=== PATIENT | female | born 1970 | race Caucasian/White ===

== ENCOUNTER 2018-10-17 21:44 | Inpatient (IN) | payer MEDICAID ==
[~2018-10-17] VITALS: Ht 157.5 cm; Wt 66.8 kg
[~2018-10-17 21:44] MED LIST: DEPA500T OR; DEPA500T2 OR; FERR325T OR; HYDROCORTISONE0.5 % TOP; LISI10TA4 OR; MAXA10TA17 OR; PRIN10TA OR; QUET20XRTB OR; ROSU10TA OR; TRAZ50TA OR
[2018-10-17 22:16] LABS: BASO # 0.1 10^3/uL (0.0-0.2); BASO % 0.3 % (0.0-1.0); HEMATOCRIT 39.4 % (36.0-47.0); HEMOGLOBIN 12.1 g/dl (12.0-15.5); LYMPH # 2.6 10^3/uL (1.5-4.5); LYMPH % 5.8 % (24.0-44.0); MEAN CORPUSCULAR HEMOGLOBIN 25.6 pg (27.0-33.0); MEAN CORPUSCULAR HGB CONC 30.7 g/dl (32.0-36.5); MEAN CORPUSCULAR VOLUME 83.5 fl (80.0-96.0); MONO # 1.2 10^3/uL (0.0-0.8); MONO % 2.7 % (0.0-5.0); NEUTROPHILS % 90.2 % (36.0-66.0); PLATELET COUNT, AUTOMATED 924 10^3/uL (150-450); RED BLOOD COUNT 4.72 10^6/uL (4.00-5.40)
[2018-10-17] MEDS ORDERED: diphenhydrAMINE INJ 50MG/ML VIAL (J1200) IV STA (22:16)
[2018-10-17] MEDS ORDERED: HALOPERIDOL 5 MG/ML VIAL (J1630) IV STA (22:16)
[2018-10-17] MEDS ORDERED: POTA1TAB14 PO (22:22)
[2018-10-17] MEDS ORDERED: OXYC1TAB23 PO (22:22)
[2018-10-17] MEDS ORDERED: COUM10TA PO (22:22)
[2018-10-17] MEDS ORDERED: insulin (22:22)
[2018-10-17] MEDS ORDERED: ASPI1TAB PO (22:22)
[2018-10-17] MEDS ORDERED: LANTINJ4 SC (22:22)
[2018-10-17] MEDS ORDERED: COLA100C5 PO (22:22)
[2018-10-17 22:30] LABS: INR 1.36; PROTHROMBIN TIME 16.9 SECONDS (12.1-14.4)
[2018-10-17] MEDS ORDERED: MORPHINE 4 MG/ML 1ML VIAL/SYRINGE (J2270) IV ONE ×2 (22:30→23:45)
[2018-10-17] MEDS ORDERED: NS 1,000 ML IV ONE ×3 (22:30→23:45)
[2018-10-17 22:31] LABS: PARTIAL THROMBOPLASTIN TIME 29.3 SECONDS (25.4-37.6)
[2018-10-17 22:50] LABS: NEUTROPHILS # 41.3 10^3/uL (1.8-7.7)
[2018-10-17 22:51] LABS: WHITE BLOOD COUNT 45.8 10^3/uL (4.0-10.0)
[2018-10-17] MEDS: GASTROGRAFIN SOLUTION 30ML PO SCH ×2 (22:55→23:25)
[2018-10-17 23:01] LABS: ALBUMIN 2.4 GM/DL (3.2-5.2); ALT/SGPT 27 U/L (12-78); BILIRUBIN,DIRECT 0.1 MG/DL (0.0-0.2); BILIRUBIN,TOTAL 0.2 MG/DL (0.2-1.0); BLOOD UREA NITROGEN 9 MG/DL (7-18); CALCIUM LEVEL 8.4 MG/DL (8.5-10.1); CARBON DIOXIDE LEVEL 18 MEQ/L (21-32); CHLORIDE LEVEL 108 MEQ/L (98-107); CREATININE FOR GFR 0.73 MG/DL (0.55-1.30); GLOMERULAR FILTRATION RATE > 60.0 (>58); GLUCOSE, FASTING 257 MG/DL (70-100); LIPASE 231 U/L (73-393); POTASSIUM SERUM 4.7 MEQ/L (3.5-5.1); SODIUM LEVEL 140 MEQ/L (136-145); TOTAL PROTEIN 6.2 GM/DL (6.4-8.2)
[2018-10-17] MEDS ORDERED: ONDANSETRON 4MG/2ML VIAL (J2405) IV ONE (23:45)
[2018-10-18] VITALS (30 sets, daily range): BP systolic 97–150; BP diastolic 64–100
[2018-10-18] MEDS ORDERED: ISOVUE-370 76% 100ML VIAL (Q9967) As Ordered ONE (00:34)
[2018-10-18] MEDS ORDERED: CIPROFLOXACIN 400 MG in APPROPRIATE DILUENT 1 EA IV ONE (02:00)
[2018-10-18] MEDS ORDERED: metroNIDAZOLE 750 MG in APPROPRIATE DILUENT 1 EA IV ONE (02:00)
[2018-10-18] MEDS ORDERED: MORPHINE 4 MG/ML 1ML VIAL/SYRINGE (J2270) IV ONE (02:30)
[2018-10-18] MEDS ORDERED: [UNRECOGNIZED DRUG - CODE] PO (02:44)
[2018-10-18] MEDS ORDERED: SENN8.6T17 PO (02:44)
[2018-10-18] MEDS ORDERED: GAS-80CH PO (02:44)
[2018-10-18] MEDS ORDERED: PHENYLephrine HCL 500 MCG/5 ML (100MCG/ML) SYRINGE (J2370) As Ordered ONE (04:25)
[2018-10-18] MEDS ORDERED: dexameTHASONE 4 MG/ML 1ML VIAL (J1100) As Ordered ONE (04:25)
[2018-10-18] MEDS ORDERED: PROPOFOL 200 MG/20 ML VIAL As Ordered ONE (04:25)
[2018-10-18] MEDS ORDERED: KETAMINE HCL 200 MG/20 ML VIAL As Ordered ONE (04:25)
[2018-10-18] MEDS ORDERED: ONDANSETRON 4MG/2ML VIAL (J2405) As Ordered ONE ×2 (04:25→06:26)
[2018-10-18] MEDS ORDERED: ROCURONIUM BROMIDE 50 MG/5 ML VIAL As Ordered ONE ×2 (04:25→04:35)
[2018-10-18] MEDS ORDERED: fentaNYL 100 MCG/2 ML INJECTION (J3010) As Ordered ONE ×2 (04:25→05:53)
[2018-10-18] MEDS ORDERED: LIDOCAINE 2% INJ 100 MG/5 ML SDV (FOR ANES.) As Ordered ONE (04:25)
[2018-10-18] MEDS ORDERED: MIDAZOLAM INJ 2 MG/2 ML VIAL (J2250) As Ordered ONE (04:25)
[2018-10-18] MEDS ORDERED: HYDROmorphone HCL 2 MG/ML 1ML VIAL (J1170) As Ordered ONE (04:29)
[2018-10-18] MEDS ORDERED: LABETALOL HCL 100 MG/20 ML VIAL As Ordered ONE (04:42)
[2018-10-18] MEDS ORDERED: SUGAMMADEX SODIUM 500 MG/5 ML VIAL (BRIDION) As Ordered ONE (05:06)
[2018-10-18] MEDS ORDERED: NS 1,000 ML IV SCH ×2 (05:36→17:00)
[2018-10-18] MEDS ORDERED: NALBUPHINE HCL 10 MG/ML AMP (J2300) IV PRN (05:45)
[2018-10-18] MEDS ORDERED: EPIDURAL/PCA KEYS XX PRN (05:45)
[2018-10-18] MEDS ORDERED: IPRATROPIUM 0.5MG/ALBUTEROL 2.5MG INH SOL UD 3ML (DUONEB)(J7620) NEB PRN (05:45)
[2018-10-18] MEDS ORDERED: NALOXONE INJ 0.4 MG/1 ML VIAL (J2310) IV PRN (05:45)
[2018-10-18] MEDS: fentaNYL 100 MCG/2 ML INJECTION (J3010) IV PRN ×4 (05:50→06:05)
[2018-10-18] MEDS ORDERED: MORPHINE 10 MG/ML 1ML VIAL (J2270) As Ordered ONE (05:53)
[2018-10-18] MEDS ORDERED: LR 1,000 ML IV SCH (06:00)
[2018-10-18] MEDS ORDERED: ONDANSETRON 4MG/2ML VIAL (J2405) IV PRN (06:00)
[2018-10-18] MEDS: MORPHINE 10 MG/ML 1ML VIAL (J2270) IV PRN ×5 (06:06→06:36)
[2018-10-18 06:12] LABS: HEMATOCRIT 37.3 % (36.0-47.0); HEMOGLOBIN 11.2 g/dl (12.0-15.5); MEAN CORPUSCULAR HEMOGLOBIN 25.2 pg (27.0-33.0); MEAN CORPUSCULAR VOLUME 83.8 fl (80.0-96.0); PLATELET COUNT, AUTOMATED 845 10^3/uL (150-450); RED BLOOD COUNT 4.45 10^6/uL (4.00-5.40)
[2018-10-18] MEDS ORDERED: METOPROLOL 5 MG/5 ML VIAL As Ordered ONE (06:12)
[2018-10-18] MEDS ORDERED: METOPROLOL 5 MG/5 ML VIAL IV ONE (06:15)
[2018-10-18] MEDS ORDERED: VANCOMYCIN HCL 1,000 MG, VIAL MATE ADAPTER 1 EACH in D5W 250 ML IV ONE (06:15)
[2018-10-18] MEDS ORDERED: MORPHINE 1MG/ML IN 0.9% NACL 100ML IV BAG As Ordered ONE (06:26)
[2018-10-18] MEDS: MORPHINE 1MG/ML IN 0.9% NACL 100ML IV BAG IV PRN (06:30)
[2018-10-18] MEDS ORDERED: METOCLOPRAMIDE INJ 10MG/2ML VIAL (J2765) As Ordered ONE (06:36)
[2018-10-18] MEDS: METOCLOPRAMIDE INJ 10MG/2ML VIAL (J2765) IV PRN (06:38)
[2018-10-18 06:48] LABS: BLOOD UREA NITROGEN 8 MG/DL (7-18); CALCIUM LEVEL 7.3 MG/DL (8.5-10.1); CARBON DIOXIDE LEVEL 13 MEQ/L (21-32); CHLORIDE LEVEL 112 MEQ/L (98-107); CREATININE FOR GFR 0.67 MG/DL (0.55-1.30); GLOMERULAR FILTRATION RATE > 60.0 (>58); GLUCOSE, FASTING 213 MG/DL (70-100); POTASSIUM SERUM 5.7 MEQ/L (3.5-5.1); SODIUM LEVEL 138 MEQ/L (136-145)
[2018-10-18 06:53] LABS: WHITE BLOOD COUNT 44.6 10^3/uL (4.0-10.0)
[2018-10-18] MEDS: PROMETHAZINE INJ 25 MG/ML VIAL (J2550) IV PRN (07:35)
[2018-10-18] MEDS ORDERED: PROMETHAZINE INJ 25 MG/ML VIAL (J2550) As Ordered ONE (07:41)
[2018-10-18] MEDS ORDERED: LR 500 ML IV ONE (07:45)
[2018-10-18] MEDS: IPRATROPIUM 0.5MG/ALBUTEROL 2.5MG INH SOL UD 3ML (DUONEB)(J7620) NEB SCH ×3 (08:00→18:21)
[2018-10-18] MEDS: HumaLOG INSULIN (NovoLOG) PER UNIT SC SCH ×3 (08:30→18:02)
[2018-10-18] MEDS ORDERED: ASPIRIN 81 MG ENTERIC TAB PO SCH (09:00)
[2018-10-18] MEDS: KETOROLAC 30 MG/ML VIAL (J1885) IV SCH ×3 (09:04→20:12)
[2018-10-18] MEDS: NS 1,000 ML IV SCH ×2 (09:04→22:40)
[2018-10-18] MEDS: PANTOPRAZOLE 40MG INJ (PROTONIX) (C9113) IV SCH (09:06)
--- NOTE | 2018-10-18 10:25 | PHACANCOPD ---
PHARMACY VANCOMYCIN DOSING Pt Demographics Demographics Patient Age:47 , Weight:66.800 , Gender: female Adjusted Body Weight Date: 10/18/18, Adjusted Body Weight: Kg Vancomycin Vancomycin indication: INTESTINAL PERFORATION Vancomycin Target Ranges: 10-20 mcg/ml Vancomycin Load Y/N: No Load Dose Date Time Vancomycin Load Dose: Date: Time: Vancomycin Dose Date: 10/18/18. Current Vancomycin Dose: [1G IV Q8H] Intermittent Dosing?: No Labs Labs Item Value Date Time White Blood Count 45.8 10^3/uL *H 10/17/182207 White Blood Count 44.6 10^3/uL *H 10/18/18 0551 Blood Urea Nitrogen 9 MG/DL 10/17/182207 Blood Urea Nitrogen 8 MG/DL 10/18/18 0551 Creatinine 0.73 MG/DL 10/17/182207 Creatinine 0.67 MG/DL 10/18/18 0551 Lactic Acid Level 5.1 MMOL/L *H 10/17/182207 Lactic Acid Level 3.8 MMOL/L *H 10/18/18 0204 Lactic Acid Followup at 4 Hours 5.2 MMOL/L *H 10/18/18 0720 Micro Microbiology 10/17/18 Blood Culture, Received Pending Creatinine Clearance Date:10/18/18. Est Creatinine Clearance: [~80.5ml/min]. Pending Labs Vancomycin trough scheduled 10/19/18 @0800, prior to the 4th dose Assessment and Plan Maintaining Current Dose?: Yes Reason for dose change: No Dose Change Pharmacist Note Pharmacist Note Date: 10/18/18. Pharmacist note: Day #1 empiric vancomycin therapy initiated at 1g IV Q8H @0900 for the treatment of an intestinal perforation - aiming for a goal trough of 10-20mcg/ml. The patient was recently hospitalized at [facility] in [place] for bowel necrosis from 08/30/18 - 09/28/18. WBC, LA, and pulse are currently elevated. The patient is afebrile. No PMH of MRSA or vanco use here at [facility]. Blood cultures are currently pending. A vancomycin trough level has been scheduled to be drawn tomorrow, 10/19/18 at 0800, prior to the 4th dose. We will continue to monitor and make dose adjustments if needed. CHRISTI MARCUS PHARMACY Oct 18, 2018 10:25
--- NOTE | 2018-10-18 10:25 | REP ---
REPEAT DICTATION CT ABDOMEN AND PELVIS WITH IV BUT WITHOUT ORAL CONTRAST: HISTORY: Pain. Preliminary report is provided at time of exam by [facility]. CT CONTRAST DOSE: 100 mL of intravenous Isovue [address] FINDINGS: Preliminary digital high risk case manager radiograph demonstrates dilated loops of large and small bowel in the central abdomen consistent with ileus. The lung bases show patchy bibasilar subsegmental discoid atelectatic changes. No pleural effusion is seen. There is a small amount of free intraperitoneal air in the anterior abdomen. Scattered at mid and upper abdominal levels. There are abnormal dilated small bowel loops in the central abdomen involving the jejunum. The loops are dilated and demonstrate moderate mural thickening and hyper-enhancement. There is a segment of one of these jejunal loops that show a focal absence of mural enhancement and this is adjacent to a collection of uncontained mesenteric gas and induration consistent with a site of perforation. A small bowel perforation is suspected. The large intestine is not dilated. The distal small bowel is decompressed. There is a small quantity of ascitic fluid in the pelvic reflections anteriorly. Fatty infiltration of the liver is seen. No focal liver lesion is seen. There is evidence of focal wedge-shaped defect in the perfusion of the spleen posteriorly and superiorly consistent with infarction. There is focal parenchymal volume loss consistent with this being subacute or chronic. There is some adjacent diaphragmatic thickening and fluid, however. In addition, the kidneys are abnormal with cortical scarring in the lower poles bilaterally and focal cortical scarring in the right mid pole decreased contrast perfusion of the left lower pole. These changes may reflect prior vascular insult versus chronic reflux nephropathy. No visceral arterial occlusion or stenosis is seen. No uterine or adnexal pathology is seen. Urinary bladder is empty but unremarkable. IMPRESSION: Bowel perforation. Findings consistent with small bowel perforation with focally absent bowel wall enhancement in one of the jejunal loops. There is inflammation, mural thickening and dilation in adjacent small bowel jejunal loops. This may reflect inflammatory bowel disease. There is some mild adjacent mesenteric adenopathy. Incidental findings include subacute splenic infarction and bilateral principally lower pole cortical scarring affecting the kidneys. Fatty infiltration of the liver is also seen. Electronically Signed by Narendra Alarcon MD 10/18/2018 05:30 P
[2018-10-18 10:59] LABS: ALBUMIN 1.7 GM/DL (3.2-5.2); ALT/SGPT 19 U/L (12-78); BILIRUBIN,TOTAL 0.4 MG/DL (0.2-1.0); TOTAL PROTEIN 4.6 GM/DL (6.4-8.2)
[2018-10-18] MEDS: metroNIDAZOLE 500 MG in APPROPRIATE DILUENT 1 EA IV SCH ×2 (11:30→18:45)
[2018-10-18] MEDS: CIPROFLOXACIN 400 MG in APPROPRIATE DILUENT 1 EA IV SCH (13:06)
[2018-10-18] MEDS: VANCOMYCIN HCL 1,000 MG, VIAL MATE ADAPTER 1 EACH in D5W 250 ML IV SCH (17:34)
[2018-10-19] VITALS (33 sets, daily range): BP systolic 91–146; BP diastolic 60–84; O2SAT 97
[2018-10-19] MEDS: VANCOMYCIN HCL 1,000 MG, VIAL MATE ADAPTER 1 EACH in D5W 250 ML IV SCH (00:30)
[2018-10-19] MEDS: CIPROFLOXACIN 400 MG in APPROPRIATE DILUENT 1 EA IV SCH ×2 (00:30→12:45)
[2018-10-19] MEDS: HumaLOG INSULIN (NovoLOG) PER UNIT SC SCH ×4 (00:45→18:17)
[2018-10-19] MEDS: diphenhydrAMINE INJ 50MG/ML VIAL (J1200) IV PRN ×4 (00:45→20:01)
[2018-10-19] MEDS: IPRATROPIUM 0.5MG/ALBUTEROL 2.5MG INH SOL UD 3ML (DUONEB)(J7620) NEB SCH ×5 (01:50→19:53)
[2018-10-19] MEDS: KETOROLAC 30 MG/ML VIAL (J1885) IV SCH ×2 (02:00→09:00)
[2018-10-19] MEDS: metroNIDAZOLE 500 MG in APPROPRIATE DILUENT 1 EA IV SCH ×3 (02:00→18:24)
[2018-10-19 05:07] LABS: HEMATOCRIT 30.8 % (36.0-47.0); HEMOGLOBIN 9.4 g/dl (12.0-15.5); MEAN CORPUSCULAR HGB CONC 30.5 g/dl (32.0-36.5); MEAN CORPUSCULAR VOLUME 81.9 fl (80.0-96.0); RED BLOOD COUNT 3.76 10^6/uL (4.00-5.40); WHITE BLOOD COUNT 23.7 10^3/uL (4.0-10.0)
[2018-10-19 05:16] LABS: PLATELET COUNT, AUTOMATED 458 10^3/uL (150-450)
[2018-10-19 05:30] LABS: BLOOD UREA NITROGEN 17 MG/DL (7-18); CALCIUM LEVEL 7.5 MG/DL (8.5-10.1); CARBON DIOXIDE LEVEL 18 MEQ/L (21-32); CHLORIDE LEVEL 112 MEQ/L (98-107); CREATININE FOR GFR 0.97 MG/DL (0.55-1.30); GLOMERULAR FILTRATION RATE > 60.0 (>58); GLUCOSE, FASTING 162 MG/DL (70-100); POTASSIUM SERUM 4.5 MEQ/L (3.5-5.1); SODIUM LEVEL 139 MEQ/L (136-145)
[2018-10-19] MEDS: NS 1,000 ML IV SCH ×4 (05:30→15:05)
[2018-10-19] MEDS: ASPIRIN 81 MG CHEW TABLET NG SCH (09:00)
[2018-10-19] MEDS: PANTOPRAZOLE 40MG INJ (PROTONIX) (C9113) IV SCH (09:00)
[2018-10-19] MEDS: MORPHINE 1MG/ML IN 0.9% NACL 100ML IV BAG IV PRN (10:54)
--- NOTE | 2018-10-19 10:58 | REP ---
Portable chest x-ray: Single view. History: Tachycardia. Comparison study: November 14, 2011. Findings: A nasogastric tube is seen looped within the gastric fundus. There are increased markings in the lung bases bilaterally overlying the diaphragms consistent with atelectasis and/or infiltrate. Heart is not enlarged. Lung [place] are otherwise clear. EKG electrodes are seen. Impression: Nasogastric tube looped within the gastric fundus. Bibasilar atelectasis and/or infiltrate pattern. Electronically Signed by Narendra Alarcon MD 10/19/2018 11:18 A
[2018-10-19 11:07] LABS: CPK CREATINE PHOSPHOKINASE 59 U/L (26-192); MB/CK RELATIVE INDEX 2.03 (< OR =4); TROPONIN I < 0.02 NG/ML (< 0.10)
[2018-10-19 11:23] LABS: ABG BASE EXCESS -7.1 (-2.0-2.0); ABG HCO3 18.3 MEQ/L (22.0-26.0); ABG O2 SATURATION 91.7 % (95.0-99.0); ABG PARTIAL PRESSURE CO2 36.4 mmHg (35.0-45.0); ABG PARTIAL PRESSURE O2 65.6 mmHg (75.0-100.0); ABG STANDARD HCO3 18.5 MEQ/L (22.0-26.0); ABG TOTAL CO2 19.4 MEQ/L (22.0-29.0); ABG pH (ARTERIAL) 7.319 UNITS (7.350-7.450)
[2018-10-19] MEDS ORDERED: HEPARIN DRIP 25,000 UNITS in APPROPRIATE DILUENT 1 EA IV SCH (11:56)
[2018-10-19] MEDS ORDERED: HEPARIN SOD (PORCINE) 5000 UNITS/ML VIAL IV PRN (12:00)
--- NOTE | 2018-10-19 13:42 | CR.PDOC ---
General Date of Consultation: Oct 19, 2018 Primary Care Physician: Maisha Smith Attending Physician: Carlos Lobo Jr Consultation PRIMARY CARE PROVIDER: Maisha Smith. ATTENDING: Dr. Lobo. CHIEF COMPLAINT: Abd pain HISTORY OF PRESENT ILLNESS: This is a 47-year-old female past medical history of diabetes mellitus, hypertension, migraines, bipolar disorder, who was recently hospitalized at [facility] from 08/31 to 09/27/18. Patient at the time had complained of epigastric pain, and was transferred there from [facility]. she was noted to have acute mesenteric ischemia. Upon further workup the patient's was noted to have renal/splenic infarcts, as well as a CTA of the abdomen and pelvis/chest noting large thrombus in the descending thoracic aorta . The patient was started on anticoagulation with heparin drip and transitioned to Coumadin. Given her complicated states, conservative measures were entertained, with no surgical intervention given her high risk of further embolization complications. During that time, the patient's did have trouble advance her diet and had a PICC line for TPN, upon which she was transitioned to by mouth intake. The patient was transitioned from Lovenox to Coumadin bridge, and discharged home with this bridge. Per patient, she was: Wednesday and told that her INR is supratherapeutic for which she was to stop taking Coumadin until . The patient presented to the [facility] complaining of significant abdominal pain was noted to have bowel perforation. The patient was rushed emergency surgery, and had exploratory laparotomy and had major small bowel resection. Postop, the patient has been doing well aside from her tachycardia and decreased urine output. The patient denies any chest pain/palpitations/breath. She notes her abdominal pain has significantly improved postop. She denies any complaints. PAST MEDICAL HISTORY: As per HPI PAST SURGICAL HISTORY: Appendectomy SOCIAL HISTORY: Smokes 4-5 cigarettes per day. History of 1-1/2 packs per week 30 years. No alcohol use. No drug use. FAMILY HISTORY: Mother from CVA 2 as well as [place] age 52. Son with brain cancer. ALLERGIES: Please see below. REVIEW OF SYSTEMS: HEENT: Denies sore throat/headache CARDIOVASCULAR: Denies chest pain/palpitations RESPIRATORY: Denies shortness of breath/cough GASTROINTESTINAL: denies nausea/vomiting GENITOURINARY: Denies dysuria/urinary urgency. MUSCULOSKELETAL: Denies myalgias/arthralgias NEUROLOGICAL: Denies any focal weakness HOME MEDICATIONS: Please see below. PHYSICAL EXAMINATION: Vitals: (see below) General: No acute distress, laying comfortably in bed. HEENT: Moist mucous membranes. Neck: No JVD or lymphadenopathy Cardiac: Tachycardic. Regular rhythm., No murmurs Pulm: Clear to auscultation b/l. No wheezing, rhonchi Abd: Mild tenderness at the incision sites. KJ drain with serous drainage. Mildly distended. Bandage is clean and dry. + BS Ext: No edema or cyanosis LABORATORY DATA: See below. IMAGING: CT abdomen and pelvis on 10/17/18 IMPRESSION: Bowel perforation. Findings consistent with small bowel perforation with focally absent bowel wall enhancement in one of the jejunal loops. There is inflammation, mural thickening and dilation in adjacent small bowel jejunal loops. This may reflect inflammatory bowel disease. There is some mild adjacent mesenteric adenopathy. Incidental findings include subacute splenic infarction and bilateral principally lower pole cortical scarring affecting the kidneys. Fatty infiltration of the liver is also seen. ASSESSMENT/PLAN: 1. Bowel perforation, status post exploratory laparoscopy, with excision of 3/4 of the small bowel. Patient states she feels much better today. Her abdominal pain is better controlled. She was recently admitted to [facility] last month, where she was found to have acute mesenteric ischemia, with extensive large vessel clots, for which the decision was made for conservative measures given her very high risk of further embolization and complications, the patient was anticoagulated with Coumadin. Patient is currently on Cipro/Flagyl, leukocytosis improving. Lactic acidosis is improving. Management per Dr. Craig martinez. 2. 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 The patient was off Coumadin, however on Wednesday she was told that her INR is supratherapeutic and was told to hold it until . The exact cause of the patient's hypercoagulable states unknown. Patient was instructed to follow-up with hematology/oncology for further workup. It was noted that the patient's did not have any abscesses signs of malignancy, however CA-125 was mildly elevated and nonspecific [facility]. Her antiphospholipid/cardiolipin AB testing was negative and her CA 199 is negative. I have discussed with Dr. Lobo with recommendations for starting the patient on heparin drip 500 units for 24 hours, with no bolus given her recent surgery. 3. Sinus tachycardia likely secondary to the above. Cardiac enzymes negative. Will obtain echocardiogram. 4. Lactic acidosis secondary to the above. Improving. 5. History of diabetes mellitus on sliding scale insulin 6. Hypertension controlled 7. History of migraines stable 8. History of bipolar disorder 9. History of fibromyalgia 10. History of PTSD DVT prophylaxis: Heparin drip Overall prognosis guarded Vital Signs/I&O Vital Signs Date Time Temp Pulse Resp B/P (MAP) Pulse Ox O2 Delivery O2 Flow Rate FiO2 10/19/18 13:11 97 Nasal Cannula 2.0 10/19/18 09:00 130 121/75 (90) 10/19/18 08:00 98.2 16 I&O- Last 24 Hours up to 6 AM 10/19/18 06:00 Intake Total 5372.5 ml Output Total 1402 ml Balance 3970.5 ml Laboratory Data Labs 24H Laboratory Tests 2 10/18/18 17:33: Bedside Glucose (Misc Panel) 159H 10/19/18 00:33: Bedside Glucose (Misc Panel) 164H 10/19/18 04:41: Nucleated Red Blood Cells % (auto) 0.0, Anion Gap 9, Glomerular Filtration Rate > 60.0, Blood Urea Nitrogen 17#, Creatinine 0.97, Sodium Level 139, Potassium Level 4.5#, Chloride Level 112H, Carbon Dioxide Level 18L, Calcium Level 7.5L 10/19/18 08:03: Vancomycin Level Trough 28.4*H 10/19/18 10:32: Lactic Acid Level 2.9*H, Total Creatine Kinase 59, Creatine Kinase MB 1.0, Creatine Kinase MB Relative Index 2.03, Troponin I < 0.02 10/19/18 11:07: Blood Gas Bicarbonate Standard 18.5L, Arterial Blood pH 7.319L, Arterial Blood Partial Pressure CO2 36.4, Arterial Blood Partial Pressure O2 65.6L, Arterial Blood Total CO2 19.4L, Arterial Blood HCO3 18.3L, Arterial Blood Base Excess - 7.1L, Arterial Blood Oxygen Saturation 91.7L 10/19/18 12:25: Bedside Glucose (Misc Panel) 132H 10/19/18 12:26: Activated Partial Thromboplast Time 26.5 CBC/BMP Laboratory Tests 10/19/18 04:41 Red Blood Count 3.76 L, Mean Corpuscular Volume 81.9, Mean Corpuscular Hemoglobin 25.0 L, Mean Corpuscular Hemoglobin Concent 30.5 L, Red Cell Distribution Width 16.8 H, Calcium Level 7.5 L Microbiology Microbiology 10/17/18 Blood Culture - Preliminary, Resulted No growth after 24 hours . All specim... Allergies Coded Allergies: Penicillins (Verified Allergy, Unknown, 01/01/13) Penicillins Cross Reactors (Verified Allergy, Unknown, 01/01/13) Home Medications Scheduled Aspirin (Aspirin 81) 81 Mg Tab, 81 MG PO DAILY, (Reported) Insulin Glargine (Lantus Solostar) 100 Unit/Ml Inj, 10 UNIT SC QHS, (Reported) Warfarin Sod (Coumadin) 10 Mg Tab, 4 MG PO QHS, (Reported) [insulin] , AC, (Reported) sliding scale Scheduled PRN (Pain Relief Extra Strengt) 500 Mg Tab, 500 MG PO Q4H PRN for PAIN, (Reported) Docusate Sodium (Colace) 100 Mg Cap, 100 MG PO BID PRN for CONSTIPATION, (Reported) Oxycodone/Acetaminophen (Oxycodone/Acetaminophen 5-325 mg) 1 Tab Tab, 1 TAB PO Q ID PRN for pain, (Reported) Senna (Senna Laxative) 8.6 Mg Tab, 8.6 MG PO DAILY PRN for CONSTIPATION, (Reported) Simethicone (Gas-X) 80 Mg Chw, 80 MG PO QID PRN for INDIGESTION, (Reported) NIC OMER MD Oct 19, 2018 13:42
[2018-10-19 14:10] LABS: HEMATOCRIT 26.3 % (36.0-47.0); HEMOGLOBIN 8.1 g/dl (12.0-15.5); MEAN CORPUSCULAR HEMOGLOBIN 25.3 pg (27.0-33.0); MEAN CORPUSCULAR HGB CONC 30.8 g/dl (32.0-36.5); MEAN CORPUSCULAR VOLUME 82.2 fl (80.0-96.0); PLATELET COUNT, AUTOMATED 389 10^3/uL (150-450)
[2018-10-19 14:40] LABS: ATYPICAL LYMPH 1 % (0-5); LYMPHOCYTES 8 % (16-52); MONOCYTES 1 % (0-8); NEUTROPHILS 74 % (35-75); PLATELET ESTIMATE NORMAL (NORMAL)
[2018-10-19 14:41] LABS: TOXIC VACUOLATION 2+
[2018-10-19 14:42] LABS: HYPOCHROMASIA 1+
[2018-10-19 14:43] LABS: ALBUMIN 1.2 GM/DL (3.2-5.2); ALT/SGPT 12 U/L (12-78); BILIRUBIN,TOTAL 0.3 MG/DL (0.2-1.0); BLOOD UREA NITROGEN 20 MG/DL (7-18); CALCIUM LEVEL 7.6 MG/DL (8.5-10.1); CARBON DIOXIDE LEVEL 17 MEQ/L (21-32); CHLORIDE LEVEL 112 MEQ/L (98-107); CREATININE FOR GFR 0.95 MG/DL (0.55-1.30); GLOMERULAR FILTRATION RATE > 60.0 (>58); GLUCOSE, FASTING 142 MG/DL (70-100); POTASSIUM SERUM 4.7 MEQ/L (3.5-5.1); SODIUM LEVEL 139 MEQ/L (136-145); TOTAL PROTEIN 4.3 GM/DL (6.4-8.2)
[2018-10-19] MEDS: HEPARIN DRIP 25,000 UNITS in APPROPRIATE DILUENT 1 EA IV SCH (15:19)
--- NOTE | 2018-10-19 16:07 | IPNPDOC ---
Date Seen The patient was seen on 10/19/18. Progress Note SUBJECTIVE: Patient was seen and examined today. She is post-op day one for bowel resection secondary to perforation. She currently denies any pain and states she is feeling well. She continues to have low urine output. Records from her hospital stay at [facility] have been obtained. Patient was previously found to have acute mesenteric ischemia. Her CTA at the time revealed a large thrombus beginning in the proximal descending thoracic aorta and extending into the distal descending aorta. Patient has had a hypercoagulable workup completed at [facility] which was unrevealing. She did have an mildly elevated CA-125. Today she continues to remain tachycardiac with stable blood pressure. She remains afebrile. Patient does complain of mild shortness of breath. She denies any chills, nausea, or chest pain. OBJECTIVE PHYSICAL EXAMINATION: VITAL SIGNS: Please see below. GENERAL: Patient is awake, alert, and oriented. She appears in no acute distress. She is laying comfortably in bed. She is conversive. HEENT: Atraumatic, normocephalic. Eyes are non-icteric. Trachea is midline. Nasogastric tube is in place and patent CARDIOVASCULAR: Regular rhythm with tachycardiac rate. No clicks, rubs, or murmurs noted. No JVD or carotid bruits. RESPIRATORY: Slight bibasilar crackles. Good respiratory effort. No wheezes, rhonci, or rales ABDOMINAL: KJ drain in place. Abdomen is soft, nondistended, nontender to palpation. EXTREMITIES: Void of edema. 2+ posterior tibial pulses bilaterally. 2+ radial pulses bilaterally LABORATORY DATA, IMAGING STUDIES, MICROBIOLOGY: Please see below. DVT prophylaxis ordered?: YES ASSESSMENT AND PLAN: 1. Small Bowel Perforation s/p exploratory laparotomy w/ small bowel resection post-op day 1 -Patient post-op day 1. She currently has no complaints and states her pain is well controlled. -Currently receiving cipro/flagyl -Vancomycin discontinued -Lactic acidosis is resolving. Continue to monitor -NG tube in place. Patient to remain NPO w/ exception to ice chips -Incentive Spirometry 2. Oliguria -Patient has continued to have low urine output. Her fluids have been increased to 250ml/hr. -Kidney function remains stable and unchanged. Will continue to monitor Cr -Discontinue nephotoxic agents including Vancomycin and Toradol -Albumin 3. Sinus Tachycardia -Patient has been tachycardiac since her admittance. She denies any chest pain -Patient is receiving IV fluids for possible hypovolemia. -Hospitalist service has been consulted and is following patient -Cardiac marker panel negative, EKG revealed sinus tachycardia 4. Anemia -Hbg today 8. Patient will receive PRBC. -No signs of blood loss. Possibly secondary to dilution 5. Large vessel thrombosis -Patient was recently seen at [facility] and found to have thrombosis of proximal descending thoracic aorta extending into distal descending aorta -Patient will receive heparin VS, I&O, 24H, Fishbone Vital Signs/I&O Vital Signs Date Time Temp Pulse Resp B/P (MAP) Pulse Ox O2 Delivery O2 Flow Rate FiO2 10/19/18 13:11 97 Nasal Cannula 2.0 10/19/18 09:00 130 121/75 (90) 10/19/18 08:00 98.2 16 I&O- Last 24 Hours up to 6 AM 10/19/18 06:00 Intake Total 5372.5 ml Output Total 1402 ml Balance 3970.5 ml Laboratory Data 24H LABS Laboratory Tests 2 10/18/18 17:33: Bedside Glucose (Misc Panel) 159H 10/19/18 00:33: Bedside Glucose (Misc Panel) 164H 10/19/18 04:41: Nucleated Red Blood Cells % (auto) 0.0, Anion Gap 9, Glomerular Filtration Rate > 60.0, Blood Urea Nitrogen 17#, Creatinine 0.97, Sodium Level 139, Potassium Level 4.5#, Chloride Level 112H, Carbon Dioxide Level 18L, Calcium Level 7.5L 10/19/18 08:03: Vancomycin Level Trough 28.4*H 10/19/18 10:32: Lactic Acid Level 2.9*H, Total Creatine Kinase 59, Creatine Kinase MB 1.0, Creatine Kinase MB Relative Index 2.03, Troponin I < 0.02 10/19/18 11:07: Blood Gas Bicarbonate Standard 18.5L, Arterial Blood pH 7.319L, Arterial Blood Partial Pressure CO2 36.4, Arterial Blood Partial Pressure O2 65.6L, Arterial Blood Total CO2 19.4L, Arterial Blood HCO3 18.3L, Arterial Blood Base Excess - 7.1L, Arterial Blood Oxygen Saturation 91.7L 10/19/18 12:25: Bedside Glucose (Misc Panel) 132H 10/19/18 12:26: Activated Partial Thromboplast Time 26.5 10/19/18 13:57: Nucleated Red Blood Cells % (auto) 0.0, Neutrophils 74, Band Neutrophils 16H, Lymphocytes (Manual) 8L, Monocytes (Manual) 1, Atypical Lymphocytes 1, Toxic Vacuolation 2+, Platelet Estimate NORMAL, Hypochromasia 1+, Anion Gap 10, Glomerular Filtration Rate > 60.0, Blood Urea Nitrogen 20H, Creatinine 0.95, Sodium Level 139, Potassium Level 4.7, Chloride Level 112H, Carbon Dioxide Level 17L, Calcium Level 7.6L, Aspartate Amino Transf (AST/SGOT) 19, Alanine Aminotransferase (ALT/SGPT) 12, Alkaline Phosphatase 85, Total Bilirubin 0.3, Total Protein 4.3L, Albumin 1.2#L, Albumin/Globulin Ratio 0.39L 10/19/18 15:07: CBC/BMP Laboratory Tests 10/19/18 04:41 Red Blood Count 3.76 L, Mean Corpuscular Volume 81.9, Mean Corpuscular Hemoglobin 25.0 L, Mean Corpuscular Hemoglobin Concent 30.5 L, Red Cell Distribution Width 16.8 H, Calcium Level 7.5 L 10/19/18 13:57 Red Blood Count 3.20 L, Mean Corpuscular Volume 82.2, Mean Corpuscular H emoglobin 25.3 L, Mean Corpuscular Hemoglobin Concent 30.8 L, Red Cell Distribution Width 17.0 H, Calcium Level 7.6 L, Aspartate Amino Transf (AST/SGOT) 19, Alanine Aminotransferase (ALT/SGPT) 12, Alkaline Phosphatase 85, Total Bilirubin 0.3, Total Protein 4.3 L, Albumin 1.2 #L Microbiology Microbiology 10/17/18 Blood Culture - Preliminary, Resulted No growth after 24 hours . All specim... GME ATTESTATION GME ATTESTATION My faculty preceptor for this patient encounter was physically present during the encounter and was fully available. All aspects of the patient interview, examination, medical decision making process, and medical care plan development were reviewed and approved by the faculty preceptor. The faculty preceptor is aware and concurs with the plan as stated in the body of this note and will attest to such by his/her cosignature. OXANA BARBER DO Oct 19, 2018 15:51
--- NOTE | 2018-10-19 17:25 | ECGEPIP ---
Stationary ECG Study [facility] - ED Test Date: 2018-10-18 Pat Name: AMANDA PADILLA Department: Room: [place] [address] Gender: F Bowl Topper: MARCIAL : 1970 Requested By: MASOOD MILLER Order Number: [id number] Reading MD: Trinity Cardozo Measurements Intervals [place] Rate: 106 P: 10 ME: 112 QRS: -1 QRSD: 73 T: 46 QT: 328 QTc: 436 Interpretive Statements SINUS TACHYCARDIA WITH SHORT ME INTERVAL LOW QRS VOLTAGE IN PRECORDIAL LEADS MODERATE ST DEPRESSION BASELINE ARTIFACT LIMITS INTERPRETATION NO PRIOR FOR COMPARISON Electronically Signed On 10-19-2018 17:25:20 EST by Trinity Cardozo
[2018-10-19] MEDS: MORPHINE 4 MG/ML 1ML VIAL/SYRINGE (J2270) IV PRN (20:01)
[2018-10-19 20:30] LABS: BLOOD UREA NITROGEN 20 MG/DL (7-18); CALCIUM LEVEL 7.6 MG/DL (8.5-10.1); CARBON DIOXIDE LEVEL 18 MEQ/L (21-32); CHLORIDE LEVEL 112 MEQ/L (98-107); CREATININE FOR GFR 0.84 MG/DL (0.55-1.30); GLOMERULAR FILTRATION RATE > 60.0 (>58); GLUCOSE, FASTING 115 MG/DL (70-100); POTASSIUM SERUM 4.4 MEQ/L (3.5-5.1); SODIUM LEVEL 139 MEQ/L (136-145)
[2018-10-19 21:42] LABS: HEMATOCRIT 34.1 % (36.0-47.0); MEAN CORPUSCULAR HEMOGLOBIN 26.3 pg (27.0-33.0); MEAN CORPUSCULAR HGB CONC 31.7 g/dl (32.0-36.5); PLATELET COUNT, AUTOMATED 364 10^3/uL (150-450); RED BLOOD COUNT 4.11 10^6/uL (4.00-5.40); WHITE BLOOD COUNT 16.3 10^3/uL (4.0-10.0)
[2018-10-19 21:47] LABS: HEMOGLOBIN 10.8 g/dl (12.0-15.5)
--- NOTE | 2018-10-19 22:06 | ECHO ---
DATE OF PROCEDURE: 10/19/2018 REFERRING PHYSICIAN: Dr. Lobo PATIENT LOCATION: Room 3204 REASON FOR ECHOCARDIOGRAM: Abnormal EKG. 2D MEASUREMENTS: IVS: 1.1 cm LV: 4.6 cm LVPW: 0.9 cm LA: 3.3 cm Aorta: 2.7 cm IVC: 1.9 cm DOPPLER MEASUREMENTS: Peak velocity across the aortic valve: 1.7 m/s Peak gradient across the aortic valve: 12 mmHg Mean gradient across the aortic valve: 7 mmHg Mitral E: 1.1, Mitral A: 1.4 with a ratio of 0.7 Maximum tricuspid valve velocity: 2.5 m/s 2D COMMENTS: 1. Normal left ventricular size, wall thickness and normal global left ventricular systolic function. The estimated global left ventricular systolic ejection fraction is 65 to 70%. 2. Normal left atrium. Normal right atrium and right ventricle. 3. The atrial septum appeared to be normal without evidence of defect or shunt. 4. Normal aortic root. 5. No pericardial effusion seen. 6. No pericardial effusion seen. 7. Minimally calcified aortic valve with normal leaflet excursion. Mildly calcified mitral annulus with normal anterior mitral valve leaflet motion. Normal tricuspid valve. The pulmonic valve as well as the proximal pulmonary artery branches also appeared to be normal. 8. The inferior vena cava was normal in size, central venous pressure is most likely normal. DOPPLER: It detects trace mitral regurgitation, trace to mild tricuspid regurgitation, trace pulmonic regurgitation. The calculated pulmonary artery systolic pressure varies between 30 to 40 mmHg. Assessment of the left ventricular diastolic function revealed impaired relaxation. IMPRESSION: 1. Normal global left ventricular systolic function. There are features of left ventricular diastolic dysfunction manifested by abnormal relaxation. 2. Aortic valve sclerosis with trivial aortic stenosis, but no aortic regurgitation. 3. Mitral annulus calcification with trace mitral regurgitation. 4. Trace to mild tricuspid regurgitation with probably mild pulmonary hypertension.
[2018-10-19] MEDS: HEPARIN SOD (PORCINE) 5000 UNITS/ML VIAL IV PRN (22:23)
[2018-10-20] VITALS (19 sets, daily range): BP systolic 123–162; BP diastolic 71–87
[2018-10-20] MEDS: MORPHINE 4 MG/ML 1ML VIAL/SYRINGE (J2270) IV PRN ×10 (00:34→23:56)
[2018-10-20] MEDS: HumaLOG INSULIN (NovoLOG) PER UNIT SC SCH ×5 (00:35→23:55)
[2018-10-20] MEDS: NS 1,000 ML IV SCH ×2 (00:35→03:53)
[2018-10-20] MEDS: diphenhydrAMINE INJ 50MG/ML VIAL (J1200) IV PRN (00:50)
[2018-10-20] MEDS: IPRATROPIUM 0.5MG/ALBUTEROL 2.5MG INH SOL UD 3ML (DUONEB)(J7620) NEB SCH ×4 (01:01→19:45)
[2018-10-20] MEDS: CIPROFLOXACIN 400 MG in APPROPRIATE DILUENT 1 EA IV SCH ×3 (01:20→23:57)
[2018-10-20] MEDS: metroNIDAZOLE 500 MG in APPROPRIATE DILUENT 1 EA IV SCH ×3 (02:20→17:47)
[2018-10-20] MEDS: PROMETHAZINE INJ 25 MG/ML VIAL (J2550) IV PRN (04:06)
[2018-10-20 04:42] LABS: HEMATOCRIT 31.6 % (36.0-47.0); HEMOGLOBIN 10.2 g/dl (12.0-15.5); MEAN CORPUSCULAR HEMOGLOBIN 26.2 pg (27.0-33.0); MEAN CORPUSCULAR HGB CONC 32.3 g/dl (32.0-36.5); PLATELET COUNT, AUTOMATED 329 10^3/uL (150-450); WHITE BLOOD COUNT 13.5 10^3/uL (4.0-10.0)
[2018-10-20 04:48] LABS: BLOOD UREA NITROGEN 18 MG/DL (7-18); CARBON DIOXIDE LEVEL 20 MEQ/L (21-32); CHLORIDE LEVEL 110 MEQ/L (98-107); CREATININE FOR GFR 0.78 MG/DL (0.55-1.30); GLOMERULAR FILTRATION RATE > 60.0 (>58); GLUCOSE, FASTING 127 MG/DL (70-100); POTASSIUM SERUM 3.9 MEQ/L (3.5-5.1); SODIUM LEVEL 140 MEQ/L (136-145)
[2018-10-20] MEDS: HEPARIN SOD (PORCINE) 5000 UNITS/ML VIAL IV PRN ×2 (05:05→11:31)
--- NOTE | 2018-10-20 09:06 | REP ---
PORTABLE CHEST X-RAY: Single view. 06:50 a.m. film. HISTORY: Evaluate for fluid overload. COMPARISON STUDY: October 19, 2018 10:26 a.m. FINDINGS: Nasogastric tube is again noted in the upper abdomen. Oxygen delivery tubing is seen. EKG monitoring electrodes are noted. There are coarse bilateral pulmonary parenchymal opacities consistent with atelectasis and infiltrates. These are more prominent than on yesterday's radiograph. There is no evidence of pleural effusion. Cardiomediastinal silhouette is unchanged. Pulmonary vasculature is not increased. IMPRESSION: Increased pulmonary opacities bilaterally consistent with atelectasis and/or infiltrates. No evidence of pleural effusion or pulmonary edema. Electronically Signed by Narendra Alarcon MD 10/20/2018 11:26 A
[2018-10-20] MEDS: PANTOPRAZOLE 40MG INJ (PROTONIX) (C9113) IV SCH (09:07)
[2018-10-20] MEDS: ASPIRIN 81 MG CHEW TABLET NG SCH (09:07)
[2018-10-20] MEDS ORDERED: FUROSEMIDE 20 MG/2 ML VIAL (J1940) IV ONE (09:30)
[2018-10-20] MEDS: CHLORASEPTIC SPRAY MT PRN ×2 (10:34→19:32)
[2018-10-20 11:18] LABS: ALBUMIN 1.3 GM/DL (3.2-5.2); ALT/SGPT 10 U/L (12-78); BILIRUBIN,TOTAL 0.6 MG/DL (0.2-1.0); BLOOD UREA NITROGEN 19 MG/DL (7-18); CALCIUM LEVEL 7.1 MG/DL (8.5-10.1); CARBON DIOXIDE LEVEL 18 MEQ/L (21-32); CHLORIDE LEVEL 113 MEQ/L (98-107); CREATININE FOR GFR 0.76 MG/DL (0.55-1.30); GLOMERULAR FILTRATION RATE > 60.0 (>58); GLUCOSE, FASTING 113 MG/DL (70-100); POTASSIUM SERUM 3.8 MEQ/L (3.5-5.1); SODIUM LEVEL 140 MEQ/L (136-145); TOTAL PROTEIN 4.5 GM/DL (6.4-8.2)
--- NOTE | 2018-10-20 11:58 | IPNPDOC ---
Date Seen The patient was seen on 10/20/18. Progress Note SUBJECTIVE: Patient was seen and examined today. She is post-op day 2 for bowel resection surgery secondary to intestinal perforation. Patient continues to report improvement in pain. She denies any fevers or chills. She denies any nausea or vomiting. She does complain of a slight sore throat/irritation from her nasogastric tube. She denies any significant abdominal pain with exception to increased movement. She does complain of some shortness of breath which started yesterday. OBJECTIVE PHYSICAL EXAMINATION: VITAL SIGNS: Please see below. GENERAL: Patient is awake alert and oriented. She appears in no acute distress. She is lying comfortably in bed. HEENT: Atraumatic, normocephalic. Eyes are non-icteric. Trachea is midline. NG tube is is place. Examination of posterior pharynx reveals slight erythema without exudate or drainage. CARDIOVASCULAR: Tachycardic on auscultation. Regular rhythm. No clicks, rubs, or murmurs noted. No JVD or carotid bruits. RESPIRATORY: Slight bibasilar crackles increased slightly from yesterdays exam. Good respiratory effort. Currently on 2L nasal cannula with O2 saturations of 98% ABDOMINAL: Soft, nondistended. Midline incision present and clear of drainage or erythema. KJ drain currently in place. EXTREMITIES: Slightly more edematous. Non-pitting. 2+ radial and posterior tibial pulses bilaterally PSYCHOLOGICAL: Mood and affect appear appropriate LABORATORY DATA, IMAGING STUDIES, MICROBIOLOGY: Please see below. Echocardiogram: Normal global left ventricular systolic function. Aortic valve sclerosis with trivial aortic stenosis, no aortic regurgitation. Mitral annulus calcification with trace mitral regurgitation. Trace to mild tricuspid regurgitation with probable mild pulmonary hypertension DVT prophylaxis ordered?: yes ASSESSMENT AND PLAN: 1. Small bowel perforation s/p exploratory laparotomy w/ small bowel resection post-op day 2 -Patient is post-op day 2. She continues to note improvement in her pain. -Patients white count is trending down. She remains afebrile although her temperature has come up to 100.0. Continue with cipro/flagyl for time being. Will trend white count. -Lactic acidosis resolving likely secondary to hypoperfusion -NG tube is still in place. Patient will remain NPO w/ exception to ice chips 2. Oliguria -Patient has had decreased urine output. She has received aggressive fluid hydration with some improvement in urine output -Kidney function continues to remain stable. Will continue to monitor Cr -Nephrology has been consulted. Recommendations are appreciated. Current plan to decrease fluid rate and consider additional lasix if patient continues to be oliguric -Patient received albumin yesterday with slight improvement in urine output. Ablumin remains low. Will administer an additional 25 albumin. Repeat at 1800. 3. Sinus Tachycardia -Patient remains tachycardiac. She has been aggressively hydrated without much decrease in her heart rate. She does appear slightly more edematous today with some shortness of breath -Patient received 20 lasix. Fluids will be decreased -Hospitalist have been consulted. Recommendations are appreciated 4. Anemia -Patient had slight decrease in Hgb. She received 1 unit of PRBC. Her Hbg improved and has remain stable. Consider possible anastomotic leak if Hbg continues do drop 5. Large Vessel Thrombosis -Patient is currently on heparin. Will continue. -Hospitalist have been consulted. Recommendations are appreciated VS, I&O, 24H, Fishbone Vital Signs/I&O Vital Signs Date Time Temp Pulse Resp B/P (MAP) Pulse Ox O2 Delivery O2 Flow Rate FiO2 10/20/18 10:00 112 20 130/79 (96) 96 Nasal Cannula 2.0 10/20/18 08:00 97.9 I&O- Last 24 Hours up to 6 AM 10/20/18 06:00 Intake Total 4255 ml Output Total 975 ml Balance 3280 ml Laboratory Data 24H LABS Laboratory Tests 2 10/19/18 12:25: Bedside Glucose (Misc Panel) 132H 10/19/18 12:26: Activated Partial Thromboplast Time 26.5 10/19/18 13:57: Nucleated Red Blood Cells % (auto) 0.0, Neutrophils 74, Band Neutrophils 16H, Lymphocytes (Manual) 8L, Monocytes (Manual) 1, Atypical Lymphocytes 1, Toxic Vacuolation 2+, Platelet Estimate NORMAL, Hypochromasia 1+, Anion Gap 10, Glomerular Filtration Rate > 60.0, Blood Urea Nitrogen 20H, Creatinine 0.95, Sodium Level 139, Potassium Level 4.7, Chloride Level 112H, Carbon Dioxide Level 17L, Calcium Level 7.6L, Aspartate Amino Transf (AST/SGOT) 19, Alanine Aminotransferase (ALT/SGPT) 12, Alkaline Phosphatase 85, Total Bilirubin 0.3, Total Protein 4.3L, Albumin 1.2#L, Albumin/Globulin Ratio 0.39L 10/19/18 15:07: Lactic Acid Followup at 4 Hours 2.5*H 10/19/18 17:40: Bedside Glucose (Misc Panel) 126H 10/19/18 19:54: Anion Gap 9, Glomerular Filtration Rate > 60.0, Blood Urea Nitrogen 20H, Creatinine 0.84, Sodium Level 139, Potassium Level 4.4, Chloride Level 112H, Carbon Dioxide Level 18L, Calcium Level 7.6L 10/19/18 21:30: Nucleated Red Blood Cells % (auto) 0.0, Activated Partial Thromboplast Time 34.2 10/20/18 00:29: Bedside Glucose (Misc Panel) 124H 10/20/18 04:04: Nucleated Red Blood Cells % (auto) 0.0, Activated Partial Thromboplast Time 39.2H, Anion Gap 10, Glomerular Filtration Rate > 60.0, Blood Urea Nitrogen 18, Creatinine 0.78, Sodium Level 140, Potassium Level 3.9, Chloride Level 110H, Carbon Dioxide Level 20L, Calcium Level 7.0L 10/20/18 06:03: Bedside Glucose (Misc Panel) 113H 10/20/18 10:43: Activated Partial Thromboplast Time 38.5H, Anion Gap 9, Glomerular Filtration Rate > 60.0, Blood Urea Nitrogen 19H, Creatinine 0.76, Sodium Level 140, Potassium Level 3.8, Chloride Level 113H, Carbon Dioxide Level 18L, Calcium Level 7.1L, Aspartate Amino Transf (AST/SGOT) 10, Alanine Aminotransferase (ALT/SGPT) 10L, Alkaline Phosphatase 82, Total Bilirubin 0.6#, Total Protein 4.5L, Albumin 1.3L, Albumin/Globulin Ratio 0.41L CBC/BMP Laboratory Tests 10/19/18 13:57 Red Blood Count 3.20 L, Mean Corpuscular Volume 82.2, Mean Corpuscular Hemoglobin 25.3 L, Mean Corpuscular Hemoglobin Concent 30.8 L, Red Cell Distribution Width 17.0 H, Calcium Level 7.6 L, Aspartate Amino Transf (AST/SGOT) 19, Alanine Aminotransferase (ALT/SGPT) 12, Alkaline Phosphatase 85, Total Bilirubin 0.3, Total Protein 4.3 L, Albumin 1.2 #L 10/19/18 19:54 Calcium Level 7.6 L 10/19/18 21:30 Red Blood Count 4.11, Mean Corpuscular Volume 83.0, Mean Corpuscular Hemoglobin 26.3 L, Mean Corpuscular Hemoglobin Concent 31.7 L, Red Cell Distribution Width 16.0 H 10/20/18 04:04 Red Blood Count 3.90 L, Mean Corpuscular Volume 81.0, Mean Corpuscular Hemoglobin 26.2 L, Mean Corpuscular Hemoglobin Concent 32.3, Red Cell Distribution Width 16.3 H, Calcium Level 7.0 L 10/20/18 10:43 Calcium Level 7.1 L, Aspartate Amino Transf (AST/SGOT) 10, Alanine Aminotransferase (ALT/SGPT) 10 L, Alkaline Phosphatase 82, Total Bilirubin 0.6 #, Total Protein 4.5 L, Albumin 1.3 L Microbiology Microbiology 10/17/18 Blood Culture - Preliminary, Resulted No Growth after 48 hours. All Specime... GME ATTESTATION GME ATTESTATION My faculty preceptor for this patient encounter was physically present during the encounter and was fully available. All aspects of the patient interview, examination, medical decision making process, and medical care plan development were reviewed and approved by the faculty preceptor. The faculty preceptor is aware and concurs with the plan as stated in the body of this note and will attest to such by his/her cosignature. OXANA BARBER DO Oct 20, 2018 11:58
--- NOTE | 2018-10-20 13:00 | IPNPDOC ---
Text Note Date of Service The patient was seen on 10/20/18. NOTE Subjective: Patient feels better today. States her abdominal pain is reasonably controlled. Denies any acute changes overnight. Advised patient to utilize incentive spirometer. PHYSICAL EXAMINATION: Vitals: (see below) General: No acute distress, laying comfortably in bed. HEENT: Moist mucous membranes. Neck: No JVD or lymphadenopathy Cardiac: Tachycardic. Regular rhythm., No murmurs Pulm: Clear to auscultation b/l. No wheezing, rhonchi Abd: Mild tenderness at the incision sites. KJ drain with serous drainage. Mildly distended. Incision site clean and dry. + BS Ext: No edema or cyanosis LABORATORY DATA: See below. IMAGING: CT abdomen and pelvis on 10/17/18 IMPRESSION: Bowel perforation. Findings consistent with small bowel perforation with focally absent bowel wall enhancement in one of the jejunal loops. There is inflammation, mural thickening and dilation in adjacent small bowel jejunal loops. This may reflect inflammatory bowel disease. There is some mild adjacent mesenteric adenopathy. Incidental findings include subacute splenic infarction and bilateral principally lower pole cortical scarring affecting the kidneys. Fatty infiltration of the liver is also seen. Chest x-ray on 10/20/18 IMPRESSION: Increased pulmonary opacities bilaterally consistent with atelectasis and/or infiltrates. No evidence of pleural effusion or pulmonary edema. ASSESSMENT/PLAN: 1. Bowel perforation, status post exploratory laparoscopy, with excision of 3/4 of the small bowel. Patient states she feels much better today. Her abdominal pain is better controlled. She was recently admitted to [facility] last month, where she was found to have acute mesenteric ischemia, with extensive large vessel clots, for which the decision was made for conservative measures given her very high risk of further embolization and complications, the patient was anticoagulated with Coumadin. Patient is currently on Cipro/Flagyl, leukocytosis improving. Lactic acidosis is improving. Management per Dr. Lobo. 2. Large vessel thrombosis, with notable large clots in the thoracic aorta her [facility] discharge summary, with splenic/renal infarcts. The patient was off Coumadin, however on Wednesday she was told that her INR is supratherapeutic and was told to hold it until . The exact cause of the patient's hypercoagulable states unknown. Patient was instructed to follow-up with hematology/oncology for further workup. It was noted that the patient's did not have any abscesses signs of malignancy, however CA-125 was mildly elevated and nonspecific [place]'s. Her antiphospholipid/cardiolipin AB testing was negative and her CA 199 is negative. I have discussed with Dr. Lobo with recommendations for starting the patient on heparin drip 500 units for 24 hours, with no bolus given her recent surgery. 3. Acute on chronic anemia- status post 2 units PRBC on 10/19. Hemoglobin stable. We'll continue to monitor. 4. Metabolic acidosis- secondary to the above in addition to hyperchloremia from normal saline. Appreciate nephrology input. On 09/28 NS with bicarbonate drip. 5. Oliguria secondary to the above. We'll continue to monitor. Receiving albumin infusion given third spacing on normal saline. Appreciate nephrology input. 6. Lactic acidosis secondary to the above. Improving. 7. Sinus tachycardia likely secondary to the above. Cardiac enzymes negative. Echocardiogram pending. 8. History of diabetes mellitus on sliding scale insulin 9. Hypertension controlled 10. History of migraines stable 11. History of bipolar disorder 12. History of fibromyalgia 13. History of PTSD DVT prophylaxis: Heparin drip Overall prognosis guarded VS,Fishbone, I+O VS, Fishbone, I+O Laboratory Tests 10/19/18 13:57 Red Blood Count 3.20 L, Mean Corpuscular Volume 82.2, Mean Corpuscular He moglobin 25.3 L, Mean Corpuscular Hemoglobin Concent 30.8 L, Red Cell Distribution Width 17.0 H, Calcium Level 7.6 L, Aspartate Amino Transf (AST/SGOT) 19, Alanine Aminotransferase (ALT/SGPT) 12, Alkaline Phosphatase 85, Total Bilirubin 0.3, Total Protein 4.3 L, Albumin 1.2 #L 10/19/18 19:54 Calcium Level 7.6 L 10/19/18 21:30 Red Blood Count 4.11, Mean Corpuscular Volume 83.0, Mean Corpuscular Hemoglobin 26.3 L, Mean Corpuscular Hemoglobin Concent 31.7 L, Red Cell Distribution Width 16.0 H 10/20/18 04:04 Red Blood Count 3.90 L, Mean Corpuscular Volume 81.0, Mean Corpuscular Hemoglobin 26.2 L, Mean Corpuscular Hemoglobin Concent 32.3, Red Cell Distribution Width 16.3 H, Calcium Level 7.0 L 10/20/18 10:43 Calcium Level 7.1 L, Aspartate Amino Transf (AST/SGOT) 10, Alanine Aminotransferase (ALT/SGPT) 10 L, Alkaline Phosphatase 82, Total Bilirubin 0.6 #, Total Protein 4.5 L, Albumin 1.3 L Vital Signs Date Time Temp Pulse Resp B/P (MAP) Pulse Ox O2 Delivery O2 Flow Rate FiO2 10/20/18 12:37 20 10/20/18 10:00 112 130/79 (96) 96 Nasal Cannula 2.0 10/20/18 08:00 97.9 I&O- Last 24 Hours up to 6 AM 10/20/18 06:00 Intake Total 4255 ml Output Total 975 ml Balance 3280 ml NIC OMER MD Oct 20, 2018 13:00
[2018-10-20] MEDS ORDERED: LIDOCAINE 2% MDV 20 ML VIAL As Ordered ONE (13:51)
[2018-10-20] MEDS ORDERED: SODIUM BICARBONATE 50 MEQ in NS 0.45% 1,000 ML IV SCH (14:00)
--- NOTE | 2018-10-20 17:23 | ECGEPIP ---
Stationary ECG Study [facility] Test Date: 2018-10-19 Pat Name: AMANDA PADILLA Department: Room: [place] [address] Gender: F [employer] Wood: MELI : 1970 Requested By: OXANA BARBER Order Number: [id number] Reading MD: Carlitos Feliz Measurements Intervals [place] Rate: 119 P: 17 NH: 125 QRS: -3 QRSD: 81 T: 31 QT: 318 QTc: 449 Interpretive Statements Sinus tachycardia Low QRS complex voltage in the precordial leads Nonspecific T wave abnormality No significant change since prior tracing of 10/18/2018 Electronically Signed On 10-20-2018 17:22:44 EST by Carlitos Feliz
[2018-10-20] MEDS: HEPARIN DRIP 25,000 UNITS in APPROPRIATE DILUENT 1 EA IV SCH (17:45)
[2018-10-20] MEDS: SODIUM CHLORIDE 0.9% INJ 10 ML SYR IV SCH (18:05)
[2018-10-20 20:49] LABS: BLOOD UREA NITROGEN 15 MG/DL (7-18); CALCIUM LEVEL 6.9 MG/DL (8.5-10.1); CARBON DIOXIDE LEVEL 21 MEQ/L (21-32); CHLORIDE LEVEL 110 MEQ/L (98-107); CREATININE FOR GFR 0.68 MG/DL (0.55-1.30); GLOMERULAR FILTRATION RATE > 60.0 (>58); GLUCOSE, FASTING 101 MG/DL (70-100); POTASSIUM SERUM 3.4 MEQ/L (3.5-5.1); SODIUM LEVEL 142 MEQ/L (136-145)
[2018-10-20] MEDS ORDERED: KCL 20MEQ IN 100ML SWI (KRUN) 20 MEQ in APPROPRIATE DILUENT 1 EA IV ONE ×2 (21:15)
--- NOTE | 2018-10-20 22:25 | CR ---
DATE OF NEPHROLOGY CONSULTATION: 10/20/2018 REQUESTING PHYSICIAN: Rashaad Emerson MD REASON FOR CONSULTATION: Oliguric renal failure in this postoperative patient. HISTORY OF PRESENT ILLNESS: Carol Ballesteros is a 47-year-old female who tells me she did not see a physician for general care for a number of years until she was recently hospitalized at [facility] from August 31, 2018 to September 27, 2018. She had presented at that time with complaint of progressive abdominal pain and was transferred to [facility] from [place] and found to have acute mesenteric ischemia with a large thrombus in the descending thoracic aorta and renal and splenic infarcts. Patient tells me while she was hospitalized at [facility] for nearly a month, she was also diagnosed with diabetes and hypertension. The patient was started on heparin anticoagulation at [facility] and transitioned to Coumadin without surgical intervention. She was discharged home on Coumadin and was at home for about three weeks. She was subsequently directed to hold her Coumadin for some time due to supratherapeutic INR. Patient then had progressive and worsening abdominal pain which brought her to the emergency room in [facility] on October 17. She had a CT with IV contrast that showed a small bowel perforation with absent bowel wall enhancement in one of the jejunal loops. Patient was taken for emergent exploratory laparotomy and small bowel resection. Postoperatively she was placed on heparin drip. Of significance, the patient did receive 5 doses of IV Toradol 30 mg each (cumulative dose 150 mg) and she also received several doses of vancomycin during this time frame. Postoperative patient's urine output was noted to average less than 15 mL per hour and subsequently nephrology consultation was requested. Patient was seen and examined this morning at the bedside in the intensive care unit. She reports her incisional pain is adequately controlled. She denies shortness of breath at rest. PAST MEDICAL HISTORY: Recently diagnosed diabetes, hypertension. Prior history of migraines, bipolar disorder. Chronic active smoker. Recently diagnosed thrombus in the descending thoracic aorta with renal and splenic infarcts as mentioned in HPI. PAST SURGICAL HISTORY: Appendectomy. SOCIAL HISTORY: Chronic active smoker. No alcohol or drug use. FAMILY HISTORY: Mother from stroke and heart attack. She denies family history of clots. ALLERGIES: PENICILLINS. HOME MEDICATIONS: Reviewed. REVIEW OF SYSTEMS: CONSTITUTIONAL: Denies fever or chills. EYES: Denies visual changes or blurring. ENT: She reports sore throat from the intubation and nasogastric tube. CARDIAC: Denies chest pain or palpitations. RESPIRATORY: Denies shortness of breath or cough. GI: Reports incisional pain is controlled. Denies bowel function since surgery. : Porter catheter with decreased urine output. MUSCULOSKELETAL: Denies myalgias, arthralgias. SKIN: Denies any new rashes or pruritus. NEUROLOGICAL: Denies focal weakness. PSYCHIATRIC: Denies depression. Reports history of bipolar disorder. ENDOCRINE: Reports diabetes. HEMATOLOGY: Reports blood clots, on anticoagulation. Remainder of review of systems is negative. PHYSICAL EXAMINATION: VITAL SIGNS: Temperature 99.0, pulse 115, respiratory rate 20, blood pressure 138/82, saturating 97% on 2 liters nasal cannula. Intake since she came in to the hospital is a little over 10.5 liters and urine output in the past 24 hours was 360 ml. Weight on the bed scale is 75.7 kg which is increased from prior. GENERAL: The patient is seen at the bedside in the intensive care unit. Awake, alert, oriented. In bed. No acute distress. Extraocular muscles are intact. Tongue is moist. Nasal cannula and nasogastric tube are in place. Jugular veins are mildly elevated. CARDIAC: Tachycardic. S1, S2. No murmur. LUNGS: Clear to auscultation. No crackle or rales. ABDOMEN: There is KJ drain on the right side. The incision sites have dressings. The abdomen is distended. GENITOURINARY: Shows Porter catheter with minimal urine. EXTREMITIES: Show no cyanosis. There is no overt pitting edema, but there is generalized fullness of all four extremities. NEUROLOGICAL: She is oriented. No focal deficits. LABS: Sodium 140, potassium 3.8, bicarbonate 18, BUN 19, creatinine 0.7. Hemoglobin 10.2, white count 13.5, platelets 329. IMAGING: CT abdomen and pelvis with IV contrast done October 19 showed a bowel perforation and focally absent bowel wall enhancement in one of the jejunal loops and there is also cortical scarring in the lower poles of both kidneys which probably reflects prior vascular insult. INPATIENT MEDICATIONS: She is on heparin drip. She is recieving IV ciprofloxacin and IV Flagyl. I have cut her fluids down from normal saline at 250 an hour down to normal saline at 120 an hour last night and today I cut her fluids further to half normal saline with 15 mEq of bicarbonate at 40 mL an hour. She is on aspirin 81 mg daily. Insulin sliding scale. Reglan as needed. Zofran as needed. Protonix 40 mg IV daily. Phenergan as needed. PROBLEMS: 1. Oliguric renal failure secondary to chronic vascular insult of the kidney plus contrast induced nephropathy (IV contrast on October 17), plus IV NSAID (5 dose of Toradol accumulative 150 mg), plus perioperative stress, plus elevated vancomycin levels. Her nephrotoxics have all been discontinued. Yesterday I cut the rate of IV fluids down to 120 mL an hour because she is in significant positive fluid balance and hypervolemic on exam. Her serum albumin is quite low at 1.3. She is ordered for four further doses of albumin infusion every 8 hourly to help improve her intravascular volume. I advised to hold off on further IV contrast studies unless urgently or emergently needed. I am also decreasing the rate of IV fluids further this morning and adding some bicarbonate given her mild metabolic acidosis. Despite her oliguria there is no significant change in her creatinine and that is due to the significant fluid administration over the past two days. There are no urgent dialysis needs at present but we will monitor her closely for any developing dialysis needs. 2. Large vessel thrombosis with splenic and renal infarcts. She is now on heparin drip. Patient denies prior personal nor family history of clotting disorder. She had recent hypercoagulability workup in [place]. Anticoagulation managed as per primary and surgical services. 3. Metabolic acidosis, non-anion gap likely due to oliguric renal failure. I have added a small amount of bicarbonate to her fluids and her fluids are at a low rate given her hypervolemic volume status. DISPOSITION: Oliguric renal failure, multifactorial in etiology. Supportive care at present with reduced rate of IV fluids (bicarbonate containing). Clinically hypervolemic. Trial of albumin for improved intravascular volume. No dialysis needs at present. Will monitor closely for any developing dialysis needs. Discussed with the patient at length at bedside.
[2018-10-20] MEDS: NICOTINE 14 MG/24 HR TRANSDERMAL TD SCH (22:35)
[2018-10-21] VITALS (24 sets, daily range): BP systolic 129–170; BP diastolic 72–97
[2018-10-21] MEDS: IPRATROPIUM 0.5MG/ALBUTEROL 2.5MG INH SOL UD 3ML (DUONEB)(J7620) NEB SCH ×4 (01:01→20:00)
[2018-10-21] MEDS: metroNIDAZOLE 500 MG in APPROPRIATE DILUENT 1 EA IV SCH ×3 (01:02→17:18)
[2018-10-21] MEDS: MORPHINE 4 MG/ML 1ML VIAL/SYRINGE (J2270) IV PRN ×7 (02:18→22:29)
[2018-10-21] MEDS: ONDANSETRON 4MG/2ML VIAL (J2405) IV PRN ×2 (02:26→10:46)
[2018-10-21] MEDS ORDERED: LABETALOL HCL 100 MG/20 ML VIAL IV STA (05:35)
[2018-10-21] MEDS: SODIUM CHLORIDE 0.9% INJ 10 ML SYR IV SCH ×2 (05:43→17:19)
[2018-10-21 06:04] LABS: HEMATOCRIT 30.3 % (36.0-47.0); HEMOGLOBIN 9.7 g/dl (12.0-15.5); MEAN CORPUSCULAR HEMOGLOBIN 26.3 pg (27.0-33.0); MEAN CORPUSCULAR VOLUME 82.1 fl (80.0-96.0); PLATELET COUNT, AUTOMATED 334 10^3/uL (150-450); RED BLOOD COUNT 3.69 10^6/uL (4.00-5.40); WHITE BLOOD COUNT 12.6 10^3/uL (4.0-10.0)
[2018-10-21 06:33] LABS: ALBUMIN 1.6 GM/DL (3.2-5.2); ALT/SGPT 10 U/L (12-78); BILIRUBIN,TOTAL 0.5 MG/DL (0.2-1.0); BLOOD UREA NITROGEN 12 MG/DL (7-18); CALCIUM LEVEL 6.7 MG/DL (8.5-10.1); CARBON DIOXIDE LEVEL 22 MEQ/L (21-32); CHLORIDE LEVEL 109 MEQ/L (98-107); CREATININE FOR GFR 0.57 MG/DL (0.55-1.30); GLOMERULAR FILTRATION RATE > 60.0 (>58); GLUCOSE, FASTING 110 MG/DL (70-100); POTASSIUM SERUM 3.9 MEQ/L (3.5-5.1); SODIUM LEVEL 141 MEQ/L (136-145); TOTAL PROTEIN 3.9 GM/DL (6.4-8.2)
[2018-10-21] MEDS: HumaLOG INSULIN (NovoLOG) PER UNIT SC SCH ×4 (06:45→23:32)
[2018-10-21] MEDS: ASPIRIN 81 MG CHEW TABLET NG SCH (08:09)
[2018-10-21] MEDS: PANTOPRAZOLE 40MG INJ (PROTONIX) (C9113) IV SCH (08:09)
[2018-10-21] MEDS: NICOTINE 14 MG/24 HR TRANSDERMAL TD SCH (08:09)
[2018-10-21] MEDS: **hydrALAZINE** 10 MG TAB PO SCH ×2 (09:14→13:42)
--- NOTE | 2018-10-21 10:25 | IPNPDOC ---
Date Seen The patient was seen on 10/21/18. Progress Note SUBJECTIVE: Patient was seen and examined this morning. She does complain of some worsening abdominal pain in her left and right lower quadrant. She states that his pain is mostly when moving. She has developed a cough which states makes her abdomen hurt. She otherwise denies any complaints. Last night the patient did have some elevated blood pressures with systolics in 170's. She denied any neuro deficits at the time and denied any chest pain. She did receive 10mg of labetalol. Nursing does comment that her urine output has improved. Patient continues to remain tachycardiac and hypertensive OBJECTIVE PHYSICAL EXAMINATION: VITAL SIGNS: Please see below. GENERAL: Awake, alert and oriented. She appears in no acute distress. She is laying comfortably in bed. HEENT: Atraumatic, normocephalic. Eyes are non-icteric. Trachea is midline. NG tube is in place CARDIOVASCULAR: S1 and S2 normal. tachycardiac rate with a regular rhythm RESPIRATORY: Slight bibasilar crackles. Good respiratory effort. Patient continues to remain on nasal cannula 2-3L with oxygen saturation 90-95% ABDOMINAL: Soft, nondistended. KJ drain is in place with serosanguineous fluid. Midline incision cite is bandaged. Slight tenderness to palpation of right and left lower quadrant EXTREMITIES: Decreased edema with comparison to pervious exam. 2+ posterior tibial pulses bilaterally. 2+ radial pulses bilaterally PSYCHOLOGICAL: Mood and affect appear appropriate LABORATORY DATA, IMAGING STUDIES, MICROBIOLOGY: Please see below. DVT prophylaxis ordered?: YES ASSESSMENT AND PLAN: Small bowel perforation s/p exploratory laparotomy w/ small bowel resection post-op day 3 -Patient is post-op day 3. She continues to note improvement in her pain although somewhat worse with movement -Patients white count continues to trend down. She remains afebrile. Continue with cipro/flagyl for time being. Will trend white count. -NG tube is still in place. Patient will remain NPO w/ exception to ice chips 2. Oliguria -Patient has had decreased urine output. She has received aggressive fluid hydration with some improvement in urine output -Kidney function continues to remain stable. Will continue to monitor Cr -Nephrology has been consulted. Recommendations are appreciated. Current plan to decrease fluid rate and consider additional lasix if patient continues to be oliguric -Patient received albumin yesterday with slight improvement in urine output. Patient to receive albumin Q8h 3. Sinus Tachycardia -Patient remains tachycardiac. She has been aggressively hydrated without much decrease in her heart rate. She does appear slightly more edematous today with some shortness of breath -Patient received 20 lasix. Fluids will be decreased -Hospitalist have been consulted. Recommendations are appreciated 4. Anemia -Patient had slight decrease in Hgb. She received 1 unit of PRBC. Her Hbg improved and has remained stable. Consider possible anastomotic leak if Hbg continues do drop 5. Large Vessel Thrombosis -Patient is currently on heparin. Will continue. -Patient has become slightly hypertensive. -Hospitalist have been consulted. Recommendations are appreciated VS, I&O, 24H, Fishbone Vital Signs/I&O Vital Signs Date Time Temp Pulse Resp B/P (MAP) Pulse Ox O2 Delivery O2 Flow Rate FiO2 10/21/18 09:14 172/97 10/21/18 08:20 18 10/21/18 08:00 2.0 10/21/18 08:00 98.8 103 95 Nasal Cannula I&O- Last 24 Hours up to 6 AM 10/21/18 06:00 Intake Total 1853 ml Output Total 2515 ml Balance -662 ml Laboratory Data 24H LABS Laboratory Tests 2 10/20/18 10:43: Activated Partial Thromboplast Time 38.5H, Anion Gap 9, Glomerular Filtration Rate > 60.0, Blood Urea Nitrogen 19H, Creatinine 0.76, Sodium Level 140, Potassium Level 3.8, Chloride Level 113H, Carbon Dioxide Level 18L, Calcium Leve l 7.1L, Aspartate Amino Transf (AST/SGOT) 10, Alanine Aminotransferase (ALT/SGPT) 10L, Alkaline Phosphatase 82, Total Bilirubin 0.6#, Total Protein 4.5L, Albumin 1.3L, Albumin/Globulin Ratio 0.41L 10/20/18 11:43: Bedside Glucose (Misc Panel) 106H 10/20/18 17:31: Activated Partial Thromboplast Time 84.7H 10/20/18 17:52: Bedside Glucose (Misc Panel) 15*L 10/20/18 17:56: Bedside Glucose (Misc Panel) 83 10/20/18 20:05: Anion Gap 11, Glomerular Filtration Rate > 60.0, Blood Urea Nitrogen 15, Creatin ine 0.68, Sodium Level 142, Potassium Level 3.4L, Chloride Level 110H, Carbon Dioxide Level 21, Calcium Level 6.9L 10/20/18 23:49: Activated Partial Thromboplast Time 97.2H 10/20/18 23:54: Bedside Glucose (Misc Panel) 97 10/21/18 05:46: Nucleated Red Blood Cells % (auto) 0.0, Activated Partial Thromboplast Time 84.2H, Anion Gap 10, Glomerular Filtration Rate > 60.0, Blood Urea Nitrogen 12, Creatinine 0.57, Sodium Level 141, Potassium Level 3.9, Chloride Level 109H, Carbon Dioxide Level 22, Calcium Level 6.7L, Aspartate Amino Transf (AST/SGOT) 23, Alanine Aminotransferase (ALT/SGPT) 10L, Alkaline Phosphatase 85, Total Bilirubin 0.5, Total Protein 3.9L, Albumin 1.6#L, Albumin/Globulin Ratio 0.70L 10/21/18 08:11: Estimated Mean Plasma Glucose 154H, Hemoglobin A1c 7.0, Whole Blood Ionized Calcium 4.2L CBC/BMP Laboratory Tests 10/20/18 10:43 Calcium Level 7.1 L, Aspartate Amino Transf (AST/SGOT) 10, Alanine Aminotransferase (ALT/SGPT) 10 L, Alkaline Phosphatase 82, Total Bilirubin 0.6 # , Total Protein 4.5 L, Albumin 1.3 L 10/20/18 20:05 Calcium Level 6.9 L 10/21/18 05:46 Calcium Level 6.7 L, Aspartate Amino Transf (AST/SGOT) 23, Alanine Aminotransferase (ALT/SGPT) 10 L, Alkaline Phosphatase 85, Total Bilirubin 0.5, Total Protein 3.9 L, Albumin 1.6 #L, Red Blood Count 3.69 L, Mean Corpuscular Volume 82.1, Mean Corpuscular Hemoglobin 26.3 L, Mean Corpuscular Hemoglobin Concent 32.0, Red Cell Distribution Width 17.0 H Microbiology Microbiology 10/17/18 Blood Culture - Preliminary, Resulted No Growth after 72 hours. All specime... GME ATTESTATION GME ATTESTATION My faculty preceptor for this patient encounter was physically present during the encounter and was fully available. All aspects of the patient interview, examination, medical decision making process, and medical care plan development were reviewed and approved by the faculty preceptor. The faculty preceptor is aware and concurs with the plan as stated in the body of this note and will attest to such by his/her cosignature. OXANA BARBER DO Oct 21, 2018 10:25
[2018-10-21] MEDS: HEPARIN DRIP 25,000 UNITS in APPROPRIATE DILUENT 1 EA IV SCH (11:04)
--- NOTE | 2018-10-21 13:24 | IPNPDOC ---
Text Note Date of Service The patient was seen on 10/21/18. NOTE Subjective: Patient states she has mild dyspnea, and dizziness with movement. Denies chest pain or palpitations. Abdominal pain is stable. PHYSICAL EXAMINATION: Vitals: (see below) General: No acute distress, laying comfortably in bed. HEENT: Moist mucous membranes. Neck: No JVD or lymphadenopathy Cardiac: Tachycardic, improved. Regular rhythm., No murmurs Pulm: Coarse crackles at the bases bilaterally. No wheezing, rhonchi. No use of accessory muscles. Abd: Mild tenderness at the incision sites. KJ drain with serous drainage. Mildly distended. Incision site clean and dry. + BS Ext: 1+ edema bilateral lower extremities. No cyanosis LABORATORY DATA: See below. IMAGING: CT abdomen and pelvis on 10/17/18 IMPRESSION: Bowel perforation. Findings consistent with small bowel perforation with focally absent bowel wall enhancement in one of the jejunal loops. There is inflammation, mural thickening and dilation in adjacent small bowel jejunal loops. This may reflect inflammatory bowel disease. There is some mild adjacent mesenteric adenopathy. Incidental findings include subacute splenic infarction and bilateral principally lower pole cortical scarring affecting the kidneys. Fatty infiltration of the liver is also seen. Chest x-ray on 10/20/18 IMPRESSION: Increased pulmonary opacities bilaterally consistent with atelectasis and/or infiltrates. No evidence of pleural effusion or pulmonary edema. ASSESSMENT/PLAN: 1. Bowel perforation, status post exploratory laparoscopy, with excision of 3/4 of the small bowel. Patient states she feels much better today. Her abdominal pain is better controlled. She was recently admitted to [facility] last month, where she was found to have acute mesenteric ischemia, with extensive large vessel clots, for which the decision was made for conservative measures given her very high risk of further embolization and complications, the patient was anticoagulated with Coumadin. Patient is currently on Cipro/Flagyl, leukocytosis improving. Lactic acidosis is improving. Management per Dr. Lobo. 2. 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 The patient was off Coumadin, however on Wednesday she was told that her INR is supratherapeutic and was told to hold it until . The exact cause of the patient's hypercoagulable states unknown. Patient was instructed to follow-up with hematology/oncology for further workup. It was noted that the patient's did not have any abscesses signs of malignancy, however CA-125 was mildly elevated and nonspecific [place]'s. Her antiphospholipid/cardiolipin AB testing was negative and her CA 199 is negative. I have discussed with Dr. Lobo with recommendations for starting the patient on heparin drip 500 units for 24 hours, with no bolus given her recent surgery. 3. Acute on chronic anemia- status post 2 units PRBC on 10/19. Hemoglobin stable. We'll continue to monitor. 4. Metabolic acidosis- secondary to the above in addition to hyperchloremia from normal saline. Appreciate nephrology input. On 09/28 NS with bicarbonate drip. 5. Oliguria secondary to the above. We'll continue to monitor. Received albumin infusion given third spacing on normal saline. Appreciate nephrology input. 6. Lactic acidosis secondary to the above. Improving. 7. Sinus tachycardia likely secondary to the above. Cardiac enzymes negative. Echocardiogram pending. 8. History of diabetes mellitus on sliding scale insulin 9. Hypertension. Uncontrolled. Started on hydralazine/amlodipine. 10. History of migraines stable 11. History of bipolar disorder 12. History of fibromyalgia 13. History of PTSD 14. Volume overload, in the setting of hypoalbuminemia. Started on IV Lasix nep hro. DVT prophylaxis: Heparin drip Overall prognosis guarded VS,Fishbone, I+O VS, Fishbone, I+O Laboratory Tests 10/20/18 20:05 Calcium Level 6.9 L 10/21/18 05:46 Calcium Level 6.7 L, Red Blood Count 3.69 L, Mean Corpuscular Volume 82.1, Mean Corpuscular Hemoglobin 26.3 L, Mean Corpuscular Hemoglobin Concent 32.0, Red Cell Distribution Width 17.0 H, Aspartate Amino Transf (AST/SGOT) 23, Alanine Aminotransferase (ALT/SGPT) 10 L, Alkaline Phosphatase 85, Total Bilirubin 0.5, Total Protein 3.9 L, Albumin 1.6 #L Vital Signs Date Time Temp Pulse Resp B/P (MAP) Pulse Ox O2 Delivery O2 Flow Rate FiO2 10/21/18 12:30 103 20 159/88 (111) 95 Nasal Cannula 2.0 10/21/18 12:02 98.7 I&O- Last 24 Hours up to 6 AM 10/21/18 06:00 Intake Total 1853 ml Output Total 2515 ml Balance -662 ml NIC OMER MD Oct 21, 2018 13:24
[2018-10-21] MEDS: FUROSEMIDE 40 MG/4 ML VIAL (J1940) IV SCH ×2 (13:41→23:25)
[2018-10-21] MEDS: CIPROFLOXACIN 400 MG in APPROPRIATE DILUENT 1 EA IV SCH (13:41)
[2018-10-21] MEDS ORDERED: CALCIUM GLUCONATE 1,000 MG in D5W MINI-BAG PLUS 100 ML IV ONE (14:00)
[2018-10-21] MEDS ORDERED: amLODIPine 5 MG TAB PO ONE ×2 (14:00→20:45)
--- NOTE | 2018-10-21 16:32 | REP ---
Procedure: PICC line insertion with Gayla The procedure was performed under the direct supervision of Dr. Alarcon. The risks and benefits of the procedure were explained to the patient and informed consent was obtained. The right basilic vein was localized using ultrasound guidance. The skin was prepped and draped in a sterile fashion. 2% lidocaine was used as a local anesthetic. Using ultrasound guidance the basilic vein was cannulated and a 0.018 guidewire was inserted and advanced to the SVC using fluoroscopic guidance. The needle was removed and a 5.5 Estonian dilator and peel-away sheath was inserted over the guide wire. A 5.5 Estonian dual lumen catheter was cut to length of 37 cm. The dilator was removed and the catheter was inserted over the guide wire with the tip ending in the SVC. The peel-away sheath was removed and the catheter was flushed with heparinized saline as per Hospital protocol. The catheter was affixed to the skin and a sterile dressing was applied. The patient tolerated the procedure well and there were no immediate complications. 0.1 minutes of fluoro time was utilized for this procedure. Reviewed by LACHO Angulo 10/21/2018 10:52 A Electronically Signed by Narendra Alarcon MD 10/21/2018 04:23 P
--- NOTE | 2018-10-21 17:31 | HPE ---
DATE OF ADMISSION: 10/17/2018 CHIEF COMPLAINT: Abdominal pain with peritonitis. HISTORY OF PRESENT ILLNESS The patient is a 47-year-old female who was recently admitted to [facility] with evidence of embolic emboli from a thoracic aorta clot that went into kidneys, spleen as well as small bowel. Essentially she ended up having significant issues associated with kidney insufficiency and some splenic infarcts, caused severe pain and from a bowel standpoint the patient states that she developed necrosis. Never ended up having an operation for this, however. It sounds as though after a month of hospitalization she eventually was discharged home tolerating a diet. Medications at the time of discharge include insulin, stool softeners, senna, simethicone and Coumadin. However, looking at the discharge summary obtained from [facility] she was on insulin, Linzess, magnesium oxide, oxycodone, potassium and Coumadin. She had been recently stopped on her Coumadin last because her numbers were "too high". PAST MEDICAL HISTORY: Significant for history of: Diabetes mellitus. Hypertension. Migraines. Bipolar disorder. Smoking. Appendectomy and the above as stated. PHYSICAL EXAMINATION: Reveals a 47-year-old female who looks stated age. HEENT is unremarkable. Neck: Supple without adenopathy. Lungs are clear. Heart is regular with a few irregular beats. Abdomen is tensely distended and reveals peritoneal signs throughout with guarding and rebound and referred rebound. Extremities are cool, but perfused. IMPRESSION AND PLAN: The patient has evidence of a perforation on her x-ray/small bowel. Unfortunately, it appears to be a small bowel perforation where she has had compromised small-bowel already. At this point I am not convinced that this is a new embolic situation and probably is related to her small bowel necrosis issues previously. Will plan on taking her to the operating room with exploratory laparotomy, probable small bowel resection and she will need close observation either PCU or ICU thereafter given her sepsis appearing picture.
--- NOTE | 2018-10-21 17:40 | RO ---
DATE OF PROCEDURE: 10/17/2018 PREOPERATIVE DIAGNOSIS: Small bowel perforation with a history of emboli to small bowel and questionable small bowel necrosis. POSTOPERATIVE DIAGNOSIS: Extensive small bowel fibrosis and strictures and evidence of perforation. PROCEDURE: Small bowel resection times two. SURGEON: Carlos Lobo MD ANESTHESIA: General endotracheal anesthesia. ESTIMATED BLOOD LOSS: 100 mL. FLUIDS: Crystalloid BRIEF PROCEDURE SUMMARY: The patient was brought to the operating room and was given general anesthesia. After adequate anesthesia and preoperative antibiotics were given the patient was prepped and draped in the usual sterile fashion. Next, a midline incision was made with skin knife, electrocautery was used to cut through dermis, underlying subcutaneous tissue down to the fascia. Fascia was opened along its length with electrocautery and into the peritoneal cavity. There were numerous adhesions of the omentum up against the anterior abdominal wall. These were taken down with electrocautery and eventually once these were mobilized and the omentum mobilized superiorly there was obviously some air within the abdomen, but placing the pool sucker within the abdominal cavity, there was succus entericus within the abdominal cavity. The small bowel was mobilized as much that could through this incision initially and then once the small bowel was started to be mobilized, I was finding some adhesions and then inflammatory changes and eventually the adhesions were taken down and there were some obviously chronic as well as part dusky appearing small bowel. This was followed proximally up to where there was a mass and a perforation of small bowel in the left side of the abdomen. This bowel portion was mobilized as well and at this point what was apparent was that the perforated segment probably had a small perforation previously and was walled off and very stenotic in this area and essentially I anticipate after this ischemic insult that she suffered there were multiple areas of stenosis just in this proximal area. Thus the bowel was resected in this area using MARISABEL staplers and the mesentery taken with Tri-Lakes staplers. There was a small area of viable bowel that was approximately 10 inches in length and then a second area of bowel which was dusky appearing and had multiple strictures in these areas as well and unfortunately I felt given those areas may be compromised by her hypotension as well and they seemed to be very attenuated the wall of these areas and my concern is that they may have some partial necrosis in this area or because of sepsis that she has developing and the obvious dusky appearance and more importantly because I did not feel great pulses in this area I felt that this bowel needed resection as well. Thus the bowel was resected using MARISABEL staplers as well and the mesentery taken with Tri-[place]akes vascular loads. The bowel was resected. Once the bowel was resected, at this point, the middle portion of their three segments of bowel proximal portion and then this small localized segment of bowel that seemed viable and then a distal portion. However, given her hypotension issues and the amount of bowel that this would add overall to her length of small bowel was minimal, I felt that this needed to be sacrificed for a safer anastomosis. Thus the bowel was resected in this area with [place]akes vascular loads across this small portion of residual bowel and the [id number] anastomosis was created with MARISABEL staplers. This was imbricated using #3-0 Vicryl. Good hemostasis was achieved and the bowel looked nice and viable. The abdomen was copiously irrigated until clear. A #19 Lino-Bell drain was left in the bed of the dissection and down into the pelvis and brought out through a lateral stab incision. The midline was closed with looped #0 PDS and amber were used to loosely approximate the skin. A dry sterile dressing was applied. The patient was awakened from anesthesia and brought to the recovery room hemodynamically stable, but in critical condition.
[2018-10-21] MEDS: LABETALOL 100 MG TAB PO SCH (21:06)
[2018-10-21 22:14] LABS: BLOOD UREA NITROGEN 12 MG/DL (7-18); CALCIUM LEVEL 7.1 MG/DL (8.5-10.1); CARBON DIOXIDE LEVEL 23 MEQ/L (21-32); CHLORIDE LEVEL 106 MEQ/L (98-107); CREATININE FOR GFR 0.58 MG/DL (0.55-1.30); GLOMERULAR FILTRATION RATE > 60.0 (>58); GLUCOSE, FASTING 105 MG/DL (70-100); SODIUM LEVEL 142 MEQ/L (136-145)
[2018-10-21] MEDS: **hydrALAZINE HCL** 25 MG TAB PO SCH (22:27)
[2018-10-21] MEDS ORDERED: KCL 20MEQ IN 100ML SWI (KRUN) 20 MEQ in APPROPRIATE DILUENT 1 EA IV ONE ×2 (22:30)
[2018-10-22] VITALS (11 sets, daily range): BP systolic 106–178; BP diastolic 67–90
[2018-10-22] MEDS: CIPROFLOXACIN 400 MG in APPROPRIATE DILUENT 1 EA IV SCH ×2 (00:06→12:47)
[2018-10-22] MEDS: metroNIDAZOLE 500 MG in APPROPRIATE DILUENT 1 EA IV SCH ×3 (01:12→18:33)
[2018-10-22] MEDS: MORPHINE 4 MG/ML 1ML VIAL/SYRINGE (J2270) IV PRN ×7 (01:54→22:58)
[2018-10-22] MEDS: HEPARIN DRIP 25,000 UNITS in APPROPRIATE DILUENT 1 EA IV SCH (01:56)
[2018-10-22] MEDS: IPRATROPIUM 0.5MG/ALBUTEROL 2.5MG INH SOL UD 3ML (DUONEB)(J7620) NEB SCH ×4 (02:00→20:17)
[2018-10-22] MEDS: **hydrALAZINE HCL** 25 MG TAB PO SCH (05:07)
[2018-10-22] MEDS: SODIUM CHLORIDE 0.9% INJ 10 ML SYR IV SCH ×2 (05:08→18:00)
[2018-10-22] MEDS: ONDANSETRON 4MG/2ML VIAL (J2405) IV PRN ×2 (05:16→11:40)
[2018-10-22 05:40] LABS: HEMATOCRIT 31.3 % (36.0-47.0); HEMOGLOBIN 10.2 g/dl (12.0-15.5); MEAN CORPUSCULAR HEMOGLOBIN 26.6 pg (27.0-33.0); MEAN CORPUSCULAR HGB CONC 32.6 g/dl (32.0-36.5); MEAN CORPUSCULAR VOLUME 81.5 fl (80.0-96.0); PLATELET COUNT, AUTOMATED 376 10^3/uL (150-450); RED BLOOD COUNT 3.84 10^6/uL (4.00-5.40); WHITE BLOOD COUNT 14.5 10^3/uL (4.0-10.0)
[2018-10-22 05:59] LABS: BLOOD UREA NITROGEN 10 MG/DL (7-18); CALCIUM LEVEL 7.1 MG/DL (8.5-10.1); CARBON DIOXIDE LEVEL 24 MEQ/L (21-32); CHLORIDE LEVEL 103 MEQ/L (98-107); CREATININE FOR GFR 0.54 MG/DL (0.55-1.30); GLOMERULAR FILTRATION RATE > 60.0 (>58); GLUCOSE, FASTING 124 MG/DL (70-100); POTASSIUM SERUM 3.1 MEQ/L (3.5-5.1); SODIUM LEVEL 141 MEQ/L (136-145)
[2018-10-22] MEDS: HumaLOG INSULIN (NovoLOG) PER UNIT SC SCH ×3 (06:00→18:28)
[2018-10-22] MEDS ORDERED: KCL 20MEQ IN 100ML SWI (KRUN) 20 MEQ in APPROPRIATE DILUENT 1 EA IV ONE ×4 (06:15→13:00)
[2018-10-22] MEDS ORDERED: POTASSIUM CHLORIDE 10% LIQ 20 MEQ/15 ML UDC NG ONE ×3 (06:15→19:30)
[2018-10-22 06:39] LABS: MAGNESIUM LEVEL 1.3 MG/DL (1.8-2.4)
[2018-10-22] MEDS ORDERED: MAG SULF 1GM/100ML (MAG RUN) 1 GM in APPROPRIATE DILUENT 1 EA IV ONE ×2 (07:15→14:00)
[2018-10-22] MEDS: FUROSEMIDE 40 MG/4 ML VIAL (J1940) IV SCH (07:30)
[2018-10-22] MEDS: METOCLOPRAMIDE INJ 10MG/2ML VIAL (J2765) IV PRN ×2 (08:09→16:17)
[2018-10-22] MEDS ORDERED: amLODIPine 10 MG TAB PO SCH (09:00)
[2018-10-22] MEDS ORDERED: amLODIPine 5 MG TAB PO SCH (09:00)
[2018-10-22] MEDS: PANTOPRAZOLE 40MG INJ (PROTONIX) (C9113) IV SCH (09:58)
[2018-10-22] MEDS: ASPIRIN 81 MG CHEW TABLET NG SCH (09:58)
[2018-10-22] MEDS: LABETALOL 100 MG TAB PO SCH ×2 (09:58→20:38)
[2018-10-22] MEDS: amLODIPine 5 MG TAB PO SCH (09:59)
[2018-10-22] MEDS: NICOTINE 14 MG/24 HR TRANSDERMAL TD SCH (10:16)
[2018-10-22] MEDS: CHLORASEPTIC SPRAY MT PRN (11:41)
[2018-10-22 12:22] LABS: ALBUMIN 1.7 GM/DL (3.2-5.2); BLOOD UREA NITROGEN 10 MG/DL (7-18); CALCIUM LEVEL 7.5 MG/DL (8.5-10.1); CARBON DIOXIDE LEVEL 27 MEQ/L (21-32); CHLORIDE LEVEL 101 MEQ/L (98-107); CREATININE FOR GFR 0.61 MG/DL (0.55-1.30); GLOMERULAR FILTRATION RATE > 60.0 (>58); GLUCOSE, FASTING 179 MG/DL (70-100); MAGNESIUM LEVEL 1.4 MG/DL (1.8-2.4); PHOSPHORUS LEVEL 2.2 MG/DL (2.5-4.9); POTASSIUM SERUM 3.3 MEQ/L (3.5-5.1); SODIUM LEVEL 139 MEQ/L (136-145)
--- NOTE | 2018-10-22 12:27 | IPN ---
DATE: 10/21/2018 SUBJECTIVE: Carol is seen and examined this morning at the bedside in the intensive care unit. She complains of some shortness of breath even while at rest and she complains of some incisional pain in the abdomen. Her urine output yesterday nicely picked up for a total urine output of about 2 liters in the past 24 hours. However, this morning, urine output has again slowed down to about 30 mL/h. Vital Signs: Temperature 97.2, pulse 104, respiratory rate 22, blood pressure 160/90, saturating 94% on 2 liters nasal cannula. Intake yesterday was 2100. Urine output yesterday was 2100 and gastric drainage was 375, net negative 360. Weight on the bed scale today is 75.5 kg. General: Patient is seen lying in bed in the intensive care unit awake, alert, oriented and in no distress. Extraocular muscles intact. Tongue is moist. Nasal cannula and nasogastric tube are in place. Jugular veins are mildly elevated. Cardiac: Tachycardic, S1, S2, no murmur. Lungs: There is mild tachypnea. There is diminished breath sounds at the bases. There are some bibasilar crackles. Abdomen: There is a Lino-Bell (KJ) drain on the right. The abdomen is distended. The incision sites have dressings. Genitourinary: Shows Porter catheter with urine. Extremities show generalized fullness on all four extremities without overt pitting edema. Neurologic: She is oriented. No focal deficits. LABS: White count 12.6, hemoglobin 9.7, platelets 334. Sodium 142, potassium 3.0, bicarbonate 23, creatinine 0.5. INPATIENT MEDICATIONS: Patient continues on heparin drip, IV Cipro and IV Flagyl. I gave her KCL 20 mEq yesterday night and I am starting her on Lasix 40 mg IV every 8 hours today. The remainder of her medications are unchanged from prior. PROBLEMS: 1. Acute kidney injury (ADRIANNE): Patient initially had oliguric renal failure secondary to chronic vascular insult of the kidneys plus contrast-induced nephropathy, plus IV nonsteroidal anti-inflammatory drugs (NSAIDS), plus perioperative stress, plus elevated vancomycin levels. She is no longer oliguric. She is volume overloaded on exam and tachypneic at the time of my visit. I am starting her on Lasix 40 mg IV every 8 hours and stopping her IV fluids. I am not ordering further doses of albumin at this time. I expect, she should have a good response with the IV diuretics and that she will need significant potassium supplementation. Her present weight is about9 kg about her admission weight and we will commence with diuresis. 2. Large vessel thrombosis with splenic and renal infarcts on heparin drip managed per primary and surgical team. She had recent hypercoagulability workup in [place]. 3. Bowel perforation status post small bowel resection. She remains nothing by mouth with nasogastric tube (NG) tube. She is on Cipro with Flagyl managed for surgery. Leukocytosis is improving. I am stopping IV fluids given considerable volume overload. 4. Metabolic acidosis: This was secondary to the prior oliguric renal failure as her urine output has improved so has her acidemia. I am discontinuing the low dose bicarbonate-containing fluids that she was on.
--- NOTE | 2018-10-22 12:56 | IPNPDOC ---
Text Note Date of Service The patient was seen on 10/22/18. NOTE Subjective: Dyspnea improved. Abdominal pain is controlled. Still no BM/flatus. No acute changes overnight. PHYSICAL EXAMINATION: Vitals: (see below) General: No acute distress, laying comfortably in bed. HEENT: Moist mucous membranes. Neck: No JVD or lymphadenopathy Cardiac: Tachycardic, improved. Regular rhythm., No murmurs Pulm: Coarse crackles at the bases bilaterally. No wheezing, rhonchi. No use of accessory muscles. Abd: Mild tenderness at the incision sites. KJ drain with serous drainage. Mildly distended. Incision site clean and dry. + BS Ext: 1+ edema bilateral lower extremities. No cyanosis LABORATORY DATA: See below. IMAGING: CT abdomen and pelvis on 10/17/18 IMPRESSION: Bowel perforation. Findings consistent with small bowel perforation with focally absent bowel wall enhancement in one of the jejunal loops. There is inflammation, mural thickening and dilation in adjacent small bowel jejunal loops. This may reflect inflammatory bowel disease. There is some mild adjacent mesenteric adenopathy. Incidental findings include subacute splenic infarction and bilateral principally lower pole cortical scarring affecting the kidneys. Fatty infiltration of the liver is also seen. Chest x-ray on 10/20/18 IMPRESSION: Increased pulmonary opacities bilaterally consistent with atelectasis and/or infiltrates. No evidence of pleural effusion or pulmonary edema. ASSESSMENT/PLAN: 1. Bowel perforation, status post exploratory laparoscopy, with excision of 3/4 of the small bowel. Patient states she feels much better today. Her abdominal pain is better controlled. She was recently admitted to [facility] last month, where she was found to have acute mesenteric ischemia, with extensive large vessel clots, for which the decision was made for conservative measures given her very high risk of further embolization and complications, the patient was anticoagulated with Coumadin. Patient is currently on Cipro/Flagyl, leukocytosis improving. Lactic acidosis is improving. Management per Dr. Lobo. 2. 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 The patient was off Coumadin, however on Wednesday she was told that her INR is supratherapeutic and was told to hold it until . The exact cause of the patient's hypercoagulable states unknown. Patient was instructed to follow-up with hematology/oncology for further workup. It was noted that the patient's did not have any abscesses signs of malignancy, however CA-125 was mildly elevated and nonspecific Sebastian's. Her antiphospholipid/cardiolipin AB testing was negative and her CA 199 is negative. On heparin drip. 3. Acute on chronic anemia- status post 2 units PRBC on 10/19. Hemoglobin stable. We'll continue to monitor. 4. Metabolic acidosis- Improved. Appreciate nephrology input. s/p 1/2 NS with bicarbonate drip. 5. Oliguria secondary to the above. We'll continue to monitor.s/p albumin infusion Appreciate nephrology input. 6. Lactic acidosis secondary to the above. Improving. 7. Sinus tachycardia likely secondary to the above. Cardiac enzymes negative. Echocardiogram (see above) 8. History of diabetes mellitus on sliding scale insulin 9. Hypertension. controlled. On amlodipine/labetalol. 10. History of migraines stable 11. History of bipolar disorder 12. History of fibromyalgia 13. History of PTSD 14. Volume overload, in the setting of hypoalbuminemia. On IV Lasix and diuresing well. DVT prophylaxis: Heparin drip Overall prognosis guarded. VS,Fishbone, I+O VS, Fishbone, I+O Laboratory Tests 10/21/18 21:25 Calcium Level 7.1 L 10/22/18 05:15 Calcium Level 7.1 L, Red Blood Count 3.84 L, Mean Corpuscular Volume 81.5, Mean Corpuscular Hemoglobin 26.6 L, Mean Corpuscular Hemoglobin Concent 32.6, Red Cell Distribution Width 17.3 H 10/22/18 11:39 Anion Gap 11 Vital Signs Date Time Temp Pulse Resp B/P (MAP) Pulse Ox O2 Delivery O2 Flow Rate FiO2 10/22/18 12:00 1.0 10/22/18 11:53 98.0 89 22 106/67 (80) 92 Nasal Cannula I&O- Last 24 Hours up to 6 AM 10/22/18 06:00 Intake Total 1225 ml Output Total 5255 ml Balance -4030 ml NIC OMER MD Oct 22, 2018 12:56
[2018-10-22 18:18] LABS: ALBUMIN 1.6 GM/DL (3.2-5.2); BLOOD UREA NITROGEN 9 MG/DL (7-18); CALCIUM LEVEL 7.4 MG/DL (8.5-10.1); CARBON DIOXIDE LEVEL 27 MEQ/L (21-32); CHLORIDE LEVEL 103 MEQ/L (98-107); CREATININE FOR GFR 0.61 MG/DL (0.55-1.30); GLOMERULAR FILTRATION RATE > 60.0 (>58); GLUCOSE, FASTING 131 MG/DL (70-100); MAGNESIUM LEVEL 1.9 MG/DL (1.8-2.4); POTASSIUM SERUM 3.3 MEQ/L (3.5-5.1); SODIUM LEVEL 139 MEQ/L (136-145)
--- NOTE | 2018-10-22 20:42 | IPN ---
DATE: 10/22/2018 Mrs. Ballesteros is seen this morning in intensive care unit on her bedside. I received multiple phone calls from nursing staff last evening and this morning about her electrolytes and urine output. She was started on intravenous (IV) Lasix yesterday with very good response; however, she had developed significant hypokalemia and hypomagnesemia, and multiple doses of magnesium and potassium supplementation have been given. She remains nothing by mouth due to recent abdominal surgery for a perforated viscus. She still has a nasogastric tube and had been receiving her medications through the nasogastric tube in addition to intravenous antibiotics. This morning the patient reports improved dyspnea and denies any fever or chills. She is feeling better compared with yesterday and had a 4.7-liter urine output during last 24 hours. PHYSICAL EXAMINATION: Temperature 98 degrees Fahrenheit, heart rate 95 per minute, respiratory rate 24 per minute, blood pressure 153/90 mm of mercury, and oxygen saturation 92% on just 1 liter of oxygen. Total intake was 1565 mL and output 4735 mL with a negative fluid balance of 3.17 liters over last 24 hours. She has a nasogastric tube in place. There is no oral thrush or ulcers. Neck veins are not abnormally distended at present. Her heart sounds are tachycardiac and lungs with slightly diminished breath sounds at dependent parts. Abdomen is soft, and bowel sounds are not audible. Extremities have no cyanosis or clubbing. She does have mild peripheral edema. Neurologically, she is awake, alert, and oriented times three. Today's labs show WBC count 14.5, hemoglobin 10.2, and hematocrit 31.3. Platelets are in normal range Sodium is 141, potassium 3.1, chloride 103, CO2 of 24, BUN 10, creatinine 0.54, glucose 124, and calcium 7.1. A magnesium level was 1.3 this morning and albumin 1.7. PROBLEMS: 1. Acute kidney injury, related to intra-abdominal sepsis, and kidney function has improved with good urine output. I am going to stop her Lasix for now due to significant diuresis over last 24 hours. 2. Hypokalemia. This is related to no oral intake and aggressive diuresis. We have given her a few doses of potassium supplement and will replace with further intravenous and oral potassium supplement. Her electrolytes will be repeated again in a few hours. 3. Hypomagnesemia. She also has low magnesium level, and we have already given her a dose of magnesium sulfate 1 gram intravenously, and her magnesium level will be repeated again today. 4. Nutrition. She is currently nothing by mouth, and I will wait for surgeon to decide if she can be fed via nasogastric (NG) tube or we can consider starting total parenteral nutrition (TPN). 5. Hypervolemia and hypoxemia. Her volume status has improved significantly with 4.7-liter urine output during last 24 hours. She also has good urine output this morning with a total urine output of 2.5 liters so far. I am going to stop diuretic for now and will watch her, as she is likely to continue diuresing for a few more hours with the Lasix given this morning. We will try to correct her electrolytes before giving any more diuretic. 6. Hypertension. Her blood pressure is reasonably well stable at this point. MTDD
[2018-10-23] VITALS (8 sets, daily range): BP systolic 131–174; BP diastolic 73–96
[2018-10-23] MEDS: IPRATROPIUM 0.5MG/ALBUTEROL 2.5MG INH SOL UD 3ML (DUONEB)(J7620) NEB SCH ×4 (00:47→20:04)
[2018-10-23] MEDS: metroNIDAZOLE 500 MG in APPROPRIATE DILUENT 1 EA IV SCH ×3 (02:00→18:44)
[2018-10-23] MEDS: CIPROFLOXACIN 400 MG in APPROPRIATE DILUENT 1 EA IV SCH ×2 (02:26→13:27)
[2018-10-23] MEDS: MORPHINE 4 MG/ML 1ML VIAL/SYRINGE (J2270) IV PRN ×6 (02:27→21:57)
[2018-10-23] MEDS: HumaLOG INSULIN (NovoLOG) PER UNIT SC SCH ×4 (06:00→18:21)
[2018-10-23] MEDS: SODIUM CHLORIDE 0.9% INJ 10 ML SYR IV SCH ×2 (06:10→18:21)
[2018-10-23] MEDS: ONDANSETRON 4MG/2ML VIAL (J2405) IV PRN (06:20)
[2018-10-23 06:26] LABS: BASO % 0.2 % (0.0-1.0); EOS # 0.3 10^3/uL (0.0-0.50); EOS % 1.8 % (0.0-3.0); HEMATOCRIT 32.3 % (36.0-47.0); HEMOGLOBIN 10.4 g/dl (12.0-15.5); LYMPH # 2.1 10^3/uL (1.5-4.5); LYMPH % 13.8 % (24.0-44.0); MEAN CORPUSCULAR HEMOGLOBIN 26.2 pg (27.0-33.0); MEAN CORPUSCULAR HGB CONC 32.2 g/dl (32.0-36.5); MEAN CORPUSCULAR VOLUME 81.4 fl (80.0-96.0); MONO # 0.8 10^3/uL (0.0-0.8); MONO % 4.9 % (0.0-5.0); NEUTROPHILS # 12.1 10^3/uL (1.8-7.7); NEUTROPHILS % 77.9 % (36.0-66.0); PLATELET COUNT, AUTOMATED 390 10^3/uL (150-450); RED BLOOD COUNT 3.97 10^6/uL (4.00-5.40); WHITE BLOOD COUNT 15.5 10^3/uL (4.0-10.0)
[2018-10-23 06:51] LABS: BLOOD UREA NITROGEN 8 MG/DL (7-18); CALCIUM LEVEL 7.2 MG/DL (8.5-10.1); CARBON DIOXIDE LEVEL 25 MEQ/L (21-32); CHLORIDE LEVEL 105 MEQ/L (98-107); GLOMERULAR FILTRATION RATE > 60.0 (>58); GLUCOSE, FASTING 148 MG/DL (70-100); SODIUM LEVEL 141 MEQ/L (136-145)
[2018-10-23 07:06] LABS: MAGNESIUM LEVEL 1.6 MG/DL (1.8-2.4)
--- NOTE | 2018-10-23 07:17 | IPN ---
DATE: 10/22/2018 HISTORY The patient is a 47-year-old woman patient of Dr. Lobo's who is now 5 days postop from an extensive small bowel resection for perforation and peritonitis. She remains in the intensive care unit. She is being followed by the hospitalist service and nephrology. Vital signs: The patient has been afebrile over the past 24 hours. Her pulse is running in the mid 80s to low 100s. Blood pressure is good, and her pulse oximetry is in the mid to upper 90s. Intake and output shows that she yesterday had 1600 in with 4700 recorded out. Her urine output was 4 liters with 550 from her nasogastric (NG) tube and 30 mL from a Lino-Bell in the right lower abdomen. PHYSICAL EXAMINATION: The patient is alert and looks surprisingly comfortable. Nasogastric tube is in place with a small amount of watery, bilious fluid. Heart exam shows a regular rate and rhythm. The lungs are generally clear to auscultation. The abdomen has some dressings in place. There is a drain in the lower abdomen with some minimal serous fluid within it. She does have a few faint bowel sounds present. Laboratory studies today show a white count of 14 with a hemoglobin 10, hematocrit of 31 and platelet count of 376,000. Chemistry profile this morning showed a sodium of 141, potassium 3.1, chloride 103, CO2 of 24, BUN of 10, creatinine 0.5 and a glucose of 124. Repeat study later in the day showed potassium of 3.3. Her albumin at that time was 1.7. Blood cultures from 10/17/2018 are no growth as of today. IMPRESSION: Patient is doing fairly well overall having had what was described as a large amount of her small bowel resected. She has not had a return of bowel function at this time. She remains on antibiotics with ciprofloxacin and Flagyl. 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 PLAN: The patient will be continued on her current antibiotics. The help of the nephrology and hospitalist providers is appreciated. Her drain is probably not of any benefit, but I will leave it one more day and consider removing this tomorrow. I will obtain a KUB tomorrow to see if we can discern a bowel gas pattern. We could consider stopping the suction to her NG tube when she has some flatus. MTDD
--- NOTE | 2018-10-23 09:02 | REP ---
Clinical: Evaluate bowel gas pattern. Technique: Two supine views of the abdomen and pelvis. Findings: Postsurgical changes are appreciated including surgical suture material, surgical amber, and abdominal drainage catheter within the abdomen and pelvis. The bowel gas pattern is relatively nonspecific. No organomegaly. No obvious free air. A nasogastric tube is identified in satisfactory position. The skeletal structures are intact. Impression: Postsurgical changes. Nonspecific bowel gas pattern. Electronically Signed by Cristhian Merchant MD 10/23/2018 08:53 A
[2018-10-23] MEDS: PANTOPRAZOLE 40MG INJ (PROTONIX) (C9113) IV SCH (09:19)
[2018-10-23] MEDS: ASPIRIN 81 MG CHEW TABLET NG SCH (09:19)
[2018-10-23] MEDS: LABETALOL 100 MG TAB PO SCH ×2 (09:19→20:47)
[2018-10-23] MEDS: MAG SULF 1GM/100ML (MAG RUN) 1 GM in APPROPRIATE DILUENT 1 EA IV SCH ×2 (09:19→10:46)
[2018-10-23] MEDS: amLODIPine 5 MG TAB PO SCH (09:20)
[2018-10-23] MEDS: METOCLOPRAMIDE INJ 10MG/2ML VIAL (J2765) IV PRN (10:02)
--- NOTE | 2018-10-23 11:28 | IPNPDOC ---
Text Note Date of Service The patient was seen on 10/23/18. NOTE Subjective: No dyspnea today. Has Abdominal pain at the incision sites. No BM. +flatus. No acute changes overnight. PHYSICAL EXAMINATION: Vitals: (see below) General: No acute distress, laying comfortably in bed. HEENT: Moist mucous membranes. Neck: No JVD or lymphadenopathy Cardiac: RRR, No murmurs Pulm: Coarse crackles at the bases bilaterally have improved.. No wheezing, rhonchi. No use of accessory muscles. Abd: Mild tenderness at the incision sites. KJ drain with serous drainage. Mildly distended. Incision site clean and dry. + BS Ext: 1+ edema bilateral lower extremities. No cyanosis LABORATORY DATA: See below. IMAGING: CT abdomen and pelvis on 10/17/18 IMPRESSION: Bowel perforation. Findings consistent with small bowel perforation with focally absent bowel wall enhancement in one of the jejunal loops. There is inflammation, mural thickening and dilation in adjacent small bowel jejunal loops. This may reflect inflammatory bowel disease. There is some mild adjacent mesenteric adenopathy. Incidental findings include subacute splenic infarction and bilateral principally lower pole cortical scarring affecting the kidneys. Fatty infiltration of the liver is also seen. Chest x-ray on 10/20/18 IMPRESSION: Increased pulmonary opacities bilaterally consistent with atelectasis and/or infiltrates. No evidence of pleural effusion or pulmonary edema. ASSESSMENT/PLAN: 1. Bowel perforation, status post exploratory laparoscopy, with excision of 3/4 of the small bowel. Patient states she feels much better today. Her abdominal pain is better controlled. She was recently admitted to [facility] last month, where she was found to have acute mesenteric ischemia, with extensive large vessel clots, for which the decision was made for conservative measures given her very high risk of further embolization and complications, the patient was anticoagulated with Coumadin. Patient is currently on Cipro/Flagyl, leukocytosis improving. Lactic acidosis is improving. Management per Dr. Lobo. 2. 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 The patient was off Coumadin, however on Wednesday she was told that her INR is supratherapeutic and was told to hold it until . The exact cause of the patient's hypercoagulable states unknown. Patient was instructed to follow-up with hematology/oncology for further workup. It was noted that the patient's did not have any abscesses signs of malignancy, however CA-125 was mildly elevated and nonspecific Furnas's. Her antiphospholipid/cardiolipin AB testing was negative and her CA 199 is negative. On heparin drip. 3. Acute on chronic anemia- status post 2 units PRBC on 10/19. Hemoglobin stable. We'll continue to monitor. 4. Metabolic acidosis- Improved. Appreciate nephrology input. s/p 1/2 NS with bicarbonate drip. 5. Oliguria secondary to the above. We'll continue to monitor.s/p albumin infusion Appreciate nephrology input. 6. Lactic acidosis secondary to the above. Improving. 7. Sinus tachycardia likely secondary to the above. Cardiac enzymes negative. Echocardiogram (see above) 8. History of diabetes mellitus on sliding scale insulin 9. Hypertension. controlled. On amlodipine/labetalol. 10. History of migraines stable 11. History of bipolar disorder 12. History of fibromyalgia 13. History of PTSD 14. Volume overload, in the setting of hypoalbuminemia. On IV Lasix and diures ing well. Improved. DVT prophylaxis: Heparin drip Overall prognosis guarded. VS,Fishbone, I+O VS, Fishbone, I+O Laboratory Tests 10/22/18 11:39 Anion Gap 11 10/22/18 17:41 Anion Gap 9 10/23/18 06:11 Red Blood Count 3.97 L, Mean Corpuscular Volume 81.4, Mean Corpuscular Hemoglobin 26.2 L, Mean Corpuscular Hemoglobin Concent 32.2, Red Cell Distribution Width 17.5 H, Neutrophils (%) (Auto) 77.9 H, Lymphocytes (%) (Auto) 13.8 L, Monocytes (%) (Auto) 4.9, Eosinophils (%) (Auto) 1.8, Basophils (%) (Auto) 0.2, Neutrophils # (Auto) 12.1 H, Lymphocytes # (Auto) 2.1, Monocytes # (Auto) 0.8, Eosinophils # (Auto) 0.3, Basophils # (Auto) 0.0, Calcium Level 7.2 L Vital Signs Date Time Temp Pulse Resp B/P (MAP) Pulse Ox O2 Delivery O2 Flow Rate FiO2 10/23/18 09:30 22 10/23/18 09:19 107 162/96 10/23/18 09:00 92 Room Air 10/23/18 08:18 98.0 1.0 I&O- Last 24 Hours up to 6 AM 10/23/18 06:00 Intake Total 1440 ml Output Total 2840 ml Balance -1400 ml NIC OMER MD Oct 23, 2018 11:28
--- NOTE | 2018-10-23 11:40 | IPN ---
DATE: 10/23/2018 HISTORY: The patient is now postop day #6 from exploratory laparotomy and resection of several portions of the small bowel for ischemia with perforation. She has a nasogastric tube in place. There is a right lower quadrant abdominal drain. Her Porter catheter remains in place. She has been getting diuresed and followed by nephrology for acute overload of fluid and diminished urine output. I spoke with Dr. Guillen this morning who reports that her renal function is stable. We discussed the option of total parenteral nutrition (TPN), and he reports that proceeding with TPN would be appropriate. Vital signs: Show that the patient has been afebrile. Her pulse is in the 90s to low 100s. Blood pressure is good, and her oxygen saturation either on room air or small amounts of nasal cannula oxygen are in the mid to upper 90s. Intake and output: Yesterday, she had 1600 in with 3000 out. Her nasogastric (NG) tube had 325 out and her abdominal drain only 15 mL. Her weight is approximately stable today at 73.6 kg. PHYSICAL EXAMINATION: The patient reports that she is breathing a little more easily today and still having some abdominal discomfort. She still has some gas bubbles as she terms them occasionally. She has passed a small amount of flatus today as well but no stool. Heart exam shows a regular rhythm in the 80s. The lungs show good bilateral breath sounds. The abdomen is somewhat distended. She does have some bowel sounds present. There is some tenderness to palpation, particularly to the right side of the abdomen. Her drain in the right lower quadrant has a minimal amount of clear serous fluid. Her midline incision is clean and dry. Lower extremities are without significant edema. LABORATORY STUDIES: Include a CBC with a differential (diff) this morning that shows a white count of 16, hemoglobin 10, hematocrit 32 and platelet count of 390,000. Differential count shows a 78% neutrophils and 14% lymphocytes. Chemistry profile shows a sodium of 141, potassium 4.0, chloride 105, CO2 of 25, BUN of 8, creatinine 0.5 and a glucose of 148. Her magnesium is 1.6. IMAGING: The patient had a KUB this morning that shows some air-filled bowel going across the upper abdomen, which would seem to be her transverse colon. She has a few other smaller air bubbles lower in the abdomen. The NG tube curls back but seems to be well positioned in the stomach. IMPRESSION: The patient appears to be doing overall fairly well. Her renal issues have been addressed, and her fluid overload is corrected. Her electrolytes are in fairly good shape. Her hematocrit is stable and her white count is also stable. PLAN: We will continue her current antibiotics. TPN with central line standard formula will be started at 75 mL/hour. I will have her abdominal drain removed as this is no longer beneficial. I discussed with her removal of the Porter catheter, and she requested another day or two to get back on her feet better. MTDD
[2018-10-23] MEDS: HEPARIN DRIP 25,000 UNITS in APPROPRIATE DILUENT 1 EA IV SCH (13:08)
[2018-10-23] MEDS ORDERED: FAT EMULSION IV 20% 500 ML IV SCH (18:00)
[2018-10-23] MEDS ORDERED: AMINO AC/ELECTROLYTE/DEX/CALC 2,000 ML IV SCH (18:00)
[2018-10-24] VITALS (7 sets, daily range): BP systolic 122–168; BP diastolic 70–93
[2018-10-24] MEDS: IPRATROPIUM 0.5MG/ALBUTEROL 2.5MG INH SOL UD 3ML (DUONEB)(J7620) NEB SCH ×4 (00:07→20:00)
[2018-10-24] MEDS: MORPHINE 4 MG/ML 1ML VIAL/SYRINGE (J2270) IV PRN ×9 (00:10→23:20)
[2018-10-24] MEDS: HumaLOG INSULIN (NovoLOG) PER UNIT SC SCH ×4 (00:11→17:55)
[2018-10-24] MEDS: CIPROFLOXACIN 400 MG in APPROPRIATE DILUENT 1 EA IV SCH ×2 (00:13→13:12)
[2018-10-24] MEDS: metroNIDAZOLE 500 MG in APPROPRIATE DILUENT 1 EA IV SCH ×3 (01:29→17:55)
[2018-10-24] MEDS: SODIUM CHLORIDE 0.9% INJ 10 ML SYR IV SCH ×2 (05:24→18:00)
--- NOTE | 2018-10-24 05:38 | IPN ---
DATE: 10/23/2018 Ms. Ballesteros is seen this morning on her bedside in intensive care unit. She had oliguric acute renal failure which has improved and she had good urine output for last 2 days. She remains nothing by mouth following her surgery for bowel perforation and ischemic small bowel. Her intravenous (IV) Lasix was stopped yesterday after she had diuresed adequately. She is feeling much better and denies any dyspnea or chest pain. PHYSICAL EXAMINATION: Temperature 97.4 degrees Fahrenheit, heart rate 86 per minute and respiratory rate 20 per minute. Blood pressure 131/70 mmHg and oxygen saturation 93%. HEENT: She still has a nasogastric tube in place. Her head is atraumatic. Neck is supple and without jugular venous distention (JVD) or thyroid enlargement. HEART: Sounds are regular. LUNGS: Lungs sound clear to auscultation. ABDOMEN: Abdomen is soft and bowel sounds are present. Surgical dressings intact. EXTREMITIES: Without any cyanosis or clubbing. NEUROLOLGICAL: Neurologically she is awake, alert and oriented x3. Today's labs show white blood cell (WBC) count 15.5, hemoglobin 10.4 and hematocrit 32.3. Platelets 390. Sodium 141, potassium 4.0, CO2 25, BUN 8 and creatinine 0.50. Magnesium level is 1.6. PROBLEMS: 1. Acute kidney injury. The patient is nonoliguric and kidney function is improved and stable. At this point she has adequate spontaneous urine output and does not require diuretic. 2. Hypokalemia. Her potassium level has corrected with multiple doses of potassium supplement given yesterday. No further supplementation is needed at this point. We can add further potassium in the total parenteral nutrition (TPN) if she receives TPN. 3. Hypomagnesemia. Her magnesium level was up to 1.9 yesterday after two doses of intravenous magnesium sulfate. Today it is down to 1.6 and she is already receiving magnesium sulfate intravenously. 4. Nutrition. I have discussed with Dr. Bernabe and recommended TPN for nutrition as the patient has not been fed for last several days and is likely to stay nothing by mouth for a few more days. Her regular formula TPN can be used as her kidney function is normal. Her volume status can be managed with diuretic as needed. From a renal standpoint, the patient is doing well and I am signing off her case. Please do not hesitate to call me back should you need any further assistance.
[2018-10-24 05:59] LABS: HEMOGLOBIN 11.4 g/dl (12.0-15.5); MEAN CORPUSCULAR HEMOGLOBIN 25.9 pg (27.0-33.0); MEAN CORPUSCULAR HGB CONC 32.6 g/dl (32.0-36.5); MEAN CORPUSCULAR VOLUME 79.4 fl (80.0-96.0); PLATELET COUNT, AUTOMATED 448 10^3/uL (150-450); RED BLOOD COUNT 4.41 10^6/uL (4.00-5.40); WHITE BLOOD COUNT 15.7 10^3/uL (4.0-10.0)
[2018-10-24 06:22] LABS: BLOOD UREA NITROGEN 7 MG/DL (7-18); CALCIUM LEVEL 7.1 MG/DL (8.5-10.1); CARBON DIOXIDE LEVEL 26 MEQ/L (21-32); CHLORIDE LEVEL 101 MEQ/L (98-107); CREATININE FOR GFR 0.58 MG/DL (0.55-1.30); GLOMERULAR FILTRATION RATE > 60.0 (>58); GLUCOSE, FASTING 283 MG/DL (70-100); POTASSIUM SERUM 2.8 MEQ/L (3.5-5.1); SODIUM LEVEL 137 MEQ/L (136-145)
[2018-10-24] MEDS: KCL 10MEQ/100ML SWI (KRUN) 10 MEQ in APPROPRIATE DILUENT 1 EA IV SCH ×4 (06:45→10:54)
[2018-10-24] MEDS: HEPARIN DRIP 25,000 UNITS in APPROPRIATE DILUENT 1 EA IV SCH ×2 (06:46→23:18)
[2018-10-24] MEDS ORDERED: AMINO AC/ELECTROLYTE/DEX/CALC 1,000 ML IV ONE (08:00)
[2018-10-24] MEDS ORDERED: AMINO AC/ELECTROLYTE/DEX/CALC 1,000 ML IV SCH (08:00)
[2018-10-24] MEDS: PANTOPRAZOLE 40MG INJ (PROTONIX) (C9113) IV SCH (08:27)
[2018-10-24] MEDS ORDERED: POTASSIUM CHLORIDE 10 MEQ SR TABLET PO ONE ×2 (09:00→14:15)
[2018-10-24] MEDS: LABETALOL 100 MG TAB PO SCH ×2 (09:42→20:17)
[2018-10-24] MEDS: ASPIRIN 81 MG CHEW TABLET NG SCH (09:43)
[2018-10-24] MEDS: amLODIPine 5 MG TAB PO SCH (09:43)
[2018-10-24 13:47] LABS: BLOOD UREA NITROGEN 6 MG/DL (7-18); CALCIUM LEVEL 7.6 MG/DL (8.5-10.1); CARBON DIOXIDE LEVEL 23 MEQ/L (21-32); CHLORIDE LEVEL 103 MEQ/L (98-107); CREATININE FOR GFR 0.56 MG/DL (0.55-1.30); GLOMERULAR FILTRATION RATE > 60.0 (>58); GLUCOSE, FASTING 315 MG/DL (70-100); MAGNESIUM LEVEL 1.7 MG/DL (1.8-2.4); POTASSIUM SERUM 3.5 MEQ/L (3.5-5.1); SODIUM LEVEL 137 MEQ/L (136-145)
--- NOTE | 2018-10-24 14:07 | IPNPDOC ---
Text Note Date of Service The patient was seen on 10/24/18. NOTE Subjective: No dyspnea. Abd pain. No BM. +flatus. No acute changes overnight. PHYSICAL EXAMINATION: Vitals: (see below) General: No acute distress, laying comfortably in bed. HEENT: Moist mucous membranes. Neck: No JVD or lymphadenopathy Cardiac: RRR, No murmurs Pulm: Coarse crackles at the bases bilaterally have improved. No wheezing, rhonchi. No use of accessory muscles. Abd: Mild tenderness at the incision sites. KJ drain has since been removed. Mildly distended. Incision site clean and dry. + BS Ext: No edema bilateral lower extremities. No cyanosis LABORATORY DATA: See below. IMAGING: CT abdomen and pelvis on 10/17/18 IMPRESSION: Bowel perforation. Findings consistent with small bowel perforation with focally absent bowel wall enhancement in one of the jejunal loops. There is inflammation, mural thickening and dilation in adjacent small bowel jejunal loops. This may reflect inflammatory bowel disease. There is some mild adjacent mesenteric adenopathy. Incidental findings include subacute splenic infarction and bilateral principally lower pole cortical scarring affecting the kidneys. Fatty infiltration of the liver is also seen. Chest x-ray on 10/20/18 IMPRESSION: Increased pulmonary opacities bilaterally consistent with atelectasis and/or infiltrates. No evidence of pleural effusion or pulmonary edema. ASSESSMENT/PLAN: 1. Bowel perforation, status post exploratory laparoscopy, with excision of 3/4 of the small bowel. Patient states she feels much better today. Her abdominal pain is better controlled. She was recently admitted to [facility] last month, where she was found to have acute mesenteric ischemia, with extensive large vessel clots, for which the decision was made for conservative measures given her very high risk of further embolization and complications, the patient was anticoagulated with Coumadin. Patient is currently on Cipro/Flagyl, leukocytosis improving. Lactic acidosis is improving. Management per Dr. Lobo. 2. 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 The patient was off Coumadin, however on Wednesday she was told that her INR is supratherapeutic and was told to hold it until . The exact cause of the patient's hypercoagulable states unknown. Patient was instructed to follow-up with hemat ology/oncology for further workup. It was noted that the patient's did not have any abscesses signs of malignancy, however CA-125 was mildly elevated and nonspecific Castella's. Her antiphospholipid/cardiolipin AB testing was negative and her CA 199 is negative. On heparin drip. 3. Acute on chronic anemia- status post 2 units PRBC on 10/19. Hemoglobin stable. We'll continue to monitor. 4. Metabolic acidosis- Improved. Appreciate nephrology input. s/p 1/2 NS with bicarbonate drip. 5. Oliguria secondary to the above. We'll continue to monitor.s/p albumin infusion Appreciate nephrology input. 6. Lactic acidosis secondary to the above. Improving. 7. Sinus tachycardia likely secondary to the above. Cardiac enzymes negative. Echocardiogram (see above) 8. History of diabetes mellitus on sliding scale insulin 9. Hypertension. controlled. On amlodipine/labetalol. 10. History of migraines stable 11. History of bipolar disorder 12. History of fibromyalgia 13. History of PTSD 14. s/p Volume overload, in the setting of hypoalbuminemia. s/p IV Lasix. Improved. DVT prophylaxis: Heparin drip Overall prognosis guarded. VS,Fishbone, I+O VS, Fishbone, I+O Laboratory Tests 10/24/18 05:39 Red Blood Count 4.41, Mean Corpuscular Volume 79.4 L, Mean Corpuscular Hemoglobin 25.9 L, Mean Corpuscular Hemoglobin Concent 32.6, Red Cell Distribution Width 17.7 H, Calcium Level 7.1 L 10/24/18 12:55 Calcium Level 7.6 L Vital Signs Date Time Temp Pulse Resp B/P (MAP) Pulse Ox O2 Delivery O2 Flow Rate FiO2 10/24/18 12:23 18 10/24/18 12:00 97.0 78 148/93 (111) 94 Room Air 10/23/18 16:00 1.0 I&O- Last 24 Hours up to 6 AM 10/24/18 06:00 Intake Total 2200 ml Output Total 1130 ml Balance 1070 ml NIC OMER MD Oct 24, 2018 14:07
[2018-10-24] MEDS ORDERED: MAG SULF 1GM/100ML (MAG RUN) 1 GM in APPROPRIATE DILUENT 1 EA IV ONE (14:15)
[2018-10-24] MEDS: LEVEMIR (INSULIN DETEMIR) 1 UNITS/0.01ML SC SCH (14:17)
--- NOTE | 2018-10-24 14:32 | IPNPDOC ---
Date Seen The patient was seen on 10/24/18. Progress Note SUBJECTIVE: Patient is post-op day 7 from exploratory laparotomy and small bowel resection for ischemia with perforation. Patient currently states that her pain has improved although it is still present. She has removed her nasogastric tube as it was causing irritation in her throat. She became frustrated and removed it. She is denying any fevers, chills, nausea, or vomiting. She has had her KJ drain removed over the weekend. Patient states that she is passing gas however, she has not had a bowel movement. Her diet was advanced to clear liquids this morning and she has tolerated PO intake well thus far. OBJECTIVE PHYSICAL EXAMINATION: VITAL SIGNS: Please see below. GENERAL: Patient is awake alert and oriented. She appears in no acute distress. She is lying in bed comfortably HEENT: Atraumatic, normocephalic. eyes are non-icteric. Trachea is midline. CARDIOVASCULAR: S1. S2 normal. Regular rhythm. Slightly tachycardiac. No clicks, rubs, or murmurs. No JVD. No carotid bruits RESPIRATORY: Clear to auscultation bilaterally with good respiratory effort. No wheezes, rhonci or rales ABDOMINAL: Soft. Slightly more distended compared to previous exam. Mild tenderness to palpation throughout. Bowel sounds present although slightly hypoactive. Incision site is bandaged and clear. KJ drain has been removed. Sight is bandaged EXTREMITIES: No edema. 2+ posterior tibial pulses bilaterally PSYCHOLOGICAL: Mood and affect appear normal LABORATORY DATA, IMAGING STUDIES, MICROBIOLOGY: Please see below. DVT prophylaxis ordered?: Yes ASSESSMENT AND PLAN: 1.Small Bowel performation s/p exploratory laparotomy w/ small bowel resection post-op day 7 -Patient has noticed improvement in her pain. She is currently passing gas. No bowel movements today. -White count still elevated although trending down. Patient has remained afebrile. She is continued on cipro and flagyl -NG tube has been removed by patient. Her diet has been advanced to clear liquids. She has tolerated clear liquids well. Consider advancing diet to regular tomorrow AM if she continues to tolerate PO intake. -Patient continues to be on TPN for nutritional support. Once regular diet is resumed consider discontinuing TPN. 2. Oliguric Renal Failure -Patients renal function has improved. She is being followed by Nephrology 3. Large Vessel Thrombosis -Patient has history of proximal and distal aortic thrombosis. She was originally hospitalized at [facility] for acute mesenteric ischemia. She opted for non-surgical treatment at the time. She was placed on warfarin. -Once patients diet is advanced and she can tolerate PO, consider adding coumadin. She is currently receiving heparin. She will need follow-up with her petrol tanker driver and vascular surgeon for consideration of starting NOACs such as eliquis. VS, I&O, 24H, Fishbone Vital Signs/I&O Vital Signs Date Time Temp Pulse Resp B/P (MAP) Pulse Ox O2 Delivery O2 Flow Rate FiO2 10/24/18 12:23 18 10/24/18 12:00 97.0 78 148/93 (111) 94 Room Air 10/23/18 16:00 1.0 I&O- Last 24 Hours up to 6 AM 10/24/18 06:00 Intake Total 2200 ml Output Total 1130 ml Balance 1070 ml Laboratory Data 24H LABS Laboratory Tests 2 10/23/18 17:46: Bedside Glucose (Misc Panel) 97 10/23/18 23:39: Bedside Glucose (Misc Panel) 202H 10/24/18 05:39: Nucleated Red Blood Cells % (auto) 0.0, Activated Partial Thromboplast Time 65.5H, Anion Gap 10, Glomerular Filtration Rate > 60.0, Blood Urea Nitrogen 7, Creatinine 0.58, Sodium Level 137, Potassium Level 2.8#*L, Chloride Level 101, Carbon Dioxide Level 26, Calcium Level 7.1L 10/24/18 12:19: Bedside Glucose (Misc Panel) 292H 10/24/18 12:55: Anion Gap 11, Glomerular Filtration Rate > 60.0, Blood Urea Nitrogen 6L, Creatinine 0.56, Sodium Level 137, Potassium Level 3.5#, Chloride Level 103, Carbon Dioxide Level 23, Calcium Level 7.6L, Magnesium Level 1.7L CBC/BMP Laboratory Tests 10/24/18 05:39 Red Blood Count 4.41, Mean Corpuscular Volume 79.4 L, Mean Corpuscular Hemoglobin 25.9 L, Mean Corpuscular Hemoglobin Concent 32.6, Red Cell Distribution Width 17.7 H, Calcium Level 7.1 L 10/24/18 12:55 Calcium Level 7.6 L Microbiology Microbiology 10/17/18 Blood Culture - Final, Complete NO GROWTH AFTER 5 DAYS GME ATTESTATION GME ATTESTATION My faculty preceptor for this patient encounter was physically present during the encounter and was fully available. All aspects of the patient interview, examination, medical decision making process, and medical care plan development were reviewed and approved by the faculty preceptor. The faculty preceptor is aware and concurs with the plan as stated in the body of this note and will attest to such by his/her cosignature. OXANA BARBER DO Oct 24, 2018 14:32
[2018-10-24] MEDS: ONDANSETRON 4MG/2ML VIAL (J2405) IV PRN ×2 (15:17→23:48)
[2018-10-24] MEDS ORDERED: FAT EMULSION IV 20% 500 ML IV SCH (18:00)
[2018-10-24] MEDS ORDERED: MULTIVITAMIN -ADULT INJECTION 10 ML, CR/CU/SE/MN/ZN INJ 1 ML in AMINO AC/ELECTROLYTE/DE... IV SCH (18:00)
[2018-10-25] VITALS (7 sets, daily range): BP systolic 122–165; BP diastolic 64–86
[2018-10-25] MEDS: HumaLOG INSULIN (NovoLOG) PER UNIT SC SCH ×4 (01:22→18:16)
[2018-10-25] MEDS: CIPROFLOXACIN 400 MG in APPROPRIATE DILUENT 1 EA IV SCH (01:22)
[2018-10-25] MEDS: METOCLOPRAMIDE INJ 10MG/2ML VIAL (J2765) IV PRN (01:29)
[2018-10-25] MEDS: IPRATROPIUM 0.5MG/ALBUTEROL 2.5MG INH SOL UD 3ML (DUONEB)(J7620) NEB SCH ×4 (02:00→20:21)
[2018-10-25] MEDS: metroNIDAZOLE 500 MG in APPROPRIATE DILUENT 1 EA IV SCH (02:42)
[2018-10-25] MEDS: MORPHINE 4 MG/ML 1ML VIAL/SYRINGE (J2270) IV PRN ×5 (02:55→16:11)
[2018-10-25] MEDS: SODIUM CHLORIDE 0.9% INJ 10 ML SYR IV SCH ×2 (05:55→18:16)
[2018-10-25] MEDS: HEPARIN SOD (PORCINE) 5000 UNITS/ML VIAL IV PRN ×2 (07:09→21:09)
[2018-10-25] MEDS: HEPARIN DRIP 25,000 UNITS in APPROPRIATE DILUENT 1 EA IV SCH ×4 (07:12→20:47)
[2018-10-25] MEDS: ASPIRIN 81 MG CHEW TABLET NG SCH (08:56)
[2018-10-25] MEDS: LEVEMIR (INSULIN DETEMIR) 1 UNITS/0.01ML SC SCH (08:56)
[2018-10-25] MEDS: amLODIPine 5 MG TAB PO SCH (08:57)
[2018-10-25] MEDS: ONDANSETRON 4MG/2ML VIAL (J2405) IV PRN (08:57)
[2018-10-25] MEDS: LABETALOL 100 MG TAB PO SCH ×2 (08:57→21:09)
[2018-10-25] MEDS: PANTOPRAZOLE 40MG INJ (PROTONIX) (C9113) IV SCH (08:58)
[2018-10-25] MEDS: LACTOBACILLUS ACIDOPHILUS CAP (BACID) PO SCH ×2 (12:30→18:17)
--- NOTE | 2018-10-25 14:59 | IPNPDOC ---
Date Seen The patient was seen on 10/25/18. Progress Note SUBJECTIVE: Patient was seen and examined this morning. She is currently post op day 8 from exploratory laparotomy and small bowel resection for ischemia with perforation. Patient is complaining of some increased pain today. She denies any drainage from her incision sites. She does develop some nausea without vomiting on occasion however, she continues to tolerate a clear liquids diet. She denies any fevers or chills. She has not had a bowel movement yet however she continues to pass gas. She has been working with physical therapy however often does not cooperate due to pain. OBJECTIVE PHYSICAL EXAMINATION: VITAL SIGNS: Please see below. GENERAL: Patient is awake alert and oriented x3. She appears somewhat uncomfortable laying in bed. She is in no acute distress HEENT: Atraumatic, normocephalic. Eyes are non-icteric. Trachea is midline. CARDIOVASCULAR: Normal S1, S2. Regular rate and rhythm. No clicks rubs, or murmurs. No JVD. No carotid bruits RESPIRATORY: Clear to auscultation bilaterally with good respiratory effort. No wheezes, rhonci, or rales. No crackles ABDOMINAL: Slightly distended. Midline incision with amber clear of erythema or drainage. No sign of infection. Positive bowel sounds throughout abdomen. Slight tenderness to palpation of abdomen throughout. EXTREMITIES: No edema. Pulses full and equal PSYCHOLOGICAL: Mood and affect appear appropriate LABORATORY DATA, IMAGING STUDIES, MICROBIOLOGY: Please see below. DVT prophylaxis ordered?: Yes ASSESSMENT AND PLAN: 1. Small bowel perforation s/p exploratory laparotomy w/ small bowel resection post-op day 8 -Patient continues to pass gas. No bowel movements at this time. -Advance patients diet as tolerated. Ensure clears as nutritional supplement -Lactobacillus before each meal -D/C IV fluids, TPN -D/C scott catheter -Patient has white count of 15.7 which is stable from previous. She remains afebrile. Her WBC is likely reactive/inflammatory. D/C Cipro and flagyl at this time. -Percocet for PO pain medication -D/C telemetry 2. Oliguric Renal Failure -Resolving. -D/C scott catheter 3. Large Vessel Thrombosis -Continue with heparin -Will begin coumadin when patient can tolerate full diet VS, I&O, 24H, Fishbone Vital Signs/I&O Vital Signs Date Time Temp Pulse Resp B/P (MAP) Pulse Ox O2 Delivery O2 Flow Rate FiO2 10/25/18 12:39 98.2 85 20 135/84 94 10/25/18 11:50 Room Air 10/23/18 16:00 1.0 I&O- Last 24 Hours up to 6 AM 10/25/18 06:00 Intake Total 3900 ml Output Total 2275 ml Balance 1625 ml Laboratory Data 24H LABS Laboratory Tests 2 10/24/18 17:09: Bedside Glucose (Misc Panel) 261H 10/25/18 00:24: Bedside Glucose (Misc Panel) 259H 10/25/18 06:06: Bedside Glucose (Misc Panel) 360H 10/25/18 06:21: Activated Partial Thromboplast Time 63.3H 10/25/18 11:56: Bedside Glucose (Misc Panel) 331H 10/25/18 13:06: Activated Partial Thromboplast Time 74.2H Microbiology Microbiology 10/17/18 Blood Culture - Final, Complete NO GROWTH AFTER 5 DAYS GME ATTESTATION GME ATTESTATION My faculty preceptor for this patient encounter was physically present during the encounter and was fully available. All aspects of the patient interview, examination, medical decision making process, and medical care plan development were reviewed and approved by the faculty preceptor. The faculty preceptor is aware and concurs with the plan as stated in the body of this note and will attest to such by his/her cosignature. OXANA BARBER DO Oct 25, 2018 14:59
[2018-10-25] MEDS: PERCOCET 5MG/325MG TAB PO PRN ×2 (18:18→22:08)
[2018-10-25 19:57] LABS: HEMATOCRIT 31.5 % (36.0-47.0); MEAN CORPUSCULAR HGB CONC 31.7 g/dl (32.0-36.5); MEAN CORPUSCULAR VOLUME 81.8 fl (80.0-96.0); PLATELET COUNT, AUTOMATED 437 10^3/uL (150-450); RED BLOOD COUNT 3.85 10^6/uL (4.00-5.40); WHITE BLOOD COUNT 19.4 10^3/uL (4.0-10.0)
[2018-10-25 20:04] LABS: BLOOD UREA NITROGEN 8 MG/DL (7-18); CALCIUM LEVEL 7.7 MG/DL (8.5-10.1); CARBON DIOXIDE LEVEL 26 MEQ/L (21-32); CHLORIDE LEVEL 104 MEQ/L (98-107); CREATININE FOR GFR 0.55 MG/DL (0.55-1.30); GLOMERULAR FILTRATION RATE > 60.0 (>58); GLUCOSE, FASTING 229 MG/DL (70-100); MAGNESIUM LEVEL 1.6 MG/DL (1.8-2.4); SODIUM LEVEL 139 MEQ/L (136-145)
[2018-10-25] MEDS ORDERED: MAG SULF 1GM/100ML (MAG RUN) 1 GM in APPROPRIATE DILUENT 1 EA IV ONE (21:00)
--- NOTE | 2018-10-25 21:03 | IPN ---
DATE: 10/25/2018 Patient seen and examined. Patient tolerating clear liquid minimally with nausea. No vomiting. Passing gas. No bowel movements. Denies any chest pain, pressure, or discomfort. Reports abdominal has gotten much better. Denies any fevers or chills. VITAL SIGNS: Temperature 98.2, pulse 85, respirations 20, blood pressure 135/84, pulse oximetry 94% on room air. LABORATORY DATA: WBC 15.7, hemoglobin and hematocrit 11.4/35, platelets 448. Chemistry: Sodium 135, potassium 3.5, chloride 103, bicarbonate 23, BUN 6, creatinine 0.56, magnesium 1.7. PHYSICAL EXAMINATION: GENERAL: Patient alert, comfortable in no acute distress. HEENT: Mucous membranes. Neck supple. CARDIAC: Regular, S1, S2. PULMONARY: No significant wheeze, rales, or rhonchi. ABDOMEN: Minimal tenderness. Mild distention. Hypoactive bowel sounds. EXTREMITIES: No clubbing, cyanosis, or edema. ASSESSMENT AND PLAN: This is a 48-year-old female patient with underlying medical history of diabetes mellitus, hypertension, migraine, bipolar, recently hospitalized at [facility] from 08/31/2018 to 09/27/2018 with epigastric pain, found to have acute mesenteric ischemia, discharged on Coumadin. Presented with abdominal pain. Found to have bowel perforation status post exploratory laparoscopy with small-bowel resection. 1. Bowel perforation, status post exploratory laparoscopy with excision of small bowel. Currently feeling much better. Patient on a heparin drip. Diet as per surgery. Patient on a clear liquid diet. Patient was on total parenteral nutrition (TPN). Currently TPN was discontinued by surgery. At [facility] patient was also diagnosed to have extensive large-vessel clots. Decision was made for conservative management given patient's high risk for further embolization. Currently off of antibiotics. Pain regimen as per surgery. Once patient tolerates a diet, will switch from heparin to Coumadin. Further dietary recommendations as per surgery. 2. Large-vessel thrombosis, multiple large clots in patient's thoracic aorta at [facility] with evidence of splenectomy. No infarct. Patient currently on heparin drip. Will switch to Coumadin once patient tolerating oral. Followup with hematology/oncology as outpatient. No signs of infection at this time. Patient's antiphospholipid and cardiolipin antibody testing has been negative. CA19-9 has been negative. CA-125 is mildly elevated. 3. Acute on chronic anemia, status post total of 2 units packed red blood cells (PRBC). Monitor hemoglobin and hematocrit. 4. Metabolic acidosis, resolved. 5. Oliguria, resolved. 6. Lactic acidosis secondary to bowel perforation, improved. 7. Sinus tachycardia. Cardiac enzymes have been negative. Will continue to monitor. 8. Diabetes mellitus. Once patient tolerating diet will switch to before meals, at bedtime, currently every 6. 9. Hypertension. Monitor blood pressure. Continue Norvasc, aspirin, labetalol. 10. History of migraine, currently stable. 11. History of bipolar, currently stable. 12. History of fibromyalgia, currently stable. 13. History of posttraumatic stress disorder. Outpatient followup. 14. Deep vein thrombosis (DVT) prophylaxis. Patient on a heparin drip. PROGNOSIS: Guarded, but patient has been improving.
[2018-10-25] MEDS: KCL 10MEQ/100ML SWI (KRUN) 10 MEQ in APPROPRIATE DILUENT 1 EA IV SCH ×3 (21:22→23:40)
[2018-10-26] VITALS (9 sets, daily range): BP systolic 126–158; BP diastolic 71–98
[2018-10-26] MEDS: HumaLOG INSULIN (NovoLOG) PER UNIT SC SCH ×5 (00:01→23:59)
[2018-10-26] MEDS: IPRATROPIUM 0.5MG/ALBUTEROL 2.5MG INH SOL UD 3ML (DUONEB)(J7620) NEB SCH ×4 (01:40→19:57)
[2018-10-26] MEDS: PERCOCET 5MG/325MG TAB PO PRN ×4 (01:42→20:41)
[2018-10-26] MEDS: HEPARIN DRIP 25,000 UNITS in APPROPRIATE DILUENT 1 EA IV SCH ×3 (02:33→22:25)
[2018-10-26] MEDS: METOCLOPRAMIDE INJ 10MG/2ML VIAL (J2765) IV PRN ×2 (05:12→18:28)
[2018-10-26] MEDS: SODIUM CHLORIDE 0.9% INJ 10 ML SYR IV SCH ×3 (05:16→18:04)
[2018-10-26] MEDS ORDERED: GLUCAGON FOR INJ 1 MG VIAL (J1610) SC PRN (07:30)
[2018-10-26] MEDS ORDERED: GLUCOSE 4 GM CHEW TABLET PO PRN (07:30)
[2018-10-26] MEDS ORDERED: DEXTROSE 50% 50 ML SYRINGE IV PRN (07:30)
[2018-10-26] MEDS ORDERED: MAG SULF 1GM/100ML (MAG RUN) 1 GM in APPROPRIATE DILUENT 1 EA IV ONE (08:00)
[2018-10-26] MEDS ORDERED: POTASSIUM CHLORIDE 10 MEQ SR TABLET PO ONE (08:00)
[2018-10-26 08:03] LABS: HEMATOCRIT 33.7 % (36.0-47.0); HEMOGLOBIN 10.7 g/dl (12.0-15.5); MEAN CORPUSCULAR HGB CONC 31.8 g/dl (32.0-36.5); MEAN CORPUSCULAR VOLUME 81.8 fl (80.0-96.0); PLATELET COUNT, AUTOMATED 497 10^3/uL (150-450); RED BLOOD COUNT 4.12 10^6/uL (4.00-5.40); WHITE BLOOD COUNT 20.2 10^3/uL (4.0-10.0)
[2018-10-26 08:39] LABS: BLOOD UREA NITROGEN 9 MG/DL (7-18); CALCIUM LEVEL 7.7 MG/DL (8.5-10.1); CARBON DIOXIDE LEVEL 27 MEQ/L (21-32); CHLORIDE LEVEL 105 MEQ/L (98-107); CREATININE FOR GFR 0.52 MG/DL (0.55-1.30); GLOMERULAR FILTRATION RATE > 60.0 (>58); GLUCOSE, FASTING 149 MG/DL (70-100); MAGNESIUM LEVEL 1.8 MG/DL (1.8-2.4); POTASSIUM SERUM 3.7 MEQ/L (3.5-5.1); SODIUM LEVEL 139 MEQ/L (136-145)
[2018-10-26] MEDS: HALOPERIDOL 5 MG TAB PO SCH ×3 (09:00→20:43)
[2018-10-26] MEDS: BENZTROPINE 1 MG TAB PO SCH ×2 (09:00→20:43)
[2018-10-26] MEDS: MORPHINE 4 MG/ML 1ML VIAL/SYRINGE (J2270) IV PRN ×3 (09:15→21:43)
[2018-10-26] MEDS: ONDANSETRON 4MG/2ML VIAL (J2405) IV PRN ×2 (09:22→14:58)
[2018-10-26] MEDS: PANTOPRAZOLE 40MG INJ (PROTONIX) (C9113) IV SCH (09:23)
[2018-10-26] MEDS: LEVEMIR (INSULIN DETEMIR) 1 UNITS/0.01ML SC SCH ×2 (09:23→22:24)
[2018-10-26] MEDS: LABETALOL 100 MG TAB PO SCH ×3 (09:24→21:00)
[2018-10-26] MEDS: ASPIRIN 81 MG CHEW TABLET NG SCH (09:24)
[2018-10-26] MEDS: amLODIPine 5 MG TAB PO SCH (09:25)
[2018-10-26] MEDS: LACTOBACILLUS ACIDOPHILUS CAP (BACID) PO SCH ×3 (09:25→17:26)
[2018-10-26] MEDS: GASTROGRAFIN SOLUTION 30ML PO SCH ×2 (09:42→10:22)
[2018-10-26] MEDS ORDERED: ISOVUE-370 76% 100ML VIAL (Q9967) As Ordered ONE ×2 (11:08→16:08)
--- NOTE | 2018-10-26 12:15 | REP ---
Clinical: Rule out abscess. Technique: Axial contrast enhanced images from the lung bases to the pubic symphysis using oral (per protocol) and 100 ml Isovue 370 intravenous contrast material with coronal and sagittal re-formations. Comparison: 10/18/2018. Findings: Current examination demonstrates evidence for prior surgical intervention including partial small bowel resection. Proximal small bowel to the level of the area of anastomosis and surgical repair appears fluid-filled and dilated with small bowel distal to the site of repair appearing essentially normal in caliber suggesting the possibility of partial obstruction at the site of prior anastomoses. Large bowel is fluid-filled and relatively normal in appearance. Extensive inflammatory stranding throughout the mesentery and intra-abdominal/peritoneal fat is appreciated along with multiple loculated fluid collections concerning for abscesses. Most prominent collections are identified posterior to the dilated inflamed proximal small bowel and measures 6.9 x 4.4 x 3.0 cm, and within the right clinton pelvis just superior to the uterus which measures approximately 5.4 x 5.7 x 2.6 cm. Smaller scattered loculated fluid collections are also identified within the abdomen and pelvis. No significant pneumoperitoneum noted although very small foci of extraluminal contained gas adjacent to the area of anastomosis cannot definitively be excluded. The liver, spleen, pancreas, gallbladder, bilateral adrenal glands are relatively normal / stable. 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 The right kidney demonstrates chronic cortical scarring. The left kidney demonstrates subtle low density striations extending to the cortex suggesting the possibility of pyelonephritis. Pelvis demonstrates relatively normal appearance to the bladder and uterus/adnexa. Abdominal aorta without aneurysm or dissection. Musculoskeletal structures are intact. Lung bases demonstrate scattered atelectasis, mild bronchiectasis, and small pleural effusions (left greater than right). Impression: 1. Postsurgical changes as described above with suspected peritonitis including multiple loculated fluid collections suggesting early abscesses. Possible partial small bowel obstruction at the site of anastomosis cannot be excluded as well. 2. A subtle striated appearance to the left kidney raises the possibility of acute pyelonephritis. 3. 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 4. Lung bases demonstrate scattered atelectasis and small pleural effusions (left greater than right). Electronically Signed by Cristhian Merchant MD 10/26/2018 12:06 P
--- NOTE | 2018-10-26 13:43 | IPNPDOC ---
Date Seen The patient was seen on 10/26/18. Progress Note SUBJECTIVE: Patient was seen and examined this morning. She currently complains of abdominal pain which she states is not worse then previous but not better. She has had multiple bowel movements this morning. She is tolerating her diet with minimal nausea and without vomiting. Per nursing, the patient has had some hallucinatory thoughts such as a "stalker" coming to her room. Patient currently denies such thoughts. She says that she is frustrated with physical therapy as they are working her hard and she feels she is in too much pain. She is currently denying any fevers, however, she states that she does frequently get chills. Her midline incision did have some serosanguineous drainage last night and was bandaged by nursing. OBJECTIVE PHYSICAL EXAMINATION: VITAL SIGNS: Please see below. GENERAL: Awake alert and oriented. She appears in no acute distress. She is slightly frustrated and cries at times during the exam HEENT: Atraumatic, normocephalic. Eyes are non-icteric. Trachea is midline CARDIOVASCULAR: Normal S1, S2. Regular rate and rhythm. No clicks rubs or murmurs. No JVD or carotid bruits RESPIRATORY: Clear to auscultation bilaterally. No wheezes or rhonci ABDOMINAL: Soft, slightly distended. Midline incision without erythema. Minimal serosanguineous drainage present and expressed from midline incision. No drainage or erythema from KJ drain incision. Positive bowel sounds throughout. Tenderness to palpation of abdomen diffusely. No rebound tenderness or guarding. EXTREMITIES: Slight swelling of Right foot. Full and equal upper and lower extremity pulses. PSYCHOLOGICAL: Patients mood is slightly more agitated/frustrated today. She cries during portions of exam and appears slightly histrionic LABORATORY DATA, IMAGING STUDIES, MICROBIOLOGY: Please see below. DVT prophylaxis ordered?:Yes ASSESSMENT AND PLAN: 1. Small bowel perforation s/p exploratory laparotomy w/ small bowel resection post-op day 9 -Patient has had multiple bowel movements last night and today. She is currently tolerating a liquids/soft diet and advancing as tolerating. -Plan to continue with current diet -Patient has remained afebrile although has rising white count. 2. Leukocytosis -Patient has had an elevated WBC since her surgery. She was previously on Cipro and Flagyl. They were discontinued yesterday. Today the patients WBC has increased to 20. She remains afebrile however, complains of chills at times. -Blood cultures drawn from PICC line for possible source of infection. Awaiting results -CT Abdomen and Pelvis to assess abscess formation revealed postsurgical changes with suspected peritonitis including multiple loculated fluid collections suggesting early abscesses. Additionally, she has pleural effusion on the left. -Patient to have abscess drained and cultured -Patient started on Meropenem per hospitalist. Recommendations appreciated Will continue to trend white count 3. Large Vessel Thrombosis -Patient is currently on heparin. Will continue -Plans to start Coumadin once abscess has resolved 4. History of Bipolar disorder -Patient has a history of bilpolar disorder with hospitalization in [facility] in 2011. At the time she was started on Seroquel and Depakote. At time of this admission the patient had not been on any psych medications. She has a non- compliant history and has been lost to follow-up for some time. At current hospitalization, nursing has reported hallucinatory thoughts. -Dr. [place] of Psychiatry has been contacted and made aware of the patient. Plans to start Haldol 5 mg TID and Congentin 1mg BID. Recommendations appreciated VS, I&O, 24H, Fishbone Vital Signs/I&O Vital Signs Date Time Temp Pulse Resp B/P (MAP) Pulse Ox O2 Delivery O2 Flow Rate FiO2 10/26/18 12:00 96.5 83 18 142/80 (100) 97 10/26/18 08:00 Room Air 10/25/18 18:48 1.0 I&O- Last 24 Hours up to 6 AM 10/26/18 06:00 Intake Total 1688 ml Output Total 1525 ml Balance 163 ml Laboratory Data 24H LABS Laboratory Tests 2 10/25/18 17:44: Bedside Glucose (Misc Panel) 306H 10/25/18 19:22: Nucleated Red Blood Cells % (auto) 0.1H, Activated Partial Thromboplast Time 46.9H, Anion Gap 9, Glomerular Filtration Rate > 60.0, Blood Urea Nitrogen 8, Creatinine 0.55, Sodium Level 139, Potassium Level 3.0L, Chloride Level 104, Carbon Dioxide Level 26, Calcium Level 7.7L, Magnesium Level 1.6L 10/25/18 23:54: Bedside Glucose (Misc Panel) 128H 10/26/18 01:30: Activated Partial Thromboplast Time 114.2H 1/30/19 05:40: Bedside Glucose (Misc Panel) 146H 10/26/18 07:37: Nucleated Red Blood Cells % (auto) 0.0, Activated Partial Thromboplast Time 78.3H, Anion Gap 7L, Glomerular Filtration Rate > 60.0, Blood Urea Nitrogen 9, Creatinine 0.52L, Sodium Level 139, Potassium Level 3.7#, Chloride Level 105, Carbon Dioxide Level 27, Calcium Level 7.7L, Magnesium Level 1.8 10/26/18 12:29: Bedside Glucose (Misc Panel) 179H 10/26/18 13:12: CBC/BMP Laboratory Tests 10/25/18 19:22 Red Blood Count 3.85 L, Mean Corpuscular Volume 81.8, Mean Corpuscular Hemoglobin 26.0 L, Mean Corpuscular Hemoglobin Concent 31.7 L, Red Cell Distribu tion Width 18.0 H, Calcium Level 7.7 L 10/26/18 07:37 Red Blood Count 4.12, Mean Corpuscular Volume 81.8, Mean Corpuscular Hemoglobin 26.0 L, Mean Corpuscular Hemoglobin Concent 31.8 L, Red Cell Distribution Width 18.6 H, Calcium Level 7.7 L Microbiology Microbiology 10/26/18 Blood Culture, Received Pending 10/26/18 Blood Culture, Received Pending 10/17/18 Blood Culture - Final, Complete NO GROWTH AFTER 5 DAYS GME ATTESTATION GME ATTESTATION My faculty preceptor for this patient encounter was physically present during the encounter and was fully available. All aspects of the patient interview, examination, medical decision making process, and medical care plan development were reviewed and approved by the faculty preceptor. The faculty preceptor is aware and concurs with the plan as stated in the body of this note and will attest to such by his/her cosignature. OXANA BARBER DO Oct 26, 2018 13:43
[2018-10-26] MEDS: MEROPENEM INJ 1 GM in APPROPRIATE DILUENT 1 EA IV SCH ×2 (14:58→22:23)
[2018-10-26] MEDS ORDERED: LIDOCAINE 1% MDV 20ML VIAL As Ordered ONE ×2 (14:59→16:30)
--- NOTE | 2018-10-26 16:07 | IPNPDOC ---
Text Note Date of Service The patient was seen on 10/26/18. NOTE Patient seen and examined. Passing gas and had bowel movements. Denies any chest pain, pressure, or discomfort. Reports abdominal has gotten much better. Denies any fevers or chills. n/v reported PHYSICAL EXAMINATION: GENERAL: Patient alert, comfortable in no acute distress. HEENT: Mucous membranes. Neck supple. CARDIAC: Regular, S1, S2. PULMONARY: No significant wheeze, rales, or rhonchi. ABDOMEN: Minimal tenderness. Mild distention. Hypoactive bowel sounds. EXTREMITIES: No clubbing, cyanosis, or edema. ASSESSMENT AND PLAN: This is a 48-year-old female patient with underlying medical history of diabetes mellitus, hypertension, migraine, bipolar, recently hospitalized at [facility] from 08/31/2018 to 09/27/2018 with epigastric pain, found to have acute mesenteric ischemia, discharged on Coumadin. Presented with abdominal pain. Found to have bowel perforation status post exploratory laparoscopy with small-bowel resection. 1. Bowel perforation, status post exploratory laparoscopy with excision of small bowel. Currently feeling much better. Patient on a heparin drip. Diet as per surgery. Patient on a clear liquid diet. off TPN. At [facility] patient was also diagnosed to have extensive large-vessel clots. Decision was made for conservative management given patient's high risk for further embolization. Currently off of antibiotics. Pain regimen as per surgery. Once patient tolerates a diet, will switch from heparin to Coumadin. Further dietary recommendations as per surgery. 2. Leukocytosis unknown etiology, CXR , cultures, CT abd, merro, US fluid drain. 3. Large-vessel thrombosis, multiple large clots in patient's thoracic aorta at [facility] with evidence of splenectomy. No infarct. Patient currently on heparin drip. Will switch to Coumadin once patient tolerating oral. Followup with hematology/oncology as outpatient. No signs of infection at this time. Patient's antiphospholipid and cardiolipin antibody testing has been negative. CA19-9 has been negative. CA-125 is mildly elevated. 4. Acute on chronic anemia, status post total of 2 units packed red blood cells (PRBC). Monitor hemoglobin and hematocrit. 5. Metabolic acidosis, resolved. 6. Oliguria, resolved. 7. Lactic acidosis secondary to bowel perforation, improved. 8. Sinus tachycardia. Cardiac enzymes have been negative. Will continue to monitor. 9. Diabetes mellitus. basal bolus insulin, f/u fs. 9. Hypertension. Monitor blood pressure. Continue Norvasc, aspirin, labetalol. 10. History of migraine, currently stable. 11. History of bipolar, currently stable. 12. History of fibromyalgia, currently stable. 13. History of posttraumatic stress disorder. Outpatient followup. 14. Deep vein thrombosis (DVT) prophylaxis. Patient on a heparin drip. PROGNOSIS: Guarded, but patient has been improving. VS,Fishbone, I+O VS, Fishbone, I+O Laboratory Tests 10/25/18 19:22 Red Blood Count 3.85 L, Mean Corpuscular Volume 81.8, Mean Corpuscular Hemoglobin 26.0 L, Mean Corpuscular Hemoglobin Concent 31.7 L, Red Cell Distribution Width 18.0 H, Calcium Level 7.7 L 10/26/18 07:37 Red Blood Count 4.12, Mean Corpuscular Volume 81.8, Mean Corpuscular Hemoglobin 26.0 L, Mean Corpuscular Hemoglobin Concent 31.8 L, Red Cell Distribution Width 18.6 H, Calcium Level 7.7 L Vital Signs Date Time Temp Pulse Resp B/P (MAP) Pulse Ox O2 Delivery O2 Flow Rate FiO2 10/26/18 14:59 18 96 10/26/18 12:00 96.5 83 142/80 (100) 10/26/18 08:00 Room Air 10/25/18 18:48 1.0 I&O- Last 24 Hours up to 6 AM 10/26/18 06:00 Intake Total 1688 ml Output Total 1525 ml Balance 163 ml LO SHELL MD Oct 26, 2018 16:07
--- NOTE | 2018-10-26 16:14 | MHIPNPDOC ---
[facility] Progress Note Progress Note DATE OF SERVICE: 10/26/18 HISTORY: Called to evaluate the the patient because she has a history of bipolar disorder and was hospitalized at [facility] a couple of years ago. At the present time, she is being treated for an intestinal perforation and according to staff she has been cooperative with her treatment although sometimes she has been observed talking to herself. This ticket writer reccommended Haldol 5 mgs PO TID and Cogentin 1 mg PO BID but staff informs me that she has refused it. VITAL SIGNS: See below. NEW TEST RESULTS: See below CURRENT MEDICATIONS: See below. MENTAL STATUS EXAMINATION: Patient was not in her room when I came to evaluate her, she was taken to Interventional Radiology. Staff informs me that she has not been angry or aggressive. She has been compliant with medication and treatment although sometimes she has been manipulative and has been seen talking to herself. DIAGNOSES: 1. Bipolar disorder by h/o ASSESSMENT: I couldn't assess the patient today, because she was taken to Interventional Radiology. She is refusing Haldol and Cogentin and she has told some of the Nurses that she has taken that before, she is not going to take it now. Unfortunately we can't give her IM medications because it would be considered a chemical restraint. We could try with other medications, like Zyprexa 5 mgs PO BID but the patient is probably familiar with that medication too. I will come to assess her tomorrow morning and maybe, this ticket writer can help her see that she needs her medications. From what I heard from staff members, she has not expressed suicidal or homicidal ideation. She has been responding to internal stimuli, she told the Nurses they shouldn't have allowed those people to come into her room and nobody was inside her room. Will provide information about newer antipsychotic medications like Abilify that can be used for bipolar d/o (it is the main indication) and if she has a good response to it, she could receive a monthly injection. It would be important to contact her relatives, if she allows me to, in order to obtain more information about her. MANAGEMENT PLAN: As above TIME SPENT: 20 minutes. Vital Signs Vital Signs Date Time Temp Pulse Resp B/P (MAP) Pulse Ox O2 Delivery O2 Flow Rate FiO2 10/26/18 14:59 18 96 10/26/18 12:00 96.5 83 142/80 (100) 10/26/18 08:00 Room Air 10/25/18 18:48 1.0 Laboratory Data 24H Labs Laboratory Tests 2 10/25/18 17:44: Bedside Glucose (Misc Panel) 306H 10/25/18 19:22: Nucleated Red Blood Cells % (auto) 0.1H, Activated Partial Thromboplast Time 46.9H, Anion Gap 9, Glomerular Filtration Rate > 60.0, Blood Urea Nitrogen 8, Creatinine 0.55, Sodium Level 139, Potassium Level 3.0L, Chloride Level 104, Carbon Dioxide Level 26, Calcium Level 7.7L, Magnesium Level 1.6L 10/25/18 23:54: Bedside Glucose (Misc Panel) 128H 10/26/18 01:30: Activated Partial Thromboplast Time 114.2H 10/26/18 05:40: Bedside Glucose (Misc Panel) 146H 10/26/18 07:37: Nucleated Red Blood Cells % (auto) 0.0, Activated Partial Thromboplast Time 78.3H, Anion Gap 7L, Glomerular Filtration Rate > 60.0, Blood Urea Nitrogen 9, Creatinine 0.52L, Sodium Level 139, Potassium Level 3.7#, Chloride Level 105, Carbon Dioxide Level 27, Calcium Level 7.7L, Magnesium Level 1.8 10/26/18 12:29: Bedside Glucose (Misc Panel) 179H 10/26/18 13:12: Activated Partial Thromboplast Time 81.1H CBC/BMP Laboratory Tests 10/25/18 19:22 Red Blood Count 3.85 L, Mean Corpuscular Volume 81.8, Mean Corpuscular Hemoglobin 26.0 L, Mean Corpuscular Hemoglobin Concent 31.7 L, Red Cell Distribution Width 18.0 H, Calcium Level 7.7 L 10/26/18 07:37 Red Blood Count 4.12, Mean Corpuscular Volume 81.8, Mean Corpuscular Hemoglobin 26.0 L, Mean Corpuscular Hemoglobin Concent 31.8 L, Red Cell Distribution Width 18.6 H, Calcium Level 7.7 L Current Medications Current Medications Albuterol/ Ipratropium (Duoneb (Ipr 0.5mg/Alb 2.5mg)) 3 ml Q2HP PRN NEB SOB/WHEEZING; Start 10/18/18 at 05:45 Albuterol/ Ipratropium (Duoneb (Ipr 0.5mg/Alb 2.5mg)) 3 ml RQ6H NEB Last administered on 10/26/18at 07:44; Start 10/18/18 at 08:00 Amino Ac/Electrol/ Dextrose/Calcium 1,000 ml @ 75 mls/hr ONCE@1800 IV ; Start 10/24/18 at 08:00; Stop 10/24/18 at 17:59; Status Cancel Amino Ac/Electrol/ Dextrose/Calcium 2,000 ml @ 75 mls/hr ONCE@1800 IV Last administered on 10/23/18at 18:01; Start 10/23/18 at 18:00; Stop 10/24/18 at 07:39; Status DC Amlodipine Besylate (Norvasc) 5 mg DAILY PO ; Start 10/22/18 at 09:00; Stop 10/22/18 at 09:00; Status DC Amlodipine Besylate (Norvasc) 5 mg DAILY PO Last administered on 10/26/18at 09:25; Start 10/22/18 at 09:00 Amlodipine Besylate (Norvasc) 10 mg DAILY PO ; Start 10/22/18 at 09:00; Stop 10/22/18 at 09:00; Status DC Aspirin (Aspirin Chewable) 81 mg DAILY NG Last administered on 10/26/18at 09:24; Start 10/19/18 at 09:00 Aspirin (Ecotrin) 81 mg DAILY PO ; Start 10/18/18 at 09:00; Stop 10/18/18 at 17:15; Status DC Benztropine Mesylate (Cogentin) 1 mg BID PO ; Start 10/26/18 at 09:00 Ciprofloxacin 400 mg/IV Miscellaneous Supplies 200 ml @ 200 mls/hr Q12H IV Last administered on 10/25/18at 01:22; Start 10/18/18 at 13:00; Stop 10/25/18 at 07:46; Status DC Dextrose (Dextrose 50%) 25 ml ASDIRECTED PRN IV SEE LABEL COMMENTS; Start 10/26/18 at 07:30 Diatrizoate Meglum/ Diatrizoate Sod (Gastrografin) 10 ml Q30M PO Last administered on 10/17/18at 23:25; Start 10/17/18 at 22:55; Stop 10/17/18 at 23 :26; Status DC Diatrizoate Meglum/ Diatrizoate Sod (Gastrografin) 10 ml Q30M PO Last administered on 10/26/18at 10:22; Start 10/26/18 at 09:30; Stop 10/26/18 at 10:01; Status DC Diphenhydramine HCl (Benadryl) 12.5 mg Q4HP PRN IV ITCHING Last administered on 10/20/18at 00:50; Start 10/18/18 at 05:45 Diphenhydramine HCl (Benadryl) 50 mg STAT STAT IV Last administered on 10/17/18at 22:32; Start 10/17/18 at 22:16; Stop 10/17/18 at 22:18; Status DC Fat Emulsion Intravenous 500 ml @ 20 mls/hr ONCE@1800 IV Last administered on 10/23/18at 18:01; Start 10/23/18 at 18:00; Stop 10/24/18 at 17:59; Status DC Fat Emulsion Intravenous 500 ml @ 20 mls/hr ONCE@1800 IV Last administered on 10/24/18at 17:54; Start 10/24/18 at 18:00; Stop 10/25/18 at 16:58; Status DC Fentanyl Citrate (Sublimaze) 25 mcg Q5MP PRN IV MODERATE PAIN (PS 4-7) Last administered on 10/18/18at 06:05; Start 10/18/18 at 06:00; Stop 10/18/18 at 06:22; Status DC Furosemide (LASIX injection) 40 mg Q8H IV Last administered on 10/22/18at 07:30; Start 10/21/18 at 14:00; Stop 10/22/18 at 12:40; Status DC Glucagon (Glucagon) 1 mg ASDIRECTED PRN SC SEE LABEL COMMENTS; Start 10/26/18 at 07:30 Glucose (Glucose) 16 GM ASDIRECTED PRN PO SEE LABEL COMMENTS; Start 10/26/18 at 07:30 Haloperidol (Haldol) 2.5 mg STAT STAT IV ; Start 10/17/18 at 22:16; Stop 10/17/18 at 22:18; Status DC Haloperidol (Haldol) 5 mg TID PO ; Start 10/26/18 at 09:00 Heparin Sodium (Heparin (Flush)) 200 units ASDIRECTED PRN IV SEE LABEL COMMENTS; Start 10/20/18 at 15:30 Heparin Sodium (Heparin (Flush)) 200 units PICC IV Last administered on 9at 18:16; Start 10/20/18 at 18:00 Heparin Sodium (Porcine) (Heparin) ASDIRECTED PRN IV SEE LABEL COMMENTS; Start 10/19/18 at 12:00; Status Cancel Heparin Sodium (Porcine) (Heparin) ASDIRECTED PRN IV SEE LABEL COMMENTS Last administered on 10/25/18at 21:09; Start 10/19/18 at 14:45 Heparin Sodium (Porcine) 53855 units/IV Miscellaneous Supplies 250 ml @ 0 mls/hr Q0M IV ; Start 10/19/18 at 11:56; Status Cancel Heparin Sodium (Porcine) 10817 units/IV Miscellaneous Supplies 250 ml @ 5 mls/hr Q24H IV Last administered on 10/26/18at 06:49; Start 10/19/18 at 14:38 Home Med (Med Rec Complete!) ASDIRECTED XX ; Start 10/18/18 at 02:45; Stop 10/18/18 at 02:56; Status DC Hydralazine HCl (Apresoline) 10 mg Q8H PO Last administered on 10/21/18at 13:42; Start 10/21/18 at 06:00; Stop 10/21/18 at 20:39; Status DC Hydralazine HCl (Apresoline) 25 mg Q8H PO Last administered on 10/22/18at 05:07; Start 10/21/18 at 22:00; Stop 10/22/18 at 07:35; Status DC Insulin Detemir (Levemir Insulin) 10 units QAM SC Last administered on 10/26/18at 09:23; Start 10/24/18 at 14:00 Insulin Human Lispro (HumaLOG INSULIN) SEE PROTOCOL TABLE AC SC Last administered on 10/26/18at 13:07; Start 10/26/18 at 12:00 Insulin Human Lispro (HumaLOG INSULIN) SEE PROTOCOL TABLE Q6H SC Last administered on 10/21/18at 06:45; Start 10/18/18 at 06:00; Stop 10/21/18 at 07:49; Status DC Insulin Human Lispro (HumaLOG INSULIN) SEE PROTOCOL TABLE Q6H SC Last administered on 10/24/18at 06:00; Start 10/21/18 at 12:00; Stop 10/24/18 at 08:03; Status DC Insulin Human Lispro (HumaLOG INSULIN) SEE PROTOCOL TABLE Q6H SC Last admin istered on 10/26/18at 05:43; Start 10/24/18 at 12:00; Stop 10/26/18 at 07:27; Status DC Insulin Human Lispro (HumaLOG INSULIN) SEE PROTOCOL TABLE QHS SC ; Start 10/26/18 at 21:00 Ketorolac Tromethamine (ToRADol) 30 mg Q6H IV Last administered on 10/19/18at 09:00; Start 10/18/18 at 08:00; Stop 10/19/18 at 11:18; Status DC Labetalol HCl (Normodyne, Trandate) 10 mg STAT STAT IV Last administered on 10/21/18at 05:44; Start 10/21/18 at 05:35; Stop 10/21/18 at 05:37; Status DC Labetalol HCl (Normodyne, Trandate) 100 mg BID PO Last administered on 10/26/18at 09:24; Start 10/21/18 at 21:00 Lactated Ringer's 1,000 ml @ 80 mls/hr [id number] IV ; Start 10/18/18 at 06:00; Stop 10/18/18 at 07:30; Status DC Lactobacillus Acidophilus (Bacid) 1 ea WM PO Last administered on 10/26/18at 13:06; Start 10/25/18 at 12:30 Magnesium Sulfate/ Dextrose 1 gm/IV Miscellaneous Supplies 100 ml @ 100 mls/hr Q1H IV Last administered on 10/23/18at 10:46; Start 10/23/18 at 08:00; Stop 10/23/18 at 09:59; Status DC Meropenem 1 gm/IV Miscellaneous Supplies 50 ml @ 100 mls/hr Q8H IV Last administered on 10/26/18at 14:58; Start 10/26/18 at 14:00 Metoclopramide HCl (REGLAN INJection) 10 mg Q6HP PRN IV NAUSEA OR VOMITING Last administered on 10/26/18at 05:12; Start 10/18/18 at 05:45 Metronidazole 500 mg/IV Miscellaneous Supplies 100 ml @ 100 mls/hr Q8H IV Last administered on 10/25/18at 02:42; Start 10/18/18 at 10:00; Stop 10/25/18 at 07:46; Status DC Miscellaneous (Unresolved Clarification Entry) SEE LABEL COMMENTS DAILY XX ; Start 10/25/18 at 09:00; Stop 10/25/18 at 16:48; Status DC Morphine Sulfate (Morphine Sulfate In 0.9%Nacl Iv Bag) Concentration 1 mg/ml ASDIRECTED PRN IV SEE LABEL COMMENTS Last administered on 10/19/18at 10:54; Start 10/18/18 at 05:45; Stop 10/19/18 at 15:16; Status DC Morphine Sulfate (Morphine Sulfate Inj) 2 mg Q2HP PRN IV MODERATE PAIN (PS 5-7) Last administered on 10/24/18at 23:20; Start 10/20/18 at 21:15 Morphine Sulfate (Morphine Sulfate Inj) 2 mg Q5M PRN IV MODERATE/SEVERE PAIN (PS 5-10) Last administered on 10/18/18at 06:36; Start 10/18/18 at 06:00; Stop 10/18/18 at 07:30; Status DC Morphine Sulfate (Morphine Sulfate Inj) 4 mg Q2HP PRN IV SEVERE PAIN (PS 8-10) Last administered on 10/26/18at 09:15; Start 10/19/18 at 15:15 Multivitamins 10 ml/Chromium/ Copper/Manganese/ Seleni/Zn 1 ml/ Amino Ac/Electrol/ Dextrose/Calcium 2,011 ml @ 75 mls/hr ONCE@1800 IV Last administered on 10/24/18at 17:54; Start 10/24/18 at 18:00; Stop 10/25/18 at 16:58; Status DC Nalbuphine HCl (Nubain) 2.5 mg Q6HP PRN IV PRURITIS; Start 10/18/18 at 05:45; Stop 10/19/18 at 15:16; Status DC Naloxone HCl (Narcan) 0.1 mg Q5MP PRN IV SEE LABEL COMMENTS; Start 10/18/18 at 05:45; Stop 10/19/18 at 15:16; Status DC Nicotine (Nicoderm Cq 14mg) 1 patch DAILY TD Last administered on 10/21/18 08:09; Start 10/20/18 at 22:30; Stop 10/22/18 at 23:36; Status DC Non-Formulary Medication (Epidural/TOURS HOSTESS [place]) USE THIS ENTRY TO VEND ... Q1M PRN XX SEE LABEL COMMENTS; Start 10/18/18 at 05:45; Stop 10/19/18 at 15:16; Status DC Non-Formulary Medication (Heparin Iv Rate Change Documentation ml/ Hr) ASDIRECTED XX ; Start 10/19/18 at 12:00; Stop 10/24/18 at 11:59; Status Cancel Non-Formulary Medication (Heparin Iv Rate Change Documentation ml/ Hr) ASDIRECTED XX Last administered on 10/20/18at 11:34; Start 10/19/18 at 14:45; Stop 10/24/18 at 14:44; Status DC Ondansetron HCl (ZOFRAN INJection) 4 mg Q4HP PRN IV NAUSEA OR VOMITING Last administered on 10/18/18at 06:25; Start 10/18/18 at 06:00; Stop 10/18/18 at 07:30; Status DC Ondansetron HCl (ZOFRAN INJection) 4 mg Q6HP PRN IV NAUSEA OR VOMITING Last administered on 10/26/18at 14:58; Start 10/18/18 at 05:45 Oxycodone/ Acetaminophen (Percocet 5mg/ 325mg Tablet) 2 tab Q4HP PRN PO SEVERE PAIN (PS 8-10) Last administered on 10/26/18at 14:59; Start 10/25/18 at 14:45 Pantoprazole Sodium (Protonix) 40 mg DAILY IV Last administered on 10/26/18 09:23; Start 10/18/18 at 09:00 Phenol (Chloraseptic [place]) 1 spray Q2HP PRN MT SORE THROAT Last administered on 10/22/18at 11:41; Start 10/20/18 at 08:30 Potassium Chloride 10 meq/ IV Miscellaneous Supplies 100 ml @ 100 mls/hr 0000,2200,2300 IV Last administered on 10/25/18at 23:40; Start 10/25/18 at 22:00; Stop 10/26/18 at 00:59; Status DC Potassium Chloride 10 meq/ IV Miscellaneous Supplies 100 ml @ 100 mls/hr 0600,0700,0800,0900 IV Last administered on 10/24/18at 10:54; Start 10/24/18 at 06:00; Stop 10/24/18 at 12:00; Status DC Promethazine HCl (PHENERGAN INJection) 12.5 mg Q6HP PRN IV NAUSEA Last administered on 10/20/18at 04:06; Start 10/18/18 at 05:45 Sodium Bicarbonate 50 meq/Sodium Chloride 1,050 ml @ 40 mls/hr Q24H IV Last administered on 10/20/18at 15:26; Start 10/20/18 at 14:00; Stop 10/21/18 at 13:10; Status DC Sodium Chloride 1,000 ml @ 15 mls/hr Q24H IV ; Start 10/18/18 at 05:36; Stop 10/18/18 at 06:01; Status DC Sodium Chloride 1,000 ml @ 120 mls/hr Q8H20M IV Last administered on 10/20/18at 03:53; Start 10/18/18 at 05:36; Stop 10/20/18 at 12:23; Status DC Sodium Chloride 1,000 ml @ 250 mls/hr Q4H IV Last administered on 10/18/18at 17:35; Start 10/18/18 at 17:00; Stop 10/18/18 at 20:59; Status DC Sodium Chloride (Saline Lock Flush) 10 ML PICC IV Last administered on 10/26/18at 09:23; Start 10/20/18 at 18:00 Sodium Chloride (Saline Lock Flush) 10ML ASDIRECTED PRN IV SEE LABEL COMMENTS; Start 10/20/18 at 15:30 Vancomycin HCl 1000 mg/IV Miscellaneous Supplies 1 each/ Dextrose 270 ml @ 270 mls/hr Q8H IV Last administered on 10/19/18at 00:30; Start 10/18/18 at 17:00; Stop 10/19/18 at 11:19; Status DC Allergies Coded Allergies: Penicillins (Verified Allergy, Unknown, 01/01/13) Penicillins Cross Reactors (Verified Allergy, Unknown, 01/01/13) SAKINA BURRIS MD Oct 26, 2018 16:14
--- NOTE | 2018-10-26 17:14 | REP ---
Clinical: Evaluate drain placement. Technique: Intraluminal contrast material administered via recently placed pigtail drainage catheter followed by axial images from the lung bases to the pubic symphysis with coronal and sagittal re-formations. Findings: A pigtail catheter via right anterior abdominopelvic approach is identified extending into a loop of small bowel in the right lower quadrant with the administered contrast remaining intraluminally and without extravasation. Postoperative changes are appreciated including evidence for prior small bowel resection. Diffuse infiltration to the mesentery is again noted and unchanged. The small bowel proximal to the catheter extending to the duodenum appears distended with surrounding inflammatory stranding consistent with infectious/inflammatory process. The more distal small bowel demonstrates normal caliber and the large bowel is grossly unremarkable. Multiple loculated fluid collections throughout the abdomen and pelvis are again identified and consistent with abscess sees unchanged from prior examination. Evaluation of the stomach and proximal duodenum demonstrates a polypoid filling defect with the appearance of a elongated stalk raising the possibility of pedunculated polyp. Visualized liver is grossly normal for noncontrast evaluation. Spleen, pancreas, gallbladder, bilateral adrenal glands and kidneys are grossly unremarkable. Contrast outlines a relatively normal urinary tract collecting system including bladder. Uterus and adnexa appear normal. No free air. Visualized lung bases demonstrate moderate left and small right pleural effusion with associated atelectasis and mild basilar scarring. Musculoskeletal structures are intact. Impression: 1. Pigtail catheter identified with the loop of small bowel. No associated free air or extravasation of contrast is identified within the abdomen and pelvis. These findings were discussed and time of examination between Dr. Alarcon and Dr. Lobo. 2. Remainder of the findings as described above are unchanged compared to prior CT examination including diffuse infiltration throughout the mesentery and multiple loculated fluid collections suggesting abscesses. Electronically Signed by Cristhian Merchant MD 10/26/2018 05:06 P
--- NOTE | 2018-10-26 17:18 | IPN ---
DATE: 10/26/2018 Patient had an elevated white count earlier today and had a CT scan which shows some fluid in the pelvis as well as some other areas of fluid and at this point my recommendation was to proceed with an ultrasound-guided drainage. The patient went down to the procedure area/ultrasound department and with percutaneous drainage they inadvertently placed a drain within the small bowel itself. Fortunately, when they showed a CT scan with injection of the contrast, there was no leak around the drain and this bowel loop is up against the abdominal wall and shows free flow into the small bowel. Similar to a placement of a jejunostomy tube. In any case, the patient does not complain of any significant pain or discomfort at this time. IMPRESSION AND PLAN The patient has a percutaneous catheter in the small bowel. Given that it with the inflammatory process the patient has had intra-abdominally, I do feel that there is probably a significant amount of inflammatory changes throughout the abdomen, which will make it less likely that the bowel will just free flow into the abdomen and is most likely adherent in this position. At this point, will have the percutaneous drain in place. Will make her nothing by mouth (npo), IV fluids. I will start her on some octreotide to decrease the overall fluid flow through the area and then depending on how she does we may be able to progress her diet over the next 24-48 hours. But I would like to keep this drain in place at this point and in general it would make sense to create a sinus tract that with the catheter in place for a week or two before removing it. We will see how she does overnight with the current plan. Otherwise an exploratory laparotomy with repair of this in this patient who has already compromised bowel. With her I do feel that every portion of small bowel that we can keep will be of significant benefit for her.
[2018-10-26] MEDS: D5W/0.9% SODIUM CHLORIDE 1,000 ML IV SCH (17:44)
[2018-10-26] MEDS: OCTREOTIDE ACETATE 100 MCG/ML VIAL (J2354) IV SCH (18:18)
[2018-10-26] MEDS ORDERED: HumaLOG INSULIN (NovoLOG) PER UNIT SC SCH (21:00)
[2018-10-26] MEDS: PROMETHAZINE INJ 25 MG/ML VIAL (J2550) IV PRN (21:43)
[2018-10-27] VITALS (7 sets, daily range): BP systolic 132–178; BP diastolic 74–93
[2018-10-27] MEDS: IPRATROPIUM 0.5MG/ALBUTEROL 2.5MG INH SOL UD 3ML (DUONEB)(J7620) NEB SCH ×4 (02:00→20:17)
[2018-10-27] MEDS: OCTREOTIDE ACETATE 100 MCG/ML VIAL (J2354) IV SCH ×3 (03:04→20:25)
[2018-10-27] MEDS: MORPHINE 4 MG/ML 1ML VIAL/SYRINGE (J2270) IV PRN ×7 (03:05→23:40)
[2018-10-27] MEDS: D5W/0.9% SODIUM CHLORIDE 1,000 ML IV SCH (03:05)
[2018-10-27 04:55] LABS: HEMATOCRIT 31.8 % (36.0-47.0); HEMOGLOBIN 10.1 g/dl (12.0-15.5); MEAN CORPUSCULAR HEMOGLOBIN 26.1 pg (27.0-33.0); MEAN CORPUSCULAR HGB CONC 31.8 g/dl (32.0-36.5); MEAN CORPUSCULAR VOLUME 82.2 fl (80.0-96.0); PLATELET COUNT, AUTOMATED 528 10^3/uL (150-450); RED BLOOD COUNT 3.87 10^6/uL (4.00-5.40)
[2018-10-27 05:14] LABS: BLOOD UREA NITROGEN 8 MG/DL (7-18); CALCIUM LEVEL 7.3 MG/DL (8.5-10.1); CARBON DIOXIDE LEVEL 25 MEQ/L (21-32); CHLORIDE LEVEL 107 MEQ/L (98-107); CREATININE FOR GFR 0.62 MG/DL (0.55-1.30); GLOMERULAR FILTRATION RATE > 60.0 (>58); GLUCOSE, FASTING 78 MG/DL (70-100); MAGNESIUM LEVEL 1.6 MG/DL (1.8-2.4); POTASSIUM SERUM 3.7 MEQ/L (3.5-5.1); SODIUM LEVEL 141 MEQ/L (136-145)
[2018-10-27] MEDS: SODIUM CHLORIDE 0.9% INJ 10 ML SYR IV SCH (05:59)
[2018-10-27] MEDS: MEROPENEM INJ 1 GM in APPROPRIATE DILUENT 1 EA IV SCH ×3 (06:00→20:22)
[2018-10-27] MEDS: HumaLOG INSULIN (NovoLOG) PER UNIT SC SCH ×4 (06:00→23:39)
[2018-10-27] MEDS: ONDANSETRON 4MG/2ML VIAL (J2405) IV PRN ×2 (06:06→23:40)
[2018-10-27] MEDS ORDERED: MAG SULF 1GM/100ML (MAG RUN) 1 GM in APPROPRIATE DILUENT 1 EA IV ONE (08:00)
[2018-10-27] MEDS: LACTOBACILLUS ACIDOPHILUS CAP (BACID) PO SCH ×3 (08:00→17:45)
[2018-10-27] MEDS ORDERED: KCL 20MEQ IN D5/NS 1000ML 1,000 ML IV SCH (08:00)
[2018-10-27] MEDS: LEVEMIR (INSULIN DETEMIR) 1 UNITS/0.01ML SC SCH ×2 (09:15→20:23)
--- NOTE | 2018-10-27 09:23 | REP ---
ULTRASOUND-GUIDED ABDOMINAL ABSCESS/SEROMA DURING The procedure was performed under the personal supervision of Dr. Alarcon. Patient has a history of multiple loculated fluid collections in the abdomen seen on a previous CT scan performed earlier today. The risks and benefits of the procedure were explained to the patient and informed consent was obtained. The fluid collection in the right lower quadrant was localized using ultrasound guidance. The skin was prepped and draped in a sterile fashion. 1% lidocaine was used as a local anesthetic. Using ultrasound guidance an 8-[place] [employer] Skater APDL catheter was inserted and advanced into the fluid collection. After about 250 ml of greenish fluid was removed, it was felt that the catheter may be within the bowel. Dr. Alarcon was consulted. We then took the patient to CT scan and injected contrast into the catheter. Images demonstrate filling of the small bowel. Dr. Lobo was then consulted and came and spoke to us directly in the CT department. It was then decided to leave the catheter in place. The catheter was affixed to the skin and attached to a gravity drainage bag. A sterile dressing was then applied. Dr. Lobo will follow the catheter. Reviewed by LACHO Angulo 10/26/2018 05:16 P Electronically Signed by Narendra Alarcon MD 10/27/2018 09:14 A
[2018-10-27] MEDS: PANTOPRAZOLE 40MG INJ (PROTONIX) (C9113) IV SCH (10:29)
[2018-10-27] MEDS: HALOPERIDOL 5 MG TAB PO SCH ×3 (11:00→20:23)
[2018-10-27] MEDS: BENZTROPINE 1 MG TAB PO SCH ×2 (11:00→20:23)
[2018-10-27] MEDS: ASPIRIN 81 MG CHEW TABLET NG SCH (11:07)
[2018-10-27] MEDS: LABETALOL 100 MG TAB PO SCH ×2 (11:19→20:24)
[2018-10-27] MEDS: amLODIPine 5 MG TAB PO SCH (11:20)
--- NOTE | 2018-10-27 11:25 | IPNPDOC ---
Date Seen The patient was seen on 10/27/18. Progress Note SUBJECTIVE: Patient was seen and examined this morning. Yesterday she had a ultrasound percutaneous drainage for suspected abscess. Unfortunately the tube was placed into her small bowel. There was no leak of contrast and the drain has been left in. Patient has been NPO since that time. She does complain of some increasing pain at the site of the KJ drain. She denies any nausea or vomiting at this time. She continues to deny any fevers. OBJECTIVE PHYSICAL EXAMINATION: VITAL SIGNS: Please see below. GENERAL: Awake alert and oriented. She appears in no acute distress although mildly uncomfortable HEENT: Atraumatic, normocephalic. Eyes are non-icteric. Trachea is midline. CARDIOVASCULAR: Normal S1, S2. Slightly tachycardiac rate with regular rhythm. No clicks, rubs, or murmurs noted RESPIRATORY: Mild crackles in the bases bilaterally. Good respiratory effort. No wheezes, rales, or rhonchi ABDOMINAL: Soft, slightly distended although similar to previous exam. Midline incision without erythema and minimal serosanguineous drainage. KJ drain in place. Positive bowel sounds. Slight tenderness to palpation. No rebound tenderness or guarding EXTREMITIES: No edema. Full and equal pulses bilaterally PSYCHOLOGICAL: LABORATORY DATA, IMAGING STUDIES, MICROBIOLOGY: Please see below. DVT prophylaxis ordered?: YES ASSESSMENT AND PLAN: 1. Small Bowel Perforation s/p exploratory laparotomy w/ small bowel resection post-op day 10 -Patient continues to have elevated WBC. She remains afebrile. She is currently on Meropenem. Will continue. -Blood cultures from PICC were negative for growth. -Patient had percutaneous drainage of possible abscess yesterday however, tube was inadvertently placed into small bowel. Will leave drain in place. Patient is to remain NPO with exception to medications. Patient will receive TPN today. Plan to advance patient to clear liquids tomorrow pending condition 2. Leukocytosis -Patient continues to have an elevated WBC. She has been started on Meropenem yesterday. Plan to continue -She remains afebrile. No definitive source has been identified. Will continue to trend WBC 3. Large Vessel Thrombosis -Patient is currently on heparin. Will continue at this time 4. History of bipolar disorder -Psych consult has been placed. -Patient is on Haldol and Congentin. She has been refusing her psych medications VS, I&O, 24H, Toño Vital Signs/I&O Vital Signs Date Time Temp Pulse Resp B/P (MAP) Pulse Ox O2 Delivery O2 Flow Rate FiO2 10/27/18 10:28 18 10/27/18 08:00 98.5 102 132/91 (105) 92 10/26/18 08:00 Room Air 10/25/18 18:48 1.0 I&O- Last 24 Hours up to 6 AM 10/27/18 06:00 Intake Total 758 ml Output Total 2025 ml Balance -1267 ml Laboratory Data 24H LABS Laboratory Tests 2 10/26/18 12:29: Bedside Glucose (Misc Panel) 179H 10/26/18 13:12: Activated Partial Thromboplast Time 81.1H 10/26/18 17:26: Bedside Glucose (Misc Panel) 88 10/26/18 20:32: Bedside Glucose (Misc Panel) 117H 10/26/18 23:53: Bedside Glucose (Misc Panel) 116H 10/27/18 04:38: Nucleated Red Blood Cells % (auto) 0.0, Activated Partial Thromboplast Time 85.3H, Anion Gap 9, Glomerular Filtration Rate > 60.0, Blood Urea Nitrogen 8, Creatinine 0.62, Sodium Level 141, Potassium Level 3.7, Chloride Level 107, Carbon Dioxide Level 25, Calcium Level 7.3L, Magnesium Level 1.6L 10/27/18 05:52: Bedside Glucose (Misc Panel) 98 CBC/BMP Laboratory Tests 10/27/18 04:38 Red Blood Count 3.87 L, Mean Corpuscular Volume 82.2, Mean Corpuscular Hemoglobin 26.1 L, Mean Corpuscular Hemoglobin Concent 31.8 L, Red Cell Distribution Width 19.2 H, Calcium Level 7.3 L Microbiology Microbiology 10/26/18 Blood Culture - Preliminary, Resulted No growth after 24 hours . All specim... 10/26/18 Blood Culture - Preliminary, Resulted No growth after 24 hours . All specim... 10/17/18 Blood Culture - Final, Complete NO GROWTH AFTER 5 DAYS GME ATTESTATION GME ATTESTATION My faculty preceptor for this patient encounter was physically present during the encounter and was fully available. All aspects of the patient interview, examination, medical decision making process, and medical care plan development were reviewed and approved by the faculty preceptor. The faculty preceptor is aware and concurs with the plan as stated in the body of this note and will attest to such by his/her cosignature. OXANA BARBER DO Oct 27, 2018 11:25
[2018-10-27] MEDS: HEPARIN DRIP 25,000 UNITS in APPROPRIATE DILUENT 1 EA IV SCH (12:59)
[2018-10-27] MEDS: SODIUM CHLORIDE 0.9% INJ 10 ML SYR IV PRN (14:03)
--- NOTE | 2018-10-27 16:50 | IPNPDOC ---
Text Note Date of Service The patient was seen on 10/27/18. NOTE Patient seen and examined. Passing gas and had bowel movements. Denies any chest pain, pressure, or discomfort. Denies any fevers or chills. n/v reported. s/p percutaneous abscess drain complicated by small bowel perforation. PHYSICAL EXAMINATION: GENERAL: Patient alert, comfortable in no acute distress. HEENT: Mucous membranes. Neck supple. CARDIAC: Regular, S1, S2. PULMONARY: No significant wheeze, rales, or rhonchi. ABDOMEN: Minimal tenderness. Mild distention. Hypoactive bowel sounds. drain in place EXTREMITIES: No clubbing, cyanosis, or edema. ASSESSMENT AND PLAN: This is a 48-year-old female patient with underlying medical history of diabetes mellitus, hypertension, migraine, bipolar, recently hospitalized at [facility] from 08/31/2018 to 09/27/2018 with epigastric pain, found to have acute mesenteric ischemia, discharged on Coumadin. Presented with abdominal pain. Found to have bowel perforation status post exploratory laparoscopy with small-bowel resection. 1. Bowel perforation, status post exploratory laparoscopy with excision of small bowel. Currently feeling much better. Patient on a heparin drip. Diet as per surgery. back TPN 2/2 to complicated percutaneous abscess drain with bowel perforation again. At [facility] patient was also diagnosed to have extensive large-vessel clots. Decision was made for conservative management given patient's high risk for further embolization. Currently off of antibiotics. Pain regimen as per surgery. Once patient tolerates a diet, will switch from heparin to Coumadin. Further dietary recommendations as per surgery. 2. Leukocytosis unknown etiology, CXR , cultures, CT abd, merro, US fluid drain, complicated with small bowel perforation again. ID consulted, diflucan added 3. Large-vessel thrombosis, multiple large clots in patient's thoracic aorta at [facility] with evidence of splenectomy. No infarct. Patient currently on heparin drip. Will switch to Coumadin once patient tolerating oral. Followup with hematology/oncology as outpatient. No signs of infection at this time. Patient's antiphospholipid and cardiolipin antibody testing has been negative. CA19-9 has been negative. CA-125 is mildly elevated. 4. Acute on chronic anemia, status post total of 2 units packed red blood cells (PRBC). Monitor hemoglobin and hematocrit. 5. Metabolic acidosis, resolved. 6. Oliguria, resolved. 7. Lactic acidosis secondary to bowel perforation, improved. 8. Sinus tachycardia. Cardiac enzymes have been negative. Will continue to monitor. 9. Diabetes mellitus. insulin as ordered. FS Q6hr 9. Hypertension. Monitor blood pressure. Continue Norvasc, aspirin, labetalol. 10. History of migraine, currently stable. 11. History of bipolar, currently stable. 12. History of fibromyalgia, currently stable. 13. History of posttraumatic stress disorder. Outpatient followup. 14. Deep vein thrombosis (DVT) prophylaxis. Patient on a heparin drip. PROGNOSIS: Guarded, but patient has been improving. ID consult VS,Toño, I+O VS, Toño I+O Laboratory Tests 10/27/18 04:38 Red Blood Count 3.87 L, Mean Corpuscular Volume 82.2, Mean Corpuscular Hemoglobin 26.1 L, Mean Corpuscular Hemoglobin Concent 31.8 L, Red Cell Distribution Width 19.2 H, Calcium Level 7.3 L Vital Signs Date Time Temp Pulse Resp B/P (MAP) Pulse Ox O2 Delivery O2 Flow Rate FiO2 10/27/18 16:13 18 10/27/18 12:00 97.3 92 145/87 (106) 95 10/26/18 08:00 Room Air 10/25/18 18:48 1.0 I&O- Last 24 Hours up to 6 AM 10/27/18 06:00 Intake Total 758 ml Output Total 2025 ml Balance -1267 ml LO SHELL MD Oct 27, 2018 16:50
[2018-10-27] MEDS: FLUCONAZOLE 400 MG in APPROPRIATE DILUENT 1 EA IV SCH (17:12)
[2018-10-27] MEDS ORDERED: FAT EMULSION IV 20% 500 ML IV SCH (18:00)
[2018-10-27] MEDS ORDERED: AMINO AC/ELECTROLYTE/DEX/CALC 2,000 ML IV SCH (18:00)
[2018-10-27] MEDS: PERCOCET 5MG/325MG TAB PO PRN (18:07)
--- NOTE | 2018-10-27 20:52 | CR ---
DATE OF CONSULTATION: 10/27/2018 REQUESTING PROVIDER: Dr. Raiza Rizzo REASON FOR CONSULTATION: Leukocytosis. HISTORY OF PRESENT ILLNESS: This is a 48-year-old female who was admitted to [facility] from 08/31/2018 to 09/27/2018. She told us that originally she had about 1 month of body aches, constipation, vomiting, fever, and drenching night sweats as well as a runny nose for about a month. She attributed this to having the flu. She was brought by her to [facility] and then was transferred down to [facility]. When she got to [facility] they found out that she had acute mesenteric ischemia with his renal and splenic infarcts as well as a large thrombus in the descending thoracic aorta. She was deemed not to be a surgical candidate at that time due to her extensive thrombotic disease. She stayed there for almost a month and then was discharged home on insulin, Linzess, magnesium oxide, oxycodone, potassium, and Coumadin. She has not yet obtained a primary care provider. She states that it had been about 3 years since she has seen a primary care provider. She did not have any insurance. She was supposed to see Maisha Smith on October 07; however, she and her were evicted on the same day. 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 She did not have a telephone for several days and so was not able to followup outpatient. This was especially problematic, because she was supposed to see hematology for workup for paroxysmal nocturnal hemoglobinuria, the workup of which is still pending. Upon further questioning, she started having some bruising on her fingertips of her right hand and in her toes that sounds like it could have been microemboli. The patient, while initially feeling better upon discharge from [facility], ended up having nausea and vomiting about 3 days prior to her admission to [facility]. She also states that she was constipated for 3 days, which was alarming to her , because that was what she had been complaining of before going to [facility] and subsequently to [facility]. On the day of presentation to the emergency room (ER) she was having fevers, sweats, and intractable belly pain. She was taken directly to the operating room (OR) by Dr. Lobo for an exploratory laparotomy, where he found extensive small-bowel fibrosis and stricture along with evidence for small-bowel perforation and inflammatory changes. He ended up having to remove about three-quarters of her small bowel and placing a #19 Lino-Bell (KJ) drain in the left abdomen. The patient was started on Cipro, Flagyl, and vancomycin. The vancomycin was discontinued on the evening of October 18. On October 17, nephrology was consulted for oliguric renal failure and given albumin and bicarbonate. She underwent diuresis as well. Her white count slowly started to come down and was at its lowest on 10/21/2018, which was 2.6. Peripherally inserted central catheter (PICC) line was inserted on 2018 into the right basilic vein. On October 22 her white blood count started to increase. As the patient had been nothing by mouth for several day, total parenteral nutrition (TPN) was started on 10/23/2018. She also started to have flatus on this day, so her KJ drain was removed. On October 24, her diet was switched to clears and her nasogastric (NG) tube was removed by the patient. She received her last dose of Cipro and Flagyl on October 25. On October 26 she started having hallucinations, so Dr. Montenegro from psychiatry was consulted. At this time, meropenem was started for an increasing white count. CT scan of this at this time found several small fluid pockets in the pelvis. Ultrasound-guided drainage was attempted; however, the small bowel was perforated by the percutaneous catheter. After review, it was decided to leave the percutaneous catheter in, as it was draining bile, and they did not wish to risk any more accumulation in the abdomen. The patient was subsequently made nothing by mouth again. Today, the patient states that she is feeling much better than she did yesterday. She is still having drenching sweats but was afebrile overnight. She denies his any shaking chills but does still have some nausea with vomiting. She is passing flatus had two bowel movements yesterday and two bowel movements the day before that. She does still have some abdominal pain, especially in the right lower quadrant, where the drain is. She denies any new rashes or any new lumps or bumps anywhere. When she was discharged home on Coumadin, she was followed by [facility]. She told on October 11 that her INR was too high but does not remember the exact numbers. They asked her to hold her Coumadin for 2 days, and she restarted it on 10/13/2017. REVIEW OF SYSTEMS: Denies any unexplained weight changes, fever or chills. She does admit to periodic drenching night sweats. HEENT: Denies any visual changes, headache, runny nose, epistaxis, stuffy nose, tinnitus, sore throat, or odynophagia. CARDIOVASCULAR: Denies chest pain, shortness of breath, palpitations, edema, orthopnea, or paroxysmal nocturnal dyspnea. RESPIRATORY: Denies cough, sputum production, wheezes, hemoptysis, or shortness of breath GASTROINTESTINAL: Positive for abdominal pain, nausea, vomiting, bloating. Denies diarrhea but does admit to constipation. Denies obstipation, hematemesis, hematochezia, melena, or tenesmus. GENITOURINARY: Denies incontinence, dysuria, hematuria, nocturia, polyuria. She still has her periods. MUSCULOSKELETAL: Denies any joint swelling but does state that she periodically has joint stiffness, especially in her wrists, hip, and back.. She admits to a history of arthritis and complains of diffuse muscle aches from time to time. INTEGUMENTARY: Denies any new rashes, lesions, striae, wounds, or pruritus. She currently does have an incision that is healing and a percutaneous catheter in the right lower abdomen. NEUROLOGIC: Denies any changes to sight, smell, hearing, or taste. Denies seizures, headache, paresthesias, numbness, or weakness. PSYCHIATRIC: Admits to depression and anxiety but denies paranoia or anhedonia. ENDOCRINE: Does admit to drenching sweats but denies tremor, palpitations, visual disturbances, constipation, dry skin, or polydipsia. HEMATOLOGIC: Denies anemia, purpura, or petechiae, but states that she has noticed that she bruises more easily recently. PAST MEDICAL HISTORY: 1. Depression. 2. Migraine headaches. 3. Hyperlipidemia. 4. Anxiety. 5. Arthritis. 6. Back pain. 7. Hypertension. 8. Diabetes. 9. Leukocytosis, for which she was worked up by oncology and 2012. Her JAK1 mutation and BCR-ABL gene arrangement were both negative, ruling out chronic myeloid leukemia and myeloproliferative disorder. PAST SURGICAL HISTORY: 1. She had appendectomy in 1998. 2. Blair teeth extraction. SOCIAL HISTORY: The patient has a 30 pack-year smoking history. She quit upon admission to [facility]. She rarely drinks alcohol and denies any recreational drug use. She has four children, of whom three are alive and healthy. Her other son has brain cancer, but this is in remission at this time. FAMILY HISTORY: Father was in his 30s due to suicide. Mother at 54 years old from an myocardial infarction ([place]), stroke, and hypertension. She has two siblings and is unsure of whether or not they have medical problems. ALLERGIES: PENICILLIN as a child. CURRENT MEDICATIONS: - TPN - sliding-scale insulin - Levemir 10 units every morning subcutaneously and 5 units at bedtime subcutaneously - octreotide 100 mcg every 8 hours IV - meropenem 1 gram IV every 8 hours - Haldol 5 mg by mouth three times a day - benztropine 1 mg by mouth twice a day - hypoglycemic protocol - Percocet 5 mg/325 mg by mouth two tablets every 4 hours as needed for severe pain - Bacid one each with meals - Norvasc 5 mg by mouth daily - labetalol 100 mg by mouth twice a day - morphine 2 mg every 2 hours as needed for moderate pain - phenol Chloraseptic spray every 2 hours as needed for her throat - morphine 4 mg every 2 hours as needed IV for severe pain - heparin drip - aspirin 81 mg by mouth daily - Protonix 40 mg IV daily - DuoNebs - Zofran 4 mg every 6 hours as needed IV - Reglan 10 mg every 6 hours as needed IV - promethazine 12.5 mg IV every 6 hours as needed - Benadryl 12.5 mg every 4 hours IV as needed PHYSICAL EXAMINATION: VITAL SIGNS: Temperature 98.3, pulse 85 and regular, respiratory rate 20, blood pressure 134/81, pulse oximetry 95. GENERAL: Awake and alert, pleasant and conversant middle-aged female. HEENT: Atraumatic, normocephalic. Pupils equal, round, and reactive to light. No scleral icterus. The patient has upper dentures, and her lower teeth are her own. Dentition is fair with some caries. There are no lesions within the mouth. Posterior pharynx is free of exudate or erythema. NECK: Supple. No masses. No neck stiffness. LUNGS: Clear to auscultation bilaterally. No wheezes, rhonchi, or rales. HEART: Regular rate and rhythm. No murmurs, gallops, or rubs. ABDOMEN: Somewhat distended. There is a midline incision, which has amber in it and granulation tissue in various stages of healing. This looks like it is healing well. There are no exudates, erythema, or sign of infection. There is no bloody drainage. The patient has a catheter in the right lower quadrant of her abdomen. It is draining bright green bilious fluid. There is no surrounding erythema. This does not look like it is infected. BACK: No costovertebral angle (CVA) tenderness bilaterally. EXTREMITIES: No clubbing, cyanosis, or edema. Peripheral pulses are 2+ in all extremities. PICC line noted in the right upper extremity. There is no erythema, exudate, or signs of infection. NEUROLOGIC: Muscle strength 5/5 throughout. Cranial nerves II-XII grossly intact. The patient is alert and oriented times three. LABORATORY DATA: CBC: WBC 26.0, hemoglobin 10.1, hematocrit 31.8, platelets 528. Chemistry: Sodium 141, potassium 3.7, chloride 107, carbon dioxide 25, BUN 8, creatinine 0.62, fasting glucose 78, calcium 7.3, magnesium 1.66. coagulations:: APTT is 35.3. Microbiology: Blood cultures from 10/17/2018 showed no growth after 5 days. Blood cultures from 10/26/2018 are showing no growth after 24 hours so far. Gastrointestinal (GI) pathology for the portions of small bowel that were resected showed the longest segment containing gross perforation, marked acute and chronic inflammation, as well as serosal fibro-adhesions. No malignancy was identified. IMAGING: Abdomen and pelvis CT from 10/17/2018 showed bowel perforation, findings consistent findings consistent with small-bowel perforation with focally absent bowel wall enhancement in one of the jejunal loops. There is inflammation, mural thickening, and dilatation in adjacent small bowel jejunal loops. This may reflect inflammatory bowel disease. There is some mild adjacent mesenteric adenopathy. Incidental findings include subacute splenic infarction and bilateral lower pole cortical scarring affecting the kidneys. Fatty infiltration of liver is also seen. Chest x-ray from 10/19/2018 showed NG tube looped within the gastric fundus, bibasilar atelectasis and/or infiltrate pattern. Chest x-ray from 10/20/2018 showed increased pulmonary opacities bilaterally, consistent with atelectasis and/or infiltrates. No evidence of pleural effusion or pulmonary edema. Abdomen x-ray from 10/23/2018 showed postsurgical changes and an abdominal drainage catheter within the abdomen and pelvis. Nonspecific bowel-gas pattern. No obvious free air. Nasogastric tube in satisfactory position. CT abdomen and pelvis from 10/26/2018 shows postsurgical changes with suspected peritonitis, including multiple loculated fluid collections, suggesting early abscess. Possible partial small-bowel obstruction at the site of anastomoses cannot be excluded as well. A subtle striated appearance to the left kidney, suggesting acute pyelonephritis with splenic cleft, unchanged from prior examinations. Lung bases demonstrating scattered atelectasis and small pleural effusions, the left greater than right. CT abdomen and pelvis from 10/26/2018 showed a pigtail catheter via right anterior abdominopelvic approach identified extending into a loop of small bowel in the right lower quadrant to be administered contrast remaining intraluminally and without extravasation. No associated free air is identified within the abdomen and pelvis. Remainder of the findings were unchanged compared to prior CT examination. IMPRESSION: This is a 48-year-old female who was originally to [facility] for acute mesenteric ischemia with a renal and splenic infarcts as well as a large thrombus in the descending thoracic aorta. Most of the hypercoagulable workup at [facility] was negative. Workup for paroxysmal nocturnal hemoglobinuria is still pending. She presented to [facility] with small-bowel perforation and concern for bowel necrosis, for which a bowel resection was performed. She had already received a 7-day course of Cipro and Flagyl as well as a couple doses of vancomycin. Because the patient's leukocytosis got worse instead of continuing to improve, infectious disease was consulted. We agree with meropenem and will continue this. Blood cultures from 10/26/2018 are still pending, however, preliminarily showed no growth after 24 hours. Because the patient has been in the hospital for some time and has received multiple antibiotics both from and [facility], has had a small-bowel perforation as well as multiple visceral infarcts, and is on TPN, we believe she is at increased risk for fungal infections and have added fluconazole to her regimen. We will also get a C-reactive protein (CRP) for tomorrow morning to establish a baseline. My faculty preceptor for this patient encounter was physically present during the encounter and was fully available. All aspects of the patient interview, examination, medical decision making process, and medical care plan development were reviewed and approved by the faculty preceptor. The faculty preceptor is aware and concurs with the plan as stated in the body of this note and will attest to such by his/her co-signature. GAUDENCIO
[2018-10-28] VITALS: BP 177/93
[2018-10-28] MEDS: OCTREOTIDE ACETATE 100 MCG/ML VIAL (J2354) IV SCH ×3 (02:00→18:38)
[2018-10-28] MEDS: IPRATROPIUM 0.5MG/ALBUTEROL 2.5MG INH SOL UD 3ML (DUONEB)(J7620) NEB SCH ×4 (02:00→20:19)
[2018-10-28] MEDS: HEPARIN DRIP 25,000 UNITS in APPROPRIATE DILUENT 1 EA IV SCH ×4 (02:41→18:52)
[2018-10-28] MEDS: PERCOCET 5MG/325MG TAB PO PRN ×5 (02:47→23:51)
[2018-10-28 04:00] VITALS: BP 143/78
[2018-10-28 05:20] LABS: HEMATOCRIT 29.6 % (36.0-47.0); HEMOGLOBIN 9.4 g/dl (12.0-15.5); MEAN CORPUSCULAR HEMOGLOBIN 25.8 pg (27.0-33.0); MEAN CORPUSCULAR HGB CONC 31.8 g/dl (32.0-36.5); MEAN CORPUSCULAR VOLUME 81.3 fl (80.0-96.0); PLATELET COUNT, AUTOMATED 523 10^3/uL (150-450); RED BLOOD COUNT 3.64 10^6/uL (4.00-5.40); WHITE BLOOD COUNT 24.3 10^3/uL (4.0-10.0)
[2018-10-28 05:35] LABS: BLOOD UREA NITROGEN 8 MG/DL (7-18); CALCIUM LEVEL 7.3 MG/DL (8.5-10.1); CARBON DIOXIDE LEVEL 21 MEQ/L (21-32); CHLORIDE LEVEL 107 MEQ/L (98-107); CREATININE FOR GFR 0.65 MG/DL (0.55-1.30); GLOMERULAR FILTRATION RATE > 60.0 (>58); GLUCOSE, FASTING 286 MG/DL (70-100); MAGNESIUM LEVEL 1.8 MG/DL (1.8-2.4); POTASSIUM SERUM 3.5 MEQ/L (3.5-5.1); SODIUM LEVEL 137 MEQ/L (136-145)
[2018-10-28] MEDS: HumaLOG INSULIN (NovoLOG) PER UNIT SC SCH ×4 (06:00→23:46)
[2018-10-28] MEDS: SODIUM CHLORIDE 0.9% INJ 10 ML SYR IV SCH ×2 (06:00→18:00)
[2018-10-28] MEDS: MEROPENEM INJ 1 GM in APPROPRIATE DILUENT 1 EA IV SCH ×3 (06:13→21:02)
[2018-10-28] MEDS: MORPHINE 4 MG/ML 1ML VIAL/SYRINGE (J2270) IV PRN (06:25)
[2018-10-28] MEDS: ONDANSETRON 4MG/2ML VIAL (J2405) IV PRN (06:36)
[2018-10-28 08:00] VITALS: BP 134/83
[2018-10-28] MEDS: PANTOPRAZOLE 40MG INJ (PROTONIX) (C9113) IV SCH (08:52)
[2018-10-28] MEDS: LEVEMIR (INSULIN DETEMIR) 1 UNITS/0.01ML SC SCH ×2 (08:52→21:00)
[2018-10-28] MEDS: LACTOBACILLUS ACIDOPHILUS CAP (BACID) PO SCH ×3 (08:53→18:38)
[2018-10-28] MEDS: ASPIRIN 81 MG CHEW TABLET NG SCH (08:53)
[2018-10-28] MEDS: amLODIPine 5 MG TAB PO SCH (08:53)
[2018-10-28] MEDS: LABETALOL 100 MG TAB PO SCH ×2 (08:54→21:04)
[2018-10-28] MEDS: BENZTROPINE 1 MG TAB PO SCH ×2 (09:00→21:00)
[2018-10-28] MEDS: HALOPERIDOL 5 MG TAB PO SCH ×3 (09:00→21:00)
[2018-10-28] MEDS ORDERED: BISACODYL 10 MG SUPP PR PRN (09:45)
--- NOTE | 2018-10-28 10:11 | IPNPDOC ---
Date Seen The patient was seen on 10/28/18. Progress Note SUBJECTIVE: Patient was seen and examined this morning. She currently has improvement in her pain. She is able to tolerate getting out of bed more easily. She continues to be afebrile. She has been passing gas and had a bowel movement. Her midline incision has been draining however, no overt sign of infection. OBJECTIVE PHYSICAL EXAMINATION: VITAL SIGNS: Please see below. GENERAL: Patient is awake alert and oriented. She appears in no acute distress. She is sitting comfortably in her chair HEENT: Atraumatic, normocephalic. Eyes are non-icteric. Trachea is midline CARDIOVASCULAR: Normal S1 and S2. Regular rate and rhythm. No clicks rubs or murmurs noted on exam. RESPIRATORY: Slight bibasilar crackles. No wheezing, rhonchi or rales noted. Good respiratory effort ABDOMINAL: Soft. Slightly distended although improved from previous exam. Slight tenderness to palpation without rebound tenderness or guarding. Positive bowel sounds. Midline incision is without erythema. Serosanguineous drainage is present. Percutaneous drainage tube is still in place with minimal drainage of bile EXTREMITIES: No edema. Full and equal pulses bilaterally PSYCHOLOGICAL: Mood and affect appear appropriate at this time. The patient has denied any hallucinations LABORATORY DATA, IMAGING STUDIES, MICROBIOLOGY: Please see below. DVT prophylaxis ordered?: YES ASSESSMENT AND PLAN: 1. Small Bowel Perforation s/p exploratory laparotomy w/ small bowel resection post-op day 11 -Patient continues to have an elevated WBC although slightly decreased from yesterday. She has been seen by ID. She has been started on Fluconazole and continued on Meropenem. -Patient will remain NPO for the time being with exception to small sips of clear liquids. Since patient has been made NPO her white count has stabilized. This could be due to decreased transit through her bowel and therefore less inflammation. Patient will be kept NPO for time being -Patient continues to have percutaneous drainage tube in place secondary to drain inadvertently being passed into patients small bowel. The tube will remain for time being to allow time to seal 2. Leukocytosis -As stated above, patient is being followed by ID. Currently on Meropenem and Fluconazole -Patient to remain NPO -Drainage present from midline incision. This is minimal and no overt sign of infection however, may still be considered a source 3. Large Vessel Thrombosis -Patient is currently on heparin. Will continue at this time 4. History of Bipolar disorder -Patient is being followed by psych VS, I&O, 24H, Toño Vital Signs/I&O Vital Signs Date Time Temp Pulse Resp B/P (MAP) Pulse Ox O2 Delivery O2 Flow Rate FiO2 10/28/18 08:55 18 10/28/18 08:54 67 134/82 10/28/18 08:00 96.7 100 10/26/18 08:00 Room Air 10/25/18 18:48 1.0 I&O- Last 24 Hours up to 6 AM 10/28/18 06:00 Intake Total 2274 ml Output Total 1700 ml Balance 574 ml Laboratory Data 24H LABS Laboratory Tests 2 10/27/18 12:14: Bedside Glucose (Misc Panel) 149H 10/27/18 18:10: Bedside Glucose (Misc Panel) 55L 10/27/18 20:21: Bedside Glucose (Misc Panel) 147H 10/27/18 23:37: Bedside Glucose (Misc Panel) 303H 10/28/18 02:57: Bedside Glucose (Misc Panel) 326H 10/28/18 04:44: Nucleated Red Blood Cells % (auto) 0.0, Activated Partial Thromboplast Time 126.7*H, Anion Gap 9, Glomerular Filtration Rate > 60.0, Blood Urea Nitrogen 8, Creatinine 0.65, Sodium Level 137, Potassium Level 3.5, Chloride Level 107, Carbon Dioxide Level 21, Calcium Level 7.3L, Magnesium Level 1.8, C-Reactive Protein, Quantitative 13.60H 10/28/18 06:31: Bedside Glucose (Misc Panel) 293H CBC/BMP Laboratory Tests 10/28/18 04:44 Red Blood Count 3.64 L, Mean Corpuscular Volume 81.3, Mean Corpuscular Hemoglobin 25.8 L, Mean Corpuscular Hemoglobin Concent 31.8 L, Red Cell Distribution Width 19.4 H, Calcium Level 7.3 L Microbiology Microbiology 10/26/18 Blood Culture - Preliminary, Resulted No growth after 24 hours . All specim... 10/26/18 Blood Culture - Preliminary, Resulted No growth after 24 hours . All specim... GME ATTESTATION GME ATTESTATION My faculty preceptor for this patient encounter was physically present during the encounter and was fully available. All aspects of the patient interview, examination, medical decision making process, and medical care plan development were reviewed and approved by the faculty preceptor. The faculty preceptor is a chun and concurs with the plan as stated in the body of this note and will attest to such by his/her cosignature. OXANA BARBER DO Oct 28, 2018 10:11
[2018-10-28 12:00] VITALS: BP 123/71
[2018-10-28 16:00] VITALS: BP 133/83
[2018-10-28] MEDS: FLUCONAZOLE 400 MG in APPROPRIATE DILUENT 1 EA IV SCH (16:00)
[2018-10-28] MEDS ORDERED: FAT EMULSION IV 20% 500 ML IV SCH (18:00)
[2018-10-28] MEDS ORDERED: AMINO AC/ELECTROLYTE/DEX/CALC 2,000 ML IV SCH (18:00)
--- NOTE | 2018-10-28 18:38 | IPN ---
DATE: 10/28/2018 SUBJECTIVE The patient is seen at bedside. She is in much better mood today. She states that she had a great night's sleep and is feeling much better. She had some nausea but no vomiting this morning. She also had a bowel movement, which was a little difficult for her as she states that her stool was hard. She is still having some right lower quadrant abdominal pain, but this is also much improved. She denies feeling feverish, however, states that she was having a lot of sweating last night, mostly only in her head area. OBJECTIVE Vitals: Temperature 96.7, pulse 67 and regular, respiratory rate 18, blood pressure 134/83, pulse ox is 100% on room air. General: Awake, alert, pleasant and conversant middle-aged female. HEENT: No ulcerations or lesions are noted in the mouth. Dentition is fair with some caries. The patient has upper dentures by her lower teeth are her own. Neck: Supple, no masses. No neck stiffness. Lungs: Clear to auscultation bilaterally. No wheezes, rhonchi or rales. Heart: Regular rate and rhythm. No murmurs, gallops or rubs. Abdomen: Softer than yesterday. There is a midline incision with amber and granulation tissue in various stages of healing. She does have some serosanguineous drainage at the inferior aspect of the incision, but there are no signs of infection, erythema, or exudative drainage. She also has a catheter in the right lower quadrant of her abdomen, which is draining bright green bilious fluid. There is no surrounding erythema or sign of infection here either. Extremities: PICC line is noted in the right upper extremity without erythema, exudate or signs of infection. There is no clubbing, cyanosis or edema. LABORATORY DATA CBC: WBC 24.3, hemoglobin 9.4, hematocrit 29.6, platelets 523. Coagulation: APTT was 126.7 this morning, is 116.9 this afternoon. Chemistry: Sodium 137, potassium 3.5, chloride 107, carbon dioxide 21, BUN 8, creatinine 0.65, fasting glucose 286, calcium 7.3, magnesium 1.8, CRP 13.6. Microbiology: Blood cultures showed no growth after 48 hours from 10/26/2017. IMPRESSION This is a 48-year-old female who was originally at [facility] for acute mesenteric ischemia with renal and splenic infarcts as well as a large thrombus in the descending thoracic aorta. Workup for paroxysmal nocturnal hemoglobinuria still pending. She presented to the [facility] with small-bowel perforation and concern for bowel necrosis for which a bowel resection was performed. She had already received a 7-day course of Cipro and Flagyl as well as a couple doses of vancomycin. PLAN The patient is feeling much better overall today. We will continue the meropenem as well as the fluconazole. The case was discussed with Dr. Lobo who stated that he will be keeping the patient n.p.o. for the weekend. We will continue to follow. My faculty preceptor for this patient encounter was physically present during the encounter and was fully available. All aspects of the patient interview, examination, medical decision making process, and medical care plan development were reviewed and approved by the faculty preceptor. The faculty preceptor is aware and concurs with the plan as stated in the body of this note and will attest to such by his/her co-signature. GAUDENCIO
--- NOTE | 2018-10-28 18:44 | IPNPDOC ---
Text Note Date of Service The patient was seen on 10/28/18. NOTE Patient seen and examined. Passing gas and had bowel movements. Denies any chest pain, pressure, or discomfort. Denies any fevers or chills. nausea no vomiting. . PHYSICAL EXAMINATION: GENERAL: Patient alert, comfortable in no acute distress. HEENT: Mucous membranes. Neck supple. CARDIAC: Regular, S1, S2. PULMONARY: No significant wheeze, rales, or rhonchi. ABDOMEN: Minimal tenderness. Mild distention. Hypoactive bowel sounds. drain in place, bilious drain EXTREMITIES: No clubbing, cyanosis, or edema. ASSESSMENT AND PLAN: This is a 48-year-old female patient with underlying medical history of diabetes mellitus, hypertension, migraine, bipolar, recently hospitalized at [facility] from 08/31/2018 to 09/27/2018 with epigastric pain, found to have acute mesenteric ischemia, discharged on Coumadin. Presented with abdominal pain. Found to have bowel perforation status post exploratory laparoscopy with small-bowel resection. 1. Bowel perforation, status post exploratory laparoscopy with excision of small bowel. Currently feeling much better. Patient on a heparin drip. Diet as per surgery. back TPN 2/2 to complicated percutaneous abscess drain with bowel perforation again. At [facility] patient was also diagnosed to have extensive large-vessel clots. Decision was made for conservative management given patient's high risk for further embolization. Pain regimen as per surgery. Once patient tolerates a diet, will switch from heparin to Coumadin. Further dietary recommendations as per surgery. 2. Leukocytosis unknown etiology, CXR , cultures, CT abd, merro, US fluid drain, complicated with small bowel perforation again. ID consulted, diflucan added 3. Large-vessel thrombosis, multiple large clots in patient's thoracic aorta at [facility] with evidence of splenectomy. No infarct. Patient currently on heparin drip. Will switch to Coumadin once patient tolerating oral. Followup with hematology/oncology as outpatient. No signs of infection at this time. Patient's antiphospholipid and cardiolipin antibody testing has been negative. CA19-9 has been negative. CA-125 is mildly elevated. 4. Acute on chronic anemia, status post total of 2 units packed red blood cells (PRBC). Monitor hemoglobin and hematocrit. 5. Metabolic acidosis, resolved. 6. Oliguria, resolved. 7. Lactic acidosis secondary to bowel perforation, improved. 8. Sinus tachycardia. Cardiac enzymes have been negative. resolved 9. Diabetes mellitus. insulin as ordered. FS Q6hr 9. Hypertension. Monitor blood pressure. Continue Norvasc, aspirin, labetalol. 10. History of migraine, currently stable. 11. History of bipolar, currently stable. 12. History of fibromyalgia, currently stable. 13. History of posttraumatic stress disorder. Outpatient followup. 14. Deep vein thrombosis (DVT) prophylaxis. Patient on a heparin drip. PROGNOSIS: Guarded, but patient has been improving. ID consult VS,Toño, I+O VS, Toño I+O Laboratory Tests 10/28/18 04:44 Red Blood Count 3.64 L, Mean Corpuscular Volume 81.3, Mean Corpuscular Hemoglobin 25.8 L, Mean Corpuscular Hemoglobin Concent 31.8 L, Red Cell Distribution Width 19.4 H, Calcium Level 7.3 L Vital Signs Date Time Temp Pulse Resp B/P (MAP) Pulse Ox O2 Delivery O2 Flow Rate FiO2 10/28/18 16:00 98.4 65 18 133/83 (100) 97 10/26/18 08:00 Room Air 10/25/18 18:48 1.0 I&O- Last 24 Hours up to 6 AM 10/28/18 06:00 Intake Total 2274 ml Output Total 1700 ml Balance 574 ml LO SHELL MD Oct 28, 2018 18:44
[2018-10-28 20:00] VITALS: BP 137/91
[2018-10-28] MEDS ORDERED: diphenhydrAMINE 50 MG CAP PO ONE (23:30)
[2018-10-29] MEDS: HEPARIN DRIP 25,000 UNITS in APPROPRIATE DILUENT 1 EA IV SCH ×3 (00:04→15:30)
[2018-10-29] MEDS: OCTREOTIDE ACETATE 100 MCG/ML VIAL (J2354) IV SCH ×3 (01:58→18:02)
[2018-10-29] MEDS: IPRATROPIUM 0.5MG/ALBUTEROL 2.5MG INH SOL UD 3ML (DUONEB)(J7620) NEB SCH ×4 (02:00→20:00)
[2018-10-29] MEDS: ONDANSETRON 4MG/2ML VIAL (J2405) IV PRN ×3 (02:01→18:17)
[2018-10-29] MEDS: MORPHINE 4 MG/ML 1ML VIAL/SYRINGE (J2270) IV PRN ×4 (03:59→22:49)
[2018-10-29 04:45] VITALS: BP_SYST 131; BP_SYST 157; BP_DIAS 61; BP_DIAS 89
[2018-10-29] MEDS: MEROPENEM INJ 1 GM in APPROPRIATE DILUENT 1 EA IV SCH ×3 (05:48→22:45)
[2018-10-29] MEDS: SODIUM CHLORIDE 0.9% INJ 10 ML SYR IV SCH ×2 (05:48→18:00)
[2018-10-29] MEDS: HumaLOG INSULIN (NovoLOG) PER UNIT SC SCH ×3 (05:49→18:03)
[2018-10-29 07:50] LABS: HEMATOCRIT 30.9 % (36.0-47.0); HEMOGLOBIN 9.6 g/dl (12.0-15.5); MEAN CORPUSCULAR HEMOGLOBIN 25.9 pg (27.0-33.0); MEAN CORPUSCULAR HGB CONC 31.1 g/dl (32.0-36.5); MEAN CORPUSCULAR VOLUME 83.5 fl (80.0-96.0); PLATELET COUNT, AUTOMATED 637 10^3/uL (150-450); WHITE BLOOD COUNT 23.3 10^3/uL (4.0-10.0)
[2018-10-29 08:00] VITALS: BP 162/89
[2018-10-29 08:01] LABS: INR 1.19; PROTHROMBIN TIME 15.3 SECONDS (12.1-14.4)
[2018-10-29 08:03] LABS: PARTIAL THROMBOPLASTIN TIME 65.8 SECONDS (25.4-37.6)
[2018-10-29 08:11] LABS: BLOOD UREA NITROGEN 10 MG/DL (7-18); CALCIUM LEVEL 7.3 MG/DL (8.5-10.1); CARBON DIOXIDE LEVEL 26 MEQ/L (21-32); CHLORIDE LEVEL 104 MEQ/L (98-107); CREATININE FOR GFR 0.62 MG/DL (0.55-1.30); GLOMERULAR FILTRATION RATE > 60.0 (>58); GLUCOSE, FASTING 227 MG/DL (70-100); MAGNESIUM LEVEL 1.7 MG/DL (1.8-2.4); POTASSIUM SERUM 3.3 MEQ/L (3.5-5.1); SODIUM LEVEL 139 MEQ/L (136-145)
[2018-10-29] MEDS: ASPIRIN 81 MG CHEW TABLET NG SCH (08:32)
[2018-10-29] MEDS: LACTOBACILLUS ACIDOPHILUS CAP (BACID) PO SCH ×3 (08:32→18:03)
[2018-10-29] MEDS: PANTOPRAZOLE 40MG INJ (PROTONIX) (C9113) IV SCH (08:33)
[2018-10-29] MEDS: amLODIPine 5 MG TAB PO SCH (08:39)
[2018-10-29] MEDS: LABETALOL 100 MG TAB PO SCH ×2 (08:40→23:00)
[2018-10-29] MEDS: LEVEMIR (INSULIN DETEMIR) 1 UNITS/0.01ML SC SCH ×2 (08:40→23:00)
[2018-10-29] MEDS: BENZTROPINE 1 MG TAB PO SCH ×2 (09:00→22:59)
[2018-10-29] MEDS: PERCOCET 5MG/325MG TAB PO PRN ×2 (11:14→17:25)
--- NOTE | 2018-10-29 11:25 | IPNPDOC ---
Text Note Date of Service The patient was seen on 10/29/18. NOTE No current complaints. She just feels off today. No problems with nausea, emes is, fevers, or chills. She did have a BM yesterday. VSSAF UOP - 2000 Drain - 100ml BM - 1 NAD abd - soft, diffuse mild tenderness, no rebound or guarding, dressings c/d/i labs - below A) 48y/o female s/p SBR for ischemia P) TPN abx NPO ambulate monitor labs will follow transfer to med surg Flavio Gamboa DO VS,[place], I+O VS, [place], I+O Laboratory Tests 10/29/18 07:33 Red Blood Count 3.70 L, Mean Corpuscular Volume 83.5, Mean Corpuscular Hemo globin 25.9 L, Mean Corpuscular Hemoglobin Concent 31.1 L, Red Cell Distribution Width 19.5 H, Calcium Level 7.3 L Vital Signs Date Time Temp Pulse Resp B/P (MAP) Pulse Ox O2 Delivery O2 Flow Rate FiO2 10/29/18 11:14 18 10/29/18 08:40 82 162/89 10/29/18 08:00 97.9 96 10/26/18 08:00 Room Air 10/25/18 18:48 1.0 I&O- Last 24 Hours up to 6 AM 10/29/18 06:00 Intake Total 1628 ml Output Total 2175 ml Balance -547 ml RONY GAMBOA DO Oct 29, 2018 11:25
[2018-10-29 12:00] VITALS: BP 131/80
[2018-10-29 13:45] VITALS: BP 126/80
[2018-10-29] MEDS ORDERED: MAG SULF 1GM/100ML (MAG RUN) 1 GM in APPROPRIATE DILUENT 1 EA IV ONE (14:00)
--- NOTE | 2018-10-29 14:38 | IPNPDOC ---
Text Note Date of Service The patient was seen on 10/29/18. NOTE Patient seen and examined. Passing gas and had bowel movements. Denies any chest pain, pressure, or discomfort. Denies any fevers or chills. nausea no vomiting. . PHYSICAL EXAMINATION: GENERAL: Patient alert, comfortable in no acute distress. HEENT: Mucous membranes. Neck supple. CARDIAC: Regular, S1, S2. PULMONARY: No significant wheeze, rales, or rhonchi. ABDOMEN: Mild tenderness. Mild distention. Hypoactive bowel sounds. drain in place, bilious drain EXTREMITIES: No clubbing, cyanosis, or edema. ASSESSMENT AND PLAN: This is a 48-year-old female patient with underlying medical history of diabetes mellitus, hypertension, migraine, bipolar, recently hospitalized at [facility] from 08/31/2018 to 09/27/2018 with epigastric pain, found to have acute mesenteric ischemia, discharged on Coumadin. Presented with abdominal pain. Found to have bowel perforation status post exploratory laparoscopy with small-bowel resection. 1. Bowel perforation, status post exploratory laparoscopy with excision of small bowel. Currently feeling much better. Patient on heparin drip. Diet as per surgery. back TPN 2/2 to complicated percutaneous abscess drain with bowel perforation again. At [facility] patient was also diagnosed to have extensive large-vessel clots. Decision was made for conservative management given patient's high risk for further embolization. Pain regimen as per surgery. Once patient tolerates a diet, will switch from heparin to Coumadin. Further dietary recommendations as per surgery. 2. Leukocytosis unknown etiology, CXR , cultures, CT abd, merro, US fluid drain, complicated with small bowel perforation again. ID consulted, diflucan added 3. Large-vessel thrombosis, multiple large clots in patient's thoracic aorta at [facility] with evidence of splenectomy. No infarct. Patient currently on heparin drip. Will switch to Coumadin once patient tolerating oral. Followup with hematology/oncology as outpatient. No signs of infection at this time. Patient's antiphospholipid and cardiolipin antibody testing has been negative. CA19-9 has been negative. CA-125 is mildly elevated. 4. Acute on chronic anemia, status post total of 2 units packed red blood cells (PRBC). Monitor hemoglobin and hematocrit. 5. Metabolic acidosis, resolved. 6. Oliguria, resolved. 7. Lactic acidosis secondary to bowel perforation, improved. 8. Sinus tachycardia. Cardiac enzymes have been negative. resolved 9. Diabetes mellitus. insulin as ordered. FS Q6hr 9. Hypertension. Monitor blood pressure. Continue Norvasc, aspirin, labetalol. 10. History of migraine, currently stable. 11. History of bipolar, currently stable. 12. History of fibromyalgia, currently stable. 13. History of posttraumatic stress disorder. Outpatient followup. 14. Deep vein thrombosis (DVT) prophylaxis. Patient on a heparin drip. PROGNOSIS: Guarded, but patient has been improving. ID consulted VS,Toño, I+O VS, Toño, I+O Laboratory Tests 10/29/18 07:33 Red Blood Count 3.70 L, Mean Corpuscular Volume 83.5, Mean Corpuscular Hemoglobin 25.9 L, Mean Corpuscular Hemoglobin Concent 31.1 L, Red Cell Distribution Width 19.5 H, Calcium Level 7.3 L Vital Signs Date Time Temp Pulse Resp B/P (MAP) Pulse Ox O2 Delivery O2 Flow Rate FiO2 10/29/18 12:00 97.2 79 17 131/80 (97) 95 10/26/18 08:00 Room Air 10/25/18 18:48 1.0 I&O- Last 24 Hours up to 6 AM0 10/29/18 06:00 Intake Total 1628 ml Output Total 2175 ml Balance -547 ml LO SHELL MD Oct 29, 2018 14:38
[2018-10-29] MEDS: HEPARIN SOD (PORCINE) 5000 UNITS/ML VIAL IV PRN (15:18)
[2018-10-29] MEDS: KCL 10MEQ/100ML SWI (KRUN) 10 MEQ in APPROPRIATE DILUENT 1 EA IV SCH ×3 (16:00→23:39)
[2018-10-29 18:00] VITALS: BP 148/84
[2018-10-29] MEDS ORDERED: FAT EMULSION IV 20% 500 ML IV SCH (18:00)
[2018-10-29] MEDS ORDERED: AMINO AC/ELECTROLYTE/DEX/CALC 2,000 ML IV SCH (18:00)
[2018-10-29] MEDS: FLUCONAZOLE 400 MG in APPROPRIATE DILUENT 1 EA IV SCH (20:27)
[2018-10-29 22:00] VITALS: BP 139/84
[2018-10-29] MEDS ORDERED: KCL 10MEQ IN STERILE WATER 100ML As Ordered ONE (23:35)
[2018-10-30] MEDS: HumaLOG INSULIN (NovoLOG) PER UNIT SC SCH ×4 (00:23→18:02)
[2018-10-30] MEDS: PERCOCET 5MG/325MG TAB PO PRN ×4 (00:24→21:03)
[2018-10-30] MEDS: OCTREOTIDE ACETATE 100 MCG/ML VIAL (J2354) IV SCH ×3 (01:14→17:21)
[2018-10-30] MEDS ORDERED: POTASSIUM CHLORIDE 10 MEQ SR TABLET PO ONE (01:15)
[2018-10-30 02:00] VITALS: BP 117/71
[2018-10-30] MEDS: IPRATROPIUM 0.5MG/ALBUTEROL 2.5MG INH SOL UD 3ML (DUONEB)(J7620) NEB SCH ×4 (02:00→20:00)
[2018-10-30 04:13] LABS: HEMATOCRIT 28.9 % (36.0-47.0); HEMOGLOBIN 9.1 g/dl (12.0-15.5); MEAN CORPUSCULAR HEMOGLOBIN 25.9 pg (27.0-33.0); MEAN CORPUSCULAR HGB CONC 31.5 g/dl (32.0-36.5); MEAN CORPUSCULAR VOLUME 82.3 fl (80.0-96.0); PLATELET COUNT, AUTOMATED 677 10^3/uL (150-450); RED BLOOD COUNT 3.51 10^6/uL (4.00-5.40); WHITE BLOOD COUNT 21.2 10^3/uL (4.0-10.0)
[2018-10-30 04:33] LABS: BLOOD UREA NITROGEN 11 MG/DL (7-18); CALCIUM LEVEL 7.5 MG/DL (8.5-10.1); CARBON DIOXIDE LEVEL 29 MEQ/L (21-32); CHLORIDE LEVEL 105 MEQ/L (98-107); CREATININE FOR GFR 0.47 MG/DL (0.55-1.30); GLOMERULAR FILTRATION RATE > 60.0 (>58); GLUCOSE, FASTING 162 MG/DL (70-100); MAGNESIUM LEVEL 1.9 MG/DL (1.8-2.4); POTASSIUM SERUM 3.5 MEQ/L (3.5-5.1); SODIUM LEVEL 140 MEQ/L (136-145)
[2018-10-30] MEDS: MEROPENEM INJ 1 GM in APPROPRIATE DILUENT 1 EA IV SCH ×3 (05:43→21:03)
[2018-10-30] MEDS: SODIUM CHLORIDE 0.9% INJ 10 ML SYR IV SCH ×2 (05:44→18:00)
[2018-10-30 06:00] VITALS: BP 138/83
[2018-10-30] MEDS: MORPHINE 4 MG/ML 1ML VIAL/SYRINGE (J2270) IV PRN ×2 (06:05→14:11)
--- NOTE | 2018-10-30 09:12 | IPNPDOC ---
Text Note Date of Service The patient was seen on 10/30/18. NOTE No current complaints. She feels much better today. No problems with nausea, e mesis, fevers, or chills. She did have 2 BM yesterday. VSSAF UOP - 1575 Drain - 100ml BM - 2 NAD abd - soft, diffuse mild tenderness, no rebound or guarding, dressings c/d/i labs - below A) 48y/o female s/p SBR for ischemia P) TPN abx NPO ambulate monitor labs will follow Flavio Gamboa DO VS,Fishbone, I+O VS, Fishbone, I+O Laboratory Tests 10/30/18 03:53 Red Blood Count 3.51 L, Mean Corpuscular Volume 82.3, Mean Corpuscular Hemoglobin 25.9 L, Mean Corpuscular Hemoglobin Concent 31.5 L, Red Cell Distribution Width 19.5 H, Calcium Level 7.5 L Vital Signs Date Time Temp Pulse Resp B/P (MAP) Pulse Ox O2 Delivery O2 Flow Rate FiO2 10/30/18 06:15 19 10/30/18 06:00 97.1 82 138/83 (101) 92 10/26/18 08:00 Room Air 10/25/18 18:48 1.0 I&O- Last 24 Hours up to 6 AM 10/30/18 06:00 Intake Total 1909 ml Output Total 1005 ml Balance 904 ml RONY GAMBOA DO Oct 30, 2018 09:12
[2018-10-30] MEDS: LACTOBACILLUS ACIDOPHILUS CAP (BACID) PO SCH ×3 (09:22→17:20)
[2018-10-30] MEDS: PANTOPRAZOLE 40MG INJ (PROTONIX) (C9113) IV SCH (09:22)
[2018-10-30] MEDS: ASPIRIN 81 MG CHEW TABLET NG SCH (09:22)
[2018-10-30] MEDS: BENZTROPINE 1 MG TAB PO SCH ×2 (09:23→21:01)
[2018-10-30] MEDS: amLODIPine 5 MG TAB PO SCH (09:24)
[2018-10-30] MEDS: LABETALOL 100 MG TAB PO SCH ×2 (09:24→21:01)
[2018-10-30] MEDS: LEVEMIR (INSULIN DETEMIR) 1 UNITS/0.01ML SC SCH ×2 (09:28→21:04)
[2018-10-30] MEDS: ONDANSETRON 4MG/2ML VIAL (J2405) IV PRN (09:32)
[2018-10-30 10:00] VITALS: BP 133/83
[2018-10-30] MEDS: HEPARIN DRIP 25,000 UNITS in APPROPRIATE DILUENT 1 EA IV SCH (11:28)
[2018-10-30 14:00] VITALS: BP 123/74
[2018-10-30] MEDS: METOCLOPRAMIDE INJ 10MG/2ML VIAL (J2765) IV PRN (14:11)
[2018-10-30] MEDS: FLUCONAZOLE 400 MG in APPROPRIATE DILUENT 1 EA IV SCH (16:09)
[2018-10-30] MEDS ORDERED: HumaLOG INSULIN (NovoLOG) PER UNIT SC SCH (18:00)
[2018-10-30] MEDS ORDERED: FAT EMULSION IV 20% 500 ML IV SCH (18:00)
[2018-10-30] MEDS ORDERED: AMINO AC/ELECTROLYTE/DEX/CALC 2,000 ML IV SCH (18:00)
[2018-10-30 22:00] VITALS: BP 125/79
[2018-10-31] MEDS: IPRATROPIUM 0.5MG/ALBUTEROL 2.5MG INH SOL UD 3ML (DUONEB)(J7620) NEB SCH ×4 (02:00→20:00)
[2018-10-31] MEDS: HumaLOG INSULIN (NovoLOG) PER UNIT SC SCH ×5 (02:08→18:08)
[2018-10-31] MEDS: OCTREOTIDE ACETATE 100 MCG/ML VIAL (J2354) IV SCH ×3 (02:08→18:07)
[2018-10-31] MEDS: MORPHINE 4 MG/ML 1ML VIAL/SYRINGE (J2270) IV PRN ×4 (02:08→22:38)
[2018-10-31] MEDS: HEPARIN DRIP 25,000 UNITS in APPROPRIATE DILUENT 1 EA IV SCH ×2 (05:00→22:07)
[2018-10-31] MEDS: MEROPENEM INJ 1 GM in APPROPRIATE DILUENT 1 EA IV SCH ×3 (05:04→21:47)
[2018-10-31] MEDS: ONDANSETRON 4MG/2ML VIAL (J2405) IV PRN ×3 (05:10→18:28)
[2018-10-31] MEDS: SODIUM CHLORIDE 0.9% INJ 10 ML SYR IV SCH ×2 (05:11→18:09)
[2018-10-31 06:00] VITALS: BP 136/82
[2018-10-31 06:45] LABS: HEMATOCRIT 29.8 % (36.0-47.0); HEMOGLOBIN 9.5 g/dl (12.0-15.5); MEAN CORPUSCULAR HGB CONC 31.9 g/dl (32.0-36.5); MEAN CORPUSCULAR VOLUME 81.6 fl (80.0-96.0); PLATELET COUNT, AUTOMATED 752 10^3/uL (150-450); RED BLOOD COUNT 3.65 10^6/uL (4.00-5.40); WHITE BLOOD COUNT 19.9 10^3/uL (4.0-10.0)
[2018-10-31 07:17] LABS: BLOOD UREA NITROGEN 11 MG/DL (7-18); CALCIUM LEVEL 7.9 MG/DL (8.5-10.1); CARBON DIOXIDE LEVEL 28 MEQ/L (21-32); CHLORIDE LEVEL 102 MEQ/L (98-107); CREATININE FOR GFR 0.55 MG/DL (0.55-1.30); GLOMERULAR FILTRATION RATE > 60.0 (>58); GLUCOSE, FASTING 202 MG/DL (70-100); MAGNESIUM LEVEL 1.8 MG/DL (1.8-2.4); POTASSIUM SERUM 3.8 MEQ/L (3.5-5.1); SODIUM LEVEL 138 MEQ/L (136-145)
--- NOTE | 2018-10-31 07:49 | IPN ---
DATE OF SERVICE: 10/30/2018 The patient seen and examined. She continued to have bowel movements. Reported abdominal pain that has definitely not worsened, maybe slightly better. Denies any shortness of breath, chest pain, pressure or discomfort. Vital Signs: Temperature 97.8, pulse 76, respirations 17, blood pressure 123/74, pulse oximetry 98% on room air. Laboratory: WBC 21.2, hemoglobin/hematocrit (H/H) 9.1/28.9, platelets 677. Chemistries: Sodium 140, potassium 3.5, chloride 105, bicarbonate 29, BUN 11, creatinine 0.47. Physical Examination: The patient alert, comfortable, in no acute distress. Moist mucous membranes. Neck supple. Cardiac: Regular, S1 and S2. Pulmonary: Bilateral clear. Abdomen: Minimal tenderness. Dressing intact. Hypoactive bowel sounds. Drain in place draining bilious material. Extremities: No clubbing, cyanosis or edema. ASSESSMENT AND PLAN: This is a 48-year-old female patient with underlying medical history of diabetes mellitus, hypertension, migraines, bipolar, recently hospitalized at [facility] from 08/31/2018 to 09/27/2018 with epigastric pain and found to have acute mesenteric ischemia and discharged on Coumadin who presented with abdominal pain and found to have bowel perforation, status post exploratory laparoscopy with small bowel resection. 1. Bowel perforation status post exploratory laparoscopy with excision of small bowel likely secondary to ischemic bowel. Currently feeling better. On heparin drip. Diet as per surgery. Currently on total parenteral nutrition (TPN) secondary to complicated percutaneous fluid drainage that is complicated with bowel perforation. The patient was diagnosed at [facility] with extensive large vessel blood clots, recommending management conservatively with anticoagulation given high risk of further embolization. Pain management and diet as per surgery. Heparin drip until patient is tolerating oral and then convert to Coumadin. Dietary recommendation and further management as per surgery. 2. Leukocytosis of unknown etiology. Possibly inflammatory due to intra-abdominal surgery versus intra-abdominal abscess, status post CT scan. On meropenem and Diflucan as per infectious disease. Attempts of draining fluid in the abdomen is complicated by small bowel perforation. Currently has a drain. 3. 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 Patient was seen at [facility] with evidence of splenic infarct and renal infarct. The patient currently on heparin drip. Will switch to Coumadin once patient tolerating oral. Followup hematology/oncology as outpatient. 4. Acute on chronic anemia. Was transfused two units packed red blood cells, monitor hemoglobin/hematocrit. 5. Metabolic acidosis. Resolved. 6. Oliguric. Resolved. 7. Lactic acidosis secondary to bowel perforation. Resolved. 8. Sinus tachycardia. Resolved. Cardiac enzymes negative. 9. Diabetes mellitus. Fingerstick every 6 hours. Insulin basal bolus as ordered. 10. Hypertension. Continue Norvasc, aspirin, labetalol. 11. History of migraines. Currently stable. 12. History of bipolar. Currently stable. 13. Fibromyalgia. Currently stable. 14. History of post traumatic stress disorder. Followup outpatient. 15. Deep vein thrombosis (DVT) prophylaxis. Patient on heparin drip. 16. Disposition. As per surgical team. Infectious disease also consulted.
[2018-10-31] MEDS: ASPIRIN 81 MG CHEW TABLET NG SCH (08:54)
[2018-10-31] MEDS: LABETALOL 100 MG TAB PO SCH ×2 (08:54→21:49)
[2018-10-31] MEDS: LACTOBACILLUS ACIDOPHILUS CAP (BACID) PO SCH ×3 (08:54→18:07)
[2018-10-31] MEDS: amLODIPine 5 MG TAB PO SCH (08:54)
[2018-10-31] MEDS: BENZTROPINE 1 MG TAB PO SCH ×2 (08:54→21:49)
[2018-10-31] MEDS: LEVEMIR (INSULIN DETEMIR) 1 UNITS/0.01ML SC SCH ×2 (08:55→21:48)
[2018-10-31] MEDS: PANTOPRAZOLE 40MG INJ (PROTONIX) (C9113) IV SCH (08:55)
[2018-10-31] MEDS: PERCOCET 5MG/325MG TAB PO PRN ×2 (08:55→13:35)
[2018-10-31 10:00] VITALS: BP 161/65
[2018-10-31] MEDS: METOCLOPRAMIDE INJ 10MG/2ML VIAL (J2765) IV PRN (10:22)
[2018-10-31 14:00] VITALS: BP 150/75
[2018-10-31] MEDS: FLUCONAZOLE 100 MG TAB PO SCH (14:53)
[2018-10-31 18:00] VITALS: BP 143/88
[2018-10-31] MEDS ORDERED: FAT EMULSION IV 20% 500 ML IV SCH (18:00)
[2018-10-31] MEDS ORDERED: [UNRECOGNIZED DRUG - MIXTURE] IV SCH ×4 (18:00)
--- NOTE | 2018-10-31 18:09 | IPNPDOC ---
Text Note Date of Service The patient was seen on 10/31/18. NOTE The patient seen and examined. She continued to have bowel movements. Reported abdominal pain and nausea. Denies any shortness of breath, chest pain, pressure or discomfort. Physical Examination: The patient alert, comfortable, in no acute distress. Moist mucous membranes. Neck supple. Cardiac: Regular, S1 and S2. Pulmonary: Bilateral clear. Abdomen: Minimal tenderness. Dressing intact. Hypoactive bowel sounds. Drain in place draining bilious material. Extremities: No clubbing, cyanosis or edema. ASSESSMENT AND PLAN: This is a 48-year-old female patient with underlying medical history of diabetes mellitus, hypertension, migraines, bipolar, recently hospitalized at [facility] from 08/31/2018 to 09/27/2018 with epigastric pain and found to have acute mesenteric ischemia and discharged on Coumadin who presented with abdominal pain and found to have bowel perforation, status post exploratory laparoscopy with small bowel resection. 1. Bowel perforation status post exploratory laparoscopy with excision of small bowel likely secondary to ischemic bowel. Currently feeling better. On heparin drip. Diet as per surgery. Currently on total parenteral nutrition (TPN) secondary to complicated percutaneous fluid drainage that is complicated with bowel perforation. The patient was diagnosed at [facility] with extensive large vessel blood clots, recommending management conservatively with anticoagulation given high risk of further embolization. Pain management and diet as per surgery. Heparin drip until patient is tolerating oral and then convert to Coumadin. Dietary recommendation and further management as per surgery. 2. Leukocytosis of unknown etiology. Possibly inflammatory due to intra-abdominal surgery versus intra-abdominal abscess, status post CT scan. On meropenem and Diflucan as per infectious disease. Attempts of draining fluid in the abdomen is complicated by small bowel perforation. Currently has a drain. 3. 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 Patient was seen at [facility] with evidence of splenic infarct and renal infarct. The patient currently on heparin drip. Will switch to Coumadin once patient tolerating oral. Followup hematology/oncology as outpatient. 4. Acute on chronic anemia. Was transfused two units packed red blood cells, monitor hemoglobin/hematocrit. 5. Metabolic acidosis. Resolved. 6. Oliguric. Resolved. 7. Lactic acidosis secondary to bowel perforation. Resolved. 8. Sinus tachycardia. Resolved. Cardiac enzymes negative. 9. Diabetes mellitus. Fingerstick every 6 hours. Insulin basal bolus as ordered. 10. Hypertension. Continue Norvasc, aspirin, labetalol. 11. History of migraines. Currently stable. 12. History of bipolar. Currently stable. 13. Fibromyalgia. Currently stable. 14. History of post traumatic stress disorder. Followup outpatient. 15. Deep vein thrombosis (DVT) prophylaxis. Patient on heparin drip. 16. Disposition. As per surgical team. Infectious disease also consulted. VS,Fishbone, I+O VS, Fishbone, I+O Laboratory Tests 10/31/18 06:33 Red Blood Count 3.65 L, Mean Corpuscular Volume 81.6, Mean Corpuscular Hemoglobin 26.0 L, Mean Corpuscular Hemoglobin Concent 31.9 L, Red Cell Distribution Width 19.5 H 10/31/18 06:34 Calcium Level 7.9 L Vital Signs Date Time Temp Pulse Resp B/P (MAP) Pulse Ox O2 Delivery O2 Flow Rate FiO2 10/31/18 17:29 18 10/31/18 14:00 97.2 76 150/75 (100) 98 10/26/18 08:00 Room Air 10/25/18 18:48 1.0 I&O- Last 24 Hours up to 6 AM 10/31/18 06:00 Intake Total 2262 ml Output Total 1900 ml Balance 362 ml LO SHELL MD Oct 31, 2018 18:09
[2018-10-31 22:00] VITALS: BP 126/67
[2018-11-01] MEDS: HumaLOG INSULIN (NovoLOG) PER UNIT SC SCH ×5 (00:30→23:56)
[2018-11-01] MEDS: IPRATROPIUM 0.5MG/ALBUTEROL 2.5MG INH SOL UD 3ML (DUONEB)(J7620) NEB SCH ×4 (01:53→20:00)
[2018-11-01] MEDS: OCTREOTIDE ACETATE 100 MCG/ML VIAL (J2354) IV SCH ×3 (02:13→18:37)
[2018-11-01 06:00] VITALS: BP 126/78
[2018-11-01] MEDS: SODIUM CHLORIDE 0.9% INJ 10 ML SYR IV SCH ×2 (06:00→18:39)
[2018-11-01] MEDS: PERCOCET 5MG/325MG TAB PO PRN ×4 (06:20→21:51)
[2018-11-01] MEDS: MEROPENEM INJ 1 GM in APPROPRIATE DILUENT 1 EA IV SCH ×3 (06:20→21:50)
[2018-11-01 06:25] LABS: HEMOGLOBIN 10.3 g/dl (12.0-15.5); MEAN CORPUSCULAR HEMOGLOBIN 26.5 pg (27.0-33.0); MEAN CORPUSCULAR HGB CONC 32.2 g/dl (32.0-36.5); MEAN CORPUSCULAR VOLUME 82.3 fl (80.0-96.0); PLATELET COUNT, AUTOMATED 814 10^3/uL (150-450); RED BLOOD COUNT 3.89 10^6/uL (4.00-5.40); WHITE BLOOD COUNT 18.9 10^3/uL (4.0-10.0)
[2018-11-01 06:48] LABS: BLOOD UREA NITROGEN 11 MG/DL (7-18); CALCIUM LEVEL 8.4 MG/DL (8.5-10.1); CARBON DIOXIDE LEVEL 27 MEQ/L (21-32); CHLORIDE LEVEL 101 MEQ/L (98-107); GLOMERULAR FILTRATION RATE > 60.0 (>58); GLUCOSE, FASTING 223 MG/DL (70-100); MAGNESIUM LEVEL 1.8 MG/DL (1.8-2.4); POTASSIUM SERUM 3.9 MEQ/L (3.5-5.1); SODIUM LEVEL 135 MEQ/L (136-145)
[2018-11-01] MEDS: BENZTROPINE 1 MG TAB PO SCH ×2 (08:37→21:51)
[2018-11-01] MEDS: PANTOPRAZOLE 40MG INJ (PROTONIX) (C9113) IV SCH (08:37)
[2018-11-01] MEDS: LACTOBACILLUS ACIDOPHILUS CAP (BACID) PO SCH ×3 (08:37→17:37)
[2018-11-01] MEDS: ASPIRIN 81 MG CHEW TABLET NG SCH (08:37)
[2018-11-01] MEDS: FLUCONAZOLE 100 MG TAB PO SCH (08:38)
[2018-11-01] MEDS: amLODIPine 5 MG TAB PO SCH (08:38)
[2018-11-01] MEDS: LABETALOL 100 MG TAB PO SCH ×2 (08:39→21:51)
[2018-11-01] MEDS: LEVEMIR (INSULIN DETEMIR) 1 UNITS/0.01ML SC SCH ×2 (08:40→21:52)
[2018-11-01] MEDS: ONDANSETRON 4MG/2ML VIAL (J2405) IV PRN (08:43)
[2018-11-01 10:00] VITALS: BP 125/69
[2018-11-01] MEDS ORDERED: ENOXAPARIN 80 MG/0.8 ML SYRINGE (J1650) SC ONE ×2 (10:30→13:00)
[2018-11-01 13:23] LABS: INR 1.08; PROTHROMBIN TIME 14.1 SECONDS (12.1-14.4)
[2018-11-01 14:00] VITALS: BP 127/75
--- NOTE | 2018-11-01 17:01 | IPN ---
DATE: 11/01/2018 Carol continues to improve slowly, but she continues complaining of right lower quadrant abdominal pain. She went for a walk today, and she felt that her sutures ripped from the lower incision area. She denied any chest pain or shortness of breath. She has no appetite. She only is drinking clears and does not even have any hunger. Temperature is 98.1, pulse 72, respirations 18, blood pressure 127/75, oxygen saturation 98% on room air. HEART: Normal S1, S2 with no murmurs. LUNGS: Clear. No wheezes, rales, or rhonchi. ABDOMEN: Distended. Sutures in place. Lower staple fell off, and there is some serosanguineous discharge on the lower part of the abdominal wound. She has a drain in the right lower quadrant, which is exquisitely tender. EXTREMITIES: Trace edema. No clubbing or cyanosis. No calf tenderness. LABORATORY DATA: White count 18.9, hemoglobin 10.3, hematocrit 32, platelets 814. Sodium 135, potassium 3.9, chloride 101, bicarbonate 27, BUN 11, creatinine 0.6, glucose 223, calcium 8.4, magnesium 1.8, CRP 13.7, which has remained stable in the past 5 days. Blood cultures from October 30: No growth after 48 hours. Blood culture from October 26 had Staphylococcus hominis, which is a contaminant. CT was last done on October 26, which showed multiple loculated fluid collections throughout the abdomen and pelvis IMPRESSION: 1. Ischemic colitis with bowel perforation with CT consistent with multiple loculated abscesses. The patient is on intravenous (IV) meropenem and oral fluconazole. Afebrile, slowly improving, but concern with persistent leukocytosis, whether the patient needs drainage of some of those collections. 2. 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 The patient continues on Lovenox 70 mg subcutaneous every 12 hours. 3. Protein calorie malnutrition. The patient is on total parenteral nutrition (TPN) and drinking very little liquids. PLAN: Will obtain CT abdomen and pelvis tomorrow to followup on loculated fluid collections. Make sure if there are abscesses that patient will be scheduled for drainage procedure. Continue current antibiotics, currently day #7 of IV meropenem and fluconazole with slow improvement. MTDD
--- NOTE | 2018-11-01 17:10 | IPNPDOC ---
Text Note Date of Service The patient was seen on 11/01/18. NOTE Subjective: Patient states her abdominal pain is controlled. Has been on TPN t his weekend. Denies any shortness of breath.. Attempting to get out of bed with physical therapy. PHYSICAL EXAMINATION: Vitals: (see below) General: No acute distress, laying comfortably in bed. HEENT: Moist mucous membranes. Neck: No JVD or lymphadenopathy Cardiac: RRR, No murmurs Pulm: Diminished breath sounds at the bases. No wheezing, rhonchi. No use of accessory muscles. No conversational dyspnea. Abd: Mild tenderness at the drain site. Bandage clean and dry. + BS. No rebound guarding or rigidity. Ext: No edema bilateral lower extremities. No cyanosis LABORATORY DATA: See below. IMAGING: CT abdomen and pelvis on 10/17/18 IMPRESSION: Bowel perforation. Findings consistent with small bowel perforation with focally absent bowel wall enhancement in one of the jejunal loops. There is inflammation, mural thickening and dilation in adjacent small bowel jejunal loops. This may reflect inflammatory bowel disease. There is some mild adjacent mesenteric adenopathy. Incidental findings include subacute splenic infarction and bilateral principally lower pole cortical scarring affecting the kidneys. Fatty infiltration of the liver is also seen. Chest x-ray on 10/20/18 IMPRESSION: Increased pulmonary opacities bilaterally consistent with atelectasis and/or infiltrates. No evidence of pleural effusion or pulmonary edema. ASSESSMENT/PLAN: 1. Bowel perforation, status post exploratory laparoscopy, with excision of 3/4 of the small bowel. Patient states she feels much better today. Her abdominal pain is better controlled. She was recently admitted to [facility] last month, where she was found to have acute mesenteric ischemia, with extensive large vessel clots, for which the decision was made for conservative measures given her very high risk of further embolization and complications, the patient was anticoagulated with Coumadin. s/p Cipro/Flagyl, on meropenem per infectious disease. Management per Dr. Lobo. 2. Large vessel thrombosis, with notable large clots in the thoracic aorta her [facility] discharge summary, with splenic/renal infarcts. The patient was off Coumadin, however on Wednesday she was told that her INR is supratherapeutic and was told to hold it until prior to admission. The exact cause of the patient's hypercoagulable states unknown. Patient was instructed to follow-up with hematology/oncology for further workup. It was noted that the patient's did not have any abscesses signs of malignancy, however CA-125 was mildly elevated and nonspecific [place]'s. Her antiphospholipid/cardiolipin AB testing was negative and her CA 199 is negative. Heparin drip transitioned to Lovenox with Coumadin bridge. 3. s/p Acute on chronic anemia- status post 2 units PRBC on 10/19. Hemoglobin stable. We'll continue to monitor. 4. Metabolic acidosis- Improved. Appreciate nephrology input. s/p 1/2 NS with bicarbonate drip. 5. Oliguria secondary to the above. We'll continue to monitor.s/p albumin infusion Appreciate nephrology input. 6. Lactic acidosis secondary to the above. Improving. 7. Sinus tachycardia likely secondary to the above. Cardiac enzymes negative. Echocardiogram (see above) 8. History of diabetes mellitus on sliding scale insulin 9. Hypertension. controlled. On amlodipine/labetalol. 10. History of migraines stable 11. History of bipolar disorder 12. History of fibromyalgia 13. History of PTSD 14. s/p Volume overload, in the setting of hypoalbuminemia. s/p IV Lasix. Improved. 15. Protein calorie malnutrition- has been on TPN. Diet being advanced by surgery, as tolerated. DVT prophylaxis: Lovenox with Coumadin bridge Overall prognosis guarded. VS,Fishbone, I+O VS, Fishbone, I+O Laboratory Tests 11/01/18 06:16 Red Blood Count 3.89 L, Mean Corpuscular Volume 82.3, Mean Corpuscular Hemoglobin 26.5 L, Mean Corpuscular Hemoglobin Concent 32.2, Red Cell Distribution Width 19.6 H, Calcium Level 8.4 L Vital Signs Date Time Temp Pulse Resp B/P (MAP) Pulse Ox O2 Delivery O2 Flow Rate FiO2 11/01/18 14:00 98.1 72 18 127/75 (92) 98 10/26/18 08:00 Room Air I&O- Last 24 Hours up to 6 AM 11/01/18 06:00 Intake Total 974 ml Output Total 1975 ml Balance -1001 ml NIC OMER MD Nov 01, 2018 17:10
[2018-11-01] MEDS: WARFARIN SOD 5 MG TAB PO SCH (17:37)
[2018-11-01] MEDS ORDERED: ISOVUE-370 76% 100ML VIAL (Q9967) As Ordered ONE (17:37)
[2018-11-01 18:00] VITALS: BP 131/63
[2018-11-01] MEDS ORDERED: FAT EMULSION IV 20% 500 ML IV SCH (18:00)
[2018-11-01] MEDS ORDERED: CALC IV SCH (18:00)
[2018-11-01] MEDS ORDERED: ELECTROLYTE IV SCH (18:00)
[2018-11-01] MEDS ORDERED: AMINO AC IV SCH (18:00)
[2018-11-01] MEDS ORDERED: INSULIN HUMAN REGULAR IV SCH (18:00)
[2018-11-01] MEDS ORDERED: DEX IV SCH (18:00)
[2018-11-01] MEDS: ENOXAPARIN 80 MG/0.8 ML SYRINGE (J1650) SC SCH ×2 (21:00→21:50)
[2018-11-01 22:00] VITALS: BP 120/71
[2018-11-02] MEDS: IPRATROPIUM 0.5MG/ALBUTEROL 2.5MG INH SOL UD 3ML (DUONEB)(J7620) NEB SCH ×4 (01:14→20:00)
[2018-11-02 02:00] VITALS: BP 136/83
[2018-11-02] MEDS: OCTREOTIDE ACETATE 100 MCG/ML VIAL (J2354) IV SCH (02:17)
[2018-11-02] MEDS: PERCOCET 5MG/325MG TAB PO PRN ×5 (02:18→21:29)
[2018-11-02] MEDS: SODIUM CHLORIDE 0.9% INJ 10 ML SYR IV PRN (02:18)
[2018-11-02] MEDS: ONDANSETRON 4MG/2ML VIAL (J2405) IV PRN (02:26)
[2018-11-02 05:25] LABS: HEMOGLOBIN 9.4 g/dl (12.0-15.5); MEAN CORPUSCULAR HGB CONC 31.3 g/dl (32.0-36.5); MEAN CORPUSCULAR VOLUME 83.1 fl (80.0-96.0); RED BLOOD COUNT 3.61 10^6/uL (4.00-5.40)
[2018-11-02 05:28] LABS: PLATELET COUNT, AUTOMATED 686 10^3/uL (150-450)
[2018-11-02 05:39] LABS: INR 1.1; PROTHROMBIN TIME 14.3 SECONDS (12.1-14.4)
[2018-11-02 05:49] LABS: BLOOD UREA NITROGEN 12 MG/DL (7-18); CALCIUM LEVEL 7.9 MG/DL (8.5-10.1); CARBON DIOXIDE LEVEL 29 MEQ/L (21-32); CHLORIDE LEVEL 101 MEQ/L (98-107); CREATININE FOR GFR 0.49 MG/DL (0.55-1.30); GLOMERULAR FILTRATION RATE > 60.0 (>58); GLUCOSE, FASTING 87 MG/DL (70-100); MAGNESIUM LEVEL 1.8 MG/DL (1.8-2.4); POTASSIUM SERUM 4.1 MEQ/L (3.5-5.1); SODIUM LEVEL 137 MEQ/L (136-145)
[2018-11-02 06:00] VITALS: BP 143/62
[2018-11-02] MEDS: HumaLOG INSULIN (NovoLOG) PER UNIT SC SCH ×3 (06:00→17:48)
[2018-11-02] MEDS: MEROPENEM INJ 1 GM in APPROPRIATE DILUENT 1 EA IV SCH ×3 (06:41→21:30)
[2018-11-02] MEDS: SODIUM CHLORIDE 0.9% INJ 10 ML SYR IV SCH ×2 (06:43→17:49)
[2018-11-02] MEDS: ENOXAPARIN 80 MG/0.8 ML SYRINGE (J1650) SC SCH ×2 (08:54→21:30)
[2018-11-02] MEDS: FLUCONAZOLE 100 MG TAB PO SCH (08:55)
[2018-11-02] MEDS: ASPIRIN 81 MG CHEW TABLET NG SCH (08:55)
[2018-11-02] MEDS: LEVEMIR (INSULIN DETEMIR) 1 UNITS/0.01ML SC SCH ×2 (08:55→21:30)
[2018-11-02] MEDS: PANTOPRAZOLE 40MG INJ (PROTONIX) (C9113) IV SCH (08:55)
[2018-11-02] MEDS: LABETALOL 100 MG TAB PO SCH ×2 (08:56→21:29)
[2018-11-02] MEDS: BENZTROPINE 1 MG TAB PO SCH ×2 (08:56→21:29)
[2018-11-02] MEDS: amLODIPine 5 MG TAB PO SCH (08:56)
[2018-11-02] MEDS: LACTOBACILLUS ACIDOPHILUS CAP (BACID) PO SCH ×3 (08:56→17:48)
--- NOTE | 2018-11-02 09:40 | REP ---
CT abdomen and pelvis without and with IV contrast: Repeat dictation. History: Bowel perforation. Preliminary report is provided at the time of exam by [facility]. Comparison study October 26, 2018. CT contrast dose: 100 mL of intravenous Isovue 370. Findings: There is a small left pleural effusion again noted somewhat decreased in size. A tiny sliver of right pleural fluid is seen also decreased. No new liver lesion is seen. There is evidence of an old splenic infarction superiorly as before. There is a thin somewhat linear filling defect in the lower thoracic aorta which may be raised plaque or thrombus. This appears a little smaller than on the 26 October 2018 study. The gallbladder is unremarkable. There is some cortical scarring affecting the kidneys bilaterally. Multiple air and fluid filled loops of small bowel are seen in the abdomen. Several of these are dilated including the distal duodenum and the jejunum about and a small bowel anastomoses. There is mild diffuse mural thickening. Fluid content is seen in the colon without evidence of obstruction. The pigtail catheter placed on October 26, 2018 is again seen in what appears to be a fairly distal small bowel loop. The previously noted fluid collection posterior to the mid abdominal small bowel loops is decreased in size from 6.9 cm right to left dimension to 4.8 cm. It measures 1.7 cm in greatest anteroposterior dimension today, previously 3.0 cm. This has decreased in size. The previously noted right lower quadrant fluid collection is decreased as well, currently measuring 4.7 x 2.2 cm (previously 6.3 x 2.7 cm). The fluid collection in the left mid pelvis/adnexal region is slightly smaller. Impression: Interval decrease in the size of the intra-abdominal fluid collections. Persistent mild small bowel dilation. No new fluid collections seen. Decrease in the size of the presumed distal thoracic aortic thrombus. Decreasing small bilateral pleural effusions. Electronically Signed by Narendra Alarcon MD 11/02/2018 06:48 P
[2018-11-02 10:00] VITALS: BP 111/68
[2018-11-02 14:00] VITALS: BP 118/76
--- NOTE | 2018-11-02 14:37 | IPNPDOC ---
Text Note Date of Service The patient was seen on 11/02/18. NOTE Subjective: Abdominal pain improved. Has started to tolerate minimal diet. Has been walking around the hallways. PHYSICAL EXAMINATION: Vitals: (see below) General: No acute distress, laying comfortably in bed. HEENT: Moist mucous membranes. Neck: No JVD or lymphadenopathy Cardiac: RRR, No murmurs Pulm: Diminished breath sounds at the bases. No wheezing, rhonchi. No use of a ccessory muscles. No conversational dyspnea. Abd: Mild tenderness at the drain site. Bandage clean and dry. + BS. No rebound guarding or rigidity. Ext: No edema bilateral lower extremities. No cyanosis LABORATORY DATA: See below. IMAGING: CT abdomen and pelvis on 10/17/18 IMPRESSION: Bowel perforation. Findings consistent with small bowel perforation with focally absent bowel wall enhancement in one of the jejunal loops. There is inflammation, mural thickening and dilation in adjacent small bowel jejunal loops. This may reflect inflammatory bowel disease. There is some mild adjacent mesenteric adenopathy. Incidental findings include subacute splenic infarction and bilateral principally lower pole cortical scarring affecting the kidneys. Fatty infiltration of the liver is also seen. Chest x-ray on 10/20/18 IMPRESSION: Increased pulmonary opacities bilaterally consistent with atelec tasis and/or infiltrates. No evidence of pleural effusion or pulmonary edema. ASSESSMENT/PLAN: 1. Bowel perforation, status post exploratory laparoscopy, with excision of 3/4 of the small bowel. Patient states she feels much better today. Her abdominal pain is better controlled. She was recently admitted to [facility] last month, where she was found to have acute mesenteric ischemia, with extensive large vessel clots, for which the decision was made for conservative measures given her very high risk of further embolization and complications, the patient was anticoagulated with Coumadin. s/p Cipro/Flagyl, on meropenem per infectious disease. Management per Dr. Lobo. 2. Large vessel thrombosis, with notable large clots in the thoracic aorta her [facility] discharge summary, with splenic/renal infarcts. The patient was off Coumadin, however on Wednesday she was told that her INR is supratherapeutic and was told to hold it until prior to admission. The exact cause of the patient's hypercoagulable states unknown. Patient was instructed to follow-up with hematology/oncology for further workup. It was noted that the patient's did not have any abscesses signs of malignancy, however CA-125 was mildly elevated and nonspecific [place]'s. Her antiphospholipid/cardiolipin AB testing was negative and her CA 199 is negative. Heparin drip transitioned to Lovenox with Coumadin bridge. 3. s/p Acute on chronic anemia- status post 2 units PRBC on 10/19. Hemoglobin stable. We'll continue to monitor. 4. Metabolic acidosis- Improved. Appreciate nephrology input. s/p 1/2 NS with bicarbonate drip. 5. Oliguria secondary to the above. We'll continue to monitor.s/p albumin infusion Appreciate nephrology input. 6. Lactic acidosis secondary to the above. Improving. 7. Sinus tachycardia likely secondary to the above. Cardiac enzymes negative. Echocardiogram (see above) 8. History of diabetes mellitus on sliding scale insulin 9. Hypertension. controlled. On amlodipine/labetalol. 10. History of migraines stable 11. History of bipolar disorder 12. History of fibromyalgia 13. History of PTSD 14. s/p Volume overload, in the setting of hypoalbuminemia. s/p IV Lasix. Improved. 15. Protein calorie malnutrition- has been on TPN. Diet being advanced by surgery, as tolerated. DVT prophylaxis: Lovenox with Coumadin bridge Overall prognosis guarded. VS,Fishbone, I+O VS, Fishbone, I+O Laboratory Tests 11/02/18 05:04 Red Blood Count 3.61 L, Mean Corpuscular Volume 83.1, Mean Corpuscular Hemoglobin 26.0 L, Mean Corpuscular Hemoglobin Concent 31.3 L, Red Cell Distribution Width 19.4 H, Calcium Level 7.9 L Vital Signs Date Time Temp Pulse Resp B/P (MAP) Pulse Ox O2 Delivery O2 Flow Rate FiO2 11/02/18 11:53 18 11/02/18 10:00 97.3 81 111/68 (82) 96 I&O- Last 24 Hours up to 6 AM 11/02/18 06:00 Intake Total 2926 ml Output Total 1350 ml Balance 1576 ml NIC OMER MD Nov 02, 2018 14:37
[2018-11-02] MEDS: WARFARIN SOD 5 MG TAB PO SCH (17:48)
[2018-11-02 18:00] VITALS: BP 125/75
[2018-11-02] MEDS ORDERED: [UNRECOGNIZED DRUG - MIXTURE] IV SCH ×4 (18:00)
[2018-11-02] MEDS ORDERED: FAT EMULSION IV 20% 500 ML IV SCH (18:00)
[2018-11-02 22:00] VITALS: BP 115/69
[2018-11-03] MEDS: IPRATROPIUM 0.5MG/ALBUTEROL 2.5MG INH SOL UD 3ML (DUONEB)(J7620) NEB SCH ×4 (01:57→20:00)
[2018-11-03 02:00] VITALS: BP 125/93
[2018-11-03] MEDS: PERCOCET 5MG/325MG TAB PO PRN ×3 (02:02→15:53)
[2018-11-03] MEDS: diphenhydrAMINE INJ 50MG/ML VIAL (J1200) IV PRN (03:21)
[2018-11-03] MEDS: MEROPENEM INJ 1 GM in APPROPRIATE DILUENT 1 EA IV SCH ×3 (05:26→21:44)
[2018-11-03] MEDS: SODIUM CHLORIDE 0.9% INJ 10 ML SYR IV SCH ×2 (05:26→18:03)
[2018-11-03 06:00] VITALS: BP 115/70
[2018-11-03] MEDS: HumaLOG INSULIN (NovoLOG) PER UNIT SC SCH ×4 (06:05→18:02)
[2018-11-03 06:34] LABS: HEMATOCRIT 30.4 % (36.0-47.0); HEMOGLOBIN 9.4 g/dl (12.0-15.5); MEAN CORPUSCULAR HEMOGLOBIN 25.8 pg (27.0-33.0); MEAN CORPUSCULAR HGB CONC 30.9 g/dl (32.0-36.5); MEAN CORPUSCULAR VOLUME 83.5 fl (80.0-96.0); PLATELET COUNT, AUTOMATED 655 10^3/uL (150-450); RED BLOOD COUNT 3.64 10^6/uL (4.00-5.40); WHITE BLOOD COUNT 15.8 10^3/uL (4.0-10.0)
[2018-11-03 06:56] LABS: BLOOD UREA NITROGEN 14 MG/DL (7-18); CALCIUM LEVEL 8.4 MG/DL (8.5-10.1); CARBON DIOXIDE LEVEL 28 MEQ/L (21-32); CHLORIDE LEVEL 101 MEQ/L (98-107); CREATININE FOR GFR 0.54 MG/DL (0.55-1.30); GLOMERULAR FILTRATION RATE > 60.0 (>58); GLUCOSE, FASTING 111 MG/DL (70-100); MAGNESIUM LEVEL 1.8 MG/DL (1.8-2.4); POTASSIUM SERUM 3.3 MEQ/L (3.5-5.1); SODIUM LEVEL 136 MEQ/L (136-145)
[2018-11-03] MEDS ORDERED: POTASSIUM CHLORIDE 10 MEQ SR TABLET PO ONE (08:00)
[2018-11-03] MEDS: LACTOBACILLUS ACIDOPHILUS CAP (BACID) PO SCH ×3 (08:31→18:01)
[2018-11-03] MEDS: ENOXAPARIN 80 MG/0.8 ML SYRINGE (J1650) SC SCH ×2 (08:31→20:28)
[2018-11-03] MEDS: LEVEMIR (INSULIN DETEMIR) 1 UNITS/0.01ML SC SCH ×2 (08:31→20:28)
[2018-11-03] MEDS: ASPIRIN 81 MG CHEW TABLET NG SCH (08:31)
[2018-11-03] MEDS: PANTOPRAZOLE 40MG INJ (PROTONIX) (C9113) IV SCH (08:31)
[2018-11-03] MEDS: BENZTROPINE 1 MG TAB PO SCH ×2 (08:32→21:42)
[2018-11-03] MEDS: FLUCONAZOLE 100 MG TAB PO SCH (08:32)
[2018-11-03] MEDS: LABETALOL 100 MG TAB PO SCH ×2 (08:32→21:42)
[2018-11-03] MEDS: amLODIPine 5 MG TAB PO SCH (08:32)
[2018-11-03] MEDS: SODIUM CHLORIDE 0.9% INJ 10 ML SYR IV PRN ×2 (08:33→21:45)
[2018-11-03 10:00] VITALS: BP 109/61
[2018-11-03 10:34] LABS: INR 1.13; PROTHROMBIN TIME 14.6 SECONDS (12.1-14.4)
[2018-11-03 14:00] VITALS: BP 131/83
--- NOTE | 2018-11-03 14:25 | IPNPDOC ---
Text Note Date of Service The patient was seen on 11/03/18. NOTE Subjective: Patient states she had increased abdominal pain when bandages over improved for the drain to be assessed. She has no nausea or vomiting. + bowel movements. No bleeding. PHYSICAL EXAMINATION: Vitals: (see below) General: No acute distress, laying comfortably in bed. HEENT: Moist mucous membranes. Neck: No JVD or lymphadenopathy Cardiac: RRR, No murmurs Pulm: Diminished breath sounds at the bases. No wheezing, rhonchi. No use of accessory muscles. No conversational dyspnea. Abd: Tenderness at the drain site. Bandage clean and dry. + BS. No rebound guarding or rigidity. Ext: No edema bilateral lower extremities. No cyanosis LABORATORY DATA: See below. IMAGING: CT abdomen and pelvis on 10/17/18 IMPRESSION: Bowel perforation. Findings consistent with small bowel perforation with focally absent bowel wall enhancement in one of the jejunal loops. There is inflammation, mural thickening and dilation in adjacent small bowel jejunal loops. This may reflect inflammatory bowel disease. There is some mild adjacent mesenteric adenopathy. Incidental findings include subacute splenic infarction and bilateral principally lower pole cortical scarring affecting the kidneys. Fatty infiltration of the liver is also seen. Chest x-ray on 10/20/18 IMPRESSION: Increased pulmonary opacities bilaterally consistent with atelectasis and/or infiltrates. No evidence of pleural effusion or pulmonary edema. ASSESSMENT/PLAN: 1. Bowel perforation, status post exploratory laparoscopy, with excision of 3/4 of the small bowel. Patient states she feels much better today. Her abdominal pain is better controlled. She was recently admitted to [facility] last month, where she was found to have acute mesenteric ischemia, with extensive large vessel clots, for which the decision was made for conservative measures given her very high risk of further embolization and complications, the patient was anticoagulated with Coumadin. s/p Cipro/Flagyl, on meropenem per infectious disease. Management per Dr. Lobo. Morphine/Percocet for pain control. 2. Large vessel thrombosis, with notable large clots in the thoracic aorta her [facility] discharge summary, with splenic/renal infarcts. The patient was off Coumadin, however on Wednesday she was told that her INR is supratherapeutic and was told to hold it until prior to admission. The exact cause of the patient's hypercoagulable states unknown. Patient was instructed to follow-up with hematology/oncology for further workup. It was noted that the patient's did not have any abscesses signs of malignancy, however CA-125 was mildly elevated and nonspecific [place]'s. Her antiphospholipid/cardiolipin AB testing was negative and her CA 199 is negative. Heparin drip transitioned to Lovenox with Coumadin bridge. Coumadin dose increased. 3. s/p Acute on chronic anemia- status post 2 units PRBC on 10/19. Hemoglobin stable. We'll continue to monitor. 4. Metabolic acidosis- Improved. Appreciate nephrology input. s/p 1/2 NS with bicarbonate drip. 5. Oliguria secondary to the above. We'll continue to monitor.s/p albumin infusion Appreciate nephrology input. 6. Lactic acidosis secondary to the above. Improving. 7. Sinus tachycardia likely secondary to the above. Cardiac enzymes negative. Echocardiogram (see above) 8. History of diabetes mellitus on sliding scale insulin 9. Hypertension. controlled. On amlodipine/labetalol. 10. History of migraines stable 11. History of bipolar disorder 12. History of fibromyalgia 13. History of PTSD 14. s/p Volume overload, in the setting of hypoalbuminemia. s/p IV Lasix. Improved. 15. Protein calorie malnutrition- has been on TPN. Diet being advanced by surgery, as tolerated. DVT prophylaxis: Lovenox with Coumadin bridge, Coumadin dose increased. Overall prognosis guarded. VS,Fishbone, I+O VS, Fishbone, I+O Laboratory Tests 11/03/18 06:10 Red Blood Count 3.64 L, Mean Corpuscular Volume 83.5, Mean Corpuscular Hemoglobin 25.8 L, Mean Corpuscular Hemoglobin Concent 30.9 L, Red Cell Distribution Width 19.4 H, Calcium Level 8.4 L Vital Signs Date Time Temp Pulse Resp B/P (MAP) Pulse Ox O2 Delivery O2 Flow Rate FiO2 11/03/18 10:00 97.8 91 17 109/61 (77) 100 l I&O- Last 24 Hours up to 6 AM 11/03/18 06:00 Intake Total 3225 ml Output Total 900 ml Balance 2325 ml NIC OMER MD Nov 03, 2018 14:25
[2018-11-03] MEDS: WARFARIN SOD 7.5 MG TAB PO SCH (15:54)
[2018-11-03 18:00] VITALS: BP 124/79
[2018-11-03] MEDS ORDERED: FAT EMULSION IV 20% 500 ML IV SCH (18:00)
[2018-11-03] MEDS: INSULIN HUMAN REGULAR IV SCH ×2 (18:04→20:27)
[2018-11-03] MEDS: CALC IV SCH ×2 (18:04→20:27)
[2018-11-03] MEDS: DEX IV SCH ×2 (18:04→20:27)
[2018-11-03] MEDS: ELECTROLYTE IV SCH ×2 (18:04→20:27)
[2018-11-03] MEDS: AMINO AC IV SCH ×2 (18:04→20:27)
[2018-11-03] MEDS: MORPHINE 4 MG/ML 1ML VIAL/SYRINGE (J2270) IV PRN (20:26)
[2018-11-03] MEDS: ONDANSETRON 4MG/2ML VIAL (J2405) IV PRN (20:39)
[2018-11-03 22:00] VITALS: BP 126/86
[2018-11-04] MEDS: HumaLOG INSULIN (NovoLOG) PER UNIT SC SCH ×5 (00:26→23:49)
[2018-11-04 02:00] VITALS: BP 116/86
[2018-11-04] MEDS: IPRATROPIUM 0.5MG/ALBUTEROL 2.5MG INH SOL UD 3ML (DUONEB)(J7620) NEB SCH ×4 (02:00→20:00)
[2018-11-04] MEDS: PERCOCET 5MG/325MG TAB PO PRN ×5 (02:16→21:38)
[2018-11-04] MEDS: METOCLOPRAMIDE INJ 10MG/2ML VIAL (J2765) IV PRN (02:19)
[2018-11-04] MEDS: MEROPENEM INJ 1 GM in APPROPRIATE DILUENT 1 EA IV SCH ×3 (05:31→21:33)
[2018-11-04 05:50] LABS: HEMATOCRIT 29.9 % (36.0-47.0); HEMOGLOBIN 9.4 g/dl (12.0-15.5); MEAN CORPUSCULAR HEMOGLOBIN 26.2 pg (27.0-33.0); MEAN CORPUSCULAR HGB CONC 31.4 g/dl (32.0-36.5); MEAN CORPUSCULAR VOLUME 83.3 fl (80.0-96.0); PLATELET COUNT, AUTOMATED 618 10^3/uL (150-450); RED BLOOD COUNT 3.59 10^6/uL (4.00-5.40); WHITE BLOOD COUNT 16.8 10^3/uL (4.0-10.0)
[2018-11-04 06:00] VITALS: BP 122/79
[2018-11-04] MEDS: SODIUM CHLORIDE 0.9% INJ 10 ML SYR IV SCH ×2 (06:00→17:44)
[2018-11-04 06:06] LABS: INR 1.13; PROTHROMBIN TIME 14.7 SECONDS (12.1-14.4)
[2018-11-04 06:13] LABS: BLOOD UREA NITROGEN 16 MG/DL (7-18); CALCIUM LEVEL 8.4 MG/DL (8.5-10.1); CARBON DIOXIDE LEVEL 24 MEQ/L (21-32); CHLORIDE LEVEL 105 MEQ/L (98-107); CREATININE FOR GFR 0.55 MG/DL (0.55-1.30); GLOMERULAR FILTRATION RATE > 60.0 (>58); GLUCOSE, FASTING 182 MG/DL (70-100); MAGNESIUM LEVEL 1.9 MG/DL (1.8-2.4); POTASSIUM SERUM 3.9 MEQ/L (3.5-5.1); SODIUM LEVEL 136 MEQ/L (136-145)
[2018-11-04] MEDS: BENZTROPINE 1 MG TAB PO SCH ×2 (08:52→20:04)
[2018-11-04] MEDS: LACTOBACILLUS ACIDOPHILUS CAP (BACID) PO SCH ×3 (08:52→17:42)
[2018-11-04] MEDS: ASPIRIN 81 MG CHEW TABLET NG SCH (08:53)
[2018-11-04] MEDS: FLUCONAZOLE 100 MG TAB PO SCH (08:53)
[2018-11-04] MEDS: PANTOPRAZOLE 40MG INJ (PROTONIX) (C9113) IV SCH (08:53)
[2018-11-04] MEDS: amLODIPine 5 MG TAB PO SCH (08:53)
[2018-11-04] MEDS: LABETALOL 100 MG TAB PO SCH ×2 (08:53→20:04)
[2018-11-04] MEDS: ONDANSETRON 4MG/2ML VIAL (J2405) IV PRN (08:54)
[2018-11-04] MEDS: LEVEMIR (INSULIN DETEMIR) 1 UNITS/0.01ML SC SCH ×2 (08:54→20:03)
[2018-11-04] MEDS: ENOXAPARIN 80 MG/0.8 ML SYRINGE (J1650) SC SCH ×3 (08:55→20:16)
[2018-11-04 10:00] VITALS: BP 132/66
[2018-11-04 14:00] VITALS: BP 116/71
--- NOTE | 2018-11-04 15:59 | IPNPDOC ---
Text Note Date of Service The patient was seen on 11/04/18. NOTE Subjective: Patient feels well today. Her abdominal pain is very well controll ed. No acute changes overnight. PHYSICAL EXAMINATION: Vitals: (see below) General: No acute distress, laying comfortably in bed. HEENT: Moist mucous membranes. Neck: No JVD or lymphadenopathy Cardiac: RRR, No murmurs Pulm: Diminished breath sounds at the bases. No wheezing, rhonchi. No use of accessory muscles. No conversational dyspnea. Abd: Minimal to no tenderness at the drain site. Bandage clean and dry. + BS. No rebound guarding or rigidity. Ext: No edema bilateral lower extremities. No cyanosis LABORATORY DATA: See below. IMAGING: CT abdomen and pelvis on 10/17/18 IMPRESSION: Bowel perforation. Findings consistent with small bowel perforation with focally absent bowel wall enhancement in one of the jejunal loops. There is inflammation, mural thickening and dilation in adjacent small bowel jejunal loops. This may reflect inflammatory bowel disease. There is some mild adjacen t mesenteric adenopathy. Incidental findings include subacute splenic infarction and bilateral principally lower pole cortical scarring affecting the kidneys. Fatty infiltration of the liver is also seen. Chest x-ray on 10/20/18 IMPRESSION: Increased pulmonary opacities bilaterally consistent with atelectasis and/or infiltrates. No evidence of pleural effusion or pulmonary edema. ASSESSMENT/PLAN: 1. Bowel perforation, status post exploratory laparoscopy, with excision of 3/4 of the small bowel. Patient states she feels much better today. Her abdominal pain is better controlled. She was recently admitted to [facility] last month, where she was found to have acute mesenteric ischemia, with extensive large vessel clots, for which the decision was made for conservative measures given her very high risk of further embolization and complications, the patient was anticoagulated with Coumadin. s/p Cipro/Flagyl, on meropenem per infectious disease. Management per Dr. Lobo. Morphine/Percocet for pain control. 2. Large vessel thrombosis, with notable large clots in the thoracic aorta her [facility] discharge summary, with splenic/renal infarcts. The patient was off Coumadin, however on Wednesday she was told that her INR is supratherapeutic and was told to hold it until prior to admission. The exact cause of the patient's hypercoagulable states unknown. Patient was instructed to follow-up with hematology/oncology for further workup. It was noted that the patient's did not have any abscesses signs of malignancy, however CA-125 was mildly elevated and nonspecific Arispe's. Her antiphospholipid/cardiolipin AB testing was negative and her CA 199 is negative. Heparin drip transitioned to Lovenox with Coumadin bridge. Coumadin dose increased. 3. s/p Acute on chronic anemia- status post 2 units PRBC on 10/19. Hemoglobin stable. We'll continue to monitor. 4. Metabolic acidosis- Improved. Appreciate nephrology input. s/p 1/2 NS with bicarbonate drip. 5. Oliguria secondary to the above. We'll continue to monitor.s/p albumin infusion Appreciate nephrology input. 6. Lactic acidosis secondary to the above. Improving. 7. Sinus tachycardia likely secondary to the above. Cardiac enzymes negative. Echocardiogram (see above) 8. History of diabetes mellitus on sliding scale insulin 9. Hypertension. controlled. On amlodipine/labetalol. 10. History of migraines stable 11. History of bipolar disorder 12. History of fibromyalgia 13. History of PTSD 14. s/p Volume overload, in the setting of hypoalbuminemia. s/p IV Lasix. Improved. 15. Protein calorie malnutrition- has been on TPN. Diet being advanced by surgery, as tolerated. DVT prophylaxis: Lovenox with Coumadin bridge, Coumadin dose increased. Overall prognosis guarded. VS,Fishbone, I+O VS, Fishbone, I+O Laboratory Tests 11/04/18 05:25 Red Blood Count 3.59 L, Mean Corpuscular Volume 83.3, Mean Corpuscular Hemoglobin 26.2 L, Mean Corpuscular Hemoglobin Concent 31.4 L, Red Cell Distribution Width 19.4 H, Calcium Level 8.4 L Vital Signs Date Time Temp Pulse Resp B/P (MAP) Pulse Ox O2 Delivery O2 Flow Rate FiO2 11/04/18 14:00 97.3 69 16 116/71 (86) 99 I&O- Last 24 Hours up to 6 AM 11/04/18 06:00 Intake Total 390 ml Output Total 1200 ml Balance -810 ml NIC OMER MD Nov 04, 2018 15:59
--- NOTE | 2018-11-04 16:42 | IPN ---
DATE: 11/04/2018 Carol continues to slowly improve but she still has some sweats and right lower quadrant pain radiating to the back. She has no appetite. She did vomit yesterday. She is only taking clear liquids. PHYSICAL EXAMINATION: Temperature is 98.6, pulse 98, respirations 17, blood pressure 132/66, oxygen saturation 97% on room air. Heart: Normal S1, S2. No murmurs. Lungs are clear. No wheezes, rales or rhonchi. Back: Mild right CVA tenderness. Abdomen: Distended, soft, mild drainage in the inferior incision area. Right lower quadrant drain with bile. Extremities: No clubbing, cyanosis or edema. No calf tenderness. LABORATORY DATA: White count is 16.8, hemoglobin 9.4, hematocrit 29.9, platelets 618. Sodium 136, potassium 3.9, chloride 105, bicarbonate 24, BUN 16, creatinine 0.55, glucose 182, calcium 8.4. Magnesium 1.9, CRP 13.3. CT of the abdomen was done on 11/01/2018, reviewed with Dr. Alarcon, he felt that these intra-abdominal collection have all decreased in size and they are not amenable for drainage. There were no new fluid collection. There was also a decrease in the size of the distal thoracic aortic thrombus. IMPRESSION: 1. Bowel perforation with multiple loculated abscesses, could not be drained. The patient continues on IV meropenem and fluconazole, day #10, started on 10/26/2018. 2. 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 On warfarin. 3. Protein calorie malnutrition. Patient on total parenteral nutrition (TPN). PLAN The patient will be continued on meropenem and fluconazole. These intra-abdominal fluid collection are abscesses p[er Dr Alarcon, they have decreased in size. She has slow improvement but she still has persistent leukocytosis and elevated C-reactive protein (CRP) and therefore would recommend continued antibiotic and followup CT scan in 1-2 weeks. MTDD
[2018-11-04] MEDS: WARFARIN SOD 7.5 MG TAB PO SCH (17:43)
[2018-11-04 18:00] VITALS: BP 118/72
[2018-11-04] MEDS ORDERED: FAT EMULSION IV 20% 500 ML IV SCH (18:00)
[2018-11-04] MEDS ORDERED: AMINO AC/ELECTROLYTE/DEX/CALC 2,000 ML IV SCH (18:00)
[2018-11-04] MEDS: MORPHINE 4 MG/ML 1ML VIAL/SYRINGE (J2270) IV PRN (20:03)
[2018-11-04 22:00] VITALS: BP 130/86
[2018-11-05] MEDS: diphenhydrAMINE INJ 50MG/ML VIAL (J1200) IV PRN (01:55)
[2018-11-05] MEDS: IPRATROPIUM 0.5MG/ALBUTEROL 2.5MG INH SOL UD 3ML (DUONEB)(J7620) NEB SCH ×4 (01:58→20:00)
[2018-11-05 02:00] VITALS: BP 133/87
[2018-11-05] MEDS: MORPHINE 4 MG/ML 1ML VIAL/SYRINGE (J2270) IV PRN ×2 (04:19→09:34)
[2018-11-05 05:48] LABS: HEMATOCRIT 33.5 % (36.0-47.0); HEMOGLOBIN 10.3 g/dl (12.0-15.5); MEAN CORPUSCULAR HEMOGLOBIN 25.6 pg (27.0-33.0); MEAN CORPUSCULAR HGB CONC 30.7 g/dl (32.0-36.5); MEAN CORPUSCULAR VOLUME 83.1 fl (80.0-96.0); PLATELET COUNT, AUTOMATED 683 10^3/uL (150-450); RED BLOOD COUNT 4.03 10^6/uL (4.00-5.40); WHITE BLOOD COUNT 20.6 10^3/uL (4.0-10.0)
[2018-11-05] MEDS: MEROPENEM INJ 1 GM in APPROPRIATE DILUENT 1 EA IV SCH ×3 (05:57→21:42)
[2018-11-05] MEDS: SODIUM CHLORIDE 0.9% INJ 10 ML SYR IV SCH ×2 (05:58→18:00)
[2018-11-05 06:00] VITALS: BP 119/90
[2018-11-05 06:00] LABS: INR 1.46
[2018-11-05] MEDS: PERCOCET 5MG/325MG TAB PO PRN ×4 (06:09→21:44)
[2018-11-05 06:17] LABS: BLOOD UREA NITROGEN 18 MG/DL (7-18); CALCIUM LEVEL 8.4 MG/DL (8.5-10.1); CARBON DIOXIDE LEVEL 26 MEQ/L (21-32); CHLORIDE LEVEL 102 MEQ/L (98-107); CREATININE FOR GFR 0.58 MG/DL (0.55-1.30); GLOMERULAR FILTRATION RATE > 60.0 (>58); GLUCOSE, FASTING 186 MG/DL (70-100); MAGNESIUM LEVEL 1.8 MG/DL (1.8-2.4); SODIUM LEVEL 133 MEQ/L (136-145)
[2018-11-05] MEDS: HumaLOG INSULIN (NovoLOG) PER UNIT SC SCH ×4 (06:29→23:37)
[2018-11-05] MEDS: ONDANSETRON 4MG/2ML VIAL (J2405) IV PRN ×2 (07:09→14:37)
[2018-11-05] MEDS: GASTROGRAFIN SOLUTION 30ML PO SCH (09:03)
[2018-11-05] MEDS: PANTOPRAZOLE 40MG INJ (PROTONIX) (C9113) IV SCH (09:47)
[2018-11-05] MEDS: LACTOBACILLUS ACIDOPHILUS CAP (BACID) PO SCH ×3 (09:47→18:17)
[2018-11-05] MEDS: amLODIPine 5 MG TAB PO SCH (09:48)
[2018-11-05] MEDS: ASPIRIN 81 MG CHEW TABLET NG SCH (09:48)
[2018-11-05] MEDS: LABETALOL 100 MG TAB PO SCH ×2 (09:48→21:43)
[2018-11-05] MEDS: BENZTROPINE 1 MG TAB PO SCH ×2 (09:48→21:43)
[2018-11-05] MEDS: FLUCONAZOLE 100 MG TAB PO SCH (09:48)
--- NOTE | 2018-11-05 09:48 | IPN ---
DATE: 11/05/2018 The patient did have a bowel movement yesterday, has been on a full liquid diet, just taking minimal amounts of this. Still has some mild nausea going forward. She has had no fevers or chills; however, her white count has been stable between 16 and today it is 16.8. No other significant abnormalities are appreciated per se. She is still getting up and moving around and complaining of abdominal discomfort and pain as she had previously. She has been started on her anticoagulation and her INR is starting to bump up. IMPRESSION AND PLAN: The patient has evidence of gastrointestinal issues that are slow to resolve. It may be that she has some inflammatory changes still that she is getting over. It is hard at this point to know exactly if there are some areas of ischemia that had been previously damaged that caused some partial strictures contributing to this abdominal distension issue, but at this point I do feel that just going slowly with her is most reasonable. The next approach otherwise is bumping her back to clear liquids and anticipating a discharge on TPN for awhile would be the only other option, which is a poor option for long-term assessment / care. In any case, we will see how she does with the current diet and will progress as the patient tolerates. Encourage her to increase activity and at this point continuing with her TPN.
[2018-11-05] MEDS: ENOXAPARIN 80 MG/0.8 ML SYRINGE (J1650) SC SCH ×2 (09:49→21:42)
[2018-11-05] MEDS: LEVEMIR (INSULIN DETEMIR) 1 UNITS/0.01ML SC SCH ×2 (09:49→21:43)
[2018-11-05 10:00] VITALS: BP 137/78
[2018-11-05] MEDS ORDERED: ISOVUE-370 76% 100ML VIAL (Q9967) As Ordered ONE (10:27)
--- NOTE | 2018-11-05 11:48 | IPNPDOC ---
Text Note Date of Service The patient was seen on 11/05/18. NOTE Subjective: Pt with mild increase in abd pain today after sutures removed. No N/V. No CP/sob. PHYSICAL EXAMINATION: Vitals: (see below) General: No acute distress, laying comfortably in bed. HEENT: Moist mucous membranes. Neck: No JVD or lymphadenopathy Cardiac: RRR, No murmurs Pulm: Diminished breath sounds at the bases. No wheezing, rhonchi. No use of accessory muscles. No conversational dyspnea. Abd: Minimal to no tenderness at the drain site/incision sites. Bandage clean and dry. + BS. No rebound guarding or rigidity. Ext: No edema bilateral lower extremities. No cyanosis LABORATORY DATA: See below. IMAGING: CT abdomen and pelvis on 10/17/18 IMPRESSION: Bowel perforation. Findings consistent with small bowel perforation with focally absent bowel wall enhancement in one of the jejunal loops. There is inflammation, mural thickening and dilation in adjacent small bowel jejunal loops. This may reflect inflammatory bowel disease. There is some mild adjacen t mesenteric adenopathy. Incidental findings include subacute splenic infarction and bilateral principally lower pole cortical scarring affecting the kidneys. Fatty infiltration of the liver is also seen. Chest x-ray on 10/20/18 IMPRESSION: Increased pulmonary opacities bilaterally consistent with atelectasis and/or infiltrates. No evidence of pleural effusion or pulmonary edema. ASSESSMENT/PLAN: 1. Bowel perforation, status post exploratory laparoscopy, with excision of 3/4 of the small bowel. Patient states she feels much better today. Her abdominal pain is better controlled. She was recently admitted to [facility] last month, where she was found to have acute mesenteric ischemia, with extensive large vessel clots, for which the decision was made for conservative measures given her very high risk of further embolization and complications, the patient was anticoagulated with Coumadin. s/p Cipro/Flagyl, on meropenem per infectious disease. Management per Dr. Lobo. Morphine/Percocet for pain control. Has repeat CT pending 11/05. 2. Large vessel thrombosis, with notable large clots in the thoracic aorta her [facility] discharge summary, with splenic/renal infarcts. The patient was off Coumadin, however on Wednesday she was told that her INR is supratherapeutic and was told to hold it until prior to admission. The exact cause of the patient's hypercoagulable states unknown. Patient was instructed to follow-up with hematology/oncology for further workup. It was noted that the patient's did not have any abscesses signs of malignancy, however CA-125 was mildly elevated and nonspecific Holmes's. Her antiphospholipid/cardiolipin AB testing was negative and her CA 199 is negative. Heparin drip transitioned to Lovenox with Coumadin bridge. INR improving, however still subtherapeutic. 3. s/p Acute on chronic anemia- status post 2 units PRBC on 10/19. Hemoglobin stable. We'll continue to monitor. 4. Metabolic acidosis- Improved. Appreciate nephrology input. s/p 1/2 NS with bicarbonate drip. 5. Oliguria secondary to the above. We'll continue to monitor.s/p albumin infusion Appreciate nephrology input. 6. Lactic acidosis secondary to the above. Improving. 7. Sinus tachycardia likely secondary to the above. Cardiac enzymes negative. Echocardiogram (see above) 8. History of diabetes mellitus on sliding scale insulin 9. Hypertension. controlled. On amlodipine/labetalol. 10. History of migraines stable 11. History of bipolar disorder 12. History of fibromyalgia 13. History of PTSD 14. s/p Volume overload, in the setting of hypoalbuminemia. s/p IV Lasix. Improved. 15. Protein calorie malnutrition- has been on TPN. Diet being advanced by surgery, as tolerated. DVT prophylaxis: Lovenox with Coumadin bridge. Overall prognosis guarded. VS,Fishbone, I+O VS, Fishbone, I+O Laboratory Tests 11/05/18 05:22 Red Blood Count 4.03, Mean Corpuscular Volume 83.1, Mean Corpuscular Hemoglobin 25.6 L, Mean Corpuscular Hemoglobin Concent 30.7 L, Red Cell Distribution Width 19.2 H, Calcium Level 8.4 L Vital Signs Date Time Temp Pulse Resp B/P (MAP) Pulse Ox O2 Delivery O2 Flow Rate FiO2 11/05/18 10:57 18 11/05/18 10:00 98.0 92 137/78 (97) 100 I&O- Last 24 Hours up to 6 AM 11/05/18 06:00 Intake Total 2020 ml Output Total 950 ml Balance 1070 ml NIC OMER MD Nov 05, 2018 11:47
[2018-11-05 14:00] VITALS: BP 102/103
--- NOTE | 2018-11-05 14:40 | REP ---
CT ABDOMEN AND PELVIS WITH IV CONTRAST: TECHNIQUE: Axial contrast enhanced images from the lung bases to the pubic symphysis using 100 mL Isovue 370 intravenous contrast material with multiplanar reformations. COMPARISON: 11/01/2018 as well as other prior exams. There is mild bibasilar fibroatelectatic change. The liver, spleen, adrenals, pancreas, and kidneys are unchanged in appearance. There is no abdomen aortic aneurysm. There is no new adenopathy. There are several mildly prominent central mesenteric lymph nodes present. There is no free air. Right lower quadrant pigtail catheter is again noted. Stomach is moderately dilated as are proximal small bowel loops. There are small loculated areas of fluid present in the mesentery which continued to decrease in size when compared to the prior study. No new fluid collection or abscess is seen. There are no other acute findings. IMPRESSION: Continued decrease in size of small areas of loculated fluid throughout the mesentery with no new free air, fluid collection, or abscess. Electronically Signed by Phil Herrera MD 11/05/2018 07:36 P
[2018-11-05] MEDS ORDERED: AMINO AC IV SCH (18:00)
[2018-11-05] MEDS ORDERED: CALC IV SCH (18:00)
[2018-11-05] MEDS ORDERED: FAT EMULSION IV 20% 500 ML IV SCH (18:00)
[2018-11-05] MEDS ORDERED: ELECTROLYTE IV SCH (18:00)
[2018-11-05] MEDS ORDERED: DEX IV SCH (18:00)
[2018-11-05] MEDS ORDERED: INSULIN HUMAN REGULAR IV SCH (18:00)
[2018-11-05] MEDS: WARFARIN SOD 7.5 MG TAB PO SCH (18:17)
[2018-11-05 22:00] VITALS: BP 138/87
[2018-11-06] MEDS: IPRATROPIUM 0.5MG/ALBUTEROL 2.5MG INH SOL UD 3ML (DUONEB)(J7620) NEB SCH ×4 (02:00→20:17)
[2018-11-06] MEDS: PERCOCET 5MG/325MG TAB PO PRN ×3 (03:55→20:09)
[2018-11-06 06:00] VITALS: BP 133/86
[2018-11-06] MEDS: HumaLOG INSULIN (NovoLOG) PER UNIT SC SCH ×4 (06:09→23:58)
[2018-11-06] MEDS: MEROPENEM INJ 1 GM in APPROPRIATE DILUENT 1 EA IV SCH ×3 (06:09→21:29)
[2018-11-06] MEDS: SODIUM CHLORIDE 0.9% INJ 10 ML SYR IV SCH ×2 (06:10→18:31)
[2018-11-06 06:29] LABS: HEMATOCRIT 31.7 % (36.0-47.0); MEAN CORPUSCULAR HEMOGLOBIN 25.8 pg (27.0-33.0); MEAN CORPUSCULAR HGB CONC 31.5 g/dl (32.0-36.5); MEAN CORPUSCULAR VOLUME 81.7 fl (80.0-96.0); PLATELET COUNT, AUTOMATED 526 10^3/uL (150-450); RED BLOOD COUNT 3.88 10^6/uL (4.00-5.40); WHITE BLOOD COUNT 18.2 10^3/uL (4.0-10.0)
[2018-11-06 06:43] LABS: INR 2.06; PROTHROMBIN TIME 23.6 SECONDS (12.1-14.4)
[2018-11-06 06:49] LABS: BLOOD UREA NITROGEN 19 MG/DL (7-18); CALCIUM LEVEL 7.3 MG/DL (8.5-10.1); CARBON DIOXIDE LEVEL 25 MEQ/L (21-32); CHLORIDE LEVEL 102 MEQ/L (98-107); CREATININE FOR GFR 0.59 MG/DL (0.55-1.30); GLOMERULAR FILTRATION RATE > 60.0 (>58); GLUCOSE, FASTING 152 MG/DL (70-100); MAGNESIUM LEVEL 1.8 MG/DL (1.8-2.4); POTASSIUM SERUM 3.5 MEQ/L (3.5-5.1); SODIUM LEVEL 136 MEQ/L (136-145)
[2018-11-06] MEDS: FLUCONAZOLE 100 MG TAB PO SCH (08:24)
[2018-11-06] MEDS: LACTOBACILLUS ACIDOPHILUS CAP (BACID) PO SCH ×3 (08:24→18:29)
[2018-11-06] MEDS: BENZTROPINE 1 MG TAB PO SCH ×2 (08:24→20:09)
[2018-11-06] MEDS: LABETALOL 100 MG TAB PO SCH ×2 (08:25→20:10)
[2018-11-06] MEDS: PANTOPRAZOLE 40MG INJ (PROTONIX) (C9113) IV SCH (08:25)
[2018-11-06] MEDS: ASPIRIN 81 MG CHEW TABLET NG SCH (08:25)
[2018-11-06] MEDS: amLODIPine 5 MG TAB PO SCH (08:25)
[2018-11-06] MEDS: LEVEMIR (INSULIN DETEMIR) 1 UNITS/0.01ML SC SCH ×2 (08:26→20:08)
[2018-11-06] MEDS: diphenhydrAMINE INJ 50MG/ML VIAL (J1200) IV PRN (08:41)
[2018-11-06 10:00] VITALS: BP 141/83
--- NOTE | 2018-11-06 10:44 | IPNPDOC ---
Text Note Date of Service The patient was seen on 11/06/18. NOTE Subjective: Abd pain improved. No N/V. No CP/sob. Had an episode of delirium overnight, which has resolved. PHYSICAL EXAMINATION: Vitals: (see below) General: No acute distress, laying comfortably in bed. HEENT: Moist mucous membranes. Neck: No JVD or lymphadenopathy Cardiac: RRR, No murmurs Pulm: Diminished breath sounds at the bases. No wheezing, rhonchi. No use of accessory muscles. No conversational dyspnea. Abd: Minimal to no tenderness at the drain site/incision sites. Bandage clean and dry. + BS. No rebound guarding or rigidity. Ext: No edema bilateral lower extremities. No cyanosis Neuro: Strength 5/5 BUE and BLE. CN 2-12 intact. F to N intact Negative pronator drift. AAO x 3 LABORATORY DATA: See below. IMAGING: CT abdomen and pelvis on 10/17/18 IMPRESSION: Bowel perforation. Findings consistent with small bowel perforation with focally absent bowel wall enhancement in one of the jejunal loops. There is inflammation, mural thickening and dilation in adjacent small bowel jejunal loops. This may reflect inflammatory bowel disease. There is some mild adjacent mesenteric adenopathy. Incidental findings include subacute splenic infarction and bilateral principally lower pole cortical scarring affecting the kidneys. Fatty infiltration of the liver is also seen. Chest x-ray on 10/20/18 IMPRESSION: Increased pulmonary opacities bilaterally consistent with atelectasis and/or infiltrates. No evidence of pleural effusion or pulmonary edema. CT abd/pelvis 11/05/18 IMPRESSION: Continued decrease in size of small areas of loculated fluid throughout the mesentery with no new free air, fluid collection, or abscess. ASSESSMENT/PLAN: 1. Bowel perforation, status post exploratory laparoscopy, with excision of 3/4 of the small bowel. Patient states she feels much better today. Her abdominal pain is better controlled. She was recently admitted to [facility] last month, where she was found to have acute mesenteric ischemia, with e xtensive large vessel clots, for which the decision was made for conservative measures given her very high risk of further embolization and complications, the patient was anticoagulated with Coumadin. s/p Cipro/Flagyl, on meropenem per infectious disease. Management per Dr. Lobo. Morphine/Percocet for pain control. Has repeat CT abd/pelvis 11/05 (see above) . 2. Large vessel thrombosis, with notable large clots in the thoracic aorta her [facility] discharge summary, with splenic/renal infarcts. The patient was off Coumadin, however on Wednesday she was told that her INR is supratherapeutic and was told to hold it until prior to admission. The exact cause of the patient's hypercoagulable states unknown. Patient was instructed to follow-up with hematology/oncology for further workup. It was noted that the patient's did not have any abscesses signs of malignancy, however CA-125 was mildly elevated and nonspecific Howard's. Her antiphospholipid/cardiolipin AB testing was n egative and her CA 199 is negative. Heparin drip transitioned to Lovenox with Coumadin bridge. INR >2. Lovenox d/c. Cont coumadin. 3. s/p Acute on chronic anemia- status post 2 units PRBC on 10/19. Hemoglobin stable. We'll continue to monitor. 4. Metabolic acidosis- Improved. Appreciate nephrology input. s/p 1/2 NS with bicarbonate drip. 5. Oliguria secondary to the above. We'll continue to monitor.s/p albumin infusion Appreciate nephrology input. 6. Lactic acidosis secondary to the above. Improving. 7. Sinus tachycardia likely secondary to the above. Cardiac enzymes negative. Echocardiogram (see above) 8. History of diabetes mellitus on sliding scale insulin 9. Hypertension. controlled. On amlodipine/labetalol. 10. History of migraines stable 11. History of bipolar disorder 12. History of fibromyalgia 13. History of PTSD 14. s/p Volume overload, in the setting of hypoalbuminemia. s/p IV Lasix. Improved. 15. Protein calorie malnutrition- has been on TPN. Diet being advanced by tari thomas, as tolerated. 16. Delirium - resolved. DVT prophylaxis: Coumadin Overall prognosis guarded. Update: At 1pm - nurse notes pt having visual hallucination, seeing someone on her bed. This has been transient last night, however now persistent. No new medication the past 24 hrs. Pt sent for CT head, b12,tsh, ammonia checked. CT head with ? right thalamic infarct. Pt then sent for MRI brain which noted occipital/parietal white matter lesions, as well as a ?thalamic lesion of uncertain etiology. At 7pm, discussed with MRI results with radiologist who recommended mri brain with and without contrast. Discussed with Dr. Strong, who will see pt. Dr Corral from psychiatry to eval patient as well give h/o bipolar d/o. Pt resting comfortably in bed. No focal deficits. AAOx3. Neuro checks q4h. Hemodynamically stable. Will continue to closely monitor. VS,Fishbone, I+O VS, Fishbone, I+O Laboratory Tests 11/06/18 05:27 Red Blood Count 3.88 L, Mean Corpuscular Volume 81.7, Mean Corpuscular Hemoglobin 25.8 L, Mean Corpuscular Hemoglobin Concent 31.5 L, Red Cell Distribution Width 19.0 H, Calcium Level 7.3 L Vital Signs Date Time Temp Pulse Resp B/P (MAP) Pulse Ox O2 Delivery O2 Flow Rate FiO2 11/06/18 10:00 97.6 90 17 141/83 (102) 97 I&O- Last 24 Hours up to 6 AM 11/06/18 06:00 Intake Total 1580 ml Output Total 2050 ml Balance -470 ml NIC OMER MD Nov 06, 2018 10:44
[2018-11-06] MEDS: MORPHINE 4 MG/ML 1ML VIAL/SYRINGE (J2270) IV PRN ×2 (12:40→14:44)
[2018-11-06 13:47] LABS: ABG BASE EXCESS -1.2 (-2.0-2.0); ABG HCO3 20.1 MEQ/L (22.0-26.0); ABG O2 SATURATION 99.5 % (95.0-99.0); ABG PARTIAL PRESSURE CO2 23.8 mmHg (35.0-45.0); ABG PARTIAL PRESSURE O2 156.9 mmHg (75.0-100.0); ABG STANDARD HCO3 23.5 MEQ/L (22.0-26.0); ABG TOTAL CO2 20.8 MEQ/L (22.0-29.0); ABG pH (ARTERIAL) 7.544 UNITS (7.350-7.450)
[2018-11-06 14:00] VITALS: BP 146/88
[2018-11-06 14:42] LABS: THYROID STIMULATING HORMONE 4.04 uIU/ML (0.358-3.740)
[2018-11-06] MEDS ORDERED: WARFARIN SOD 5 MG TAB PO SCH (17:00)
[2018-11-06] MEDS ORDERED: WARFARIN SOD 7.5 MG TAB PO SCH (17:00)
[2018-11-06 18:00] VITALS: BP 139/94
[2018-11-06] MEDS ORDERED: AMINO AC IV SCH (18:00)
[2018-11-06] MEDS ORDERED: DEX IV SCH (18:00)
[2018-11-06] MEDS ORDERED: ELECTROLYTE IV SCH (18:00)
[2018-11-06] MEDS ORDERED: CALC IV SCH (18:00)
[2018-11-06] MEDS ORDERED: FAT EMULSION IV 20% 500 ML IV SCH (18:00)
[2018-11-06] MEDS ORDERED: INSULIN HUMAN REGULAR IV SCH (18:00)
[2018-11-06] MEDS: ONDANSETRON 4MG/2ML VIAL (J2405) IV PRN (20:09)
[2018-11-06 22:00] VITALS: BP 128/89
[2018-11-07 02:00] VITALS: BP 125/78
[2018-11-07] MEDS: IPRATROPIUM 0.5MG/ALBUTEROL 2.5MG INH SOL UD 3ML (DUONEB)(J7620) NEB SCH ×4 (02:00→20:00)
[2018-11-07] MEDS: MEROPENEM INJ 1 GM in APPROPRIATE DILUENT 1 EA IV SCH ×3 (05:25→21:49)
[2018-11-07] MEDS: SODIUM CHLORIDE 0.9% INJ 10 ML SYR IV SCH ×2 (05:26→18:00)
[2018-11-07] MEDS: PERCOCET 5MG/325MG TAB PO PRN ×4 (05:37→21:48)
[2018-11-07] MEDS: HumaLOG INSULIN (NovoLOG) PER UNIT SC SCH ×2 (05:43→13:58)
[2018-11-07 06:00] VITALS: BP 125/84
[2018-11-07 06:21] LABS: HEMATOCRIT 34.1 % (36.0-47.0); HEMOGLOBIN 10.5 g/dl (12.0-15.5); MEAN CORPUSCULAR HEMOGLOBIN 25.8 pg (27.0-33.0); MEAN CORPUSCULAR HGB CONC 30.8 g/dl (32.0-36.5); MEAN CORPUSCULAR VOLUME 83.8 fl (80.0-96.0); PLATELET COUNT, AUTOMATED 543 10^3/uL (150-450); RED BLOOD COUNT 4.07 10^6/uL (4.00-5.40); WHITE BLOOD COUNT 17.4 10^3/uL (4.0-10.0)
[2018-11-07 06:45] LABS: PROTHROMBIN TIME 31.8 SECONDS (12.1-14.4)
[2018-11-07 06:49] LABS: BLOOD UREA NITROGEN 19 MG/DL (7-18); CALCIUM LEVEL 8.7 MG/DL (8.5-10.1); CARBON DIOXIDE LEVEL 27 MEQ/L (21-32); CHLORIDE LEVEL 101 MEQ/L (98-107); CREATININE FOR GFR 0.62 MG/DL (0.55-1.30); GLOMERULAR FILTRATION RATE > 60.0 (>58); GLUCOSE, FASTING 193 MG/DL (70-100); MAGNESIUM LEVEL 1.9 MG/DL (1.8-2.4); POTASSIUM SERUM 4.2 MEQ/L (3.5-5.1); SODIUM LEVEL 133 MEQ/L (136-145)
[2018-11-07] MEDS: LEVEMIR (INSULIN DETEMIR) 1 UNITS/0.01ML SC SCH ×2 (08:15→21:47)
[2018-11-07] MEDS: FLUCONAZOLE 100 MG TAB PO SCH (08:15)
[2018-11-07] MEDS: ASPIRIN 81 MG CHEW TABLET NG SCH (08:15)
[2018-11-07] MEDS: PANTOPRAZOLE 40MG INJ (PROTONIX) (C9113) IV SCH (08:15)
[2018-11-07] MEDS: LACTOBACILLUS ACIDOPHILUS CAP (BACID) PO SCH ×3 (08:15→18:00)
[2018-11-07] MEDS: amLODIPine 5 MG TAB PO SCH (08:16)
[2018-11-07] MEDS: LABETALOL 100 MG TAB PO SCH ×2 (08:16→21:49)
--- NOTE | 2018-11-07 08:21 | IPN ---
DATE: 11/06/2018 Patient is doing well today. Did have some nausea and vomiting again and she thought it was related to the morphine that she just took. In any case, from my standpoint, her abdomen is a little less distended than it was yesterday. Her white count is a little down since yesterday. Her drain is still putting out some bilious drainage but the drainage around the area is just very minimal. She has dressing, which is clean and dry, and decreased drainage from what it was previously and otherwise, her abdominal pain and tenderness has improved since yesterday. IMPRESSION/PLAN: Patient is stable and will need to continue with current treatment. It may be that if she does not have a lot of improvement over the next week that she may actually have to go home on a clear liquid diet and total parenteral nutrition (TPN) for supplementation alone. Unfortunately, if that is the case and she has ongoing persistent problems may need small bowel transplant as a possibility in the future. In any case, at this point, we will see how we do over the next few days before determining our next step. I would like to see her white count drop down to normal. However, she still has been afebrile and I wonder if this is much more in an inflammatory process that continues as an ongoing process truly compared to an infectious etiology.
--- NOTE | 2018-11-07 08:21 | REP ---
CT BRAIN WITHOUT IV CONTRAST: CT brain performed without IV contrast. Ventricles are normal in size and position with no midline shift or mass effect. Herrera-white differentiation is well maintained. There is no acute intracranial hemorrhage or extra-axial fluid collection. Small focal low density is seen in the right thalamus which could represent a small lacunar infarct. This is of indeterminate age. There is no acute hemorrhage or extra-axial fluid collection. Bone window examination is unremarkable. IMPRESSION: No acute intracranial hemorrhage, midline shift, or mass effect. Possible lacunar infarct in the right thalamus. This is of indeterminate age. Electronically Signed by Phil Herrera MD 11/07/2018 10:35 P
[2018-11-07 10:00] VITALS: BP 138/84
[2018-11-07] MEDS: BENZTROPINE 1 MG TAB PO SCH ×2 (11:59→21:49)
--- NOTE | 2018-11-07 12:06 | REP ---
PORTABLE CHEST: AP portable view of the chest is performed. There are linear discoid atelectatic changes bilaterally. No consolidation or overt pulmonary edema is seen. Heart is not enlarged. There is a right arm PICC line with the tip in the superior vena cava. Electronically Signed by Phil Herrera MD 11/07/2018 11:30 P
[2018-11-07] MEDS ORDERED: PROHANCE 279.3MG/ML 15ML VIAL (A9576) As Ordered ONE (12:45)
--- NOTE | 2018-11-07 12:52 | REP ---
MR BRAIN WITHOUT CONTRAST: HISTORY: Delusions. The examination is available for review 8:30 a.m., 11/07/2018. COMPARISON: CT 11/06/2018. An area of increased signal intensity on T2-weighted images is present in the right thalamus. This represents an old lacunar infarction. A small area of increased signal intensity on diffusion and T2-weighted images is present in the left occipital lobe. This is isointense in signal intensity on ADC images and is consistent with a subacute infarction. Several punctate areas of increased signal intensity on T2-weighted images are present in the periventricular and subcortical white matter. This represents small vessel ischemic disease. There is no intraparenchymal hemorrhage, acute infarct, mass, or midline shift. The ventricular system is normal in appearance. There is no extracerebral collection. The sinuses are clear. IMPRESSION: 1. Old right thalamic lacunar infarction. 2. Subacute small left occipital lobe infarction. 3. Minimal small vessel ischemic disease. Electronically Signed by Fredy Bai MD 11/07/2018 01:33 P
--- NOTE | 2018-11-07 12:53 | REP ---
MRA BRAIN WITHOUT CONTRAST: HISTORY: Infarction. The examination is available for review 8:40 a.m., 11/07/2018. 3D [id number] MR angiography was performed at the level of the ambler of [place]. There is no aneurysm, arteriovenous malformation, or atherosclerotic lesion. The major intracranial vessels are patent. The right vertebral artery is dominant. IMPRESSION: Normal MRA brain. Electronically Signed by Fredy Bai MD 11/07/2018 01:28 P
[2018-11-07] MEDS: ONDANSETRON 4MG/2ML VIAL (J2405) IV PRN (13:57)
[2018-11-07 14:00] VITALS: BP 126/76
--- NOTE | 2018-11-07 14:11 | IPNPDOC ---
Text Note Date of Service The patient was seen on 11/07/18. NOTE Subjective: Pt states visual hallucinations have resolved. Denies any focal w eakness. No N/V. Abd pain controlled. No CP/palpitations. PHYSICAL EXAMINATION: Vitals: (see below) General: No acute distress, laying comfortably in bed. HEENT: Moist mucous membranes. Neck: No JVD or lymphadenopathy Cardiac: RRR, No murmurs Pulm: Diminished breath sounds at the bases. No wheezing, rhonchi. No use of accessory muscles. No conversational dyspnea. Abd: Minimal to no tenderness at the drain site/incision sites. Bandage clean and dry. + BS. No rebound guarding or rigidity. Ext: No edema bilateral lower extremities. No cyanosis Neuro: Strength 5/5 BUE and BLE. CN 2-12 intact. F to N intact Negative pronator drift. AAO x 3 LABORATORY DATA: See below. IMAGING: CT abdomen and pelvis on 10/17/18 IMPRESSION: Bowel perforation. Findings consistent with small bowel perforation with focally absent bowel wall enhancement in one of the jejunal loops. There is inflammation, mural thickening and dilation in adjacent small bowel jejunal loops. This may reflect inflammatory bowel disease. There is some mild adjacent mesenteric adenopathy. Incidental findings include subacute splenic infarction and bilateral principally lower pole cortical scarring affecting the kidneys. Fatty infiltration of the liver is also seen. Chest x-ray on 10/20/18 IMPRESSION: Increased pulmonary opacities bilaterally consistent with atelectasis and/or infiltrates. No evidence of pleural effusion or pulmonary edema. CT abd/pelvis 11/05/18 IMPRESSION: Continued decrease in size of small areas of loculated fluid throughout the mesentery with no new free air, fluid collection, or abscess. ASSESSMENT/PLAN: 1. Bowel perforation, status post exploratory laparoscopy, with excision of 3/4 of the small bowel. Patient states she feels much better today. Her abdominal pain is better controlled. She was recently admitted to [facility] last month, where she was found to have acute mesenteric ischemia, with extensive large vessel clots, for which the decision was made for conservative measures given her very high risk of further embolization and complications, the patient was anticoagulated with Coumadin. s/p Cipro/Flagyl, on meropenem per infectious disease. Management per Dr. Lobo. Morphine/Percocet for pain control. Has repeat CT abd/pelvis 11/05 (see above) . 2. Large vessel thrombosis, with notable large clots in the thoracic aorta her [place] discharge summary, with splenic/renal infarcts. The patient was off Coumadin, however on Wednesday she was told that her INR is supratherapeutic and was told to hold it until prior to admission. The exact cause of the patient's hypercoagulable states unknown. Patient was instructed to follow-up with hematology/oncology for further workup. It was noted that the patient's did not have any abscesses signs of malignancy, however CA-125 was mildly elevated and nonspecific [place]. Her antiphospholipid/cardiolipin AB testing was negative and her CA 199 is negative. Heparin drip transitioned to Lovenox with Coumadin bridge. INR >2. Lovenox d/c. Cont coumadin. 3. s/p Acute on chronic anemia- status post 2 units PRBC on 10/19. Hemoglobin stable. We'll continue to monitor. 4. Metabolic acidosis- Improved. Appreciate nephrology input. s/p 1/2 NS with bicarbonate drip. 5. Oliguria secondary to the above. We'll continue to monitor.s/p albumin infusion Appreciate nephrology input. 6. Lactic acidosis secondary to the above. Improving. 7. Sinus tachycardia likely secondary to the above. Cardiac enzymes negative. Echocardiogram (see above) 8. History of diabetes mellitus on sliding scale insulin 9. Hypertension. controlled. On amlodipine/labetalol. 10. History of migraines stable 11. History of bipolar disorder 12. History of fibromyalgia 13. History of PTSD 14. s/p Volume overload, in the setting of hypoalbuminemia. s/p IV Lasix. Improved. 15. Protein calorie malnutrition- has been on TPN. Diet being advanced by surgery, as tolerated. 16. Hallucinations/ Delirium - resolved. MRI Brain noted. Repeat MRI with/w/o contrast pending. Psych/neuro consulted. DVT prophylaxis: Coumadin Overall prognosis guarded. VS,Fishbone, I+O VS, Fishbone, I+O Laboratory Tests 11/07/18 06:05 Red Blood Count 4.07, Mean Corpuscular Volume 83.8, Mean Corpuscular Hemoglobin 25.8 L, Mean Corpuscular Hemoglobin Concent 30.8 L, Red Cell Distribution Width 18.7 H, Calcium Level 8.7 # Vital Signs Date Time Temp Pulse Resp B/P (MAP) Pulse Ox O2 Delivery O2 Flow Rate FiO2 11/07/18 10:00 98.2 95 17 138/84 (102) 99 I&O- Last 24 Hours up to 6 AM 11/07/18 06:00 Intake Total 2410 ml Output Total 960 ml Balance 1450 ml NIC OMER MD Nov 07, 2018 14:11
--- NOTE | 2018-11-07 15:41 | REP ---
MR BRAIN WITHOUT CONTRAST: HISTORY: Infarction. CONTRAST: ProHance 14 mL. There is minimal heterogenous enhancement of the right thalamic and left occipital lobe infarctions. There are no other abnormal areas of enhancement. 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 Electronically Signed by Fredy Bai MD 11/07/2018 03:46 P
[2018-11-07] MEDS ORDERED: WARFARIN SOD 5 MG TAB PO SCH (17:00)
[2018-11-07 18:00] VITALS: BP 139/85
[2018-11-07] MEDS ORDERED: [UNRECOGNIZED DRUG - MIXTURE] IV SCH ×4 (18:00)
[2018-11-07] MEDS ORDERED: FAT EMULSION IV 20% 500 ML IV SCH (18:00)
[2018-11-07 22:00] VITALS: BP 124/84
[2018-11-07] MEDS: METOCLOPRAMIDE INJ 10MG/2ML VIAL (J2765) IV PRN (22:41)
[2018-11-08] VITALS (7 sets, daily range): BP systolic 118–128; BP diastolic 76–84
--- NOTE | 2018-11-08 00:29 | CR ---
DATE OF CONSULTATION: 11/06/2018 CHIEF COMPLAINT: She has been seeing images of a lady at the foot of her bed. SUBJECTIVE: She is 48 years old, apparently has a history of bipolar disorder, and I have been asked to see her by the hospitalist, as the patient has experienced some perceptual disturbances, and saw what she thought was a lady at the foot of her bed with a sheet over her, says the lady moved, she could also somewhat hear her, but patient is not quite sure. Says the image frightened her, and that it would stare at her. She then describes possibly more than one image at the same time. Says when she informed the nurse about it, nurse tried directing her, and then finally informed her that there was nobody there. The patient says she was frightened for that time. It should be noted that the patient has been here since around 10/17/2018 or so, she had surgery, was thought to have acute mesenteric ischemia, was hospitalized at [facility] from 08/31/2018 to 09/27/2018, had been transferred there from [place]. Apparently did not have surgery at that time and developed an intestinal perforation and has had major small bowel resection. Has been recovering from that, is on total parenteral nutrition (TPN), intravenous, fluids as well. Has several medical problems, including diabetes mellitus, hypertension, migraines, has been seen by various specialists, including nephrology, oncology, surgery. She has also been seen by Dr. Matias from Infectious Disease. My colleague, Dr. Montenegro, had come to see her about a week or so ago, and the patient was at that point away for further investigation at interventional radiology. There was some concern that she had been on Haldol at 5 mg three times a day, Cogentin 1 mg twice a day, which had been recommended, and at some point this was the medication she was on prior to coming in, and had declined it, as she felt that she had taken it before. According to Dr. Montenegro's note, the patient had, per staff, been noted to be talking to herself. This, however, was about a week or so ago. She has been noted to be responding possibly to internal stimuli, has been mildly paranoid. Was thought to have delirium when seen by the hospitalist yesterday. I understand she had a CT scan of the brain done today, and then was sent for a brain MRI as well, and staff informed me that there is some abnormality, but I am not quite sure what it is as the report is not available, and I understand it is being provided to the clinicians involved. The patient has a history of bipolar disorder, used to be seen by Dr. Mercado [facility], has not been seen there for awhile. The patient says she is currently seen at a clinic near [place], but she is not aware of the details, says sees a therapist, as well as someone who prescribes her medications. She does say that changes had been made, and that they were frequent, and that she did not like that, and, therefore, would not want to take anything on a consistent basis just yet. PAST PSYCHIATRIC HISTORY: Has had at least one inpatient hospitalization at [facility]; this was almost 7 years ago, saw Dr. Aburto, was diagnosed with bipolar disorder not otherwise specified, as well as generalized anxiety disorder, with some question regarding post-traumatic stress disorder. Finally, most recently has been on Haldol 5 mg three times a day, Cogentin 1 mg twice a day. Currently remains on the Cogentin (benztropine) 1 mg twice a day. MEDICAL HISTORY: Please see above - several medical problems and has also had surgery, small bowel resection. MENTAL STATUS EXAM: She is lying in bed. She is cooperative. There is no agitation. No psychomotor retardation. She is coherent. There is no formal thought disorder. Affect is fairly broad. Cognition is grossly intact. No fluctuation of consciousness is noted. She denies any thoughts of harming herself. No evidence of any thoughts of harming anyone else. Does not appear to be internally preoccupied. No delusions or ideations elicited. She is alert. She is oriented to person and place, not fully to time. She thought it was 11/03/2018, but was easily reoriented. Attention and concentration are good. Judgment is fair, as is insight. VITAL SIGNS: Blood pressure 139/94, pulse 107, temperature 96.9. OTHER INVESTIGATIONS: These show metabolic profile showing a calcium at 7.3 (8.5-10.1), glucose is 152, BUN is 19. Complete blood count today shows a white cell count of 18.2 (yesterday it was 20.6), hemoglobin at 10, hematocrit at 31.7, platelets are 526. ASSESSMENT: Delirium, multifactorial. Bipolar disorder by history. She has had visual hallucinations earlier today, saw a woman sitting at the foot of her bed, could possibly hear the image too, says the image moved. She realized that this was not "real," particularly when the nurse pointed it out to her. The patient is coherent, she is alert, oriented to place and person, almost fully to time. She is not thought to be responding to internal stimuli. Currently there is no evidence of any suicidal thoughts nor any overt psychosis at present. No delusional ideations elicited at present, and there is no evidence of any hypomania nor rosaline. This may well be a "lucid interval" that she is experiencing at present and being seen in. She has insight into the perceptual disturbances. As such, perceptual disturbances are not typical of bipolar disorder. She has several medical difficulties, is on total parenteral nutrition, and metabolic abnormalities may contribute to the delirium, including the perceptual difficulties. She has had an MRI of the brain done today, and I am told by the nurse that this may show abnormalities, report is currently not available. Should there be any new abnormality regarding brain imaging, this could increase the risk for further perceptual disturbances. RECOMMENDATIONS: Optimize current medical care, including metabolics, infection. Reassess indication for diphenhydramine intravenously, as it increases risk for delirium, and hallucinations. Decrease benztropine to 1 mg daily for the next 2 days, and then discontinue it. It is being used seemingly for antiparkinsonian effects of the Haldol, which she was taking prior to coming to the hospital and not currently. Benztropine can contribute to delirium as well. I would suggest using Haldol at 0.5 mg every 6 hours as needed for these disturbances, no more than 1.5 mg a day, if it is okay with the hospitalist. It is preferable avoiding scheduled psychotropics, such as a mood stabilizer, for now until matters are more settled. Thank you for the consult. If there are any questions, please call. The assessment took 30 minutes. [facility]ARE SYSTEMJarred
[2018-11-08] MEDS: IPRATROPIUM 0.5MG/ALBUTEROL 2.5MG INH SOL UD 3ML (DUONEB)(J7620) NEB SCH ×4 (01:07→20:00)
[2018-11-08] MEDS: SODIUM CHLORIDE 0.9% INJ 10 ML SYR IV SCH ×2 (05:54→17:15)
[2018-11-08] MEDS: MEROPENEM INJ 1 GM in APPROPRIATE DILUENT 1 EA IV SCH ×3 (05:54→21:13)
[2018-11-08] MEDS: MORPHINE 4 MG/ML 1ML VIAL/SYRINGE (J2270) IV PRN (06:07)
[2018-11-08 06:57] LABS: HEMATOCRIT 31.2 % (36.0-47.0); HEMOGLOBIN 9.8 g/dl (12.0-15.5); MEAN CORPUSCULAR HEMOGLOBIN 25.7 pg (27.0-33.0); MEAN CORPUSCULAR HGB CONC 31.4 g/dl (32.0-36.5); MEAN CORPUSCULAR VOLUME 81.7 fl (80.0-96.0); PLATELET COUNT, AUTOMATED 455 10^3/uL (150-450); RED BLOOD COUNT 3.82 10^6/uL (4.00-5.40); WHITE BLOOD COUNT 16.8 10^3/uL (4.0-10.0)
[2018-11-08 07:10] LABS: INR 3.92; PROTHROMBIN TIME 39.3 SECONDS (12.1-14.4)
[2018-11-08 07:21] LABS: BLOOD UREA NITROGEN 18 MG/DL (7-18); C REACTIVE PROTEIN QUANTITATIV 9.05 MG/DL (0.00-0.30); CALCIUM LEVEL 8.5 MG/DL (8.5-10.1); CARBON DIOXIDE LEVEL 28 MEQ/L (21-32); CHLORIDE LEVEL 103 MEQ/L (98-107); CREATININE FOR GFR 0.57 MG/DL (0.55-1.30); GLOMERULAR FILTRATION RATE > 60.0 (>58); GLUCOSE, FASTING 150 MG/DL (70-100); MAGNESIUM LEVEL 1.7 MG/DL (1.8-2.4); POTASSIUM SERUM 4.5 MEQ/L (3.5-5.1); SODIUM LEVEL 136 MEQ/L (136-145)
[2018-11-08] MEDS: PANTOPRAZOLE 40MG INJ (PROTONIX) (C9113) IV SCH (08:48)
[2018-11-08] MEDS: LACTOBACILLUS ACIDOPHILUS CAP (BACID) PO SCH ×3 (08:48→17:16)
[2018-11-08] MEDS: PERCOCET 5MG/325MG TAB PO PRN ×2 (08:49→17:15)
[2018-11-08] MEDS: ASPIRIN 81 MG CHEW TABLET NG SCH (08:49)
[2018-11-08] MEDS: LABETALOL 100 MG TAB PO SCH ×2 (08:53→21:15)
[2018-11-08] MEDS: BENZTROPINE 1 MG TAB PO SCH ×2 (08:54→21:15)
[2018-11-08] MEDS: FLUCONAZOLE 100 MG TAB PO SCH (08:54)
[2018-11-08] MEDS: amLODIPine 5 MG TAB PO SCH (08:54)
[2018-11-08] MEDS: LEVEMIR (INSULIN DETEMIR) 1 UNITS/0.01ML SC SCH ×2 (08:55→21:14)
[2018-11-08] MEDS ORDERED: MAG SULF 1GM/100ML (MAG RUN) 1 GM in APPROPRIATE DILUENT 1 EA IV ONE (09:00)
--- NOTE | 2018-11-08 10:09 | CR ---
DATE OF CONSULTATION: REASON FOR CONSULTATION: Visual hallucinations. The patient is a 47-year-old female with past medical history significant for thoracic aorta emboli with emboli traveling to the kidney, spleen and small bowel. The patient was noted to have abnormal MRI of the brain with subacute infarction of the left occipital lobe and to the right thalamus. The patient likely had cardioembolic emboli. The patient is currently on aspirin 81 mg. She has some visual hallucinations, which have resolved. This may be a result of her stroke versus delirium. The patient is currently being managed by the primary team regarding her multiple other emboli. The patient states that she was newly diagnosed with diabetes. She has uncontrolled hypertension and is a tobacco user. The patient is agreeable to go ahead and discontinue use of tobacco understanding that she is at high risk of stroke. At the present time, the patient denies any weakness or numbness throughout the body. She denies any change in vision. She feels she can see normally. PAST MEDICAL HISTORY: Diabetes. Hypertension. Migraine headaches. Bipolar disorder. Tobacco abuse. Fibromyalgia. Posttraumatic stress disorder (PTSD). Bowel perforation. PAST SURGICAL HISTORY: Appendectomy. REVIEW OF SYSTEMS: 14-point review of systems obtained and is negative except as per HPI. ALLERGIES: 1. PENICILLIN. 2. PENICILLIN CROSS REACTORS. FAMILY HISTORY: Noncontributory. SOCIAL HISTORY: The patient uses tobacco regularly. She denies use of alcohol or illicit drugs. PHYSICAL EXAMINATION: Blood pressure is 126/76, pulse rate 93, respiratory rate is 18, temperature is 97.5 degrees Fahrenheit, oxygenation 99% on room air. The patient is awake, alert, oriented to person, place and time. Speech, language, comprehension and repetition are intact. Pupils are 3 mm round, reactive to light. Extraocular movements are intact in all directions. No nystagmus. Sternocleidomastoid strength bilaterally is equal. Tongue is midline. There is no pronator drift. Strength is 5/5 including bilateral deltoids, biceps, triceps, handgrip, iliopsoas, quadriceps, anterior tibialis. Deep tendon reflexes are 2+ in the upper extremities, trace at the patellas, absent at the Achilles. Babinski signs are absent. Coordination normal [id number] without any signs of ataxia, dysmetria. Sensory is intact to light touch in all four extremities. Gait deferred. ASSESSMENT: 1. 48-year-old female with right thalamic and left occipital lobe subacute infarctions. The patient may have had visual hallucinations as a result of the occipital lobe stroke versus delirium. The patient has numerous medical etiologies for her delirium at this time. The visual hallucinations have resolved. Recommend at least aspirin 81 mg therapy for stroke prevention. The patient is on Coumadin. Anticoagulation would be fine. If the INR is therapeutic aspirin can be discontinued. Recommend starting statin therapy. 2. Physical therapy/occupational therapy (PT/OT) evaluation, telemetry monitoring, echocardiogram to be completed. Keep systolic blood pressures normal at this time. 3. Smoking cessation counseling provided to the patient.
--- NOTE | 2018-11-08 10:55 | REP ---
Bilateral carotid artery duplex ultrasound: Peak flow velocity analysis: RIGHT LEFT ICA Peak flow velocity cm/sec 46.7 55.9 ICA Diastolic flow velocity cm/sec 19.5 27.4 ICA/CCA Ratio 0.64 0.66 ECA Peak flow velocity cm/sec 51.2 73.8 CCA Peak flow velocity cm/sec 72.0 84.7 There is intimal thickening. No intraluminal atheromatous plaque is identified otherwise. Peak flow velocities are normal bilaterally. There is no stenosis on the right on the left. There is antegrade flow in the vertebral arteries bilaterally. Impression: There is no stenosis on the right on the left. Electronically Signed by Phil Liang MD 11/08/2018 10:47 A
--- NOTE | 2018-11-08 16:49 | IPN ---
DATE: 11/07/2018 Carol continues complaining of right lower quadrant pain. Now she has increased purulent discharge from that drain. Francisco Javier were removed. There is only the lower part of the incision that has some purulent discharge. Denies any chest pain or palpitations. She is nauseous. She has no appetite. She is only on clear liquids. On physical exam, temperature is 97.5, pulse 105, respirations 17, blood pressure 139/85, oxygen saturation 99% on room air. Heart: Normal S1, S2, tachycardiac. No murmurs. Lungs: Diminished breath sounds at bases. Abdomen: Distended, soft, tender in the right lower quadrant. Purulent discharge around the drain in the right lower quadrant with some erythema, culture was sent, minimal purulent discharge from the lower part of the incision. LABORATORY DATA: White count 17.4, hemoglobin 10.5, hematocrit 34.1, platelets 543. Sodium 133, potassium 4.2, chloride 101, bicarbonate 27, BUN 19, creatinine 0.62, glucose 193, calcium 8.7, phosphorus 1.9, CRP 10.2. MEDICATIONS: - IV meropenem started on 10/26/2018 and fluconazole, both day #12 IMPRESSION: 1. Bowel perforation with intra-abdominal abscesses. On IV meropenem and by mouth fluconazole. The patient has increased purulent discharge from right lower quadrant. 2. Hallucinations. The patient MRI of brain with contrast showed minimal enhancement of right thalamic and left occipital lobe infarctions consistent with subacute or chronic infarctions. PLAN: Continue with IV meropenem and by mouth fluconazole. I have sent two cultures; one from the right lower quadrant and one from the lower part of the incision, both had purulent discharge. Case has been discussed with Dr. Lobo. Will continue with IV antibiotic for the time being.
[2018-11-08] MEDS: HumaLOG INSULIN (NovoLOG) PER UNIT SC SCH ×2 (17:52→23:59)
[2018-11-08] MEDS ORDERED: AMINO AC IV SCH (18:00)
[2018-11-08] MEDS ORDERED: DEX IV SCH (18:00)
[2018-11-08] MEDS ORDERED: INSULIN HUMAN REGULAR IV SCH (18:00)
[2018-11-08] MEDS ORDERED: CALC IV SCH (18:00)
[2018-11-08] MEDS ORDERED: FAT EMULSION IV 20% 500 ML IV SCH (18:00)
[2018-11-08] MEDS ORDERED: ELECTROLYTE IV SCH (18:00)
[2018-11-08] MEDS: PRAVASTATIN 20 MG TAB PO SCH (21:14)
[2018-11-08] MEDS: diphenhydrAMINE INJ 50MG/ML VIAL (J1200) IV PRN (21:14)
[2018-11-08] MEDS ORDERED: HALOPERIDOL 5 MG/ML VIAL (J1630) IV PRN (21:30)
--- NOTE | 2018-11-08 21:47 | IPN ---
DATE: 11/08/2018 The patient is status post extensive small bowel resection. Subjectively, the patient has not had any nausea or vomiting. Has had some bowel movements but otherwise states that she is not having any other complaints at this time. Has been up moving around and is taking a little bit less pain medication overall. She is continuing on her TPN and tolerating this and has been on a clear liquid diet. She has had drainage via the tube in her distal small bowel and some minimal drainage around that tube itself, but otherwise no other significant abnormalities appreciated that she states at this point. She still has some minimal drainage from her lower portion of her incision. Her abdomen is otherwise soft, nontender, nondistended. She is much less distended than she was a couple of days ago and overall benign exam. There is some minimal mucus draining around the drain site on the right-hand side but this is not unusual appearing around most tubes. Does not appear to have any cellulitis, no infection present. The same is true with the lower portion of her incision. There is some minimal serosanguineous drainage from this area. IMPRESSION AND PLAN 1. The patient's white count seems to be down a little bit today and she has some chronic inflammatory process ongoing, although infectious seems to be the concern at this point with possible intra-abdominal abscesses which are eventually getting smaller on CT scan. I do feel that Dr. Matias will continue with her guidance concerning antibiotic coverage. 2. GI: She is still having some difficulty with MARISABEL advancement/increasing her diet. I do feel that it is probably reasonable in her case to continue on her clear liquid diet and will continue with the TPN for right now. In a couple days if she is having decreasing abdominal issues, possibly increasing her diet is reasonable next option. Will discuss that with her later on. However, at this point will continue with clears for right now. 3. The jejunostomy tube that was inadvertent tube placed in the small bowel overall has some minimal drainage around the tube itself but I am not seeing any other significant abnormalities and I do feel that it is reasonable to continue with just local wound care. It may be reasonable at some point in the near future to clamp the tube and then to remove that tube. However, at this point with her white count still being elevated I do feel that this is distracting enough that if we clamped her tube we would still have concerns that the etiology might be coming from that area. Thus will see how she does with the diet overnight and possibly increase her to a full liquid diet in the next few days.
[2018-11-09] MEDS: IPRATROPIUM 0.5MG/ALBUTEROL 2.5MG INH SOL UD 3ML (DUONEB)(J7620) NEB SCH ×4 (02:00→20:00)
[2018-11-09] MEDS: SODIUM CHLORIDE 0.9% INJ 10 ML SYR IV SCH ×2 (05:26→18:00)
[2018-11-09] MEDS: MEROPENEM INJ 1 GM in APPROPRIATE DILUENT 1 EA IV SCH ×3 (05:27→20:18)
[2018-11-09] MEDS: MORPHINE 4 MG/ML 1ML VIAL/SYRINGE (J2270) IV PRN ×2 (05:44→15:50)
[2018-11-09] MEDS: HumaLOG INSULIN (NovoLOG) PER UNIT SC SCH ×3 (05:45→18:16)
[2018-11-09 06:00] VITALS: BP 134/91
[2018-11-09 06:04] LABS: BLOOD UREA NITROGEN 15 MG/DL (7-18); C REACTIVE PROTEIN QUANTITATIV 9.17 MG/DL (0.00-0.30); CARBON DIOXIDE LEVEL 23 MEQ/L (21-32); CHLORIDE LEVEL 102 MEQ/L (98-107); GLOMERULAR FILTRATION RATE > 60.0 (>58); GLUCOSE, FASTING 141 MG/DL (70-100); MAGNESIUM LEVEL 2.1 MG/DL (1.8-2.4); POTASSIUM SERUM 3.7 MEQ/L (3.5-5.1); SODIUM LEVEL 135 MEQ/L (136-145)
[2018-11-09 06:56] LABS: HEMATOCRIT 32.4 % (36.0-47.0); HEMOGLOBIN 10.3 g/dl (12.0-15.5); MEAN CORPUSCULAR HEMOGLOBIN 25.8 pg (27.0-33.0); MEAN CORPUSCULAR HGB CONC 31.8 g/dl (32.0-36.5); MEAN CORPUSCULAR VOLUME 81.2 fl (80.0-96.0); PLATELET COUNT, AUTOMATED 410 10^3/uL (150-450); RED BLOOD COUNT 3.99 10^6/uL (4.00-5.40); WHITE BLOOD COUNT 18.2 10^3/uL (4.0-10.0)
[2018-11-09 07:09] LABS: INR 3.31; PROTHROMBIN TIME 34.4 SECONDS (12.1-14.4)
--- NOTE | 2018-11-09 09:39 | IPN ---
DATE OF SERVICE: 11/08/2018 Patient seen and examined. No acute events overnight. Reported abdominal pain to be improved. Tolerating clear liquid diet. Denies any chest pain, pressure, discomfort. Vital signs: Temperature 97.8, pulse 78, respirations 16, blood pressure 118/78, pulse oximetry 98% on room air. LABORATORY: WBC 16.8, hemoglobin and hematocrit 9.8/31.2, platelets 455. Chemistry: Sodium 136, potassium 4.5, chloride 103, bicarbonate 28, BUN 18, creatinine 0.57. PHYSICAL EXAMINATION: Patient comfortable, in no acute distress. HEENT: Normocephalic, atraumatic. Moist mucous membrane. Neck supple. Cardiac: Regular S1, S2. Pulmonary: Diminished breath sounds bilateral base. Abdomen: Minimal tenderness. Draining bilious material. No rebound, no guarding. Positive bowel sounds. Extremities: No clubbing, cyanosis or edema. Neurologic: No focal deficit. ASSESSMENT AND PLAN: This is a 48-year-old female patient with underlying medical history of diabetes mellitus, hypertension, migraine, bipolar, recently hospitalized at [facility] from 08/31/2018 to 09/27/2018 with epigastric pain, found to have acute mesenteric ischemia, discharged on Coumadin, presented with abdominal pain, found to have bowel perforation status post exploratory laparoscopy with small bowel resection. Hospital course complicated with intra- abd fluid collection. PROBLEMS: 1. Bowel perforation status post exploratory laparoscopy with excision of small bowel. Patient currently doing better on clear liquid diet on total parenteral nutrition currently. Patient was recently admitted at [facility], found to have acute mesenteric ischemia, extensive large vessel clot for which decision was made for conservative management given patient has very high risk for further embolization and complication. Patient was on anticoagulation with Coumadin, is currently on meropenem, Diflucan. Infectious disease management was per surgery. CT scan has been appreciated with fluid collection. Subsequently patient underwent percutaneous drainage complicated with small bowel perforation, currently has a drain. Further management per surgery. 2. Leukocytosis, inflammatory versus infectious. Patient currently on meropenem as well as Diflucan as per infectious disease. Further recommendation per infectious disease. Cultures have been appreciated. 3. Acute stroke. Consulting neurology. Continue aspirin and Coumadin as per neurology. Neuro checks. [place] is appreciated. Statin has been started as well. Will get carotid Doppler. 4. 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 Patient was discharged from [facility] with splenic and renal infarct. Patient currently on Coumadin with supratherapeutic INR. Will followup INR, adjust Coumadin as needed. Followup with hematology/oncology as outpatient for further workup. Exact cause is unknown. CA125 mildly elevated. CA19-9 is negative. Antiphospholipid and cardiolipin antibody has been negative. 5. Acute on chronic anemia status post transfusion, followup hemoglobin and hematocrit. 6. Metabolic acidosis, improved. Patient was on bicarbonate drip. 7. Oligouria resolved. Nephrology has been consulted. 8. Lactic acidosis secondary to above, resolved. 9. Sinus tachycardia secondary to above, cardiac enzymes are negative. Echo appreciated. 10. History of diabetes mellitus. Continue insulin as ordered. 11. Hypertension. Continue current blood pressure medication. 12. History of migraine, currently stable. 13. Bipolar disorder, consult to psychiatry. Further recommendation per psychiatry. 14. Fibromyalgia. Outpatient followup. 15. Posttraumatic stress disorder, outpatient followup. 16. Volume overload status post Lasix. Will monitor. 17. Protein calorie malnutrition. Currently on TPN. 18. Hallucination delirium, MRI shows stroke. Continue aspirin, statin and Coumadin. Neurology consulted. Psychiatry consulted. Will wean the patient off of Cogentin. Discontinue Benadryl. Haldol as needed according to psychiatry. Continue to monitor. 19. Deep venous thrombosis (DVT) prophylaxis, patient on Coumadin with supratherapeutic INR. DISPOSITION: Pending clinical improvement as per surgical team. [facility]
[2018-11-09] MEDS: PANTOPRAZOLE 40MG INJ (PROTONIX) (C9113) IV SCH (09:43)
[2018-11-09] MEDS: LEVEMIR (INSULIN DETEMIR) 1 UNITS/0.01ML SC SCH ×2 (09:44→20:18)
[2018-11-09] MEDS: amLODIPine 5 MG TAB PO SCH (09:45)
[2018-11-09] MEDS: ASPIRIN 81 MG CHEW TABLET NG SCH (09:45)
[2018-11-09] MEDS: FLUCONAZOLE 100 MG TAB PO SCH (09:45)
[2018-11-09] MEDS: LABETALOL 100 MG TAB PO SCH ×2 (09:45→20:18)
[2018-11-09] MEDS: LACTOBACILLUS ACIDOPHILUS CAP (BACID) PO SCH ×3 (09:46→18:15)
[2018-11-09] MEDS: PERCOCET 5MG/325MG TAB PO PRN ×3 (09:47→20:17)
[2018-11-09] MEDS: BENZTROPINE 1 MG TAB PO SCH (09:47)
[2018-11-09 10:00] VITALS: BP 134/90
[2018-11-09 14:00] VITALS: BP 121/71
[2018-11-09] MEDS: ONDANSETRON 4MG/2ML VIAL (J2405) IV PRN (15:56)
[2018-11-09 18:00] VITALS: BP 124/85
[2018-11-09] MEDS ORDERED: FAT EMULSION IV 20% 500 ML IV SCH (18:00)
[2018-11-09] MEDS ORDERED: [UNRECOGNIZED DRUG - MIXTURE] IV SCH ×4 (18:00)
[2018-11-09] MEDS: WARFARIN SOD 2.5 MG TAB PO SCH (18:14)
[2018-11-09] MEDS: PRAVASTATIN 20 MG TAB PO SCH (20:16)
--- NOTE | 2018-11-09 20:55 | IPNPDOC ---
Text Note Date of Service The patient was seen on 11/09/18. NOTE Patient seen and examined. No acute events overnight. Reported abdominal pain to be improved. Tolerating clear liquid diet. Denies any chest pain, pressure, discomfort. PHYSICAL EXAMINATION: Patient comfortable, in no acute distress. HEENT: Normocephalic, atraumatic. Moist mucous membrane. Neck supple. Cardiac: Regular S1, S2. Pulmonary: Diminished breath sounds bilateral base. Abdomen: Minimal tenderness. Draining bilious material. No rebound, no guarding. Positive bowel sounds. Extremities: No clubbing, cyanosis or edema. Neurologic: No focal deficit. ASSESSMENT AND PLAN: This is a 48-year-old female patient with underlying medical history of diabetes mellitus, hypertension, migraine, bipolar, recently hospitalized at [facility] from 08/31/2018 to 09/27/2018 with epigastric pain, found to have acute mesenteric ischemia, discharged on Coumadin, presented with abdominal pain, found to have bowel perforation status post exploratory laparoscopy with small bowel resection. Hospital course complicated with intra- abd fluid collection. PROBLEMS: 1. Bowel perforation status post exploratory laparoscopy with excision of small bowel. Patient currently doing better on clear liquid diet on total parenteral nutrition currently. Patient was recently admitted at [facility], found to have acute mesenteric ischemia, extensive large vessel clot for which decision was made for conservative management given patient has very high risk for furt her embolization and complication. Patient was on anticoagulation with Coumadin, is currently on meropenem, Diflucan. Infectious disease management was per surgery. CT scan has been appreciated with fluid collection. Subsequently patient underwent percutaneous drainage complicated with small bowel perforation, currently has a drain. Further management per surgery. 2. Leukocytosis, inflammatory versus infectious. Patient currently on meropenem as well as Diflucan as per infectious disease. Further recommendation per infectious disease. Cultures have been appreciated. 3. Acute stroke. Consulting neurology. Continue aspirin and Coumadin as per neurology. Neuro checks. [place] is appreciated. Statin has been started as well. carotid Doppler. 4. 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 Patient was discharged from [facility] also with splenic and renal infarct. Patient currently on Coumadin with supratherapeutic INR. Will followup INR, adjust Coumadin as needed. Followup with hematology/oncology as outpatient for further workup. Exact cause is unknown. CA125 mildly elevated. CA19-9 is negative. Antiphospholipid and cardiolipin antibody has been negative. 5. Acute on chronic anemia status post transfusion, followup hemoglobin and hematocrit. 6. Metabolic acidosis, improved. Patient was on bicarbonate drip. 7. Oligouria resolved. Nephrology has been consulted. 8. Lactic acidosis secondary to above, resolved. 9. Sinus tachycardia secondary to above, cardiac enzymes are negative. Echo appreciated. 10. History of diabetes mellitus. Continue insulin as ordered. 11. Hypertension. Continue current blood pressure medication. 12. History of migraine, currently stable. 13. Bipolar disorder, consult to psychiatry. Further recommendation per psychiatry. 14. Fibromyalgia. Outpatient followup. 15. Posttraumatic stress disorder, outpatient followup. 16. Volume overload status post Lasix. Will monitor. 17. Protein calorie malnutrition. Currently on TPN. 18. Hallucination delirium, MRI shows stroke. Continue aspirin, statin and Coumadin. Neurology consulted. Psychiatry consulted. Will wean the patient off of Cogentin. Discontinue Benadryl. Haldol as needed according to psychiatry. Continue to monitor. 19. Deep venous thrombosis (DVT) prophylaxis, patient on Coumadin with supratherapeutic INR. DISPOSITION: Pending clinical improvement as per surgical team. VS,Fishbone, I+O VS, Fishbone, I+O Laboratory Tests 11/09/18 05:25 Calcium Level 8.0 L 11/09/18 06:29 Red Blood Count 3.99 L, Mean Corpuscular Volume 81.2, Mean Corpuscular Hemoglobin 25.8 L, Mean Corpuscular Hemoglobin Concent 31.8 L, Red Cell Distribution Width 18.6 H Vital Signs Date Time Temp Pulse Resp B/P (MAP) Pulse Ox O2 Delivery O2 Flow Rate FiO2 11/09/18 20:18 88 120/80 11/09/18 20:17 20 11/09/18 18:00 98.2 99 I&O- Last 24 Hours up to 6 AM 11/09/18 06:00 Intake Total 890 ml Output Total 2420 ml Balance -1530 ml LO SHELL MD Nov 09, 2018 20:55
[2018-11-09 22:00] VITALS: BP 103/66
[2018-11-10] MEDS: HumaLOG INSULIN (NovoLOG) PER UNIT SC SCH ×4 (00:20→18:00)
[2018-11-10 06:00] VITALS: BP 127/77
[2018-11-10] MEDS: MEROPENEM INJ 1 GM in APPROPRIATE DILUENT 1 EA IV SCH ×3 (06:08→21:42)
[2018-11-10] MEDS: MORPHINE 4 MG/ML 1ML VIAL/SYRINGE (J2270) IV PRN ×3 (06:35→21:44)
[2018-11-10] MEDS: SODIUM CHLORIDE 0.9% INJ 10 ML SYR IV SCH ×2 (06:36→18:00)
[2018-11-10 06:47] LABS: HEMATOCRIT 32.1 % (36.0-47.0); HEMOGLOBIN 10.1 g/dl (12.0-15.5); MEAN CORPUSCULAR HEMOGLOBIN 25.7 pg (27.0-33.0); MEAN CORPUSCULAR HGB CONC 31.5 g/dl (32.0-36.5); MEAN CORPUSCULAR VOLUME 81.7 fl (80.0-96.0); PLATELET COUNT, AUTOMATED 431 10^3/uL (150-450); RED BLOOD COUNT 3.93 10^6/uL (4.00-5.40); WHITE BLOOD COUNT 17.5 10^3/uL (4.0-10.0)
[2018-11-10 06:59] LABS: INR 2.65; PROTHROMBIN TIME 28.8 SECONDS (12.1-14.4)
[2018-11-10 07:10] LABS: BLOOD UREA NITROGEN 14 MG/DL (7-18); CALCIUM LEVEL 8.5 MG/DL (8.5-10.1); CARBON DIOXIDE LEVEL 27 MEQ/L (21-32); CHLORIDE LEVEL 102 MEQ/L (98-107); GLOMERULAR FILTRATION RATE > 60.0 (>58); GLUCOSE, FASTING 185 MG/DL (70-100); MAGNESIUM LEVEL 1.8 MG/DL (1.8-2.4); POTASSIUM SERUM 4.3 MEQ/L (3.5-5.1); SODIUM LEVEL 137 MEQ/L (136-145)
[2018-11-10] MEDS: IPRATROPIUM 0.5MG/ALBUTEROL 2.5MG INH SOL UD 3ML (DUONEB)(J7620) NEB SCH ×3 (08:00→18:44)
[2018-11-10] MEDS: LABETALOL 100 MG TAB PO SCH ×2 (09:00→21:46)
[2018-11-10] MEDS: PANTOPRAZOLE 40MG INJ (PROTONIX) (C9113) IV SCH (09:37)
[2018-11-10] MEDS: ASPIRIN 81 MG CHEW TABLET NG SCH (09:40)
[2018-11-10] MEDS: LACTOBACILLUS ACIDOPHILUS CAP (BACID) PO SCH ×3 (09:40→18:16)
[2018-11-10] MEDS: BENZTROPINE 1 MG TAB PO SCH (09:41)
[2018-11-10] MEDS: PERCOCET 5MG/325MG TAB PO PRN (09:41)
[2018-11-10] MEDS: FLUCONAZOLE 100 MG TAB PO SCH (09:41)
[2018-11-10] MEDS: LEVEMIR (INSULIN DETEMIR) 1 UNITS/0.01ML SC SCH ×2 (09:42→21:44)
[2018-11-10] MEDS: amLODIPine 5 MG TAB PO SCH (09:42)
--- NOTE | 2018-11-10 09:58 | IPN ---
DATE OF SERVICE: 11/09/2018 The patient has not had any nausea and no vomiting since the previous episode a few days ago and overall has been doing quite well on clear liquids. Has not really had any other complaints. Had a fair bit of drainage at the drainage tube but otherwise states that she has continued to have daily bowel movements. They seem to be getting thicker at this time. No significant diarrhea as she had previously. Her white count did bump up a little bit, and it has been bouncing back and forth a fair bit, and with the bump in the white count, I would like to just keep her at the clears and not make any other significant changes. She still has a little bit of drainage at the lower portion of her incision. She still has ongoing minimal drainage around her drain site as expected but at this point otherwise she has benign abdomen. Seems a little less distended than she was previously and at this time will continue with her clear liquids, total parenteral nutrition (TPN), and antibiotics per infectious disease (ID).
[2018-11-10 10:00] VITALS: BP 132/79
--- NOTE | 2018-11-10 10:02 | IPN ---
DATE OF SERVICE: 11/10/2018 The patient is feeling much better today. Her white count is pretty much staying stable at this time. She still has some minimal drainage on the lower portion of her incision, as well as around the ostomy site. This still seems to be a persistent minimal drainage, nothing significant on her incisions and otherwise seem to be looking good. She is hungry now, and I thus will start to increase her diet and will give her a low-residue diet and see how she does with this today, as well as continue on her total parenteral nutrition (TPN), and we will see how she does with that. If she does well over the weekend on a low-residue diet without any increasing problems, then will plan on discontinuing the drain early next week. Then from that, will see how she does with taking adequate calories and may still need to be in the hospital for a little bit depending on her by mouth intake. [facility]
[2018-11-10] MEDS: ONDANSETRON 4MG/2ML VIAL (J2405) IV PRN ×2 (10:07→18:15)
[2018-11-10 14:00] VITALS: BP 135/89
[2018-11-10] MEDS: WARFARIN SOD 2.5 MG TAB PO SCH (16:29)
[2018-11-10] MEDS ORDERED: CALC IV SCH (18:00)
[2018-11-10] MEDS ORDERED: AMINO AC IV SCH (18:00)
[2018-11-10] MEDS ORDERED: FAT EMULSION IV 20% 500 ML IV SCH (18:00)
[2018-11-10] MEDS ORDERED: INSULIN HUMAN REGULAR IV SCH (18:00)
[2018-11-10] MEDS ORDERED: DEX IV SCH (18:00)
[2018-11-10] MEDS ORDERED: ELECTROLYTE IV SCH (18:00)
--- NOTE | 2018-11-10 20:09 | IPNPDOC ---
Text Note Date of Service The patient was seen on 11/10/18. NOTE Patient seen and examined. No acute events overnight. Reported abdominal pain to be improved. Tolerating diet. Denies any chest pain, pressure, discomfort. PHYSICAL EXAMINATION: Patient comfortable, in no acute distress. HEENT: Normocephalic, atraumatic. Moist mucous membrane. Neck supple. Cardiac: Regular S1, S2. Pulmonary: Diminished breath sounds bilateral base. Abdomen: Minimal tenderness. Draining bilious material. No rebound, no guarding. Positive bowel sounds. Extremities: No clubbing, cyanosis or edema. Neurologic: No focal deficit. ASSESSMENT AND PLAN: This is a 48-year-old female patient with underlying medical history of diabetes mellitus, hypertension, migraine, bipolar, recently hospitalized at [facility] from 08/31/2018 to 09/27/2018 with epigastric pain, found to have acute mesenteric ischemia, discharged on Coumadin, presented with abdominal pain, found to have bowel perforation status post exploratory laparoscopy with small bowel resection. Hospital course complicated with intra- abd fluid collection. PROBLEMS: 1. Bowel perforation status post exploratory laparoscopy with excision of small bowel. Patient currently doing better on clear liquid diet on total parenteral nutrition currently. Patient was recently admitted at [facility], found to have acute mesenteric ischemia, extensive large vessel clot for which decision was made for conservative management given patient has very high risk for further embolization and complication. Patient was on anticoagulation with Coumadin, is currently on meropenem, Diflucan. Infectious disease management was per surgery. CT scan has been appreciated with fluid collection. Subsequently patient underwent percutaneous drainage complicated with small bowel perforation, currently has a drain. Further management per surgery. diet advanced to low residual diet per surgery, TPN 2. Leukocytosis, inflammatory versus infectious. Patient currently on meropenem as well as Diflucan as per infectious disease. Further recommendation per infectious disease. Cultures have been appreciated. 3. Acute stroke. Consulting neurology. Continue aspirin and Coumadin as per neurology. Neuro checks. [place] is appreciated. Statin has been started as well. carotid Doppler. 4. 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 Patient was discharged from [facility] also with splenic and renal infarct. Patient currently on Coumadin. Will followup INR, adjust Coumadin as needed. Followup with hematology/oncology as outpatient for further workup. Exact cause is unknown. CA125 mildly elevated. CA19-9 is negative. Antiphospholipid and cardiolipin antibody has been negative. 5. Acute on chronic anemia status post transfusion, followup hemoglobin and hematocrit. 6. Metabolic acidosis, improved. Patient was on bicarbonate drip. 7. Oligouria resolved. Nephrology has been consulted. 8. Lactic acidosis secondary to above, resolved. 9. Sinus tachycardia secondary to above, cardiac enzymes are negative. Echo appreciated. 10. History of diabetes mellitus. Continue insulin as ordered. 11. Hypertension. Continue current blood pressure medication. 12. History of migraine, currently stable. 13. Bipolar disorder, consult to psychiatry. Further recommendation per psychiatry. 14. Fibromyalgia. Outpatient followup. 15. Posttraumatic stress disorder, outpatient followup. 16. Volume overload status post Lasix. Will monitor. 17. Protein calorie malnutrition. Currently on TPN. diet as per surgery 18. Hallucination delirium, MRI shows stroke. Continue aspirin, statin and Coumadin. Neurology consulted. Psychiatry consulted. Will wean the patient off of Cogentin. Discontinue Benadryl. Haldol as needed according to psychiatry. Continue to monitor. 19. Deep venous thrombosis (DVT) prophylaxis, patient on Coumadin with supratherapeutic INR. DISPOSITION: Pending clinical improvement as per surgical team. VS,Fishbone, I+O VS, Fishbone, I+O Laboratory Tests 11/10/18 06:28 Red Blood Count 3.93 L, Mean Corpuscular Volume 81.7, Mean Corpuscular Hemoglobin 25.7 L, Mean Corpuscular Hemoglobin Concent 31.5 L, Red Cell Distribution Width 18.4 H, Calcium Level 8.5 Vital Signs Date Time Temp Pulse Resp B/P (MAP) Pulse Ox O2 Delivery O2 Flow Rate FiO2 11/10/18 18:15 20 11/10/18 14:00 97.5 96 135/89 (104) 100 I&O- Last 24 Hours up to 6 AM 11/10/18 06:00 Intake Total 650 ml Output Total 650 ml Balance 0 ml LO SHELL MD Nov 10, 2018 20:09
[2018-11-10] MEDS: PRAVASTATIN 20 MG TAB PO SCH (21:42)
[2018-11-10 22:00] VITALS: BP 123/77
[2018-11-10] MEDS: diphenhydrAMINE 50 MG CAP PO PRN (23:04)
[2018-11-11] MEDS: HumaLOG INSULIN (NovoLOG) PER UNIT SC SCH ×4 (00:16→17:29)
[2018-11-11] MEDS: PERCOCET 5MG/325MG TAB PO PRN ×3 (01:11→23:46)
[2018-11-11 02:00] VITALS: BP 131/73
[2018-11-11] MEDS: IPRATROPIUM 0.5MG/ALBUTEROL 2.5MG INH SOL UD 3ML (DUONEB)(J7620) NEB SCH ×4 (02:00→21:06)
[2018-11-11 05:41] LABS: HEMATOCRIT 31.1 % (36.0-47.0); HEMOGLOBIN 10.1 g/dl (12.0-15.5); MEAN CORPUSCULAR HEMOGLOBIN 26.1 pg (27.0-33.0); MEAN CORPUSCULAR HGB CONC 32.5 g/dl (32.0-36.5); MEAN CORPUSCULAR VOLUME 80.4 fl (80.0-96.0); PLATELET COUNT, AUTOMATED 469 10^3/uL (150-450); RED BLOOD COUNT 3.87 10^6/uL (4.00-5.40); WHITE BLOOD COUNT 18.4 10^3/uL (4.0-10.0)
[2018-11-11 05:54] LABS: INR 2.3; PROTHROMBIN TIME 25.8 SECONDS (12.1-14.4)
[2018-11-11 06:00] VITALS: BP 120/82
[2018-11-11 06:08] LABS: BLOOD UREA NITROGEN 15 MG/DL (7-18); C REACTIVE PROTEIN QUANTITATIV 8.49 MG/DL (0.00-0.30); CALCIUM LEVEL 8.5 MG/DL (8.5-10.1); CARBON DIOXIDE LEVEL 24 MEQ/L (21-32); CHLORIDE LEVEL 103 MEQ/L (98-107); CREATININE FOR GFR 0.56 MG/DL (0.55-1.30); GLOMERULAR FILTRATION RATE > 60.0 (>58); GLUCOSE, FASTING 167 MG/DL (70-100); POTASSIUM SERUM 3.9 MEQ/L (3.5-5.1); SODIUM LEVEL 135 MEQ/L (136-145)
[2018-11-11] MEDS: MEROPENEM INJ 1 GM in APPROPRIATE DILUENT 1 EA IV SCH ×3 (06:12→22:50)
[2018-11-11] MEDS: SODIUM CHLORIDE 0.9% INJ 10 ML SYR IV SCH ×2 (06:12→17:30)
[2018-11-11] MEDS: PANTOPRAZOLE 40MG INJ (PROTONIX) (C9113) IV SCH (09:58)
[2018-11-11] MEDS: amLODIPine 5 MG TAB PO SCH (09:59)
--- NOTE | 2018-11-11 09:59 | IPN ---
DATE: 11/11/2018 The patient seems to be doing well overnight. She has been nibbling on some food but otherwise has not taken a lot in as of yet, but once again is feeling better and having no nausea or vomiting, having bowel movements. Despite input and output showing no evidence of bowel movements yesterday, she states that she had several. She has had less drainage from her drain site and overall is feeling slowly better. OBJECTIVE: She has still been afebrile and laboratory revealed that she has a stable elevated white count of 18,000 and a stable hematocrit. Chemistries are fine and the gram stain of her drain site revealed some yeast, she is being covered for this. Her abdomen is soft, nontender, nondistended. She has some minimal drainage from her lower midline incision. She has some minimal drainage around the drain site. IMPRESSION AND PLAN: 1. Gastrointestinal: The patient seems to be tolerating increasing her diet. I do feel that slowly increasing her diet, low residue, at this point is reasonable until we are sure that she can do well with a low-residue diet and then progressing to a high fiber/high residue is a reasonable end goal for her, and she may need to be on some antidiarrheals should this be a major issue. Otherwise, for now we will continue with supplementing her diet given that she had only picks at her food at this point. 2. Infection. It appears that she has a yeast infection, which is not surprising with the perforation that she had and all the antibiotics that she has been on. She is currently on some fluconazole for this and additional antibiotics. From a rehabilitation standpoint, she has been increasing her activity quite nicely and hopefully rajesh can get her to continue increasing activity over time at this point. Otherwise, at this point, continue an increase in activity and plans for possible drain removal over the next week. I anticipate it will probably take her next week to continue with a rehabilitation issue before taken off the TPN, all depends on oral intake.
[2018-11-11 10:00] VITALS: BP 125/86
[2018-11-11] MEDS: LACTOBACILLUS ACIDOPHILUS CAP (BACID) PO SCH ×3 (10:00→17:28)
[2018-11-11] MEDS: ASPIRIN 81 MG CHEW TABLET NG SCH (10:00)
[2018-11-11] MEDS: FLUCONAZOLE 100 MG TAB PO SCH (10:00)
[2018-11-11] MEDS: LEVEMIR (INSULIN DETEMIR) 1 UNITS/0.01ML SC SCH ×2 (10:01→22:50)
[2018-11-11] MEDS: LABETALOL 100 MG TAB PO SCH ×2 (10:01→22:49)
[2018-11-11 14:00] VITALS: BP 114/77
[2018-11-11] MEDS: WARFARIN SOD 3 MG TAB PO SCH (16:33)
[2018-11-11 18:00] VITALS: BP 128/80
[2018-11-11] MEDS ORDERED: [UNRECOGNIZED DRUG - MIXTURE] IV SCH ×4 (18:00)
[2018-11-11] MEDS ORDERED: FAT EMULSION IV 20% 500 ML IV SCH (18:00)
[2018-11-11] MEDS ORDERED: [UNRECOGNIZED DRUG - MIXTURE] IV SCH ×4 (18:00)
--- NOTE | 2018-11-11 19:17 | IPNPDOC ---
Text Note Date of Service The patient was seen on 11/11/18. NOTE Patient seen and examined. No acute events overnight. Reported abdominal pain to be improved. Tolerating diet. Denies any chest pain, pressure, discomfort. PHYSICAL EXAMINATION: Patient comfortable, in no acute distress. HEENT: Normocephalic, atraumatic. Moist mucous membrane. Neck supple. Cardiac: Regular S1, S2. Pulmonary: Diminished breath sounds bilateral base. Abdomen: Minimal tenderness. Draining bilious material. No rebound, no guarding. Positive bowel sounds. Extremities: No clubbing, cyanosis or edema. Neurologic: No focal deficit. ASSESSMENT AND PLAN: This is a 48-year-old female patient with underlying medical history of diabetes mellitus, hypertension, migraine, bipolar, recently hospitalized at [facility] from 08/31/2018 to 09/27/2018 with epigastric pain, found to have acute mesenteric ischemia, discharged on Coumadin, presented with abdominal pain, found to have bowel perforation status post exploratory laparoscopy with small bowel resection. Hospital course complicated with intra- abd fluid collection. PROBLEMS: 1. Bowel perforation status post exploratory laparoscopy with excision of small bowel. Patient currently doing better on clear liquid diet on total parenteral nutrition currently. Patient was recently admitted at [facility], found to have acute mesenteric ischemia, extensive large vessel clot for which decision was made for conservative management given patient has very high risk for further embolization and complication. Patient was on anticoagulation with Coumadin, is currently on meropenem, Diflucan. Infectious disease consulted, management was per surgery. CT scan has been appreciated with fluid collection. Subsequently patient underwent percutaneous drainage complicated with small bowel perforation, currently has a drain. Further management per surgery. diet advanced to low residual diet per surgery, TPN 2. Leukocytosis, inflammatory versus infectious. Patient currently on merop enem as well as Diflucan as per infectious disease. Further recommendation per infectious disease. Cultures have been appreciated. 3. Acute stroke. Consulting neurology. Continue aspirin and Coumadin as per neurology. Neuro checks. [place] is appreciated. Statin has been started as well. carotid Doppler. 4. 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 Patient was discharged from [facility] also with splenic and renal infarct. Patient currently on Coumadin. Will followup INR, adjust Coumadin as needed. Followup with hematology/oncology as outpatient for further workup. Exact cause is unknown. CA125 mildly elevated. CA19-9 is negative. Antiphospholipid and cardiolipin antibody has been negative. 5. Acute on chronic anemia status post transfusion, followup hemoglobin and hematocrit. 6. Metabolic acidosis, improved. Patient was on bicarbonate drip. 7. Oligouria resolved. Nephrology has been consulted. 8. Lactic acidosis secondary to above, resolved. 9. Sinus tachycardia secondary to above, cardiac enzymes are negative. Echo appreciated. 10. History of diabetes mellitus. Continue insulin as ordered. 11. Hypertension. Continue current blood pressure medication. 12. History of migraine, currently stable. 13. Bipolar disorder, consult to psychiatry. Further recommendation per psychiatry. 14. Fibromyalgia. Outpatient followup. 15. Posttraumatic stress disorder, outpatient followup. 16. Volume overload status post Lasix. Will monitor. 17. Protein calorie malnutrition. Currently on TPN. diet as per surgery 18. Hallucination delirium, MRI shows stroke. Continue aspirin, statin and Coumadin. Neurology consulted. Psychiatry consulted. wean the patient off of Cogentin. Discontinue Benadryl. Haldol as needed according to psychiatry. Continue to monitor. 19. Deep venous thrombosis (DVT) prophylaxis, patient on Coumadin with supratherapeutic INR. DISPOSITION: Pending clinical improvement as per surgical team. VS,Kaliae, I+O VS, [place], I+O Laboratory Tests 11/11/18 05:19 Red Blood Count 3.87 L, Mean Corpuscular Volume 80.4, Mean Corpuscular Hemoglobin 26.1 L, Mean Corpuscular Hemoglobin Concent 32.5, Red Cell Distribution Width 18.6 H, Calcium Level 8.5 Vital Signs Date Time Temp Pulse Resp B/P (MAP) Pulse Ox O2 Delivery O2 Flow Rate FiO2 11/11/18 18:00 98.3 94 16 128/80 (96) 97 I&O- Last 24 Hours up to 6 AM 11/11/18 06:00 Intake Total 1820 ml Output Total 1810 ml Balance 10 ml LO SHELL MD Nov 11, 2018 19:17
[2018-11-11 22:00] VITALS: BP 119/72
[2018-11-11] MEDS: ONDANSETRON 4MG/2ML VIAL (J2405) IV PRN (22:08)
[2018-11-11] MEDS: MORPHINE 4 MG/ML 1ML VIAL/SYRINGE (J2270) IV PRN (22:09)
[2018-11-11] MEDS: SODIUM CHLORIDE 0.9% INJ 10 ML SYR IV PRN ×2 (22:10→23:45)
[2018-11-11] MEDS: PRAVASTATIN 20 MG TAB PO SCH (22:50)
[2018-11-12] MEDS: HumaLOG INSULIN (NovoLOG) PER UNIT SC SCH ×4 (00:47→18:00)
[2018-11-12] MEDS: IPRATROPIUM 0.5MG/ALBUTEROL 2.5MG INH SOL UD 3ML (DUONEB)(J7620) NEB SCH ×4 (01:11→20:00)
[2018-11-12 02:00] VITALS: BP 119/76
[2018-11-12] MEDS: MEROPENEM INJ 1 GM in APPROPRIATE DILUENT 1 EA IV SCH ×3 (05:53→22:03)
[2018-11-12] MEDS: SODIUM CHLORIDE 0.9% INJ 10 ML SYR IV SCH ×2 (05:53→18:45)
[2018-11-12] MEDS: PERCOCET 5MG/325MG TAB PO PRN ×4 (05:55→22:02)
[2018-11-12 06:00] VITALS: BP 115/76
[2018-11-12 06:26] LABS: HEMOGLOBIN 9.8 g/dl (12.0-15.5); MEAN CORPUSCULAR HEMOGLOBIN 25.8 pg (27.0-33.0); MEAN CORPUSCULAR HGB CONC 31.6 g/dl (32.0-36.5); MEAN CORPUSCULAR VOLUME 81.6 fl (80.0-96.0); PLATELET COUNT, AUTOMATED 482 10^3/uL (150-450); WHITE BLOOD COUNT 17.5 10^3/uL (4.0-10.0)
[2018-11-12 06:36] LABS: INR 2.52; PROTHROMBIN TIME 27.7 SECONDS (12.1-14.4)
[2018-11-12 07:04] LABS: BLOOD UREA NITROGEN 15 MG/DL (7-18); CALCIUM LEVEL 8.3 MG/DL (8.5-10.1); CARBON DIOXIDE LEVEL 22 MEQ/L (21-32); CHLORIDE LEVEL 103 MEQ/L (98-107); CREATININE FOR GFR 0.51 MG/DL (0.55-1.30); GLOMERULAR FILTRATION RATE > 60.0 (>58); GLUCOSE, FASTING 127 MG/DL (70-100); MAGNESIUM LEVEL 1.9 MG/DL (1.8-2.4); POTASSIUM SERUM 3.8 MEQ/L (3.5-5.1); SODIUM LEVEL 135 MEQ/L (136-145)
--- NOTE | 2018-11-12 08:08 | IPN ---
DATE OF SERVICE: 11/11/2018 Carol still has difficulty with anorexia. She says she was hungry yesterday and wanted to eat. She had a couple bites of a banana and mostly just drinks liquids. She still has nausea. She continues on meropenem currently day number #17 of IV meropenem and Flagyl for perforated small bowel and intra-abdominal abscesses. Wound culture done from the right lower quadrant has yeastlike organism. On physical exam, temperature is 97, pulse 90, respirations 15, blood pressure 125/86, O2 sat 98% on room air. Heart: Normal S1, S2. No murmurs. Lungs: Clear. No wheezes, rales or rhonchi. Abdomen is soft, nontender. Francisco Javier have been removed from midline incision. There is only a small opening at the inferior aspect of the incision with minimal serous drainage. Right lower quadrant erythema around the drain has decreased. Tenderness around it has decreased. Extremities: Trace edema. No clubbing or cyanosis. IMPRESSION: 1. Perforated bowel. 2. History of descending thrombosis. 3. Protein calorie malnutrition on TPN and short gut syndrome. 4. 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 PLAN: Continue with TPN. Continue with meropenem and fluconazole. Would suggest obtaining followup CT next week before drain is removed.
[2018-11-12] MEDS: LACTOBACILLUS ACIDOPHILUS CAP (BACID) PO SCH ×3 (08:30→18:52)
[2018-11-12] MEDS: LABETALOL 100 MG TAB PO SCH ×3 (09:00→22:02)
[2018-11-12 10:00] VITALS: BP 112/73
[2018-11-12] MEDS: ASPIRIN 81 MG CHEW TABLET NG SCH (10:31)
[2018-11-12] MEDS: FLUCONAZOLE 100 MG TAB PO SCH (10:32)
[2018-11-12] MEDS: PANTOPRAZOLE 40MG INJ (PROTONIX) (C9113) IV SCH (10:33)
[2018-11-12] MEDS: amLODIPine 5 MG TAB PO SCH (10:33)
[2018-11-12] MEDS: LEVEMIR (INSULIN DETEMIR) 1 UNITS/0.01ML SC SCH ×2 (10:36→22:03)
[2018-11-12 14:00] VITALS: BP 126/81
[2018-11-12] MEDS: LINEZOLID 600MG TABLET (ZYVOX) PO SCH ×2 (14:40→22:03)
[2018-11-12 18:00] VITALS: BP 115/79
[2018-11-12] MEDS ORDERED: FAT EMULSION IV 20% 500 ML IV SCH (18:00)
[2018-11-12] MEDS ORDERED: AMINO AC/ELECTROLYTE/DEX/CALC 2,000 ML IV SCH (18:00)
[2018-11-12] MEDS: WARFARIN SOD 3 MG TAB PO SCH (18:52)
--- NOTE | 2018-11-12 19:02 | IPNPDOC ---
Text Note Date of Service The patient was seen on 11/12/18. NOTE Patient seen and examined. No acute events overnight. Reported abdominal pain to be improved. Tolerating diet. Denies any chest pain, pressure, discomfort. PHYSICAL EXAMINATION: Patient comfortable, in no acute distress. HEENT: Normocephalic, atraumatic. Moist mucous membrane. Neck supple. Cardiac: Regular S1, S2. Pulmonary: Diminished breath sounds bilateral base. Abdomen: Minimal tenderness. Draining bilious material. No rebound, no guarding. Positive bowel sounds. Extremities: No clubbing, cyanosis or edema. Neurologic: No focal deficit. ASSESSMENT AND PLAN: This is a 48-year-old female patient with underlying medical history of diabetes mellitus, hypertension, migraine, bipolar, recently hospitalized at [facility] from 08/31/2018 to 09/27/2018 with epigastric pain, found to have acute mesenteric ischemia, discharged on Coumadin, presented with abdominal pain, found to have bowel perforation status post exploratory laparoscopy with small bowel resection. Hospital course complicated with intra- abd fluid collection. PROBLEMS: 1. Bowel perforation status post exploratory laparoscopy with excision of small bowel. Patient currently doing better on clear liquid diet on total parenteral nutrition currently. Patient was recently admitted at [facility], found to have acute mesenteric ischemia, extensive large vessel clot for which decision was made for conservative management given patient has very high risk for further embolization and complication. Patient was on anticoagulation with Coumadin, is currently on meropenem, Diflucan, linezolid. Infectious disease consulted, management was per surgery. CT scan has been appreciated with fluid collection. Subsequently patient underwent percutaneous drainage complicated with small bowel perforation, currently has a drain. Further management per surgery. diet advanced to low residual diet per surgery, TPN 2. Leukocytosis, inflammatory versus infectious. VRE wound infection Patient currently on meropenem, linezolid as well as Diflucan as per infectious disease. Further recommendation per infectious disease. Cultures have been appreciated. repeat CT abd on Wednesday as per ID 3. Acute stroke. Consulting neurology. Continue aspirin and Coumadin as per neurology. Neuro checks. [place] is appreciated. Statin has been started as well. carotid Doppler. 4. 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 Patient was discharged from [facility] also with splenic and renal infarct. Patient currently on Coumadin. Will followup INR, adjust Coumadin as needed. Followup with hematology/oncology as outpatient for further workup. Exact cause is unknown. CA125 mildly elevated. CA19-9 is negative. Antiphospholipid and cardiolipin antibody has been negative. 5. Acute on chronic anemia status post transfusion, followup hemoglobin and hematocrit. 6. Metabolic acidosis, improved. Patient was on bicarbonate drip. 7. Oligouria resolved. Nephrology has been consulted. 8. Lactic acidosis secondary to above, resolved. 9. Sinus tachycardia secondary to above, cardiac enzymes are negative. Echo appreciated. 10. History of diabetes mellitus. Continue insulin as ordered. 11. Hypertension. Continue current blood pressure medication. 12. History of migraine, currently stable. 13. Bipolar disorder, consult to psychiatry. Further recommendation per psychiatry. 14. Fibromyalgia. Outpatient followup. 15. Posttraumatic stress disorder, outpatient followup. 16. Volume overload status post Lasix. Will monitor. 17. Protein calorie malnutrition. Currently on TPN. diet as per surgery 18. Hallucination delirium, MRI shows stroke. Continue aspirin, statin and Coumadin. Neurology consulted. Psychiatry consulted. wean the patient off of Cogentin. Discontinue Benadryl. Haldol as needed according to psychiatry. Continue to monitor. 19. Deep venous thrombosis (DVT) prophylaxis, patient on Coumadin with supratherapeutic INR. DISPOSITION: Pending clinical improvement as per surgical team. repeat CT abd Wednesday VS,Toño, I+O VS, Toño, I+O Laboratory Tests 11/12/18 05:25 Red Blood Count 3.80 L, Mean Corpuscular Volume 81.6, Mean Corpuscular Hemoglobin 25.8 L, Mean Corpuscular Hemoglobin Concent 31.6 L, Red Cell Distribution Width 18.4 H, Calcium Level 8.3 L Vital Signs Date Time Temp Pulse Resp B/P (MAP) Pulse Ox O2 Delivery O2 Flow Rate FiO2 11/12/18 18:00 96.9 85 17 115/79 (91) 97 I&O- Last 24 Hours up to 6 AM 11/12/18 06:00 Intake Total 2260 ml Output Total 0 ml Balance 2260 ml OL SHELL MD Nov 12, 2018 19:02
[2018-11-12] MEDS: MORPHINE 4 MG/ML 1ML VIAL/SYRINGE (J2270) IV PRN (19:18)
[2018-11-12] MEDS: ONDANSETRON 4MG/2ML VIAL (J2405) IV PRN (19:18)
[2018-11-12 22:00] VITALS: BP 117/71
[2018-11-12] MEDS: PRAVASTATIN 20 MG TAB PO SCH (22:02)
[2018-11-12] MEDS: SODIUM CHLORIDE 0.9% INJ 10 ML SYR IV PRN (23:12)
[2018-11-13] MEDS: HumaLOG INSULIN (NovoLOG) PER UNIT SC SCH ×4 (00:59→17:22)
[2018-11-13] MEDS: IPRATROPIUM 0.5MG/ALBUTEROL 2.5MG INH SOL UD 3ML (DUONEB)(J7620) NEB SCH ×4 (01:40→20:00)
[2018-11-13 02:00] VITALS: BP 117/72
[2018-11-13] MEDS: ONDANSETRON 4MG/2ML VIAL (J2405) IV PRN (05:16)
[2018-11-13] MEDS: PERCOCET 5MG/325MG TAB PO PRN ×2 (05:17→17:27)
[2018-11-13] MEDS: MEROPENEM INJ 1 GM in APPROPRIATE DILUENT 1 EA IV SCH ×3 (05:18→21:37)
[2018-11-13] MEDS: SODIUM CHLORIDE 0.9% INJ 10 ML SYR IV SCH ×2 (05:18→17:23)
[2018-11-13 06:00] VITALS: BP 111/61
[2018-11-13 06:57] LABS: BASO # 0.1 10^3/uL (0.0-0.2); BASO % 0.5 % (0.0-1.0); EOS # 0.5 10^3/uL (0.0-0.50); EOS % 3.2 % (0.0-3.0); HEMATOCRIT 30.1 % (36.0-47.0); HEMOGLOBIN 9.4 g/dl (12.0-15.5); LYMPH # 3.2 10^3/uL (1.5-4.5); LYMPH % 20.4 % (24.0-44.0); MEAN CORPUSCULAR HEMOGLOBIN 25.8 pg (27.0-33.0); MEAN CORPUSCULAR HGB CONC 31.2 g/dl (32.0-36.5); MEAN CORPUSCULAR VOLUME 82.5 fl (80.0-96.0); MONO # 0.6 10^3/uL (0.0-0.8); MONO % 3.9 % (0.0-5.0); NEUTROPHILS # 11.1 10^3/uL (1.8-7.7); NEUTROPHILS % 70.4 % (36.0-66.0); PLATELET COUNT, AUTOMATED 421 10^3/uL (150-450); RED BLOOD COUNT 3.65 10^6/uL (4.00-5.40); WHITE BLOOD COUNT 15.8 10^3/uL (4.0-10.0)
[2018-11-13 07:30] LABS: INR 2.53; PROTHROMBIN TIME 27.8 SECONDS (12.1-14.4)
[2018-11-13 07:41] LABS: ALBUMIN 2.3 GM/DL (3.2-5.2); ALT/SGPT 79 U/L (12-78); BILIRUBIN,TOTAL 0.1 MG/DL (0.2-1.0); BLOOD UREA NITROGEN 16 MG/DL (7-18); CALCIUM LEVEL 8.5 MG/DL (8.5-10.1); CARBON DIOXIDE LEVEL 23 MEQ/L (21-32); CHLORIDE LEVEL 105 MEQ/L (98-107); CREATININE FOR GFR 0.54 MG/DL (0.55-1.30); GLOMERULAR FILTRATION RATE > 60.0 (>58); GLUCOSE, FASTING 145 MG/DL (70-100); MAGNESIUM LEVEL 1.6 MG/DL (1.8-2.4); POTASSIUM SERUM 4.8 MEQ/L (3.5-5.1); SODIUM LEVEL 136 MEQ/L (136-145); TOTAL PROTEIN 7.6 GM/DL (6.4-8.2)
[2018-11-13] MEDS: ASPIRIN 81 MG CHEW TABLET NG SCH (08:15)
[2018-11-13] MEDS: LACTOBACILLUS ACIDOPHILUS CAP (BACID) PO SCH ×3 (08:15→17:21)
[2018-11-13] MEDS: LINEZOLID 600MG TABLET (ZYVOX) PO SCH ×2 (08:15→21:37)
[2018-11-13] MEDS: diphenhydrAMINE 50 MG CAP PO PRN ×2 (08:15→21:52)
[2018-11-13] MEDS: PANTOPRAZOLE 40MG INJ (PROTONIX) (C9113) IV SCH (08:15)
[2018-11-13] MEDS: FLUCONAZOLE 100 MG TAB PO SCH (08:16)
[2018-11-13] MEDS: LABETALOL 100 MG TAB PO SCH ×2 (08:17→21:36)
[2018-11-13] MEDS: LEVEMIR (INSULIN DETEMIR) 1 UNITS/0.01ML SC SCH ×2 (08:18→21:37)
[2018-11-13] MEDS: amLODIPine 5 MG TAB PO SCH (08:18)
--- NOTE | 2018-11-13 08:27 | IPN ---
DATE OF SERVICE: 11/12/2018 HISTORY: The patient has now been in the hospital approximately 3-1/2 weeks for treatment of ischemic bowel requiring surgical treatment back on 10/17/2018. She had several segments of her small bowel resected. She subsequently has apparently had issues with development of a stroke and also had a drain placed in an abdominal fluid collection on the right, which proved to be bowel. She has remained on total parenteral nutrition now for quite some time and is only now beginning to take small amounts of soft foods. She reports she is having bowel movements that are generally loose but sometimes have some formed contents. She reports voiding acceptably. She does have some soreness in her upper abdomen on the right in particular. VITAL SIGNS: Show that she has been afebrile over the past 24 hours. Her pulse is in the 80s to low 90s, and her blood pressure is good. Room air oxygen saturations are normal. INTAKE AND OUTPUT: Shows that yesterday she had 2700 recorded in with only 60 mL recorded out, but it is noted that she had six voids and four bowel movements yesterday. Her abdominal drain had 60 mL in the bag drained yesterday. PHYSICAL EXAMINATION: The patient is alert and oriented. She appears fairly comfortable. Skin: Is warm and dry. Heart examination shows a regular rate and rhythm. The abdomen shows a healing midline incision with a small dressing over the central portion, which is clean and dry. She has a percutaneous drain in the right lateral abdomen, which has a small amount of bilious fluid with some debris in the bag. Lower extremities are without edema, and she has palpable radial and dorsalis pedis pulses. She has a peripherally inserted central catheter (PICC) line in the right antecubital region, which appears to be clean and well dressed. LABORATORY STUDIES: Show that today she has a white count of 18, with a hemoglobin of 10, hematocrit of 31, and a platelet count of 482,000. Her chemistry profile shows normal electrolytes with the exception of a minimal depression of her sodium to 135. Her BUN is 15 with a creatinine of 0.5 and the glucose of 127. Her most recent CRP was 7.4; that was also this morning. She had a PT of 27.7 and an INR of 2.5 today. Fingerstick blood sugars are ranging from 145-204. Culture from 11/07/2018 from a wound in the right lower quadrant (I am not sure where exactly this was obtained from) has grown some vancomycin-resistant enterococcus and a yeastlike organism. She is currently on meropenem and Zyvox and fluconazole for antibiotic coverage. IMPRESSION: The patient appears overall to be making some slow progress. I have not seen her in several weeks since shortly after her surgical procedure. She appears to be alert and oriented, and her nutrition is likely improving, though we do not seem to have checked her nutritional parameters in quite some time. She continues to have an elevated white blood cell count and C-reactive protein (CRP). It is difficult to tell how much she is eating from intake and output records, though her fluid intake has been good. PLAN: We will continue her total parenteral nutrition (TPN) for now, and the antibiotics are being managed by the hospitalist. We should be able to remove her intestinal drain here soon, as it has had about 2-1/2 to 3 weeks to seal around the catheter so that we should avoid a leak when this is removed. She is encouraged to eat and be up ambulatory. GAUDENCIO
[2018-11-13 10:00] VITALS: BP 100/57
[2018-11-13 14:00] VITALS: BP 112/69
--- NOTE | 2018-11-13 15:27 | IPNPDOC ---
Text Note Date of Service The patient was seen on 11/13/18. NOTE Patient seen and examined. No acute events overnight. Tolerating diet. Denies any chest pain, pressure, discomfort. PHYSICAL EXAMINATION: Patient comfortable, in no acute distress. HEENT: Normocephalic, atraumatic. Moist mucous membrane. Neck supple. Cardiac: Regular S1, S2. Pulmonary: Diminished breath sounds bilateral base. Abdomen: Minimal tenderness. Draining bilious material. No rebound, no guarding. Positive bowel sounds. Extremities: No clubbing, cyanosis or edema. Neurologic: No focal deficit. ASSESSMENT AND PLAN: This is a 48-year-old female patient with underlying medical history of diabetes mellitus, hypertension, migraine, bipolar, recently hospitalized at [facility] from 08/31/2018 to 09/27/2018 with epigastric pain, found to have acute mesenteric ischemia, discharged on Coumadin, presented with abdominal pain, found to have bowel perforation status post exploratory laparoscopy with small bowel resection. Hospital course complicated with intra- abd fluid collection. PROBLEMS: 1. Bowel perforation status post exploratory laparoscopy with excision of small bowel. Patient currently doing better on low residual diet on total parenteral nutrition currently. Patient was recently admitted at [facility], found to have acute mesenteric ischemia, extensive large vessel clot for which decision was made for conservative management given patient has very high risk for further embolization and complication. Patient was on anticoagulation with Coumadin, is currently on meropenem, Diflucan, linezolid. Infectious disease consulted, management as per surgery. CT scan has been appreciated with fluid collection. Subsequently patient underwent percutaneous drainage complicated with small bowel perforation, currently has a drain. Further management per surgery. diet advanced to low residual diet per surgery, TPN 2. Leukocytosis, inflammatory versus infectious. VRE wound infection Patient currently on meropenem, linezolid as well as Diflucan as per infectious disease. Further recommendation per infectious disease. Cultures have been appreciated. repeat CT abd on Wednesday as per ID 3. Acute stroke. Consulting neurology. Continue aspirin and Coumadin as per neurology. Neuro checks. [place] is appreciated. Statin has been started as well. carotid Doppler. 4. 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 Patient was discharged from [facility] also with splenic and renal infarct. Patient currently on Coumadin. Will followup INR, adjust Coumadin as needed. Followup with hematology/oncology as outpatient for further workup. Exact cause is unknown. CA125 mildly elevated. CA19-9 is negative. Antiphospholipid and cardiolipin antibody has been negative. 5. Acute on chronic anemia status post transfusion, followup hemoglobin and hematocrit. 6. Metabolic acidosis, resolved 7. Oligouria resolved. Nephrology has been consulted. 8. Lactic acidosis secondary to above, resolved. 9. Sinus tachycardia secondary to above, cardiac enzymes are negative. Echo appreciated. 10. History of diabetes mellitus. Continue insulin as ordered. 11. Hypertension. Continue current blood pressure medication. 12. History of migraine, currently stable. 13. Bipolar disorder, consult to psychiatry. Further recommendation per psychiatry. 14. Fibromyalgia. Outpatient followup. 15. Posttraumatic stress disorder, outpatient followup. 16. Volume overload status post Lasix. Will monitor. 17. Protein calorie malnutrition. Currently on TPN. diet as per surgery 18. Hallucination delirium, MRI shows stroke. Continue aspirin, statin and Coumadin. Neurology consulted. Psychiatry consulted. wean the patient off of Cogentin. Discontinue Benadryl. Haldol as needed according to psychiatry. Continue to monitor. 19. Deep venous thrombosis (DVT) prophylaxis, patient on Coumadin with supratherapeutic INR. DISPOSITION: Pending clinical improvement as per surgical team. repeat CT abd Wednesday VS,Toño, I+O VS, Toño, I+O Laboratory Tests 11/13/18 06:38 Red Blood Count 3.65 L, Mean Corpuscular Volume 82.5, Mean Corpuscular Hemoglobin 25.8 L, Mean Corpuscular Hemoglobin Concent 31.2 L, Red Cell Distribution Width 18.4 H, Neutrophils (%) (Auto) 70.4 H, Lymphocytes (%) (Auto) 20.4 L, Monocytes (%) (Auto) 3.9, Eosinophils (%) (Auto) 3.2 H, Basophils (%) (Auto) 0.5, Neutrophils # (Auto) 11.1 H, Lymphocytes # (Auto) 3.2, Monocytes # (Auto) 0.6, Eosinophils # (Auto) 0.5, Basophils # (Auto) 0.1, Calcium Level 8.5, Aspartate Amino Transf (AST/SGOT) 88 H, Alanine Aminotransferase (ALT/SGPT) 79 H, Alkaline Phosphatase 249 H, Total Bilirubin 0.1 L, Total Protein 7.6, Albumin 2.3 L Vital Signs Date Time Temp Pulse Resp B/P (MAP) Pulse Ox O2 Delivery O2 Flow Rate FiO2 11/13/18 14:00 96.5 89 18 112/69 (83) 100 I&O- Last 24 Hours up to 6 AM 11/13/18 06:00 Intake Total 1350 ml Output Total 1450 ml Balance -100 ml LO SHELL MD Nov 13, 2018 15:27
[2018-11-13] MEDS: WARFARIN SOD 3 MG TAB PO SCH (17:21)
[2018-11-13 18:00] VITALS: BP 125/63
[2018-11-13] MEDS ORDERED: MULTIVITAMIN -ADULT INJECTION 10 ML, CR/CU/SE/MN/ZN INJ 1 ML in AMINO AC/ELECTROLYTE/DE... IV SCH (18:00)
[2018-11-13] MEDS ORDERED: FAT EMULSION IV 20% 500 ML IV SCH (18:00)
[2018-11-13] MEDS: PRAVASTATIN 20 MG TAB PO SCH (21:36)
[2018-11-13 22:00] VITALS: BP 114/73
[2018-11-14] MEDS: HumaLOG INSULIN (NovoLOG) PER UNIT SC SCH ×4 (00:24→18:05)
[2018-11-14] MEDS: IPRATROPIUM 0.5MG/ALBUTEROL 2.5MG INH SOL UD 3ML (DUONEB)(J7620) NEB SCH ×4 (01:07→18:23)
[2018-11-14 02:00] VITALS: BP 114/71
[2018-11-14] MEDS: MEROPENEM INJ 1 GM in APPROPRIATE DILUENT 1 EA IV SCH ×3 (05:00→21:14)
[2018-11-14] MEDS: SODIUM CHLORIDE 0.9% INJ 10 ML SYR IV SCH ×2 (05:00→18:04)
[2018-11-14 06:00] VITALS: BP 106/68
[2018-11-14 06:32] LABS: INR 2.71; PROTHROMBIN TIME 29.3 SECONDS (12.1-14.4)
[2018-11-14 06:51] LABS: MAGNESIUM LEVEL 1.8 MG/DL (1.8-2.4)
[2018-11-14] MEDS ORDERED: ISOVUE-370 76% 100ML VIAL (Q9967) As Ordered ONE (07:40)
[2018-11-14 08:33] LABS: HEMATOCRIT 29.1 % (36.0-47.0); HEMOGLOBIN 9.3 g/dl (12.0-15.5); MEAN CORPUSCULAR HEMOGLOBIN 25.8 pg (27.0-33.0); MEAN CORPUSCULAR VOLUME 80.6 fl (80.0-96.0); PLATELET COUNT, AUTOMATED 435 10^3/uL (150-450); RED BLOOD COUNT 3.61 10^6/uL (4.00-5.40); WHITE BLOOD COUNT 15.2 10^3/uL (4.0-10.0)
[2018-11-14 08:39] LABS: BLOOD UREA NITROGEN 15 MG/DL (7-18); CALCIUM LEVEL 8.2 MG/DL (8.5-10.1); CARBON DIOXIDE LEVEL 24 MEQ/L (21-32); CHLORIDE LEVEL 102 MEQ/L (98-107); CREATININE FOR GFR 0.54 MG/DL (0.55-1.30); GLOMERULAR FILTRATION RATE > 60.0 (>58); GLUCOSE, FASTING 157 MG/DL (70-100); POTASSIUM SERUM 4.3 MEQ/L (3.5-5.1); SODIUM LEVEL 135 MEQ/L (136-145)
--- NOTE | 2018-11-14 08:58 | REP ---
CT of the abdomen and pelvis with IV contrast, without bowel contrast: Comparisons are 11/01/2098 11/05/2018. The focal fluid collection posterior small bowel loops in the mid abdomen has decreased in size. The focal fluid collection in the abdominal right lower quadrant has decreased in size. The focal fluid collection in the mid pelvis on the left is slightly decreased in size. There is a right lower quadrant pigtail catheter, unchanged. There is induration of the mesenteric fat in the right lower quadrant, unchanged. There is no ascites or pneumoperitoneum. The hepatic parenchyma is unremarkable. The gallbladder is unremarkable. There is a defect in the upper pole of the spleen, unchanged. There is a tiny barely visible left pleural fluid collection, decreased in size. The adrenals are unremarkable. Kidneys are unremarkable. Abdominal aorta is unremarkable. There is a surgical staple line in the stomach compatible with bariatric surgery. This is unchanged. Pelvis: There is no free fluid. Uterus is unremarkable. The pelvic fluid collection on the left extends to the left lateral margin of the uterus, unchanged. Impression: The abdominal fluid collections have decreased in size. No pneumoperitoneum or ascites. Second lower quadrant pigtail catheter is unchanged. Induration of the mesenteric fat in the right lower quadrant, unchanged. Defect in the upper pole of the spleen. Electronically Signed by Phil Liang MD 11/14/2018 08:50 A
[2018-11-14] MEDS: ASPIRIN 81 MG CHEW TABLET NG SCH (09:00)
[2018-11-14] MEDS: LACTOBACILLUS ACIDOPHILUS CAP (BACID) PO SCH ×3 (09:00→18:04)
[2018-11-14] MEDS: LINEZOLID 600MG TABLET (ZYVOX) PO SCH ×2 (09:00→21:13)
[2018-11-14] MEDS: MORPHINE 4 MG/ML 1ML VIAL/SYRINGE (J2270) IV PRN (09:00)
[2018-11-14] MEDS: FLUCONAZOLE 100 MG TAB PO SCH (09:00)
[2018-11-14] MEDS: amLODIPine 5 MG TAB PO SCH (09:02)
[2018-11-14] MEDS: LABETALOL 100 MG TAB PO SCH ×2 (09:03→21:14)
[2018-11-14] MEDS: PANTOPRAZOLE 40MG TAB (PROTONIX) PO SCH (09:03)
[2018-11-14] MEDS: LEVEMIR (INSULIN DETEMIR) 1 UNITS/0.01ML SC SCH ×2 (09:03→21:14)
[2018-11-14] MEDS ORDERED: POLYVINYL ALCOHOL OPHTH SOLN 15 ML(LIQUITEARS) OU PRN (10:45)
[2018-11-14 14:00] VITALS: BP 128/84
[2018-11-14] MEDS: PERCOCET 5MG/325MG TAB PO PRN ×2 (15:16→19:42)
--- NOTE | 2018-11-14 17:02 | IPNPDOC ---
Text Note Date of Service The patient was seen on 11/14/18. NOTE Patient seen and examined. No acute events overnight. Tolerating diet. Denies any chest pain, pressure, discomfort. PHYSICAL EXAMINATION: Patient comfortable, in no acute distress. HEENT: Normocephalic, atraumatic. Moist mucous membrane. Neck supple. Cardiac: Regular S1, S2. Pulmonary: Diminished breath sounds bilateral base. Abdomen: Minimal tenderness. Draining bilious material. No rebound, no guarding. Positive bowel sounds. Extremities: No clubbing, cyanosis or edema. Neurologic: No focal deficit. ASSESSMENT AND PLAN: This is a 48-year-old female patient with underlying medical history of diabetes mellitus, hypertension, migraine, bipolar, recently hospitalized at [facility] from 08/31/2018 to 09/27/2018 with epigastric pain, found to have acute mesenteric ischemia, discharged on Coumadin, presented with abdominal pain, found to have bowel perforation status post exploratory laparoscopy with small bowel resection. Hospital course complicated with intra- abd fluid collection. PROBLEMS: 1. Bowel perforation status post exploratory laparoscopy with excision of small bowel. Patient currently doing better on low residual diet and total parenteral nutrition currently. Patient was recently admitted at [facility], found to have acute mesenteric ischemia, extensive large vessel clot for which decision was made for conservative management given patient has very high risk for further embolization and complication. Patient was on anticoagulation with Coumadin, is currently on meropenem, Diflucan, linezolid for leukcytosis and CT abd showing fluid collection. Infectious disease consulted, management as per surgery. patient underwent percutaneous drainage complicated with small bowel perforation, currently has a drain. CT scan repeat showed improved fluid collection. Further management per surgery and ID 2. Leukocytosis, inflammatory versus infectious. VRE wound infection Patient currently on meropenem, linezolid as well as Diflucan as per infectious disease. Further recommendation per infectious disease. Cultures have been appreciated. repeat CT abd showed improved fluid collection 3. Acute stroke. Consulting neurology. Continue aspirin and Coumadin as per neurology. Neuro checks. [place] is appreciated. Statin has been started as well. carotid Doppler. 4. 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 Patient was discharged from [facility] also with splenic and renal infarct. Patient currently on Coumadin. Will followup INR, adjust Coumadin as needed. Followup with hematology/oncology as outpatient for further workup. Exact cause is unknown. CA125 mildly elevated. CA19-9 is negative. Antiphospholipid and cardiolipin antibody has been negative. 5. Acute on chronic anemia status post transfusion, followup hemoglobin and hematocrit. 6. Metabolic acidosis, resolved 7. Oligouria resolved. Nephrology has been consulted. 8. Lactic acidosis secondary to above, resolved. 9. Sinus tachycardia secondary to above, cardiac enzymes are negative. Echo appreciated. 10. History of diabetes mellitus. Continue insulin as ordered. 11. Hypertension. Continue current blood pressure medication. 12. History of migraine, currently stable. 13. Bipolar disorder, consult to psychiatry. Further recommendation per psychiatry. 14. Fibromyalgia. Outpatient followup. 15. Posttraumatic stress disorder, outpatient followup. 16. Volume overload status post Lasix. Will monitor. 17. Protein calorie malnutrition. Currently on TPN. diet as per surgery 18. Hallucination delirium, MRI shows stroke. Continue aspirin, statin and Coumadin. Neurology consulted. Psychiatry consulted. wean the patient off of Cogentin. Discontinue Benadryl. Haldol as needed according to psychiatry. Continue to monitor. 19. Deep venous thrombosis (DVT) prophylaxis, patient on Coumadin with supratherapeutic INR. DISPOSITION: Pending clinical improvement as per surgical team. VS,Fishbone, I+O VS, Fishbone, I+O Laboratory Tests 11/14/18 06:14 Calcium Level 8.2 L 11/14/18 07:59 Red Blood Count 3.61 L, Mean Corpuscular Volume 80.6, Mean Corpuscular Hemoglobin 25.8 L, Mean Corpuscular Hemoglobin Concent 32.0, Red Cell Distribution Width 18.3 H Vital Signs Date Time Temp Pulse Resp B/P (MAP) Pulse Ox O2 Delivery O2 Flow Rate FiO2 11/14/18 15:46 16 11/14/18 14:00 96.6 90 128/84 (99) 98 I&O- Last 24 Hours up to 6 AM 11/14/18 06:00 Intake Total 1730 ml Output Total 0 ml Balance 1730 ml LO SHELL MD Nov 14, 2018 17:02
[2018-11-14] MEDS ORDERED: MULTIVITAMIN -ADULT INJECTION 10 ML, CR/CU/SE/MN/ZN INJ 1 ML in AMINO AC/ELECTROLYTE/DE... IV SCH (18:00)
[2018-11-14] MEDS ORDERED: FAT EMULSION IV 20% 500 ML IV SCH (18:00)
[2018-11-14] MEDS: WARFARIN SOD 2.5 MG TAB PO SCH (18:04)
[2018-11-14] MEDS: PRAVASTATIN 20 MG TAB PO SCH (21:13)
[2018-11-14] MEDS: diphenhydrAMINE 50 MG CAP PO PRN (21:24)
[2018-11-14 22:00] VITALS: BP 116/80
[2018-11-15] MEDS: HumaLOG INSULIN (NovoLOG) PER UNIT SC SCH ×4 (00:16→18:15)
[2018-11-15 02:00] VITALS: BP 111/69
--- NOTE | 2018-11-15 04:01 | IPN ---
DATE: 11/13/2018 HISTORY: The patient is now approximately 3 to 3-1/2 weeks status post a fairly extensive small bowel resection for ischemia. She reports that she has been trying to eat food but has mostly been picking at it. She reports that all food tastes dry to her and she has not taken much. She remains on total parenteral nutrition (TPN) at 50 mL per hour with Intralipid as well. She seems fairly comfortable at rest but has been taking pain medication fairly routinely every few hours. She has had no nausea or vomiting. VITAL SIGNS: Show that she has been afebrile over the past 24 hours. Pulse is in the 80s and low 90s. Blood pressure is good and her room air oxygen saturation is normal. Intake and output shows that yesterday she had recorded 1538 in with 440 out. Her TPN is going at 50 mL/hour so she should be receiving 1700 mL daily of total parenteral nutrition (TPN) and whatever else she can take orally. PHYSICAL EXAMINATION: GENERAL: The patient is lying quietly in the bed. She appears fairly comfortable. She is alert and interactive. ABDOMEN: Examination of the abdomen shows a small dressing over her midline. She has her drain in the right lower quadrant which has a small amount of small-bowel contents in the bag. The drain site looks good. The abdomen is soft and without significant tenderness. LABORATORIES: Laboratory studies today showed a white count of 16, hemoglobin of 9, hematocrit of 30 and a platelet count of 421,000. Differential count showed 70% neutrophils, 20% lymphocytes, and 4% monocytes. A chemistry profile showed normal electrolytes with a BUN of 16, creatinine 0.5 and a glucose of 145. Her magnesium is minimally low at 1.6. Her AST, ALT and alkaline phosphatase were all slightly elevated. Total protein is 7.6 with an albumin of only 2.3. IMAGING STUDIES: The patient had no new imaging done today. IMPRESSION: The patient remains stable on total parenteral nutrition. She is on three antibiotics with Zyvox, meropenem and fluconazole. Her white blood cell count may be a hair lower today. Her protein is good but her albumin remains low at 2.3 suggesting her nutrition is not yet good. PLAN: The patient's total parenteral nutrition (TPN) will be continued. She was encouraged to eat whatever she finds acceptable. I have plugged her drain in the right lower quadrant. There is no benefit to draining small-bowel contents from this and it will make things a little easier if she does not have to drag another bag around with her. Therefore I put a little cap over the drain and will just leave this in place until we remove it, which should be soon. She was encouraged to be up out of bed and moving. MTDD
[2018-11-15] MEDS: MEROPENEM INJ 1 GM in APPROPRIATE DILUENT 1 EA IV SCH ×3 (05:19→22:24)
[2018-11-15 06:00] VITALS: BP 103/61
[2018-11-15 06:07] LABS: HEMATOCRIT 29.3 % (36.0-47.0); HEMOGLOBIN 9.5 g/dl (12.0-15.5); MEAN CORPUSCULAR HEMOGLOBIN 25.7 pg (27.0-33.0); MEAN CORPUSCULAR HGB CONC 32.4 g/dl (32.0-36.5); MEAN CORPUSCULAR VOLUME 79.4 fl (80.0-96.0); PLATELET COUNT, AUTOMATED 477 10^3/uL (150-450); RED BLOOD COUNT 3.69 10^6/uL (4.00-5.40); WHITE BLOOD COUNT 12.8 10^3/uL (4.0-10.0)
[2018-11-15] MEDS: SODIUM CHLORIDE 0.9% INJ 10 ML SYR IV SCH ×2 (06:10→18:17)
[2018-11-15 06:18] LABS: INR 2.57; PROTHROMBIN TIME 28.1 SECONDS (12.1-14.4)
[2018-11-15 06:38] LABS: BLOOD UREA NITROGEN 14 MG/DL (7-18); CALCIUM LEVEL 8.3 MG/DL (8.5-10.1); CARBON DIOXIDE LEVEL 26 MEQ/L (21-32); CHLORIDE LEVEL 104 MEQ/L (98-107); CREATININE FOR GFR 0.57 MG/DL (0.55-1.30); GLOMERULAR FILTRATION RATE > 60.0 (>58); GLUCOSE, FASTING 152 MG/DL (70-100); POTASSIUM SERUM 4.1 MEQ/L (3.5-5.1); SODIUM LEVEL 137 MEQ/L (136-145)
[2018-11-15] MEDS: PERCOCET 5MG/325MG TAB PO PRN ×3 (06:51→22:27)
[2018-11-15] MEDS: IPRATROPIUM 0.5MG/ALBUTEROL 2.5MG INH SOL UD 3ML (DUONEB)(J7620) NEB SCH ×3 (07:32→17:52)
[2018-11-15] MEDS: LABETALOL 100 MG TAB PO SCH ×2 (09:00→20:42)
[2018-11-15] MEDS: ASPIRIN 81 MG CHEW TABLET NG SCH (09:57)
[2018-11-15] MEDS: LINEZOLID 600MG TABLET (ZYVOX) PO SCH ×2 (09:57→20:42)
[2018-11-15] MEDS: LACTOBACILLUS ACIDOPHILUS CAP (BACID) PO SCH ×3 (09:57→18:14)
[2018-11-15] MEDS: PANTOPRAZOLE 40MG TAB (PROTONIX) PO SCH (09:57)
[2018-11-15] MEDS: LEVEMIR (INSULIN DETEMIR) 1 UNITS/0.01ML SC SCH ×2 (09:58→22:24)
[2018-11-15] MEDS: amLODIPine 5 MG TAB PO SCH (09:58)
[2018-11-15] MEDS: FLUCONAZOLE 100 MG TAB PO SCH (09:58)
[2018-11-15 10:00] VITALS: BP 106/64
[2018-11-15 14:00] VITALS: BP 114/73
--- NOTE | 2018-11-15 14:43 | IPNPDOC ---
Text Note Date of Service The patient was seen on 11/15/18. NOTE Subjective: Patient feels well today. Denies any abdominal pain. No nausea or vomiting. No chest pain. No hallucinations. PHYSICAL EXAMINATION: Vitals: (see below) General: No acute distress, laying comfortably in bed. HEENT: Moist mucous membranes. Neck: No JVD or lymphadenopathy Cardiac: RRR, No murmurs Pulm: Diminished breath sounds at the bases. No wheezing, rhonchi. No use of accessory muscles. No conversational dyspnea. Abd: Minimal tenderness at the drain site/incision sites. Bandage clean and dry. + BS. No rebound guarding or rigidity. Ext: No edema bilateral lower extremities. No cyanosis Neuro: Strength 5/5 BUE and BLE. CN 2-12 intact. F to N intact Negative pronator drift. AAO x 3 LABORATORY DATA: See below. IMAGING: CT abdomen and pelvis on 10/17/18 IMPRESSION: Bowel perforation. Findings consistent with small bowel perforation with focally absent bowel wall enhancement in one of the jejunal loops. There is inflammation, mural thickening and dilation in adjacent small bowel jejunal loops. This may reflect inflammatory bowel disease. There is some mild adjacent mesenteric adenopathy. Incidental findings include subacute splenic infarction and bilateral principally lower pole cortical scarring affecting the kidneys. Fatty infiltration of the liver is also seen. Chest x-ray on 10/20/18 IMPRESSION: Increased pulmonary opacities bilaterally consistent with atelectasis and/or infiltrates. No evidence of pleural effusion or pulmonary edema. CT abd/pelvis 11/05/18 IMPRESSION: Continued decrease in size of small areas of loculated fluid throughout the mesentery with no new free air, fluid collection, or abscess. MRI brain with and without contrast IMPRESSION: There is minimal enhancement of the right thalamic and left occipital lobe infarctions consistent with late subacute to chronic infarctions. ASSESSMENT/PLAN: 1. Bowel perforation, status post exploratory laparoscopy, with excision of 3/4 of the small bowel. Patient states she feels much better today. Her abdominal pain is better controlled. She was recently admitted to [facility] last month, where she was found to have acute mesenteric ischemia, with ex tensive large vessel clots, for which the decision was made for conservative measures given her very high risk of further embolization and complications, the patient was anticoagulated with Coumadin. s/p Cipro/Flagyl, on meropenem per infectious disease. Management per Dr. Lobo. Morphine/Percocet for pain control. Has repeat CT abd/pelvis 11/05 (see above) . 2. Large vessel thrombosis, with notable large clots in the thoracic aorta her [place]'s discharge summary, with splenic/renal infarcts. The patient was off Coumadin, however on Wednesday she was told that her INR is supratherapeutic and was told to hold it until prior to admission. The exact cause of the patient's hypercoagulable states unknown. Patient was instructed to follow-up with hematology/oncology for further workup. It was noted that the patient's did not have any abscesses signs of malignancy, however CA-125 was mildly elevated and nonspecific [place]'s. Her antiphospholipid/cardiolipin AB testing was ne olvin and her CA 199 is negative. Heparin drip transitioned to Lovenox with Coumadin bridge. INR >2. Lovenox d/c. Cont coumadin. 3. s/p Acute on chronic anemia- status post 2 units PRBC on 10/19. Hemoglobin stable. We'll continue to monitor. 4. Metabolic acidosis- Improved. Appreciate nephrology input. s/p 1/2 NS with bicarbonate drip. 5. Oliguria secondary to the above. We'll continue to monitor.s/p albumin infusion Appreciate nephrology input. 6. Lactic acidosis secondary to the above. Improving. 7. Sinus tachycardia likely secondary to the above. Cardiac enzymes negative. Echocardiogram (see above) 8. History of diabetes mellitus on sliding scale insulin 9. Hypertension. controlled. On amlodipine/labetalol. 10. History of migraines stable 11. History of bipolar disorder 12. History of fibromyalgia 13. History of PTSD 14. s/p Volume overload, in the setting of hypoalbuminemia. s/p IV Lasix. Improved. 15. Protein calorie malnutrition- has been on TPN. Diet being advanced by surg richie, as tolerated. 16. Hallucinations/ Delirium - resolved. Psychiatry consulted. 17. Subacute CVA - MRI Brain noted. Repeat MRI with/w/o contrast (see above). Neurology consulted. Appreciate input. Continue Coumadin, aspirin, statin. No focal deficits on exam. DVT prophylaxis: Coumadin Overall prognosis guarded. VS,Fishbone, I+O VS, Fishbone, I+O Laboratory Tests 11/15/18 05:33 Red Blood Count 3.69 L, Mean Corpuscular Volume 79.4 L, Mean Corpuscular Hemoglobin 25.7 L, Mean Corpuscular Hemoglobin Concent 32.4, Red Cell Distribution Width 18.4 H, Calcium Level 8.3 L Vital Signs Date Time Temp Pulse Resp B/P (MAP) Pulse Ox O2 Delivery O2 Flow Rate FiO2 11/15/18 12:45 20 11/15/18 10:00 97.0 86 106/64 (78) 100 I&O- Last 24 Hours up to 6 AM 11/15/18 06:00 Intake Total 2270 ml Output Total 0 ml Balance 2270 ml NIC OMER MD Nov 15, 2018 14:43
[2018-11-15] MEDS: diphenhydrAMINE 50 MG CAP PO PRN (14:49)
--- NOTE | 2018-11-15 16:09 | IPN ---
DATE: 11/14/2018 HISTORY: The patient had undergone an extensive small-bowel resection for infarction approximately [address] Lobo. I am now covering during this week. She remains on total parenteral nutrition (TPN) and is receiving fluconazole, meropenem, and Zyvox for antibiotic coverage. She had a repeat CT scan today to assess resolution of several small fluid collections that had been noted on her prior scan. The radiologist reported that the small fluid collections appeared to be decreased in size. Some induration of the mesenteric fat in the right lower quadrant was unchanged. Vital signs show that the patient has been afebrile over the past 24 hours. Pulse has been in the low 90s, and her blood pressure is normal with a normal room air saturation. Intake and output show that record keeping remains poor in terms of intake and output. Records say she had 1450 in yesterday with 1000 out, but her TPN should have accounted for 1700 mL by itself without allowing for her oral intake. She does clearly have adequate urine output. Her small pigtail catheter in the right lower quadrant is now plugged with no output. PHYSICAL EXAMINATION: The patient is lying quietly on the hospital bed and appears fairly comfortable. Heart exam shows a regular rhythm. The abdomen is soft and nondistended. She does have some bowel sounds present. Laboratory studies today show white count of 15,000 with a hemoglobin of 9, hematocrit of 29, and platelet count of 435,000. Her chemistry profile shows normal electrolytes with BUN of 15, creatinine 0.5, and a glucose of 157. Her PT was 29.3 with an INR of 2.7. I reviewed her CT scan personally. She has a very limited amount of small bowel remaining. Her colon is intact. I see no definite abscess, and there is no free fluid or free air. IMPRESSION: The patient remains fairly stable. Her white count seems to be coming down slightly. She is on three antibiotics currently. Small fluid collections noted on her prior scan have diminished. Unfortunately, she has very limited small bowel present, and I suspect she will be dependent on parenteral nutrition for support lifelong without some unexpected improvement in her absorptive ability. PLAN: The patient will be continued on her TPN at the current rate of 50 mL per hour. I will await further input from infectious disease regarding management of her antibiotics.
[2018-11-15 18:00] VITALS: BP 116/65
[2018-11-15] MEDS ORDERED: AMINO AC/ELECTROLYTE/DEX/CALC 2,000 ML IV SCH (18:00)
[2018-11-15] MEDS ORDERED: FAT EMULSION IV 20% 500 ML IV SCH (18:00)
[2018-11-15] MEDS: WARFARIN SOD 2.5 MG TAB PO SCH (18:14)
[2018-11-15] MEDS: MORPHINE 4 MG/ML 1ML VIAL/SYRINGE (J2270) IV PRN (20:09)
[2018-11-15] MEDS: PRAVASTATIN 20 MG TAB PO SCH (20:42)
[2018-11-15 22:00] VITALS: BP 107/68
[2018-11-16] MEDS: HumaLOG INSULIN (NovoLOG) PER UNIT SC SCH ×4 (00:21→17:51)
[2018-11-16 02:00] VITALS: BP 120/76
[2018-11-16] MEDS: IPRATROPIUM 0.5MG/ALBUTEROL 2.5MG INH SOL UD 3ML (DUONEB)(J7620) NEB SCH ×4 (02:00→21:05)
[2018-11-16] MEDS: SODIUM CHLORIDE 0.9% INJ 10 ML SYR IV SCH ×2 (05:32→17:50)
[2018-11-16] MEDS: MEROPENEM INJ 1 GM in APPROPRIATE DILUENT 1 EA IV SCH ×3 (05:32→21:30)
[2018-11-16 06:00] VITALS: BP 111/70
[2018-11-16 06:21] LABS: HEMATOCRIT 29.9 % (36.0-47.0); HEMOGLOBIN 9.5 g/dl (12.0-15.5); MEAN CORPUSCULAR HEMOGLOBIN 25.5 pg (27.0-33.0); MEAN CORPUSCULAR HGB CONC 31.8 g/dl (32.0-36.5); MEAN CORPUSCULAR VOLUME 80.2 fl (80.0-96.0); PLATELET COUNT, AUTOMATED 513 10^3/uL (150-450); RED BLOOD COUNT 3.73 10^6/uL (4.00-5.40); WHITE BLOOD COUNT 13.6 10^3/uL (4.0-10.0)
[2018-11-16 06:31] LABS: INR 2.55
[2018-11-16 06:42] LABS: BLOOD UREA NITROGEN 15 MG/DL (7-18); C REACTIVE PROTEIN QUANTITATIV 5.09 MG/DL (0.00-0.30); CALCIUM LEVEL 8.6 MG/DL (8.5-10.1); CARBON DIOXIDE LEVEL 25 MEQ/L (21-32); CHLORIDE LEVEL 102 MEQ/L (98-107); CREATININE FOR GFR 0.63 MG/DL (0.55-1.30); GLOMERULAR FILTRATION RATE > 60.0 (>58); GLUCOSE, FASTING 162 MG/DL (70-100); MAGNESIUM LEVEL 1.9 MG/DL (1.8-2.4); POTASSIUM SERUM 4.2 MEQ/L (3.5-5.1); SODIUM LEVEL 135 MEQ/L (136-145)
[2018-11-16 08:05] VITALS: BP 119/77
[2018-11-16] MEDS: PANTOPRAZOLE 40MG TAB (PROTONIX) PO SCH (08:50)
[2018-11-16] MEDS: LINEZOLID 600MG TABLET (ZYVOX) PO SCH ×2 (08:50→21:28)
[2018-11-16] MEDS: amLODIPine 5 MG TAB PO SCH (08:50)
[2018-11-16] MEDS: ASPIRIN 81 MG CHEW TABLET NG SCH (08:51)
[2018-11-16] MEDS: LACTOBACILLUS ACIDOPHILUS CAP (BACID) PO SCH ×3 (08:51→17:49)
[2018-11-16] MEDS: FLUCONAZOLE 100 MG TAB PO SCH (08:51)
[2018-11-16] MEDS: LEVEMIR (INSULIN DETEMIR) 1 UNITS/0.01ML SC SCH ×2 (08:52→21:30)
[2018-11-16] MEDS: LABETALOL 100 MG TAB PO SCH ×2 (08:56→21:14)
[2018-11-16 10:00] VITALS: BP 119/77
[2018-11-16] MEDS: PERCOCET 5MG/325MG TAB PO PRN ×2 (10:52→17:50)
--- NOTE | 2018-11-16 12:45 | IPNPDOC ---
Text Note Date of Service The patient was seen on 11/16/18. NOTE Subjective: Pt was upset today given surgery's news that she would likely req uire usp TPN given her short small bowel. Denies any abdominal pain. No nausea or vomiting. No chest pain. No hallucinations. PHYSICAL EXAMINATION: Vitals: (see below) General: No acute distress, laying comfortably in bed. HEENT: Moist mucous membranes. Neck: No JVD or lymphadenopathy Cardiac: RRR, No murmurs Pulm: Diminished breath sounds at the bases. No wheezing, rhonchi. No use of acc essory muscles. No conversational dyspnea. Abd: No tenderness at the drain site/incision sites. Bandage clean and dry. + BS. No rebound guarding or rigidity. Ext: No edema bilateral lower extremities. No cyanosis Neuro: Strength 5/5 BUE and BLE. CN 2-12 intact. F to N intact Negative pronator drift. AAO x 3 LABORATORY DATA: See below. IMAGING: CT abdomen and pelvis on 10/17/18 IMPRESSION: Bowel perforation. Findings consistent with small bowel perforation with focally absent bowel wall enhancement in one of the jejunal loops. There is inflammation, mural thickening and dilation in adjacent small bowel jejunal loops. This may reflect inflammatory bowel disease. There is some mild adj acent mesenteric adenopathy. Incidental findings include subacute splenic infarction and bilateral principally lower pole cortical scarring affecting the kidneys. Fatty infiltration of the liver is also seen. Chest x-ray on 10/20/18 IMPRESSION: Increased pulmonary opacities bilaterally consistent with atelectasis and/or infiltrates. No evidence of pleural effusion or pulmonary edema. CT abd/pelvis 11/05/18 IMPRESSION: Continued decrease in size of small areas of loculated fluid throughout the mesentery with no new free air, fluid collection, or abscess. MRI brain with and without contrast IMPRESSION: There is minimal enhancement of the right thalamic and left occipital lobe infarctions consistent with late subacute to chronic infarctions. ASSESSMENT/PLAN: 1. Bowel perforation, status post exploratory laparoscopy, with excision of 3/4 of the small bowel. Patient states she feels much better today. Her abdominal pain is better controlled. She was recently admitted to [facility] last month, where she was found to have acute mesenteric ischemia, with extensive large vessel clots, for which the decision was made for conservative measures given her very high risk of further embolization and complications, the patient was anticoagulated with Coumadin. s/p Cipro/Flagyl, on meropenem per infectious disease. Management per Dr. Lobo. Morphine/Percocet for pain control. Will likely require usp TPN per Surgery. 2. Large vessel thrombosis, with notable large clots in the thoracic aorta her 's discharge summary, with splenic/renal infarcts. The patient was off Coumadin, however on Wednesday she was told that her INR is supratherapeutic and was told to hold it until prior to admission. The exact cause of the patient's hypercoagulable states unknown. Patient was instructed to follow-up with hematology/oncology for further workup. It was noted that the patient's did not have any abscesses signs of malignancy, however CA-125 was mildly elevated and nonspecific . Her antiphospholipid/cardiolipin AB testing was negative and her CA 199 is negative. Heparin drip transitioned to Lovenox with Coumadin bridge. INR >2. Lovenox d/c. Cont coumadin. 3. s/p Acute on chronic anemia- status post 2 units PRBC on 10/19. Hemoglobin sta ble. We'll continue to monitor. 4. Metabolic acidosis- Improved. Appreciate nephrology input. s/p 1/2 NS with bicarbonate drip. 5. Oliguria secondary to the above. We'll continue to monitor.s/p albumin infusion Appreciate nephrology input. 6. Lactic acidosis secondary to the above. Improving. 7. Sinus tachycardia likely secondary to the above. Cardiac enzymes negative. Echocardiogram (see above) 8. History of diabetes mellitus on sliding scale insulin 9. Hypertension. controlled. On amlodipine/labetalol. 10. History of migraines stable 11. History of bipolar disorder 12. History of fibromyalgia 13. History of PTSD 14. s/p Volume overload, in the setting of hypoalbuminemia. s/p IV Lasix. Im proved. 15. Protein calorie malnutrition- has been on TPN. Diet being advanced by surgery, as tolerated. 16. Hallucinations/ Delirium - resolved. Psychiatry consulted. 17. Subacute CVA - MRI Brain noted. Repeat MRI with/w/o contrast (see above). Neurology consulted. Appreciate input. Continue Coumadin, aspirin, statin. No focal deficits on exam. DVT prophylaxis: Coumadin Overall prognosis guarded. VS,Fishbone, I+O VS, Fishbone, I+O Laboratory Tests 11/16/18 05:59 Red Blood Count 3.73 L, Mean Corpuscular Volume 80.2, Mean Corpuscular Hemoglobin 25.5 L, Mean Corpuscular Hemoglobin Concent 31.8 L, Red Cell Distribution Width 18.2 H, Calcium Level 8.6 Vital Signs Date Time Temp Pulse Resp B/P (MAP) Pulse Ox O2 Delivery O2 Flow Rate FiO2 11/16/18 11:30 18 11/16/18 10:00 97.9 58 119/77 (91) 100 I&O- Last 24 Hours up to 6 AM 11/16/18 06:00 Intake Total 2990 ml Output Total 600 ml Balance 2390 ml NIC OMER MD Nov 16, 2018 12:45
[2018-11-16 14:08] VITALS: BP 115/72
[2018-11-16] MEDS: WARFARIN SOD 2.5 MG TAB PO SCH (17:48)
[2018-11-16] MEDS ORDERED: FAT EMULSION IV 20% 500 ML IV SCH (18:00)
[2018-11-16] MEDS ORDERED: MULTIVITAMIN -ADULT INJECTION 10 ML, CR/CU/SE/MN/ZN INJ 1 ML in AMINO AC/ELECTROLYTE/DE... IV SCH (18:00)
[2018-11-16] MEDS: MORPHINE 4 MG/ML 1ML VIAL/SYRINGE (J2270) IV PRN (20:38)
--- NOTE | 2018-11-16 21:05 | IPN ---
DATE: 11/15/2018 HISTORY: Patient is now nearing a month postoperative from extensive small bowel resection for ischemia. She remains on total parenteral nutrition. She is tolerating some oral intake, though this is limited by a lack of appetite. She denies any significant abdominal pain. She reports she is having some generally loose stools. Vital signs show that the patient has been afebrile over the past 24 hours. Her pulse has ranged in the 80s to 90s generally. Blood pressure is acceptable, and her room air pulse oximetry is normal. Intake and output shows that yesterday she had 1850 recorded in and no actual number for amount out, though her record shows three voids and three bowel movements. Physical exam shows the patient lying quietly in the hospital bed. She is alert and oriented. Skin is warm and dry. Heart exam shows a regular rhythm. The abdomen is thin and flat. She has a little induration along the midline scar. She has her drain still in the right lateral abdominal wall, which is capped. Lower extremities are without significant edema. Laboratory studies show a white count of 13, hemoglobin of 10, hematocrit 29, and a platelet count of 477,000. Her chemistry profile shows normal electrolytes with a BUN of 14, creatinine of 0.6, and a glucose of 152. Her PT and INR are 28.1 and 2.6. IMPRESSION: Patient continues to do acceptably. She remains on total parenteral nutrition at 50 mL/h. I reviewed her CT scan from yesterday and note that she has very little small bowel apparent on the imaging. She is not having any pain. She remains on Zyvox, meropenem, and fluconazole for antibiotic coverage. PLAN: Patient will remain on her total parenteral nutrition (TPN). Her antibiotics will be continued. I encouraged her to try to increase her oral intake. The patient questioned when we might be thinking about sending her home. This led to a discussion at some length regarding her long-term potential for problems. I advised her that she had an extensive bowel resection and that the CT scan shows little remaining small bowel. I advised her that she may require long-term total parenteral nutrition, maybe even lifelong. This was apparently an issue that had not been discussed with her previously, and she was quite shocked to hear this. I did advise her that it is too soon to tell if this will be a definite long-term problem but that I suspect that her limited amount of small bowel remaining may not be adequate to sustain her. Shortly after leaving her room, she apparently talked with her by phone and I was asked to speak with him on the phone as he requested further information. I advised him of my same concerns and answered his questions to the best of my ability. She will continue with her current care, and I did advise them that we may well need to arrange evaluation at a tertiary center at some point regarding her limited remaining bowel. GAUDENCIO
[2018-11-16] MEDS: PRAVASTATIN 20 MG TAB PO SCH (21:28)
[2018-11-16] MEDS: diphenhydrAMINE 50 MG CAP PO PRN (21:28)
[2018-11-16 22:00] VITALS: BP 108/68
[2018-11-17] MEDS: HumaLOG INSULIN (NovoLOG) PER UNIT SC SCH ×4 (00:50→18:14)
[2018-11-17] MEDS: PERCOCET 5MG/325MG TAB PO PRN ×3 (00:52→19:01)
[2018-11-17] MEDS: IPRATROPIUM 0.5MG/ALBUTEROL 2.5MG INH SOL UD 3ML (DUONEB)(J7620) NEB SCH ×4 (01:05→20:00)
[2018-11-17 02:00] VITALS: BP 103/70
[2018-11-17] MEDS: MORPHINE 4 MG/ML 1ML VIAL/SYRINGE (J2270) IV PRN (02:56)
--- NOTE | 2018-11-17 05:19 | IPN ---
DATE: 11/16/2018 HISTORY: The patient is a month postop from her extensive small bowel resection for ischemia and perforation. She remains hemodynamically stable and afebrile. She is continuing to try to take some food and remains on total parenteral nutrition. VITAL SIGNS: The patient has been afebrile over the past 24 hours. Her pulse is in the upper 50s to low 90s. Blood pressure is good. Intake and output shows that yesterday she had 3150 recorded in with 600 of recorded urine output. PHYSICAL EXAMINATION: GENERAL: The patient is alert and oriented. She appears comfortable. ABDOMEN: The abdomen is flat. Her midline incision appears to be completely healed with no further drainage. Her drain remains in the right side of the abdomen. LABORATORY STUDIES: PT today was 28 with an INR of 2.55. Her chemistry profile shows normal electrolytes with BUN of 15, creatinine 0.6 and a glucose of 162. C-reactive protein was 5.09. CBC showed a white count of 14 with a hemoglobin of 10, hematocrit of 30 and platelet count of 513,000. Fingerstick blood sugars have ranged from 135-174. IMPRESSION: The patient remained stable. She is on total parenteral nutrition (TPN). She remains on her three antibiotics with Zyvox, meropenem and fluconazole. PLAN: I anticipate we will remove her abdominal drain which enters a loop of small bowel tomorrow. This will have had three weeks to seal around the drain since it was inserted. She was encouraged to increase her dietary intake and ambulate as much as possible. Long-term we will need to monitor her ability to take oral intake to determine if she has intestinal failure. I suspect she will need long-term TPN. edited: 11/25/2018 1323 tkf GAUDENCIO
[2018-11-17 06:00] VITALS: BP 102/73
[2018-11-17] MEDS: SODIUM CHLORIDE 0.9% INJ 10 ML SYR IV SCH ×2 (06:01→18:15)
[2018-11-17] MEDS: MEROPENEM INJ 1 GM in APPROPRIATE DILUENT 1 EA IV SCH ×3 (06:01→22:19)
[2018-11-17 06:43] LABS: HEMATOCRIT 29.2 % (36.0-47.0); HEMOGLOBIN 9.6 g/dl (12.0-15.5); MEAN CORPUSCULAR HEMOGLOBIN 26.4 pg (27.0-33.0); MEAN CORPUSCULAR HGB CONC 32.9 g/dl (32.0-36.5); MEAN CORPUSCULAR VOLUME 80.2 fl (80.0-96.0); PLATELET COUNT, AUTOMATED 455 10^3/uL (150-450); RED BLOOD COUNT 3.64 10^6/uL (4.00-5.40); WHITE BLOOD COUNT 11.5 10^3/uL (4.0-10.0)
[2018-11-17 07:02] LABS: INR 2.54; PROTHROMBIN TIME 27.9 SECONDS (12.1-14.4)
[2018-11-17 07:19] LABS: ALBUMIN 2.3 GM/DL (3.2-5.2); ALT/SGPT 54 U/L (12-78); BILIRUBIN,DIRECT < 0.1 MG/DL (0.0-0.2); BILIRUBIN,TOTAL 0.1 MG/DL (0.2-1.0); BLOOD UREA NITROGEN 15 MG/DL (7-18); CALCIUM LEVEL 8.8 MG/DL (8.5-10.1); CARBON DIOXIDE LEVEL 25 MEQ/L (21-32); CHLORIDE LEVEL 104 MEQ/L (98-107); CREATININE FOR GFR 0.56 MG/DL (0.55-1.30); GLOMERULAR FILTRATION RATE > 60.0 (>58); GLUCOSE, FASTING 145 MG/DL (70-100); MAGNESIUM LEVEL 1.7 MG/DL (1.8-2.4); POTASSIUM SERUM 4.3 MEQ/L (3.5-5.1); SODIUM LEVEL 136 MEQ/L (136-145); TOTAL PROTEIN 7.6 GM/DL (6.4-8.2)
[2018-11-17 08:05] VITALS: BP 112/73
[2018-11-17] MEDS: ASPIRIN 81 MG CHEW TABLET NG SCH (08:54)
[2018-11-17] MEDS: LABETALOL 100 MG TAB PO SCH ×2 (08:54→21:54)
[2018-11-17] MEDS: amLODIPine 5 MG TAB PO SCH (08:55)
[2018-11-17] MEDS: LACTOBACILLUS ACIDOPHILUS CAP (BACID) PO SCH ×3 (08:55→18:13)
[2018-11-17] MEDS: LINEZOLID 600MG TABLET (ZYVOX) PO SCH ×2 (08:55→22:16)
[2018-11-17] MEDS: FLUCONAZOLE 100 MG TAB PO SCH (08:57)
[2018-11-17] MEDS: PANTOPRAZOLE 40MG TAB (PROTONIX) PO SCH (08:57)
[2018-11-17] MEDS: LEVEMIR (INSULIN DETEMIR) 1 UNITS/0.01ML SC SCH ×2 (08:58→22:16)
[2018-11-17 12:00] VITALS: BP 117/73
--- NOTE | 2018-11-17 13:32 | IPNPDOC ---
Text Note Date of Service The patient was seen on 11/17/18. NOTE Subjective: Denies any complaints today. No acute changes overnight. PHYSICAL EXAMINATION: Vitals: (see below) General: No acute distress, laying comfortably in bed. HEENT: Moist mucous membranes. Neck: No JVD or lymphadenopathy Cardiac: RRR, No murmurs Pulm: Diminished breath sounds at the bases. No wheezing, rhonchi. No use of accessory muscles. No conversational dyspnea. Abd: Minimal tenderness at the drain site/incision sites. Bandage clean and dry. + BS. No rebound guarding or rigidity. Ext: No edema bilateral lower extremities. No cyanosis Neuro: Strength 5/5 BUE and BLE. CN 2-12 intact. F to N intact Negative pronator drift. AAO x 3 LABORATORY DATA: See below. IMAGING: CT abdomen and pelvis on 10/17/18 IMPRESSION: Bowel perforation. Findings consistent with small bowel perforation with focally absent bowel wall enhancement in one of the jejunal loops. There is inflammation, mural thickening and dilation in adjacent small bowel jejunal loops. This may reflect inflammatory bowel disease. There is some mild adjacent mesenteric adenopathy. Incidental findings include subacute splenic infarction and bilateral principally lower pole cortical scarring affecting the kidneys. Fatty infiltration of the liver is also seen. Chest x-ray on 10/20/18 IMPRESSION: Increased pulmonary opacities bilaterally consistent with atelectasis and/or infiltrates. No evidence of pleural effusion or pulmonary edema. CT abd/pelvis 11/05/18 IMPRESSION: Continued decrease in size of small areas of loculated fluid throughout the mesentery with no new free air, fluid collection, or abscess. MRI brain with and without contrast IMPRESSION: There is minimal enhancement of the right thalamic and left occipital lobe infarctions consistent with late subacute to chronic infarctions. ASSESSMENT/PLAN: 1. Bowel perforation, status post exploratory laparoscopy, with excision of 3/4 of the small bowel. Patient states she feels much better today. Her abdominal pain is better controlled. She was recently admitted to [facility] last month, where she was found to have acute mesenteric ischemia, with extensive large vessel clots, for which the decision was made for conservative measures given her very high risk of further embolization and complications, the patient was anticoagulated with Coumadin. s/p Cipro/Flagyl, on meropenem per infectious disease. Management per Dr. Lobo. Morphine/Percocet for pain control. Will likely require fpc TPN per Surgery. 2. Large vessel thrombosis, with notable large clots in the thoracic aorta her [place] discharge summary, with splenic/renal infarcts. The patient was off Coumadin, however on Wednesday she was told that her INR is supratherapeutic and was told to hold it until prior to admission. The exact cause of the patient's hypercoagulable states unknown. Patient was instructed to follow-up with hematology/oncology for further workup. It was noted that the patient's did not have any abscesses signs of malignancy, however CA-125 was mildly elevated and nonspecific [place]. Her antiphospholipid/cardiolipin AB testing was negative and her CA 199 is negative. Heparin drip transitioned to Lovenox with Coumadin bridge. INR >2. Lovenox d/c. Cont coumadin. 3. s/p Acute on chronic anemia- status post 2 units PRBC on 10/19. Hemoglobin stable. We'll continue to monitor. 4. Metabolic acidosis- Improved. Appreciate nephrology input. s/p 1/2 NS with bicarbonate drip. 5. Oliguria secondary to the above. We'll continue to monitor.s/p albumin infusion Appreciate nephrology input. 6. Lactic acidosis secondary to the above. Improving. 7. Sinus tachycardia likely secondary to the above. Cardiac enzymes negative. Echocardiogram (see above) 8. History of diabetes mellitus on sliding scale insulin 9. Hypertension. controlled. On amlodipine/labetalol. 10. History of migraines stable 11. History of bipolar disorder 12. History of fibromyalgia 13. History of PTSD 14. s/p Volume overload, in the setting of hypoalbuminemia. s/p IV Lasix. Improved. 15. Protein calorie malnutrition- has been on TPN. Diet being advanced by surgery, as tolerated. 16. Hallucinations/ Delirium - resolved. Psychiatry consulted. 17. Subacute CVA - MRI Brain noted. Repeat MRI with/w/o contrast (see above). Neurology consulted. Appreciate input. Continue Coumadin, aspirin, statin. No focal deficits on exam. DVT prophylaxis: Coumadin Overall prognosis guarded. VS,Fishbone, I+O VS, Fishbone, I+O Laboratory Tests 11/17/18 06:29 Red Blood Count 3.64 L, Mean Corpuscular Volume 80.2, Mean Corpuscular Hemoglobin 26.4 L, Mean Corpuscular Hemoglobin Concent 32.9, Red Cell Distribution Width 18.1 H Vital Signs Date Time Temp Pulse Resp B/P (MAP) Pulse Ox O2 Delivery O2 Flow Rate FiO2 11/17/18 08:54 84 112/73 11/17/18 08:05 98.0 14 97 I&O- Last 24 Hours up to 6 AM 11/17/18 06:00 Intake Total 750 ml Output Total 625 ml Balance 125 ml NIC OMER MD Nov 17, 2018 13:32
[2018-11-17 18:00] VITALS: BP 121/75
[2018-11-17] MEDS ORDERED: FAT EMULSION IV 20% 500 ML IV SCH (18:00)
[2018-11-17] MEDS ORDERED: AMINO AC/ELECTROLYTE/DEX/CALC 2,000 ML IV SCH (18:00)
[2018-11-17] MEDS: WARFARIN SOD 2.5 MG TAB PO SCH (18:13)
[2018-11-17] MEDS: SODIUM CHLORIDE 0.9% INJ 10 ML SYR IV PRN ×2 (18:14→23:25)
[2018-11-17 22:00] VITALS: BP 110/66
[2018-11-17] MEDS: diphenhydrAMINE 50 MG CAP PO PRN (22:16)
[2018-11-17] MEDS: PRAVASTATIN 20 MG TAB PO SCH (22:19)
[2018-11-18] MEDS: HumaLOG INSULIN (NovoLOG) PER UNIT SC SCH ×4 (00:43→18:53)
[2018-11-18] MEDS: PERCOCET 5MG/325MG TAB PO PRN ×4 (00:44→22:25)
[2018-11-18] MEDS: IPRATROPIUM 0.5MG/ALBUTEROL 2.5MG INH SOL UD 3ML (DUONEB)(J7620) NEB SCH (01:54)
[2018-11-18 02:00] VITALS: BP 108/63
[2018-11-18] MEDS: MEROPENEM INJ 1 GM in APPROPRIATE DILUENT 1 EA IV SCH (05:15)
[2018-11-18] MEDS: SODIUM CHLORIDE 0.9% INJ 10 ML SYR IV SCH ×2 (05:15→18:26)
[2018-11-18 06:00] VITALS: BP 100/71
[2018-11-18 06:23] LABS: HEMOGLOBIN 9.5 g/dl (12.0-15.5); MEAN CORPUSCULAR HEMOGLOBIN 25.7 pg (27.0-33.0); MEAN CORPUSCULAR HGB CONC 32.8 g/dl (32.0-36.5); MEAN CORPUSCULAR VOLUME 78.6 fl (80.0-96.0); PLATELET COUNT, AUTOMATED 471 10^3/uL (150-450); RED BLOOD COUNT 3.69 10^6/uL (4.00-5.40); WHITE BLOOD COUNT 12.9 10^3/uL (4.0-10.0)
[2018-11-18 06:38] LABS: BLOOD UREA NITROGEN 13 MG/DL (7-18); CALCIUM LEVEL 8.1 MG/DL (8.5-10.1); CARBON DIOXIDE LEVEL 24 MEQ/L (21-32); CHLORIDE LEVEL 104 MEQ/L (98-107); CREATININE FOR GFR 0.59 MG/DL (0.55-1.30); GLOMERULAR FILTRATION RATE > 60.0 (>58); GLUCOSE, FASTING 147 MG/DL (70-100); MAGNESIUM LEVEL 1.8 MG/DL (1.8-2.4); POTASSIUM SERUM 3.9 MEQ/L (3.5-5.1); SODIUM LEVEL 138 MEQ/L (136-145)
[2018-11-18] MEDS: amLODIPine 5 MG TAB PO SCH (08:40)
[2018-11-18] MEDS: ASPIRIN 81 MG CHEW TABLET NG SCH (08:40)
[2018-11-18] MEDS: LACTOBACILLUS ACIDOPHILUS CAP (BACID) PO SCH ×3 (08:40→18:25)
[2018-11-18] MEDS: PANTOPRAZOLE 40MG TAB (PROTONIX) PO SCH (08:40)
[2018-11-18] MEDS: FLUCONAZOLE 100 MG TAB PO SCH (08:41)
[2018-11-18] MEDS: LEVEMIR (INSULIN DETEMIR) 1 UNITS/0.01ML SC SCH ×2 (08:41→21:14)
[2018-11-18] MEDS: LABETALOL 100 MG TAB PO SCH ×2 (08:42→21:13)
[2018-11-18 09:54] LABS: INR 2.47; PROTHROMBIN TIME 27.3 SECONDS (12.1-14.4)
[2018-11-18 10:00] VITALS: BP 118/78
--- NOTE | 2018-11-18 13:28 | IPNPDOC ---
Text Note Date of Service The patient was seen on 11/18/18. NOTE Subjective: No acute changes overnight. Drain has since been removed. No sign ificant abd pain today. PHYSICAL EXAMINATION: Vitals: (see below) General: No acute distress, laying comfortably in bed. HEENT: Moist mucous membranes. Neck: No JVD or lymphadenopathy Cardiac: RRR, No murmurs Pulm: Diminished breath sounds at the bases. No wheezing, rhonchi. No use of accessory muscles. No conversational dyspnea. Abd: Drain has since been removed. No abd pain. Bandage clean and dry. + BS. No rebound guarding or rigidity. Ext: No edema bilateral lower extremities. No cyanosis Neuro: Strength 5/5 BUE and BLE. CN 2-12 intact. F to N intact Negative pronator drift. AAO x 3 LABORATORY DATA: See below. IMAGING: CT abdomen and pelvis on 10/17/18 IMPRESSION: Bowel perforation. Findings consistent with small bowel perforation with focally absent bowel wall enhancement in one of the jejunal loops. There is inflammation, mural thickening and dilation in adjacent small bowel jejunal loops. This may reflect inflammatory bowel disease. There is some mild adjacent mesenteric adenopathy. Incidental findings include subacute splenic infarction and bilateral principally lower pole cortical scarring affecting the kidneys. Fatty infiltration of the liver is also seen. Chest x-ray on 10/20/18 IMPRESSION: Increased pulmonary opacities bilaterally consistent with atelectas is and/or infiltrates. No evidence of pleural effusion or pulmonary edema. CT abd/pelvis 11/05/18 IMPRESSION: Continued decrease in size of small areas of loculated fluid throughout the mesentery with no new free air, fluid collection, or abscess. MRI brain with and without contrast IMPRESSION: There is minimal enhancement of the right thalamic and left occipital lobe infarctions consistent with late subacute to chronic infarctions. ASSESSMENT/PLAN: 1. Bowel perforation, status post exploratory laparoscopy, with excision of 3/4 of the small bowel. Patient states she feels much better today. Her abdominal pain is better controlled. She was recently admitted to [facility] last month, where she was found to have acute mesenteric ischemia, with extensive large vessel clots, for which the decision was made for conservative measures given her very high risk of further embolization and complications, the patient was anticoagulated with Coumadin. s/p Cipro/Flagyl, on meropene m/fluconazole per infectious disease. S/p linezolid. Management per Dr. Lobo. Morphine/Percocet for pain control. Will likely require half-way TPN per Surgery. I discussed case with Dr. Matias on 11/18 with recommendations to discontinue meropenem. Continue fluconazole for a total 4-6 weeks. Monitor for fevers/CRP elevation. 2. Large vessel thrombosis, with notable large clots in the thoracic aorta her [facility]'s discharge summary, with splenic/renal infarcts. The patient was off Coumadin, however on Wednesday she was told that her INR is supratherapeutic and was told to hold it until prior to admission. The exact cause of the patient's hypercoagulable states unknown. Patient was instructed to follow-up with hematology/oncology for further workup. It was noted that the patient's did not have any abscesses signs of malignancy, however CA-125 was mildly elevated and nonspecific [facility]'s. Her antiphospholipid/cardiolipin AB testing was negative and her CA 199 is negative. Heparin drip transitioned to Lovenox with Coumadin bridge. INR >2. Lovenox d/c. Cont coumadin. 3. s/p Acute on chronic anemia- status post 2 units PRBC on 10/19. Hemoglobin stable. We'll continue to monitor. 4. Metabolic acidosis- Improved. Appreciate nephrology input. s/p 1/2 NS with bicarbonate drip. 5. Oliguria secondary to the above. We'll continue to monitor.s/p albumin infusion Appreciate nephrology input. 6. Lactic acidosis secondary to the above. Improving. 7. Sinus tachycardia likely secondary to the above. Cardiac enzymes negative. Echocardiogram (see above) 8. History of diabetes mellitus on sliding scale insulin 9. Hypertension. controlled. On amlodipine/labetalol. 10. History of migraines stable 11. History of bipolar disorder 12. History of fibromyalgia 13. History of PTSD 14. s/p Volume overload, in the setting of hypoalbuminemia. s/p IV Lasix. Improved. 15. Protein calorie malnutrition- has been on TPN. Diet being advanced by surgery, as tolerated. 16. Hallucinations/ Delirium - resolved. Psychiatry consulted. 17. Subacute CVA - MRI Brain noted. Repeat MRI with/w/o contrast (see above). Neurology consulted. Appreciate input. Continue Coumadin, aspirin, statin. No focal deficits on exam. DVT prophylaxis: Coumadin Overall prognosis guarded. VS,Fishbone, I+O VS, Fishbone, I+O Laboratory Tests 11/18/18 06:06 Red Blood Count 3.69 L, Mean Corpuscular Volume 78.6 L, Mean Corpuscular Hemoglobin 25.7 L, Mean Corpuscular Hemoglobin Concent 32.8, Red Cell Distribution Width 18.0 H, Calcium Level 8.1 L Vital Signs Date Time Temp Pulse Resp B/P (MAP) Pulse Ox O2 Delivery O2 Flow Rate FiO2 11/18/18 12:21 16 11/18/18 10:00 96.5 95 118/78 (91) 98 I&O- Last 24 Hours up to 6 AM 11/18/18 06:00 Intake Total 1890 ml Balance 1890 ml NIC OMER MD Nov 18, 2018 13:28
[2018-11-18 14:00] VITALS: BP 128/78
--- NOTE | 2018-11-18 17:25 | IPN ---
DATE: 11/17/2018 HISTORY: The patient is approaching a month postop from her extensive small bowel resection for ischemia and perforation. She has remained hemodynamically stable. Her small capped drain in the right lower quadrant remains intact. She is taking a limited amount orally and having some small loose bowel movements. She generally denies any significant pain when I see her but has been taking Percocet tablets, 4-6 tablets per day recently. She remains on total parenteral nutrition (TPN) and remains on meropenem, linezolid, and fluconazole. Vital signs: The patient has remained afebrile over the past 24 hours. Her pulse has been in the 80s. Blood pressure is excellent and her room air oxygen saturations are normal. Intake and output: 1450 recorded in yesterday. There is 580 mL recorded orally. Clearly her TPN is not being recorded accurately given the flow rate. She had 350 mL of urine output measured with four small bowel movements noted. Her weight remains stable. Physical exam reveals a pleasant woman lying quietly in the hospital bed. She is not having any significant pain currently. Sclerae are anicteric. Heart exam shows a regular rhythm. The abdomen is flat. Drain remains in place in the right lower quadrant. Her midline incision looks clean and dry. Laboratory studies today show a white count of 12 with a hemoglobin of 10, hematocrit of 29 and platelet count of 455,000. Coagulation studies show a PT of 28, INR of 2.5. Chemistry profile shows normal electrolytes with a BUN of 15, creatinine 0.6 and glucose of 145. Total bilirubin is 0.1 and her liver function tests are without significant abnormality, although her alkaline phosphatase is slightly elevated at 196. Her total protein is 7.6 with an albumin of 2.3, which is stable from the 17th. Fingerstick blood sugars have ranged between 123 and 169. IMPRESSION: The patient remains quite stable on her current therapy with TPN and antibiotics. PLAN: The patient's right lower quadrant drain was removed today after the patient was counseled regarding this process. She tolerated this well. A light dressing was applied. She will remain on her TPN, and I will continue her antibiotics for today. I spoke with her about the possibility of diminishing our blood drawing, and she was eager to embrace this if we could make this happen. I encouraged her to be up out of bed and to eat as able.
[2018-11-18] MEDS ORDERED: MULTIVITAMIN -ADULT INJECTION 10 ML, CR/CU/SE/MN/ZN INJ 1 ML in AMINO AC/ELECTROLYTE/DE... IV SCH (18:00)
[2018-11-18] MEDS ORDERED: FAT EMULSION IV 20% 500 ML IV SCH (18:00)
--- NOTE | 2018-11-18 18:17 | IPN ---
DATE: 11/18/2018 HISTORY: The patient is a month out from her surgery for extensive small-bowel resection for ischemia and perforation. She remains on total parenteral nutrition (TPN). Her right lower quadrant drain which was in a loop of small bowel was removed yesterday and she has apparently had no problems from this. She denies any significant abdominal pain. She continues to void without difficulty and reports small bowel movements. She still has very little appetite and is not eating much. VITAL SIGNS: Show that she has been afebrile over the past 24 hours. Her pulse has generally been in the 80s to 90s. Her blood pressure is good and her room air oxygen saturations are normal. Intake and output shows that yesterday she had 1870 recorded in. There is 1000 of oral intake noted and clearly the intake and output sheets underestimate her TPN intake. Her urine output is recorded as 275 mL yesterday. Her weight remains stable. PHYSICAL EXAMINATION: The patient is alert and oriented. Her abdomen is soft and without tenderness. I note today a small amount of drainage from a spot along her midline incision just above the umbilicus. With gentle pressure, there is a minimal amount of fluid which can be expressed. This may well represent just a suture reaction or perhaps a small area of liquefied fat which is draining. There does not appear to be any significant cellulitis. The abdomen is otherwise soft and without significant tenderness. Laboratory studies show a white count of 13, hemoglobin 10, hematocrit 29 and a platelet count of 471,000. Coags are stable with an INR of 2.47. Chemistries show normal electrolytes, BUN, creatinine and a glucose of 147. Magnesium is 1.8. IMPRESSION: The patient is doing very well overall. Her pain is manageable. She remains on total parenteral nutrition. She is taking a diet in limited quantities. PLAN: The patient is again encouraged to take a diet as able. I am going to stop her Zyvox and meropenem today. She has been on meropenem for three weeks or more and the Zyvox for about a week. She has no evidence for significant clinical infection at this point. I will continue the fluconazole. I spoke with Dr. Emerson about potentially reducing her frequency of blood drawing and I will stop all of her blood drawing for tomorrow. The total parenteral nutrition (TPN) will be continued.
[2018-11-18] MEDS: WARFARIN SOD 2.5 MG TAB PO SCH (18:26)
[2018-11-18] MEDS: PRAVASTATIN 20 MG TAB PO SCH (21:13)
[2018-11-18] MEDS: diphenhydrAMINE 50 MG CAP PO PRN (21:21)
[2018-11-18 22:00] VITALS: BP 129/86
[2018-11-19] VITALS (7 sets, daily range): BP systolic 117–126; BP diastolic 70–78
[2018-11-19] MEDS: HumaLOG INSULIN (NovoLOG) PER UNIT SC SCH ×4 (00:01→18:24)
[2018-11-19] MEDS: SODIUM CHLORIDE 0.9% INJ 10 ML SYR IV SCH ×2 (05:45→18:24)
[2018-11-19] MEDS: LABETALOL 100 MG TAB PO SCH ×2 (09:09→20:33)
[2018-11-19] MEDS: ASPIRIN 81 MG CHEW TABLET NG SCH (09:09)
[2018-11-19] MEDS: FLUCONAZOLE 100 MG TAB PO SCH (09:09)
[2018-11-19] MEDS: LACTOBACILLUS ACIDOPHILUS CAP (BACID) PO SCH ×3 (09:10→17:20)
[2018-11-19] MEDS: amLODIPine 5 MG TAB PO SCH (09:10)
[2018-11-19] MEDS: PANTOPRAZOLE 40MG TAB (PROTONIX) PO SCH (09:11)
[2018-11-19] MEDS: LEVEMIR (INSULIN DETEMIR) 1 UNITS/0.01ML SC SCH ×2 (09:12→20:34)
[2018-11-19] MEDS: PERCOCET 5MG/325MG TAB PO PRN ×2 (09:27→17:20)
[2018-11-19] MEDS ORDERED: SILVER NITRATE APPLICATOR TOP ONE (10:30)
[2018-11-19] MEDS: MORPHINE 4 MG/ML 1ML VIAL/SYRINGE (J2270) IV PRN (11:39)
--- NOTE | 2018-11-19 13:14 | IPNPDOC ---
Text Note Date of Service The patient was seen on 11/19/18. NOTE Subjective: Patient is that she had right lower quadrant pain today upon getting up. Describes as 4 out of 10, sharp, nonradiating. Adjacent to the prior drain site. PHYSICAL EXAMINATION: Vitals: (see below) General: No acute distress, laying comfortably in bed. HEENT: Moist mucous membranes. Neck: No JVD or lymphadenopathy Cardiac: RRR, No murmurs Pulm: Diminished breath sounds at the bases. No wheezing, rhonchi. No use of accessory muscles. No conversational dyspnea. Abd: Drain has since been removed. Tenderness to palpation in the right lower quadrant region. Bandage clean and dry. + BS. No rebound guarding or rigidity. Ext: No edema bilateral lower extremities. No cyanosis Neuro: Strength 5/5 BUE and BLE. CN 2-12 intact. F to N intact Negative pronator drift. AAO x 3 LABORATORY DATA: See below. IMAGING: CT abdomen and pelvis on 10/17/18 IMPRESSION: Bowel perforation. Findings consistent with small bowel perforation with focally absent bowel wall enhancement in one of the jejunal loops. There is inflammation, mural thickening and dilation in adjacent small bowel jejunal loops. This may reflect inflammatory bowel disease. There is some mild adjacent mesenteric adenopathy. Incidental findings include subacute splenic infarction and bilateral principally lower pole cortical scarring affecting the kidneys. Fatty infiltration of the liver is also seen. Chest x-ray on 10/20/18 IMPRESSION: Increased pulmonary opacities bilaterally consistent with atelectasis and/or infiltrates. No evidence of pleural effusion or pulmonary edema. CT abd/pelvis 11/05/18 IMPRESSION: Continued decrease in size of small areas of loculated fluid throughout the mesentery with no new free air, fluid collection, or abscess. MRI brain with and without contrast IMPRESSION: There is minimal enhancement of the right thalamic and left occipital lobe infarctions consistent with late subacute to chronic infarctions. ASSESSMENT/PLAN: 1. Bowel perforation, status post exploratory laparoscopy, with excision of 3/4 of the small bowel. Patient states she feels much better today. Her abdominal pain is better controlled. She was recently admitted to [facility] last month, where she was found to have acute mesenteric ischemia, with extensive large vessel clots, for which the decision was made for conservative measures given her very high risk of further embolization and complications, the patient was anticoagulated with Coumadin. s/p Cipro/Flagyl, on meropenem/fluconazole per infectious disease. S/p linezolid. Management per Dr. Lobo. Morphine/Percocet for pain control. Will likely require terminal computer operator TPN per Surgery. I discussed case with Dr. Matias on 11/18 with recommendations to discontinue meropenem. Continue fluconazole for a total 4-6 weeks. Monitor for fevers/CRP elevation. Defer repeat CAT scans to surgery. 2. Large vessel thrombosis, with notable large clots in the thoracic aorta her [place]'s discharge summary, with splenic/renal infarcts. The patient was off Coumadin, however on Wednesday she was told that her INR is supratherapeutic and was told to hold it until prior to admission. The exact cause of the patient's hypercoagulable states unknown. Patient was instructed to follow-up with hematology/oncology for further workup. It was noted that the patient's did not have any abscesses signs of malignancy, however CA-125 was mildly elevated and nonspecific [place]'s. Her antiphospholipid/cardiolipin AB testing was negative and her CA 199 is negative. Heparin drip transitioned to Lovenox with Coumadin bridge. INR >2. Lovenox d/c. Cont coumadin. 3. s/p Acute on chronic anemia- status post 2 units PRBC on 10/19. Hemoglobin stable. We'll continue to monitor. 4. Metabolic acidosis- Improved. Appreciate nephrology input. s/p 1/2 NS with bicarbonate drip. 5. Oliguria secondary to the above. We'll continue to monitor.s/p albumin infusion Appreciate nephrology input. 6. Lactic acidosis secondary to the above. Improving. 7. Sinus tachycardia likely secondary to the above. Cardiac enzymes negative. Echocardiogram (see above) 8. History of diabetes mellitus on sliding scale insulin 9. Hypertension. controlled. On amlodipine/labetalol. 10. History of migraines stable 11. History of bipolar disorder 12. History of fibromyalgia 13. History of PTSD 14. s/p Volume overload, in the setting of hypoalbuminemia. s/p IV Lasix. Improved. 15. Protein calorie malnutrition- has been on TPN. Diet being advanced by shana perez, as tolerated. 16. Hallucinations/ Delirium - resolved. Psychiatry consulted. 17. Subacute CVA - MRI Brain noted. Repeat MRI with/w/o contrast (see above). Neurology consulted. Appreciate input. Continue Coumadin, aspirin, statin. No focal deficits on exam. DVT prophylaxis: Coumadin Overall prognosis guarded. VS,Fishbone, I+O VS, Fishbone, I+O Vital Signs Date Time Temp Pulse Resp B/P (MAP) Pulse Ox O2 Delivery O2 Flow Rate FiO2 11/19/18 12:00 18 11/19/18 10:00 97.1 97 126/70 (88) 99 I&O- Last 24 Hours up to 6 AM 11/19/18 06:00 Intake Total 700 ml Output Total 950 ml Balance -250 ml NIC OMER MD Nov 19, 2018 13:14
[2018-11-19] MEDS: WARFARIN SOD 2.5 MG TAB PO SCH (17:21)
[2018-11-19] MEDS ORDERED: FAT EMULSION IV 20% 500 ML IV SCH (18:00)
[2018-11-19] MEDS ORDERED: AMINO AC/ELECTROLYTE/DEX/CALC 2,000 ML IV SCH (18:00)
[2018-11-19] MEDS: PRAVASTATIN 20 MG TAB PO SCH (20:33)
[2018-11-20] VITALS (7 sets, daily range): BP systolic 98–135; BP diastolic 65–90
[2018-11-20] MEDS: HumaLOG INSULIN (NovoLOG) PER UNIT SC SCH ×4 (00:01→18:01)
[2018-11-20 05:57] LABS: HEMATOCRIT 29.3 % (36.0-47.0); HEMOGLOBIN 9.4 g/dl (12.0-15.5); MEAN CORPUSCULAR HEMOGLOBIN 25.4 pg (27.0-33.0); MEAN CORPUSCULAR HGB CONC 32.1 g/dl (32.0-36.5); MEAN CORPUSCULAR VOLUME 79.2 fl (80.0-96.0); PLATELET COUNT, AUTOMATED 452 10^3/uL (150-450)
[2018-11-20] MEDS: SODIUM CHLORIDE 0.9% INJ 10 ML SYR IV SCH ×2 (06:02→18:00)
[2018-11-20] MEDS: PERCOCET 5MG/325MG TAB PO PRN ×3 (06:08→17:59)
[2018-11-20 06:17] LABS: BLOOD UREA NITROGEN 15 MG/DL (7-18); C REACTIVE PROTEIN QUANTITATIV 5.09 MG/DL (0.00-0.30); CALCIUM LEVEL 8.4 MG/DL (8.5-10.1); CARBON DIOXIDE LEVEL 23 MEQ/L (21-32); CHLORIDE LEVEL 104 MEQ/L (98-107); CREATININE FOR GFR 0.55 MG/DL (0.55-1.30); GLOMERULAR FILTRATION RATE > 60.0 (>58); GLUCOSE, FASTING 201 MG/DL (70-100); MAGNESIUM LEVEL 1.8 MG/DL (1.8-2.4); POTASSIUM SERUM 3.8 MEQ/L (3.5-5.1); SODIUM LEVEL 136 MEQ/L (136-145)
[2018-11-20] MEDS: FLUCONAZOLE 100 MG TAB PO SCH (08:22)
[2018-11-20] MEDS: amLODIPine 5 MG TAB PO SCH (08:22)
[2018-11-20] MEDS: LACTOBACILLUS ACIDOPHILUS CAP (BACID) PO SCH ×3 (08:22→17:59)
[2018-11-20] MEDS: PANTOPRAZOLE 40MG TAB (PROTONIX) PO SCH (08:22)
[2018-11-20] MEDS: LABETALOL 100 MG TAB PO SCH ×2 (08:24→21:18)
[2018-11-20] MEDS: ASPIRIN 81 MG CHEW TABLET NG SCH (08:24)
[2018-11-20] MEDS: LEVEMIR (INSULIN DETEMIR) 1 UNITS/0.01ML SC SCH ×2 (08:25→21:18)
--- NOTE | 2018-11-20 09:56 | IPNPDOC ---
Text Note Date of Service The patient was seen on 11/20/18. NOTE Subjective: Denies abd pain today. No Acute changes overnight. No complaints. PHYSICAL EXAMINATION: Vitals: (see below) General: No acute distress, laying comfortably in bed. HEENT: Moist mucous membranes. Neck: No JVD or lymphadenopathy Cardiac: RRR, No murmurs Pulm: Diminished breath sounds at the bases. No wheezing, rhonchi. No use of accessory muscles. No conversational dyspnea. Abd:No abd pain. Bandage clean and dry. + BS. No rebound guarding or rigidity. Ext: No edema bilateral lower extremities. No cyanosis Neuro: Strength 5/5 BUE and BLE. CN 2-12 intact. F to N intact Negative pronator drift. AAO x 3 LABORATORY DATA: See below. IMAGING: CT abdomen and pelvis on 10/17/18 IMPRESSION: Bowel perforation. Findings consistent with small bowel perforation with focally absent bowel wall enhancement in one of the jejunal loops. There is inflammation, mural thickening and dilation in adjacent small bowel jejunal loops. This may reflect inflammatory bowel disease. There is some mild adjacent mesenteric adenopathy. Incidental findings include subacute splenic infarction and bilateral principally lower pole cortical scarring affecting the kidneys. Fatty infiltration of the liver is also seen. Chest x-ray on 10/20/18 IMPRESSION: Increased pulmonary opacities bilaterally consistent with atelectasis and/or infiltrates. No evidence of pleural effusion or pulmonary edema. CT abd/pelvis 11/05/18 IMPRESSION: Continued decrease in size of small areas of loculated fluid throughout the mesentery with no new free air, fluid collection, or abscess. MRI brain with and without contrast IMPRESSION: There is minimal enhancement of the right thalamic and left occipital lobe infarctions consistent with late subacute to chronic infarctions. ASSESSMENT/PLAN: 1. Bowel perforation, status post exploratory laparoscopy, with excision of 3/4 of the small bowel. Patient states she feels much better today. Her abdominal pain is better controlled. She was recently admitted to [facility] last month, where she was found to have acute mesenteric ischemia, with extensive large vessel clots, for which the decision was made for conservative measures given her very high risk of further embolization and complications, the patient was anticoagulated with Coumadin. s/p Cipro/Flagyl, on meropenem/fluconazole per infectious disease. S/p linezolid. Management per Dr. Lobo. Morphine/Percocet for pain control. Will likely require ferry terminal agent TPN per Surgery. I discussed case with Dr. Matias on 11/18 with recommendations to discontinue meropenem. Continue fluconazole for a total 4-6 weeks. Monitor for fevers/CRP elevation. Defer repeat CAT scans to surgery. 2. Large vessel thrombosis, with notable large clots in the thoracic aorta her [place]'s discharge summary, with splenic/renal infarcts. The patient was off Coumadin, however on Wednesday she was told that her INR is supratherapeutic and was told to hold it until prior to admission. The exact cause of the patient's hypercoagulable states unknown. Patient was instructed to follow-up with hematology/oncology for further workup. It was noted that the patient's did not have any abscesses signs of malignancy, however CA-125 was mildly elevated and nonspecific [place]'s. Her antiphospholipid/cardiolipin AB testing was negative and her CA 199 is negative. Heparin drip transitioned to Lovenox with Coumadin bridge. INR >2. Lovenox d/c. Cont coumadin. 3. s/p Acute on chronic anemia- status post 2 units PRBC on 10/19. Hemoglobin stable. We'll continue to monitor. 4. Metabolic acidosis- Improved. Appreciate nephrology input. s/p 1/2 NS with bicarbonate drip. 5. Oliguria secondary to the above. We'll continue to monitor.s/p albumin infusion Appreciate nephrology input. 6. Lactic acidosis secondary to the above. Improving. 7. Sinus tachycardia likely secondary to the above. Cardiac enzymes negative. Echocardiogram (see above) 8. History of diabetes mellitus on sliding scale insulin 9. Hypertension. controlled. On amlodipine/labetalol. 10. History of migraines stable 11. History of bipolar disorder 12. History of fibromyalgia 13. History of PTSD 14. s/p Volume overload, in the setting of hypoalbuminemia. s/p IV Lasix. Improved. 15. Protein calorie malnutrition- has been on TPN. Diet being advanced by surgery, as tolerated. 16. Hallucinations/ Delirium - resolved. Psychiatry consulted. 17. Subacute CVA - MRI Brain noted. Repeat MRI with/w/o contrast (see above). Neurology consulted. Appreciate input. Continue Coumadin, aspirin, statin. No focal deficits on exam. DVT prophylaxis: Coumadin Overall prognosis guarded. VS,Fishbone, I+O VS, Fishbone, I+O Laboratory Tests 11/20/18 05:42 Red Blood Count 3.70 L, Mean Corpuscular Volume 79.2 L, Mean Corpuscular Hemoglobin 25.4 L, Mean Corpuscular Hemoglobin Concent 32.1, Red Cell Distribution Width 18.1 H, Calcium Level 8.4 L Vital Signs Date Time Temp Pulse Resp B/P (MAP) Pulse Ox O2 Delivery O2 Flow Rate FiO2 11/20/18 08:22 103 135/84 11/20/18 06:38 18 11/20/18 06:00 98.3 97 I&O- Last 24 Hours up to 6 AM 11/20/18 06:00 Intake Total 1870 ml Output Total 850 ml Balance 1020 ml NIC OMER MD Nov 20, 2018 09:56
[2018-11-20] MEDS: WARFARIN SOD 2.5 MG TAB PO SCH (17:59)
[2018-11-20] MEDS ORDERED: AMINO AC/ELECTROLYTE/DEX/CALC 2,000 ML IV SCH (18:00)
[2018-11-20] MEDS ORDERED: FAT EMULSION IV 20% 500 ML IV SCH (18:00)
--- NOTE | 2018-11-20 19:39 | IPNPDOC ---
Subjective General Date/Time Seen The patient was seen on 11/20/18 at 19:34. Subject Chief Complaint/History The patient is a 48-year-old female admitted with a reason for visit of Intestinal Perforation. Patient reports some mild abdominal pain though she tells me she is able to tolerate her food better. She still has fair appetite. She still has somewhat loose stools though she tells me this is getting some form now. She only had 1 bowel movement recorded yesterday. Afebrile. Current Medications Current Medications Current Medications Albuterol/ Ipratropium (Duoneb (Ipr 0.5mg/Alb 2.5mg)) 3 ml Q2HP PRN NEB SOB/WHEEZING; Start 10/18/18 at 05:45 Albuterol/ Ipratropium (Duoneb (Ipr 0.5mg/Alb 2.5mg)) 3 ml RQ6H NEB Last administered on 11/06/18at 20:17; Start 10/18/18 at 08:00; Stop 11/18/18 at 07:35; Status DC Amino Ac/Electrol/ Dextrose/Calcium 1,000 ml @ 75 mls/hr ONCE@1800 IV ; Start 10/24/18 at 08:00; Stop 10/24/18 at 17:59; Status Cancel Amino Ac/Electrol/ Dextrose/Calcium 2,000 ml @ 50 mls/hr ONCE@1800 IV Last administered on 11/12/18at 18:00; Start 11/12/18 at 18:00; Stop 11/13/18 at 17:59; Status DC Amino Ac/Electrol/ Dextrose/Calcium 2,000 ml @ 50 mls/hr ONCE@1800 IV Last administered on 11/15/18at 18:15; Start 11/15/18 at 18:00; Stop 11/16/18 at 17:59; Status DC Amino Ac/Electrol/ Dextrose/Calcium 2,000 ml @ 50 mls/hr ONCE@1800 IV Last administered on 11/17/18at 19:40; Start 11/17/18 at 18:00; Stop 11/18/18 at 17:59; Status DC Amino Ac/Electrol/ Dextrose/Calcium 2,000 ml @ 50 mls/hr ONCE@1800 IV Last administered on 11/19/18at 18:23; Start 11/19/18 at 18:00; Stop 11/20/18 at 17:59; Status DC Amino Ac/Electrol/ Dextrose/Calcium 2,000 ml @ 50 mls/hr ONCE@1800 IV Last administered on 11/20/18at 18:01; Start 11/20/18 at 18:00; Stop 11/21/18 at 17:59 Amino Ac/Electrol/ Dextrose/Calcium 2,000 ml @ 50 mls/hr ONCE@1800 IV Last administered on 11/04/18at 17:44; Start 11/04/18 at 18:00; Stop 11/05/18 at 17:59; Status DC Amino Ac/Electrol/ Dextrose/Calcium 2,000 ml @ 75 mls/hr ONCE@1800 IV Last administered on 10/23/18at 18:01; Start 10/23/18 at 18:00; Stop 10/24/18 at 07:39; Status DC Amino Ac/Electrol/ Dextrose/Calcium 2,000 ml @ 75 mls/hr ONCE@1800 IV Last administered on 10/27/18at 18:11; Start 10/27/18 at 18:00; Stop 10/28/18 at 17:59; Status DC Amino Ac/Electrol/ Dextrose/Calcium 2,000 ml @ 75 mls/hr ONCE@1800 IV Last administered on 10/28/18at 18:37; Start 10/28/18 at 18:00; Stop 10/29/18 at 17:59; Status DC Amino Ac/Electrol/ Dextrose/Calcium 2,000 ml @ 75 mls/hr ONCE@1800 IV Last administered on 10/29/18at 20:15; Start 10/29/18 at 18:00; Stop 10/30/18 at 17:59; Status DC Amino Ac/Electrol/ Dextrose/Calcium 2,000 ml @ 75 mls/hr ONCE@1800 IV Last administered on 10/30/18at 17:23; Start 10/30/18 at 18:00; Stop 10/31/18 at 17:59; Status DC Amlodipine Besylate (Norvasc) 5 mg DAILY PO ; Start 10/22/18 at 09:00; Stop 10/22/18 at 09:00; Status DC Amlodipine Besylate (Norvasc) 5 mg DAILY PO Last administered on 11/20/18at 08:22; Start 10/22/18 at 09:00 Amlodipine Besylate (Norvasc) 10 mg DAILY PO ; Start 10/22/18 at 09:00; Stop 10/22/18 at 09:00; Status DC Artificial Tears (Akwa Tears) 2 drop QIDP PRN OU DRY EYES Last administered on 11/14/18at 21:18; Start 11/14/18 at 10:45 Aspirin (Aspirin Chewable) 81 mg DAILY NG Last administered on 11/20/18at 08:24; Start 10/19/18 at 09:00 Aspirin (Ecotrin) 81 mg DAILY PO ; Start 10/18/18 at 09:00; Stop 10/18/18 at 17:15; Status DC Benztropine Mesylate (Cogentin) 1 mg BID PO Last administered on 11/08/18at 21:15; Start 10/26/18 at 09:00; Stop 11/08/18 at 21:24; Status DC Benztropine Mesylate (Cogentin) 1 mg DAILY PO Last administered on 11/10/18at 09:41; Start 11/09/18 at 09:00; Stop 11/10/18 at 20:06; Status DC Bisacodyl (Dulcolax Suppository) 10 mg Q24HP PRN [place] CONSTIPATION; Start 10/28/18 at 09:45; Stop 11/12/18 at 09:39; Status DC Ciprofloxacin 400 mg/IV Miscellaneous Supplies 200 ml @ 200 mls/hr Q12H IV Last administered on 10/25/18at 01:22; Start 10/18/18 at 13:00; Stop 10/25/18 at 07:46; Status DC Dextrose (Dextrose 50%) 25 ml ASDIRECTED PRN IV SEE LABEL COMMENTS; Start 10/26/18 at 07:30; Stop 11/12/18 at 09:39; Status DC Dextrose/Sodium Chloride 1,000 ml @ 100 mls/hr Q10H IV Last administered on 10/27/18at 03:05; Start 10/26/18 at 16:53; Stop 10/27/18 at 07:45; Status DC Diatrizoate Meglum/ Diatrizoate Sod (Gastrografin) 10 ml Q30M PO Last administered on 10/17/18at 23:25; Start 10/17/18 at 22:55; Stop 10/17/18 at 23:26; Status DC Diatrizoate Meglum/ Diatrizoate Sod (Gastrografin) 10 ml Q30M PO Last administered on 10/26/18at 10:22; Start 10/26/18 at 09:30; Stop 10/26/18 at 10:01; Status DC Diatrizoate Meglum/ Diatrizoate Sod (Gastrografin) 10 ml Q30M PO Last administered on 11/05/18at 09:03; Start 11/05/18 at 08:35; Stop 11/05/18 at 09:06; Status DC Diphenhydramine HCl (Benadryl) 12.5 mg Q4HP PRN IV ITCHING Last administered on 11/08/18at 21:14; Start 10/18/18 at 05:45; Stop 11/08/18 at 21:24; Status DC Diphenhydramine HCl (Benadryl) 50 mg Q12HP PRN PO ITCHING Last administered on 11/18/18at 21:21; Start 11/10/18 at 23:00 Diphenhydramine HCl (Benadryl) 50 mg STAT STAT IV Last administered on at 22:32; Start 10/17/18 at 22:16; Stop 10/17/18 at 22:18; Status DC Enoxaparin Sodium (Lovenox) 70 mg Q12H SC Last administered on 11/05/18at 21:42; Start 11/01/18 at 21:00; Stop 11/06/18 at 07:49; Status DC Fat Emulsion Intravenous 500 ml @ 20 mls/hr ONCE@1800 IV Last administered on 10/23/18at 18:01; Start 10/23/18 at 18:00; Stop 10/24/18 at 17:59; Status DC Fat Emulsion Intravenous 500 ml @ 20 mls/hr ONCE@1800 IV Last administered on 10/24/18at 17:54; Start 10/24/18 at 18:00; Stop 10/25/18 at 16:58; Status DC Fat Emulsion Intravenous 500 ml @ 20 mls/hr ONCE@1800 IV Last administered on 10/27/18at 18:12; Start 10/27/18 at 18:00; Stop 10/28/18 at 17:59; Status DC Fat Emulsion Intravenous 500 ml @ 20 mls/hr ONCE@1800 IV Last administered on 10/28/18at 18:37; Start 10/28/18 at 18:00; Stop 10/29/18 at 17:59; Status DC Fat Emulsion Intravenous 500 ml @ 20 mls/hr ONCE@1800 IV Last administered on 11/06/18at 18:00; Start 11/06/18 at 18:00; Stop 11/07/18 at 17:59; Status DC Fat Emulsion Intravenous 500 ml @ 20 mls/hr ONCE@1800 IV Last administered on 11/07/18at 18:00; Start 11/07/18 at 18:00; Stop 11/08/18 at 17:59; Status DC Fat Emulsion Intravenous 500 ml @ 20 mls/hr ONCE@1800 IV Last administered on 11/08/18at 17:50; Start 11/08/18 at 18:00; Stop 11/09/18 at 17:59; Status DC Fat Emulsion Intravenous 500 ml @ 20 mls/hr ONCE@1800 IV Last administered on 11/09/18at 18:01; Start 11/09/18 at 18:00; Stop 11/10/18 at 17:59; Status DC Fat Emulsion Intravenous 500 ml @ 20 mls/hr ONCE@1800 IV Last administered on 11/10/18at 18:16; Start 11/10/18 at 18:00; Stop 11/11/18 at 17:59; Status DC Fat Emulsion Intravenous 500 ml @ 20 mls/hr ONCE@1800 IV Last administered on 11/11/18at 17:30; Start 11/11/18 at 18:00; Stop 11/12/18 at 17:59; Status DC Fat Emulsion Intravenous 500 ml @ 20 mls/hr ONCE@1800 IV Last administered on 11/12/18at 18:00; Start 11/12/18 at 18:00; Stop 11/13/18 at 17:59; Status DC Fat Emulsion Intravenous 500 ml @ 20 mls/hr ONCE@1800 IV Last administered on 11/13/18at 17:28; Start 11/13/18 at 18:00; Stop 11/14/18 at 17:59; Status DC Fat Emulsion Intravenous 500 ml @ 20 mls/hr ONCE@1800 IV Last administered on 11/14/18at 18:05; Start 11/14/18 at 18:00; Stop 11/15/18 at 17:59; Status DC Fat Emulsion Intravenous 500 ml @ 20 mls/hr ONCE@1800 IV Last administered on 11/15/18at 18:16; Start 11/15/18 at 18:00; Stop 11/16/18 at 17:59; Status DC Fat Emulsion Intravenous 500 ml @ 20 mls/hr ONCE@1800 IV Last administered on 10/29/18at 20:15; Start 10/29/18 at 18:00; Stop 10/30/18 at 17:59; Status DC Fat Emulsion Intravenous 500 ml @ 20 mls/hr ONCE@1800 IV Last administered on 11/16/18at 17:52; Start 11/16/18 at 18:00; Stop 11/17/18 at 17:59; Status DC Fat Emulsion Intravenous 500 ml @ 20 mls/hr ONCE@1800 IV Last administered on 11/17/18at 19:40; Start 11/17/18 at 18:00; Stop 11/18/18 at 17:59; Status DC Fat Emulsion Intravenous 500 ml @ 20 mls/hr ONCE@1800 IV Last administered on 11/18/18at 18:27; Start 11/18/18 at 18:00; Stop 11/19/18 at 17:59; Status DC Fat Emulsion Intravenous 500 ml @ 20 mls/hr ONCE@1800 IV Last administered on 11/19/18 18:23; Start 11/19/18 at 18:00; Stop 11/20/18 at 17:59; Status DC Fat Emulsion Intravenous 500 ml @ 20 mls/hr ONCE@1800 IV Last administered on 11/20/18at 18:01; Start 11/20/18 at 18:00; Stop 11/21/18 at 17:59 Fat Emulsion Intravenous 500 ml @ 20 mls/hr ONCE@1800 IV Last administered on 10/30/18at 17:23; Start 10/30/18 at 18:00; Stop 10/31/18 at 17:59; Status DC Fat Emulsion Intravenous 500 ml @ 20 mls/hr ONCE@1800 IV Last administered on 10/31/18at 18:08; Start 10/31/18 at 18:00; Stop 11/01/18 at 17:59; Status DC Fat Emulsion Intravenous 500 ml @ 20 mls/hr ONCE@1800 IV Last administered on 11/01/18at 18:40; Start 11/01/18 at 18:00; Stop 11/02/18 at 17:59; Status DC Fat Emulsion Intravenous 500 ml @ 20 mls/hr ONCE@1800 IV Last administered on 11/02/18at 17:46; Start 11/02/18 at 18:00; Stop 11/03/18 at 17:59; Status DC Fat Emulsion Intravenous 500 ml @ 20 mls/hr ONCE@1800 IV Last administered on 11/03/18at 18:03; Start 11/03/18 at 18:00; Stop 11/04/18 at 17:59; Status DC Fat Emulsion Intravenous 500 ml @ 20 mls/hr ONCE@1800 IV Last administered on 11/04/18at 17:44; Start 11/04/18 at 18:00; Stop 11/05/18 at 17:59; Status DC Fat Emulsion Intravenous 500 ml @ 20 mls/hr ONCE@1800 IV Last administered on 11/05/18at 18:19; Start 11/05/18 at 18:00; Stop 11/06/18 at 17:59; Status DC Fentanyl Citrate (Sublimaze) 25 mcg Q5MP PRN IV MODERATE PAIN (PS 4-7) Last administered on 10/18/18at 06:05; Start 10/18/18 at 06:00; Stop 10/18/18 at 06:22; Status DC Fluconazole (Diflucan) 400 mg DAILY PO Last administered on 11/20/18at 08:22; Start 10/31/18 at 14:45 Fluconazole 400 mg/IV Miscellaneous Supplies 200 ml @ 100 mls/hr Q24H IV Last administered on 10/30/18at 16:09; Start 10/27/18 at 16:00; Stop 10/31/18 at 14:47; Status DC Furosemide (LASIX injection) 40 mg Q8H IV Last administered on 10/22/18at 07:30; Start 10/21/18 at 14:00; Stop 10/22/18 at 12:40; Status DC Glucagon (Glucagon) 1 mg ASDIRECTED PRN SC SEE LABEL COMMENTS; Start 10/26/18 at 07:30; Stop 11/12/18 at 09:39; Status DC Glucose (Glucose) 16 GM ASDIRECTED PRN PO SEE LABEL COMMENTS; Start 10/26/18 at 07:30; Stop 11/12/18 at 09:39; Status DC Haloperidol (Haldol) 0.5 mg Q6HP PRN IV AGITATION; Start 11/08/18 at 21:30; Stop 11/12/18 at 16:12; Status DC Haloperidol (Haldol) 2.5 mg STAT STAT IV ; Start 10/17/18 at 22:16; Stop 10/17/18 at 22:18; Status DC Haloperidol (Haldol) 5 mg TID PO ; Start 10/26/18 at 09:00; Stop 10/29/18 at 09:28; Status DC Heparin Sodium (Heparin (Flush)) 200 units ASDIRECTED PRN IV SEE LABEL COMMENTS Last administered on 11/17/18at 23:25; Start 10/20/18 at 15:30 Heparin Sodium (Heparin (Flush)) 200 units PICC IV Last administered on 11/20/18at 18:00; Start 10/20/18 at 18:00 Heparin Sodium (Porcine) (Heparin) ASDIRECTED PRN IV SEE LABEL COMMENTS; Start 10/19/18 at 12:00; Status Cancel Heparin Sodium (Porcine) (Heparin) ASDIRECTED PRN IV SEE LABEL COMMENTS Last administered on 10/29/18at 15:18; Start 10/19/18 at 14:45; Stop 11/01/18 at 12:26; Status DC Heparin Sodium (Porcine) 04708 units/IV Miscellaneous Supplies 250 ml @ 0 mls/hr Q0M IV ; Start 10/19/18 at 11:56; Status Cancel Heparin Sodium (Porcine) 69014 units/IV Miscellaneous Supplies 250 ml @ 5 mls/hr Q24H IV Last administered on 10/31/18at 22:07; Start 10/19/18 at 14:38; Stop 11/01/18 at 12:26; Status DC Home Med (Med Rec Complete!) ASDIRECTED XX ; Start 10/18/18 at 02:45; Stop 10/18/18 at 02:56; Status DC Hydralazine HCl (Apresoline) 10 mg Q8H PO Last administered on 10/21/18at 13:42; Start 10/21/18 at 06:00; Stop 10/21/18 at 20:39; Status DC Hydralazine HCl (Apresoline) 25 mg Q8H PO Last administered on 10/22/18at 05:07; Start 10/21/18 at 22:00; Stop 10/22/18 at 07:35; Status DC Insulin Detemir (Levemir Insulin) 5 units QHS SC Last administered on 10/27/18at 20:23; Start 10/26/18 at 22:13; Stop 10/28/18 at 07:03; Status DC Insulin Detemir (Levemir Insulin) 8 units QHS SC Last administered on 11/19/18at 20:34; Start 10/28/18 at 21:00 Insulin Detemir (Levemir Insulin) 10 units QAM SC Last administered on 11/20/18at 08:25; Start 10/24/18 at 14:00 Insulin Human Lispro (HumaLOG INSULIN) SEE PROTOCOL TABLE AC SC Last administered on 10/26/18at 13:07; Start 10/26/18 at 12:00; Stop 10/26/18 at 22:09; Status DC Insulin Human Lispro (HumaLOG INSULIN) SEE PROTOCOL TABLE Q6H SC Last administered on 10/21/18at 06:45; Start 10/18/18 at 06:00; Stop 10/21/18 at 07:49; Status DC Insulin Human Lispro (HumaLOG INSULIN) SEE PROTOCOL TABLE Q6H SC Last administered on 10/24/18at 06:00; Start 10/21/18 at 12:00; Stop 10/24/18 at 08:03; Status DC Insulin Human Lispro (HumaLOG INSULIN) SEE PROTOCOL TABLE Q6H SC Last administered on 10/26/18at 05:43; Start 10/24/18 at 12:00; Stop 10/26/18 at 07:27; Status DC Insulin Human Lispro (HumaLOG INSULIN) SEE PROTOCOL TABLE Q6H SC Last admini stered on 10/31/18at 18:08; Start 10/27/18 at 00:00; Stop 11/01/18 at 00:19; Status DC Insulin Human Lispro (HumaLOG INSULIN) SEE PROTOCOL TABLE QHS SC ; Start 10/26/18 at 21:00; Stop 10/26/18 at 22:09; Status DC Insulin Human Lispro (HumaLOG INSULIN) See Protocol Table Q6H SC Last administered on 11/07/18at 13:58; Start 11/06/18 at 18:00; Stop 11/07/18 at 12:01; Status DC Insulin Human Lispro (HumaLOG INSULIN) See Protocol Table Q6H SC Last administered on 11/09/18at 12:38; Start 11/08/18 at 18:00; Stop 11/09/18 at 12:01; Status DC Insulin Human Lispro (HumaLOG INSULIN) See Protocol Table Q6H SC Last administered on 11/10/18at 12:22; Start 11/09/18 at 18:00; Stop 11/10/18 at 12:01; Status DC Insulin Human Lispro (HumaLOG INSULIN) See Protocol Table Q6H SC Last administered on 11/11/18at 11:45; Start 11/10/18 at 18:00; Stop 11/11/18 at 12:01; Status DC Insulin Human Lispro (HumaLOG INSULIN) See Protocol Table Q6H SC Last administered on 11/12/18at 15:23; Start 11/11/18 at 18:00; Stop 11/12/18 at 16:00; Status DC Insulin Human Lispro (HumaLOG INSULIN) See Protocol Table Q6H SC Last administered on 11/13/18at 12:31; Start 11/12/18 at 18:00; Stop 11/13/18 at 12:01; Status DC Insulin Human Lispro (HumaLOG INSULIN) See Protocol Table Q6H SC Last administered on 11/14/18at 11:59; Start 11/13/18 at 18:00; Stop 11/14/18 at 12:01; Status DC Insulin Human Lispro (HumaLOG INSULIN) See Protocol Table Q6H SC Last administered on 11/15/18at 12:09; Start 11/14/18 at 18:00; Stop 11/15/18 at 12:01; Status DC Insulin Human Lispro (HumaLOG INSULIN) See Protocol Table Q6H SC Last admin istered on 11/16/18at 11:51; Start 11/15/18 at 18:00; Stop 11/16/18 at 12:01; Status DC Insulin Human Lispro (HumaLOG INSULIN) See Protocol Table Q6H SC Last administered on 11/17/18at 11:42; Start 11/16/18 at 18:00; Stop 11/17/18 at 12:01; Status DC Insulin Human Lispro (HumaLOG INSULIN) See Protocol Table Q6H SC Last administered on 11/18/18at 12:22; Start 11/17/18 at 18:00; Stop 11/18/18 at 12 :01; Status DC Insulin Human Lispro (HumaLOG INSULIN) See Protocol Table Q6H SC Last administered on 11/19/18at 12:30; Start 11/18/18 at 18:00; Stop 11/19/18 at 12:01; Status DC Insulin Human Lispro (HumaLOG INSULIN) See Protocol Table Q6H SC Last administered on 11/20/18at 12:07; Start 11/19/18 at 18:00; Stop 11/20/18 at 12:01; Status DC Insulin Human Lispro (HumaLOG INSULIN) See Protocol Table Q6H SC Last administered on 11/20/18at 18:01; Start 11/20/18 at 18:00; Stop 11/21/18 at 12:01 Insulin Human Lispro (HumaLOG INSULIN) See Protocol Table Q6H SC ; Start 10/30/18 at 18:00; Stop 10/30/18 at 18:00; Status DC Insulin Human Lispro (HumaLOG INSULIN) See Protocol Table Q6H SC Last administ ered on 11/01/18at 12:37; Start 10/31/18 at 18:00; Stop 11/01/18 at 12:01; Status DC Insulin Human Lispro (HumaLOG INSULIN) See Protocol Table Q6H SC Last administered on 11/02/18at 12:19; Start 11/01/18 at 18:00; Stop 11/02/18 at 12:01; Status DC Insulin Human Lispro (HumaLOG INSULIN) See Protocol Table Q6H SC Last administered on 11/03/18at 12:43; Start 11/02/18 at 18:00; Stop 11/03/18 at 12:01; Status DC Insulin Human Lispro (HumaLOG INSULIN) See Protocol Table Q6H SC Last administered on 11/04/18at 12:51; Start 11/03/18 at 18:00; Stop 11/04/18 at 12:01; Status DC Insulin Human Lispro (HumaLOG INSULIN) See Protocol Table Q6H SC Last administered on 11/05/18at 12:26; Start 11/04/18 at 18:00; Stop 11/05/18 at 12:01; Status DC Insulin Human Lispro (HumaLOG INSULIN) See Protocol Table Q6H SC Last adm inistered on 11/06/18at 12:41; Start 11/05/18 at 18:00; Stop 11/06/18 at 12:01; Status DC Insulin Human Regular 17 units/ Amino Ac/Electrol/ Dextrose/Calcium 2,000.17 ml @ 50 mls/hr ONCE@1800 IV Last administered on 11/06/18at 18:00; Start 11/06/18 at 18:00; Stop 11/07/18 at 17:59; Status DC Insulin Human Regular 17 units/ Amino Ac/Electrol/ Dextrose/Calcium 2,000.17 ml @ 50 mls/hr ONCE@1800 IV Last administered on 11/08/18at 17:51; Start 11/08/18 at 18:00; Stop 11/09/18 at 17:59; Status DC Insulin Human Regular 17 units/ Amino Ac/Electrol/ Dextrose/Calcium 2,000.17 ml @ 50 mls/hr ONCE@1800 IV Last administered on 11/10/18at 18:00; Start 11/10/18 at 18:00; Stop 11/11/18 at 17:59; Status DC Insulin Human Regular 17 units/ Amino Ac/Electrol/ Dextrose/Calcium 2,000.17 ml @ 50 mls/hr ONCE@1800 IV Last administered on 11/01/18at 18:39; Start 11/01/18 at 18:00; Stop 11/02/18 at 17:59; Status DC Insulin Human Regular 17 units/ Amino Ac/Electrol/ Dextrose/Calcium 2,000.17 ml @ 50 mls/hr ONCE@1800 IV Last administered on 11/03/18at 20:27; Start 11/03/18 at 18:00; Stop 11/04/18 at 17:59; Status DC Insulin Human Regular 17 units/ Amino Ac/Electrol/ Dextrose/Calcium 2,000.17 ml @ 50 mls/hr ONCE@1800 IV Last administered on 11/05/18at 18:19; Start 11/05/18 at 18:00; Stop 11/06/18 at 17:59; Status DC Ketorolac Tromethamine (ToRADol) 30 mg Q6H IV Last administered on 10/19/18at 09:00; Start 10/18/18 at 08:00; Stop 10/19/18 at 11:18; Status DC Labetalol HCl (Normodyne, Trandate) 10 mg STAT STAT IV Last administered on 10/21/18at 05:44; Start 10/21/18 at 05:35; Stop 10/21/18 at 05:37; Status DC Labetalol HCl (Normodyne, Trandate) 50 mg BID PO Last administered on 11/20/18at 08:24; Start 11/18/18 at 21:00 Labetalol HCl (Normodyne, Trandate) 100 mg BID PO Last administered on at 08:54; Start 10/21/18 at 21:00; Stop 11/18/18 at 14:10; Status DC Lactated Ringer's 1,000 ml @ 80 mls/hr [id number] IV ; Start 10/18/18 at 06:00; Stop 10/18/18 at 07:30; Status DC Lactobacillus Acidophilus (Bacid) 1 ea WM PO Last administered on 11/20/18at 17:59; Start 10/25/18 at 12:30 Linezolid (Zyvox) 600 mg BID PO Last administered on 11/17/18at 22:16; Start 11/12/18 at 09:00; Stop 11/18/18 at 07:35; Status DC Magnesium Sulfate/ Dextrose 1 gm/IV Miscellaneous Supplies 100 ml @ 100 mls/hr Q1H IV Last administered on 10/23/18at 10:46; Start 10/23/18 at 08:00; Stop 10/23/18 at 09:59; Status DC Meropenem 1 gm/IV Miscellaneous Supplies 50 ml @ 100 mls/hr Q8H IV Last administered on 11/18/18at 05:15; Start 10/26/18 at 14:00; Stop 11/18/18 at 07:35; Status DC Metoclopramide HCl (REGLAN INJection) 10 mg Q6HP PRN IV NAUSEA OR VOMITING Last administered on 11/07/18at 22:41; Start 10/18/18 at 05:45; Stop 11/12/18 at 16:12; Status DC Metronidazole 500 mg/IV Miscellaneous Supplies 100 ml @ 100 mls/hr Q8H IV Last administered on 10/25/18at 02:42; Start 10/18/18 at 10:00; Stop 10/25/18 at 07:46; Status DC Miscellaneous (Unresolved Clarification Entry) SEE LABEL COMMENTS DAILY XX ; Start 10/25/18 at 09:00; Stop 10/25/18 at 16:48; Status DC Miscellaneous (Unresolved Clarification Entry) SEE LABEL COMMENTS DAILY XX ; Start 11/06/18 at 09:00; Stop 11/06/18 at 10:05; Status DC Miscellaneous (Unresolved Clarification Entry) SEE LABEL COMMENTS DAILY XX Last administered on 11/12/18at 19:44; Start 11/12/18 at 09:00; Stop 11/13/18 at 10:26; Status DC Miscellaneous (Unresolved Clarification Entry) SEE LABEL COMMENTS DAILY XX Last administered on 11/20/18at 09:00; Start 11/20/18 at 09:00; Stop 11/20/18 at 11:17; Status DC Morphine Sulfate (Morphine Sulfate In 0.9%Nacl Iv Bag) Concentration 1 mg/ml ASDIRECTED PRN IV SEE LABEL COMMENTS Last administered on 10/19/18at 10:54; Start 10/18/18 at 05:45; Stop 10/19/18 at 15:16; Status DC Morphine Sulfate (Morphine Sulfate Inj) 2 mg Q2HP PRN IV MODERATE PAIN (PS 5-7) Last administered on 11/17/18at 02:56; Start 10/20/18 at 21:15; Stop 11/18/18 at 07:35; Status DC Morphine Sulfate (Morphine Sulfate Inj) 2 mg Q4HP PRN IV MODERATE PAIN (PS 5-7) Last administered on 11/19/18at 11:39; Start 11/18/18 at 07:45 Morphine Sulfate (Morphine Sulfate Inj) 2 mg Q5M PRN IV MODERATE/SEVERE PAIN (PS 5-10) Last administered on 10/18/18at 06:36; Start 10/18/18 at 06:00; Stop 10/18/18 at 07:30; Status DC Morphine Sulfate (Morphine Sulfate Inj) 4 mg Q2HP PRN IV SEVERE PAIN (PS 8-10) Last administered on 11/03/18at 20:26; Start 10/19/18 at 15:15; Stop 11/04/18 at 15:36; Status DC Multivitamins 10 ml/Chromium/ Copper/Manganese/ Seleni/Zn 1 ml/ Amino Ac/Electrol/ Dextrose/Calcium 2,011 ml @ 50 mls/hr ONCE@1800 IV Last administered on 11/13/18at 17:28; Start 11/13/18 at 18:00; Stop 11/14/18 at 17:59; Status DC Multivitamins 10 ml/Chromium/ Copper/Manganese/ Seleni/Zn 1 ml/ Amino Ac/Electrol/ Dextrose/Calcium 2,011 ml @ 50 mls/hr ONCE@1800 IV Last administered on 11/14/18at 18:05; Start 11/14/18 at 18:00; Stop 11/15/18 at 17:59; Status DC Multivitamins 10 ml/Chromium/ Copper/Manganese/ Seleni/Zn 1 ml/ Amino Ac/Electrol/ Dextrose/Calcium 2,011 ml @ 50 mls/hr ONCE@1800 IV Last administered on 11/16/18at 17:52; Start 11/16/18 at 18:00; Stop 11/17/18 at 17:59; Status DC Multivitamins 10 ml/Chromium/ Copper/Manganese/ Seleni/Zn 1 ml/ Amino Ac/Electrol/ Dextrose/Calcium 2,011 ml @ 50 mls/hr ONCE@1800 IV Last administered on 11/18/18at 18:27; Start 11/18/18 at 18:00; Stop 11/19/18 at 17:59; Status DC Multivitamins 10 ml/Chromium/ Copper/Manganese/ Seleni/Zn 1 ml/ Amino Ac/Electrol/ Dextrose/Calcium 2,011 ml @ 75 mls/hr ONCE@1800 IV Last administered on 10/24/18at 17:54; Start 10/24/18 at 18:00; Stop 10/25/18 at 16:5 8; Status DC Multivitamins 10 ml/Chromium/ Copper/Manganese/ Seleni/Zn 1 ml/ Insulin Human Regular 10 units/ Amino Ac/Electrol/ Dextrose/Calcium 2,011.1 ml @ 50 mls/hr ONCE@1800 IV ; Start 11/11/18 at 18:00; Stop 11/12/18 at 17:59; Status Cancel Multivitamins 10 ml/Chromium/ Copper/Manganese/ Seleni/Zn 1 ml/ Insulin Human Regular 16.7 units/Amino Ac/ Electrol/Dextrose/ Calcium 2,011.167 ml @ 50 mls/hr ONCE@1800 IV Last administered on 10/31/18at 18:09; Start 10/31/18 at 18:00; Stop 11/01/18 at 17:59; Status DC Multivitamins 10 ml/Chromium/ Copper/Manganese/ Seleni/Zn 1 ml/ Insulin Human Regular 17 units/ Amino Ac/Electrol/ Dextrose/Calcium 2,011.17 ml @ 50 mls/hr ONCE@1800 IV Last administered on 11/07/18at 18:00; Start 11/07/18 at 18:00; Stop 11/08/18 at 17:59; Status DC Multivitamins 10 ml/Chromium/ Copper/Manganese/ Seleni/Zn 1 ml/ Insulin Human Regular 17 units/ Amino Ac/Electrol/ Dextrose/Calcium 2,011.17 ml @ 50 mls/hr ONCE@1800 IV Last administered on 11/09/18at 18:03; Start 11/09/18 at 18:00; Stop 11/10/18 at 17:59; Status DC Multivitamins 10 ml/Chromium/ Copper/Manganese/ Seleni/Zn 1 ml/ Insulin Human Regular 17 units/ Amino Ac/Electrol/ Dextrose/Calcium 2,011.17 ml @ 50 mls/hr ONCE@1800 IV Last administered on 11/11/18at 17:30; Start 11/11/18 at 18:00; Stop 11/12/18 at 17:59; Status DC Multivitamins 10 ml/Chromium/ Copper/Manganese/ Seleni/Zn 1 ml/ Insulin Human Regular 17 units/ Amino Ac/Electrol/ Dextrose/Calcium 2,011.17 ml @ 50 mls/hr ONCE@1800 IV Last administered on 11/02/18at 17:47; Start 11/02/18 at 18:00; Stop 11/03/18 at 17:59; Status DC Nalbuphine HCl (Nubain) 2.5 mg Q6HP PRN IV PRURITIS; Start 10/18/18 at 05:45; Stop 10/19/18 at 15:16; Status DC Naloxone HCl (Narcan) 0.1 mg Q5MP PRN IV SEE LABEL COMMENTS; Start 10/18/18 at 05:45; Stop 10/19/18 at 15:16; Status DC Nicotine (Nicoderm Cq 14mg) 1 patch DAILY TD Last administered on 10/21/18at 08:09; Start 10/20/18 at 22:30; Stop 10/22/18 at 23:36; Status DC Non-Formulary Medication (Epidural/STENCIL TYPIST [place]) USE THIS ENTRY TO VEND ... Q1M PRN XX SEE LABEL COMMENTS; Start 10/18/18 at 05:45; Stop 10/19/18 at 15:16; Status DC Non-Formulary Medication (Heparin Iv Rate Change Documentation ml/ Hr) ASDIRECTED XX ; Start 10/19/18 at 12:00; Stop 10/24/18 at 11:59; Status Cancel Non-Formulary Medication (Heparin Iv Rate Change Documentation ml/ Hr) ASDIRECTED XX Last administered on 10/20/18at 11:34; Start 10/19/18 at 14:45; Stop 10/24/18 at 14:44; Status DC Non-Formulary Medication (Heparin Iv Rate Change Documentation ml/ Hr) ASDIRECTED XX Last administered on 10/29/18at 15:23; Start 10/29/18 at 15:30; Stop 11/01/18 at 12:26; Status DC Octreotide Acetate (SandoSTATIN) 100 mcg Q8H IV Last administered on 11/02/18at 02:17; Start 10/26/18 at 18:00; Stop 11/02/18 at 08:36; Status DC Ondansetron HCl (ZOFRAN INJection) 4 mg Q4HP PRN IV NAUSEA OR VOMITING Last administered on 10/18/18at 06:25; Start 10/18/18 at 06:00; Stop 10/18/18 at 07:30; Status DC Ondansetron HCl (ZOFRAN INJection) 4 mg Q6HP PRN IV NAUSEA OR VOMITING Last administered on 11/13/18at 05:16; Start 10/18/18 at 05:45 Oxycodone/ Acetaminophen (Percocet 5mg/ 325mg Tablet) 1 tab Q4HP PRN PO MILD/MODERATE PAIN (PS 1-7) Last administered on 11/18/18at 18:27; Start 11/14/18 at 15:15 Oxycodone/ Acetaminophen (Percocet 5mg/ 325mg Tablet) 2 tab Q4HP PRN PO SEVERE PAIN (PS 8-10) Last administered on 11/20/18at 17:59; Start 10/25/18 at 14:45 Pantoprazole Sodium (Protonix) 40 mg DAILY IV Last administered on 11/13/18at 08:15; Start 10/18/18 at 09:00; Stop 11/13/18 at 13:27; Status DC Pantoprazole Sodium (Protonix) 40 mg DAILY PO Last administered on 11/20/18at 08:22; Start 11/14/18 at 09:00 Phenol (Chloraseptic [place]) 1 spray Q2HP PRN MT SORE THROAT Last administered on 10/22/18at 11:41; Start 10/20/18 at 08:30; Stop 11/12/18 at 16:12; Status DC Potassium Chloride 10 meq/ IV Miscellaneous Supplies 100 ml @ 100 mls/hr 0000,2200,2300 IV Last administered on 10/25/18at 23:40; Start 10/25/18 at 22:00; Stop 10/26/18 at 00:59; Status DC Potassium Chloride 10 meq/ IV Miscellaneous Supplies 100 ml @ 100 mls/hr 0600,0700,0800,0900 IV Last administered on 10/24/18at 10:54; Start 10/24/18 at 06:00; Stop 10/24/18 at 12:00; Status DC Potassium Chloride 10 meq/ IV Miscellaneous Supplies 100 ml @ 100 mls/hr Q1H IV Last administered on 10/29/18at 23:39; Start 10/29/18 at 15:00; Stop 10/29/18 at 17:59; Status DC Potassium Chloride/Dextrose/ Sod Cl 1,000 ml @ 100 mls/hr Q10H IV Last administered on 10/27/18at 08:35; Start 10/27/18 at 08:00; Stop 10/27/18 at 18:51; Status DC Pravastatin Sodium (Pravachol) 40 mg QHS PO Last administered on 11/19/18at 20:33; Start 11/08/18 at 21:00 Promethazine HCl (PHENERGAN INJection) 12.5 mg Q6HP PRN IV NAUSEA Last administered on 10/26/18at 21:43; Start 10/18/18 at 05:45; Stop 11/12/18 at 16:12; Status DC Sodium Bicarbonate 50 meq/Sodium Chloride 1,050 ml @ 40 mls/hr Q24H IV Last administered on 10/20/18at 15:26; Start 10/20/18 at 14:00; Stop 10/21/18 at 13:10; Status DC Sodium Chloride 1,000 ml @ 15 mls/hr Q24H IV ; Start 10/18/18 at 05:36; Stop 10/18/18 at 06:01; Status DC Sodium Chloride 1,000 ml @ 120 mls/hr Q8H20M IV Last administered on 10/20/18at 03:53; Start 10/18/18 at 05:36; Stop 10/20/18 at 12:23; Status DC Sodium Chloride 1,000 ml @ 250 mls/hr Q4H IV Last administered on 10/18/18at 17:35; Start 10/18/18 at 17:00; Stop 10/18/18 at 20:59; Status DC Sodium Chloride ([place] Fl[place]) 10 ML PICC IV Last administered on 11/20/18at 18:00; Start 10/20/18 at 18:00 Sodium Chloride (Sal[place] Flush) 10ML ASDIRECTED PRN IV SEE LABEL COMMENTS Last administered on 11/17/18at 23:25; Start 10/20/18 at 15:30 Vancomycin HCl 1000 mg/IV Miscellaneous Supplies 1 each/ Dextrose 270 ml @ 270 mls/hr Q8H IV Last administered on 10/19/18at 00:30; Start 10/18/18 at 17:00; Stop 10/19/18 at 11:19; Status DC Warfarin Sodium (Coumadin) 2.5 mg DAILY@17 PO Last administered on 11/10/18at 16:29; Start 11/09/18 at 17:00; Stop 11/11/18 at 07:11; Status DC Warfarin Sodium (Coumadin) 2.5 mg DAILY@17 PO Last administered on 11/20/18at 17:59; Start 11/14/18 at 17:00 Warfarin Sodium (Coumadin) 3 mg DAILY@17 PO Last administered on 11/13/18at 17:21; Start 11/11/18 at 17:00; Stop 11/14/18 at 07:54; Status DC Warfarin Sodium (Coumadin) 5 mg DAILY@17 PO ; Start 11/06/18 at 17:00; Stop 11/06/18 at 17:00; Status DC Warfarin Sodium (Coumadin) 5 mg DAILY@17 PO ; Start 11/07/18 at 17:00; Stop 11/08/18 at 08:48; Status DC Warfarin Sodium (Coumadin) 5 mg DAILY@17 PO Last administered on 11/02/18at 17:48; Start 11/01/18 at 17:00; Stop 11/03/18 at 14:24; Status DC Warfarin Sodium (Coumadin) 7.5 mg DAILY@17 PO Last administered on 11/06/18at 18:30; Start 11/06/18 at 17:00; Stop 11/07/18 at 07:27; Status DC Warfarin Sodium (Coumadin) 7.5 mg DAILY@17 PO Last administered on 11/05/18at 18:17; Start 11/03/18 at 17:00; Stop 11/06/18 at 07:49; Status DC Allergies Coded Allergies: Penicillins (Verified Allergy, Unknown, 01/01/13) Penicillins Cross Reactors (Verified Allergy, Unknown, 01/01/13) Objective Physical Examination Examination GENERAL APPEARANCE: Comfortable. SKIN: Warm and moist. HEENT: Normocephalic, atraumatic. [place] palpebral conjunctiva, anicteric scle tara. Lips and mucosa appear moist. NECK: Supple, no thyromegaly. No obvious jugular venous distention. LUNGS: Clear to auscultation bilaterally. No wheezing appreciated. HEART: Regular heart rate and rhythm. ABDOMEN: Abdomen is soft, mildly distended, mildly tender on palpation but no guarding. There is a small amount of clear drainage from a point around the umbilicus on her incision line. The rest of the incision line is healed EXTREMITIES: Extremities have no deformities. No edema identified. Vital Signs Vital Signs Date Time Temp Pulse Resp B/P (MAP) Pulse Ox O2 Delivery O2 Flow Rate FiO2 11/20/18 18:00 96.5 93 19 118/76 (90) 100 I&Os I&O- Last 24 Hours up to 6 AM 11/20/18 06:00 Intake Total 1870 ml Output Total 850 ml Balance 1020 ml Laboratory Data Labs 24H Laboratory Tests 2 11/19/18 23:47: Bedside Glucose (Misc Panel) 150H 11/20/18 05:42: Nucleated Red Blood Cells % (auto) 0.0, Anion Gap 9, Glomerular Filtration Rate > 60.0, Blood Urea Nitrogen 15, Creatinine 0.55, Sodium Level 136, Potassium Level 3.8, Chloride Level 104, Carbon Dioxide Level 23, Calcium Level 8.4L, Magnesium Level 1.8, C-Reactive Protein, Quantitative 5.09H 11/20/18 05:50: Bedside Glucose (Misc Panel) 199H 11/20/18 11:46: Bedside Glucose (Misc Panel) 190H CBC/BMP Laboratory Tests 11/20/18 05:42 Red Blood Count 3.70 L, Mean Corpuscular Volume 79.2 L, Mean Corpuscular Hemoglobin 25.4 L, Mean Corpuscular Hemoglobin Concent 32.1, Red Cell Distribution Width 18.1 H, Calcium Level 8.4 L Impression Skin he states small bowel with perforation status post exploratory laparotomy, bowel resection. She suspected to may have short bowel syndrome. Malnutrition I cauterized the small pimple like nodularity along the incision line at the umbilicus and hopefully this will resolved that drainage. Otherwise her TPN is continued. I encouraged her to try and eat more and concentrate on taking the ensure. Will get nutrionist consult will check prealbumin in am Plan / VTE VTE Prophylaxis Ordered?: Yes RUTHY OSBORN MD Nov 20, 2018 19:38
[2018-11-20] MEDS: PRAVASTATIN 20 MG TAB PO SCH (21:17)
[2018-11-20] MEDS: MORPHINE 4 MG/ML 1ML VIAL/SYRINGE (J2270) IV PRN (21:26)
[2018-11-20] MEDS: diphenhydrAMINE 50 MG CAP PO PRN (21:26)
[2018-11-21] MEDS: HumaLOG INSULIN (NovoLOG) PER UNIT SC SCH ×3 (00:07→11:54)
[2018-11-21 02:00] VITALS: BP 124/72
[2018-11-21] MEDS: SODIUM CHLORIDE 0.9% INJ 10 ML SYR IV SCH ×2 (05:58→17:32)
[2018-11-21 06:00] VITALS: BP 128/79
[2018-11-21 08:40] LABS: MAGNESIUM LEVEL 1.8 MG/DL (1.8-2.4)
[2018-11-21] MEDS: PANTOPRAZOLE 40MG TAB (PROTONIX) PO SCH (09:15)
[2018-11-21] MEDS: LACTOBACILLUS ACIDOPHILUS CAP (BACID) PO SCH ×3 (09:15→17:30)
[2018-11-21] MEDS: LABETALOL 100 MG TAB PO SCH ×2 (09:15→21:06)
[2018-11-21] MEDS: ASPIRIN 81 MG CHEW TABLET NG SCH (09:15)
[2018-11-21] MEDS: amLODIPine 5 MG TAB PO SCH (09:16)
[2018-11-21] MEDS: FLUCONAZOLE 100 MG TAB PO SCH (09:16)
[2018-11-21] MEDS: LEVEMIR (INSULIN DETEMIR) 1 UNITS/0.01ML SC SCH ×2 (09:17→21:05)
[2018-11-21] MEDS: PERCOCET 5MG/325MG TAB PO PRN ×3 (09:17→22:23)
[2018-11-21 10:00] VITALS: BP 133/61
[2018-11-21 10:15] LABS: PREALBUMIN 31.1 MG/DL (20.0-40.0)
--- NOTE | 2018-11-21 13:16 | IPNPDOC ---
Text Note Date of Service The patient was seen on 11/21/18. NOTE Subjective: No abdominal pain. No nausea or vomiting. No chest pain or shortness of breath. PHYSICAL EXAMINATION: Vitals: (see below) General: No acute distress, laying comfortably in bed. HEENT: Moist mucous membranes. Neck: No JVD or lymphadenopathy Cardiac: RRR, No murmurs Pulm: Diminished breath sounds at the bases. No wheezing, rhonchi. No use of accessory muscles. No conversational dyspnea. Abd:No abd pain. Bandage clean and dry. + BS. No rebound guarding or rigidity. Ext: No edema bilateral lower extremities. No cyanosis Neuro: Strength 5/5 BUE and BLE. CN 2-12 intact. F to N intact Negative pronator drift. AAO x 3 LABORATORY DATA: See below. IMAGING: CT abdomen and pelvis on 10/17/18 IMPRESSION: Bowel perforation. Findings consistent with small bowel perforation with focally absent bowel wall enhancement in one of the jejunal loops. There is inflammation, mural thickening and dilation in adjacent small bowel jejunal loops. This may reflect inflammatory bowel disease. There is some mild adjacent mesenteric adenopathy. Incidental findings include subacute splenic infarction and bilateral principally lower pole cortical scarring affecting the kidneys. Fatty infiltration of the liver is also seen. Chest x-ray on 10/20/18 IMPRESSION: Increased pulmonary opacities bilaterally consistent with atelectasis and/or infiltrates. No evidence of pleural effusion or pulmonary edema. CT abd/pelvis 11/05/18 IMPRESSION: Continued decrease in size of small areas of loculated fluid throughout the mesentery with no new free air, fluid collection, or abscess. MRI brain with and without contrast IMPRESSION: There is minimal enhancement of the right thalamic and left occipital lobe infarctions consistent with late subacute to chronic infarctions. ASSESSMENT/PLAN: 1. Bowel perforation, status post exploratory laparoscopy, with excision of 3/4 of the small bowel. Patient states she feels much better today. Her abdominal pain is better controlled. She was recently admitted to [facility] last month, where she was found to have acute mesenteric ischemia, with extensive large vessel clots, for which the decision was made for conservative measures given her very high risk of further embolization and complications, the patient was anticoagulated with Coumadin. s/p Cipro/Flagyl, on meropenem/fluconazole per infectious disease. S/p linezolid. Management per Dr. Lobo. Morphine/Percocet for pain control. Will likely require intermediate TPN per Surgery. I discussed case with Dr. Matias on 11/18 with recommendations to discontinue meropenem. Continue fluconazole for a total 4-6 weeks. Monitor for fevers/CRP elevation. Defer repeat CAT scans to surgery. 2. 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 The patient was off Coumadin, however on Wednesday she was told that her INR is supratherapeutic and was told to hold it until prior to admission. The exact cause of the patient's hypercoagulable states unknown. Patient was instructed to follow-up with hematology/oncology for further workup. It was noted that the patient's did not have any abscesses signs of malignancy, however CA-125 was mildly elevated and nonspecific [facility]. Her antiphospholipid/cardiolipin AB testing was negative and her CA 199 is negative. Heparin drip transitioned to Lovenox with Coumadin bridge. INR >2. Lovenox d/c. Cont coumadin. 3. s/p Acute on chronic anemia- status post 2 units PRBC on 10/19. Hemoglobin stable. We'll continue to monitor. 4. Metabolic acidosis- Improved. Appreciate nephrology input. s/p 1/2 NS with bicarbonate drip. 5. Oliguria secondary to the above. We'll continue to monitor.s/p albumin infusion Appreciate nephrology input. 6. Lactic acidosis secondary to the above. Improving. 7. Sinus tachycardia likely secondary to the above. Cardiac enzymes negative. Echocardiogram (see above) 8. History of diabetes mellitus on sliding scale insulin 9. Hypertension. controlled. On amlodipine/labetalol. 10. History of migraines stable 11. History of bipolar disorder 12. History of fibromyalgia 13. History of PTSD 14. s/p Volume overload, in the setting of hypoalbuminemia. s/p IV Lasix. Improved. 15. Protein calorie malnutrition- has been on TPN. Diet being advanced by surgery, as tolerated. 16. Hallucinations/ Delirium - resolved. Psychiatry consulted. 17. Subacute CVA - MRI Brain noted. Repeat MRI with/w/o contrast (see above). Neurology consulted. Appreciate input. Continue Coumadin, aspirin, statin. No focal deficits on exam. DVT prophylaxis: Coumadin Overall prognosis guarded. VS,Fishbone, I+O VS, Fishbone, I+O Vital Signs Date Time Temp Pulse Resp B/P (MAP) Pulse Ox O2 Delivery O2 Flow Rate FiO2 11/21/18 10:00 98.6 68 19 133/61 (85) 93 I&O- Last 24 Hours up to 6 AM 11/21/18 06:00 Intake Total 1230 ml Output Total 1675 ml Balance -445 ml NIC OMER MD Nov 21, 2018 13:16
[2018-11-21 14:00] VITALS: BP 114/86
[2018-11-21] MEDS: WARFARIN SOD 2.5 MG TAB PO SCH (17:31)
[2018-11-21 18:00] VITALS: BP 120/65
[2018-11-21] MEDS: PRAVASTATIN 20 MG TAB PO SCH (21:05)
[2018-11-21] MEDS ORDERED: PILL CRUSHER/CUTTER 1 EACH XX PRN (21:30)
[2018-11-21 22:00] VITALS: BP 118/75
[2018-11-21] MEDS: diphenhydrAMINE 50 MG CAP PO PRN (22:22)
[2018-11-22] MEDS ORDERED: DEXTROSE 50% 50 ML SYRINGE IV PRN (00:30)
[2018-11-22] MEDS ORDERED: GLUCOSE 4 GM CHEW TABLET PO PRN (00:30)
[2018-11-22] MEDS ORDERED: GLUCAGON FOR INJ 1 MG VIAL (J1610) SC PRN (00:30)
[2018-11-22 02:00] VITALS: BP 117/75
[2018-11-22] MEDS: SODIUM CHLORIDE 0.9% INJ 10 ML SYR IV SCH ×2 (05:47→17:55)
[2018-11-22 05:48] LABS: HEMATOCRIT 27.6 % (36.0-47.0); HEMOGLOBIN 8.9 g/dl (12.0-15.5); MEAN CORPUSCULAR HEMOGLOBIN 25.2 pg (27.0-33.0); MEAN CORPUSCULAR HGB CONC 32.2 g/dl (32.0-36.5); MEAN CORPUSCULAR VOLUME 78.2 fl (80.0-96.0); PLATELET COUNT, AUTOMATED 378 10^3/uL (150-450); RED BLOOD COUNT 3.53 10^6/uL (4.00-5.40); WHITE BLOOD COUNT 12.9 10^3/uL (4.0-10.0)
[2018-11-22 06:00] VITALS: BP 122/79
[2018-11-22 06:12] LABS: BLOOD UREA NITROGEN 14 MG/DL (7-18); C REACTIVE PROTEIN QUANTITATIV 3.74 MG/DL (0.00-0.30); CARBON DIOXIDE LEVEL 24 MEQ/L (21-32); CHLORIDE LEVEL 105 MEQ/L (98-107); CREATININE FOR GFR 0.63 MG/DL (0.55-1.30); GLOMERULAR FILTRATION RATE > 60.0 (>58); GLUCOSE, FASTING 104 MG/DL (70-100); POTASSIUM SERUM 3.8 MEQ/L (3.5-5.1); SODIUM LEVEL 138 MEQ/L (136-145)
--- NOTE | 2018-11-22 07:19 | IPN ---
DATE: 11/21/2018 Carol seems to be doing better. She is trying to eat but she is mostly still having clear. She also had a banana and some milk. She has nausea whenever she eats. She also complains of decreased taste and therefore nothing seems good to her. White count is 13, hemoglobin 9.4, hematocrit 29.3, platelets 452. Sodium 136, potassium 3.8, chloride 104, bicarbonate 23, BUN 15, creatinine 0.5, glucose 201, calcium 8.4, magnesium 1.8, CRP 5.09, prealbumin 31.1. MEDICATIONS: Fluconazole 400 mg daily. The patient currently on a number 25 of antifungal treatment with fluconazole IV/by mouth, meropenem has been discontinued after 24 days. The patient also received 6 days and was discontinued on 11/18. On physical exam temperature is 98.4, pulse 89, respirations 20, blood pressure 118/75, oxygen sat 99% on room air. Heart: Normal S1-S2 with no murmurs. Lungs are clear. No wheezes, rales or rhonchi. Abdomen is soft, nontender. No visceromegaly. Drain was removed from right lower quadrant drain in the wound is well-healed central. Abdominal wound has healed except for a small midline area measuring about 1 cm that was cauterized. Lower abdominal incision has completely healed. Back: No CVA tenderness. Extremities: No edema. No calf tenderness. No rash, no cyanosis. IMPRESSION: 1. Intra-abdominal infection with abscess status post bowel perforation. Patient still on by mouth fluconazole. Her most recent culture had persistent yeastlike organism and VRE. Meropenem will be discontinued as there was no gram negative on cultures. 2. Protein calorie malnutrition on TPN. Prealbumin is 13, 1.1. The patient still not able to be too many oral intake due to his anorexia and poor taste buds. PLAN: Continue fluconazole total of 4 weeks. Monitor fever or white count, CRP, sed rate and possibly follow-up imaging in a couple weeks. Last CT was done on 11/14 all intra-abdominal collection have decreased in size. There is focal fluid in the mid abdomen and right lower quadrant and mid pelvis on the left side all have decreased. MTDD
[2018-11-22] MEDS: PANTOPRAZOLE 40MG TAB (PROTONIX) PO SCH (08:46)
[2018-11-22] MEDS: LABETALOL 100 MG TAB PO SCH ×2 (08:47→22:04)
[2018-11-22] MEDS: LACTOBACILLUS ACIDOPHILUS CAP (BACID) PO SCH ×3 (08:47→17:54)
[2018-11-22] MEDS: FLUCONAZOLE 100 MG TAB PO SCH (08:47)
[2018-11-22] MEDS: amLODIPine 5 MG TAB PO SCH (08:48)
[2018-11-22] MEDS: ASPIRIN 81 MG CHEW TABLET NG SCH (08:48)
[2018-11-22] MEDS: HumaLOG INSULIN (NovoLOG) PER UNIT SC SCH ×4 (08:49→21:00)
[2018-11-22] MEDS: LEVEMIR (INSULIN DETEMIR) 1 UNITS/0.01ML SC SCH ×2 (08:49→22:05)
[2018-11-22] MEDS: PERCOCET 5MG/325MG TAB PO PRN ×3 (09:01→22:06)
[2018-11-22 09:53] LABS: PROTHROMBIN TIME 23.1 SECONDS (12.1-14.4)
[2018-11-22 10:00] VITALS: BP 117/81
[2018-11-22 14:00] VITALS: BP 116/79
[2018-11-22] MEDS: WARFARIN SOD 3 MG TAB PO SCH (17:54)
[2018-11-22 18:00] VITALS: BP 134/93
--- NOTE | 2018-11-22 19:02 | IPN ---
DATE: 11/22/2018 The patient is seen and examined. Tolerating oral, but still having reduced taste. Denies any chest pain, pressure or discomfort. Denies any fevers or chills. Abdominal pain is resolved. Making bowel movements. VITAL SIGNS: Temperature 99.1, pulse 102, respirations 20, blood pressure 116/79, pulse oximetry 98% on room air. LABORATORY DATA: WBC 12.9, hemoglobin and hematocrit 8.9/27.6, platelets 378. Chemistry: Sodium 138, potassium 3.8, chloride 102, bicarbonate 24, BUN 14, creatinine 0.63, C-reactive protein 3.74. PHYSICAL EXAMINATION: GENERAL: The patient is alert, comfortable and in no acute distress. HEENT: Moist mucous membranes. Neck is supple. CARDIAC: Regular. S1, S2. PULMONARY: Diminished breath sounds bilaterally. No wheezes, rales or rhonchi. ABDOMEN: Soft. Dressings intact and dry. Nontender. Positive bowel sounds. EXTREMITIES: No edema in bilateral lower extremities. ASSESSMENT AND PLAN: This is a 48-year-old female patient with underlying medical history of diabetes mellitus, hypertension, migraines, bipolar, recently hospitalized at [facility] on 08/31/2018 to 09/27/2018 with epigastric pain and was found to have acute mesenteric ischemia, discharged on Coumadin and presented with abdominal pain and found to have bowel perforation, status post exploratory laparoscopy with small bowel resection. Hospital course was complicated with intraabdominal fluid collection. 1. Bowel perforation, status post exploratory laparoscopy with excision of 3/4 of the small bowel. The patient was recently admitted at [facility] in the month of August and found to have acute mesentery ischemia. Expansion large vessel clots, for which conservative measures were recommended given the patient is high risk for embolization and complications. The patient was placed on anticoagulation during the current hospital course. Status post small bowel resection with complication of intraabdominal fluid collection. The patient was on meropenem, linezolid, and Diflucan, as per infectious disease. Currently off of linezolid and meropenem. On Diflucan as per infectious disease, recommend Diflucan for 4 to 6 weeks. Further management as per general surgery. Pain regimen as per general surgery. Patient is currently off of total parenteral nutrition. Monitor for fevers. CT scan shows improvement of fluid collection. Diet as per surgery. 2. 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 The patient was evaluated at [facility] and there was also evidence of splenic and renal infarct. The patient is currently on Coumadin. Followup INR and adjust Coumadin as needed. Recommend followup with hematology/oncology for further workup. The patient's CA 125 is mildly elevated. Antiphospholipid and cardiolipin antibody is negative. The patient's CA 19-9 is negative. 3. Acute on chronic anemia. The patient was transfused. Followup hemoglobin and hematocrit. 4. Metabolic acidosis, resolved. The patient was on bicarbonate drip before. 5. Oliguria, resolved. Nephrology was involved initially. 6. Lactic acidosis secondary to above, resolved. 7. Sinus tachycardia, likely secondary to above. Echo appreciated. 8. Diabetes mellitus. Basal bolus insulin. 9. Hypertension. Continue blood pressure medications. 10. History of migraines. Currently stable. 11. History of bipolar. Outpatient followup. 12. History of fibromyalgia. Outpatient followup. 13. Posttraumatic stress disorder (PTSD). Outpatient followup. 14. Protein calorie malnutrition. THe patient is off of total parenteral nutrition. Diet as per surgery. 15. Delirium and hallucinations. Psychiatry was consulted. Currently resolved. Medication was adjusted. Avoid benzodiazepine and Benadryl. 16. 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 Neurology consulted. Continue Coumadin, aspirin and statin. No focal deficits. 17. Small bowel perforation due to drainage of intraabdominal fluid. Drain has been removed. CT scan appreciated. Further management as per surgery. 18. Deep vein thrombosis (DVT) prophylaxis. The patient is on Coumadin. DISPOSITION: Likely discharge on , as per surgery.
[2018-11-22 22:00] VITALS: BP 127/83
[2018-11-22] MEDS: PRAVASTATIN 20 MG TAB PO SCH (22:04)
[2018-11-22] MEDS: diphenhydrAMINE 50 MG CAP PO PRN (22:04)
[2018-11-23 02:00] VITALS: BP 117/75
[2018-11-23] MEDS: SODIUM CHLORIDE 0.9% INJ 10 ML SYR IV SCH ×2 (05:15→17:50)
[2018-11-23 06:00] VITALS: BP 118/73
[2018-11-23 06:05] LABS: HEMATOCRIT 28.5 % (36.0-47.0); HEMOGLOBIN 9.1 g/dl (12.0-15.5); MEAN CORPUSCULAR HEMOGLOBIN 25.4 pg (27.0-33.0); MEAN CORPUSCULAR HGB CONC 31.9 g/dl (32.0-36.5); MEAN CORPUSCULAR VOLUME 79.6 fl (80.0-96.0); PLATELET COUNT, AUTOMATED 365 10^3/uL (150-450); RED BLOOD COUNT 3.58 10^6/uL (4.00-5.40); WHITE BLOOD COUNT 13.8 10^3/uL (4.0-10.0)
[2018-11-23 06:15] LABS: INR 2.33
--- NOTE | 2018-11-23 06:19 | IPN ---
DATE: 11/22/2018 Carol seems to be doing well. She is anxious to go home. Total parenteral nutrition (TPN) was discontinued today. She has no nausea or vomiting. She ate more today. No abdominal pain. She still has a small open wound that was cauterized yesterday, open and is still draining. LABORATORY DATA: White count is 12.9, hemoglobin 8.9, hematocrit 27.6, and platelets 378. Sodium 138, potassium 3.8, chloride 105, bicarb 24, BUN 14, creatinine 0.63, glucose 104, calcium 9, CRP 3.74, prealbumin 31.1. PHYSICAL EXAMINATION: Temperature is 98.2, pulse 95, respirations 20, blood pressure 134/93, O2 sat 98% on room air. Heart: Normal S1 and S2. No murmurs, rubs or gallops. Lungs are clear. No wheezes, rales or rhonchi. Abdomen is soft and nontender. Small area that is open at the mid abdominal incision with purulent discharge. With a Q-tip, I could probe down to 1 cm. No tenderness. The area of J-P drain has completely healed. Extremities: No edema. IMPRESSION: 1. Bowel perforation status post small-bowel resection with intra-abdominal abscesses. The patient has finished a course of IV meropenem, 6 days of linezolid, 4 weeks of fluconazole. The patient will finish fluconazole on for a total of 4 weeks. There is still one small area of dehiscence in the abdominal wound which I doubt cauterization would make any difference at this point. Should continue dressing changes. 2. Large vessel thrombus and thoracic aorta. The patient will follow up with Hematology/Oncology for further workup. PLAN: Discontinue fluconazole on , will finish a 4-week course. Continue to monitor CBC, CRP in the next couple of weeks. If there is an increase in her white count, CRP or fever, she will need a repeat CT of abdomen. I have discussed the case with Dr. Haley from [place] but he is not taking any new patient as she has moved to [place] and does not have a primary care provider. She will need primary care physician GAUDENCIO
[2018-11-23 06:34] LABS: ALBUMIN 2.8 GM/DL (3.2-5.2); ALT/SGPT 191 U/L (12-78); BILIRUBIN,TOTAL 0.5 MG/DL (0.2-1.0); BLOOD UREA NITROGEN 14 MG/DL (7-18); CALCIUM LEVEL 8.9 MG/DL (8.5-10.1); CARBON DIOXIDE LEVEL 25 MEQ/L (21-32); CHLORIDE LEVEL 104 MEQ/L (98-107); CREATININE FOR GFR 0.64 MG/DL (0.55-1.30); GLOMERULAR FILTRATION RATE > 60.0 (>58); GLUCOSE, FASTING 109 MG/DL (70-100); MAGNESIUM LEVEL 1.7 MG/DL (1.8-2.4); POTASSIUM SERUM 3.7 MEQ/L (3.5-5.1); SODIUM LEVEL 137 MEQ/L (136-145); TOTAL PROTEIN 7.7 GM/DL (6.4-8.2)
[2018-11-23] MEDS ORDERED: MAG SULF 1GM/100ML (MAG RUN) 1 GM in APPROPRIATE DILUENT 1 EA IV ONE (08:45)
[2018-11-23 10:00] VITALS: BP 127/62
[2018-11-23] MEDS: SODIUM CHLORIDE 0.9% INJ 10 ML SYR IV PRN (11:03)
[2018-11-23] MEDS: LEVEMIR (INSULIN DETEMIR) 1 UNITS/0.01ML SC SCH ×2 (11:04→20:26)
[2018-11-23] MEDS: amLODIPine 5 MG TAB PO SCH (11:05)
[2018-11-23] MEDS: ASPIRIN 81 MG CHEW TABLET NG SCH (11:05)
[2018-11-23] MEDS: HumaLOG INSULIN (NovoLOG) PER UNIT SC SCH ×4 (11:05→21:00)
[2018-11-23] MEDS: PANTOPRAZOLE 40MG TAB (PROTONIX) PO SCH (11:06)
[2018-11-23] MEDS: LABETALOL 100 MG TAB PO SCH ×2 (11:06→20:23)
[2018-11-23] MEDS: FLUCONAZOLE 100 MG TAB PO SCH (11:06)
[2018-11-23] MEDS: LACTOBACILLUS ACIDOPHILUS CAP (BACID) PO SCH ×3 (11:06→17:50)
[2018-11-23 14:00] VITALS: BP 124/85
[2018-11-23] MEDS: PERCOCET 5MG/325MG TAB PO PRN ×2 (14:58→20:25)
--- NOTE | 2018-11-23 17:25 | IPNPDOC ---
Text Note Date of Service The patient was seen on 11/23/18. NOTE The patient is seen and examined. Tolerating oral. Denies any chest pain, pressure or discomfort. Denies any fevers or chills. Abdominal pain is resolved. Making bowel movements. PHYSICAL EXAMINATION: GENERAL: The patient is alert, comfortable and in no acute distress. HEENT: Moist mucous membranes. Neck is supple. CARDIAC: Regular. S1, S2. PULMONARY: Diminished breath sounds bilaterally. No wheezes, rales or rhonchi. ABDOMEN: Soft. Dressings intact and dry. Nontender. Positive bowel sounds. EXTREMITIES: No edema in bilateral lower extremities. ASSESSMENT AND PLAN: This is a 48-year-old female patient with underlying medical history of diabetes mellitus, hypertension, migraines, bipolar, recently hospitalized at [facility] on 08/31/2018 to 09/27/2018 with epigastric pain and was found to have acute mesenteric ischemia, discharged on Coumadin and presented with abdominal pain and found to have bowel perforation, status post exploratory laparoscopy with small bowel resection. Hospital course was complicated with intraabdominal fluid collection. 1. Bowel perforation, status post exploratory laparoscopy with excision of 3/4 of the small bowel. The patient was recently admitted at [facility] in the month of August and found to have acute mesentery ischemia. Found large vessel clots, for which conservative measures were recommended given the patient is high risk for embolization and complications. The patient was placed on anticoagulation. Status post small bowel resection with complication of intraabdominal fluid collection. The patient was on meropenem, linezolid, and Diflucan, as per infectious disease. Currently off of linezolid and meropenem. On Diflucan as per infectious disease, recommend Diflucan for 4 weeks completion tomorrow. Further management as per general surgery. Pain regimen as per general surgery. Patient is currently off of total parenteral nutrition. Monitor for fevers. CT scan shows improvement of fluid collection. Diet as per surgery. 2. 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 The patient was evaluated at [facility] and there was also evidence of splenic and renal infarct. The patient is currently on Coumadin. Followup INR and adjust Coumadin as needed. Recommend followup with hematology/oncology for further workup. The patient's CA 125 is mildly elevated. Antiphospholipid and cardiolipin antibody is negative. The patient's CA 19-9 is negative. 3. Acute on chronic anemia. The patient was transfused. Followup hemoglobin and hematocrit. 4. Metabolic acidosis, resolved. The patient was on bicarbonate drip before. 5. Oliguria, resolved. Nephrology was involved initially. 6. Lactic acidosis secondary to above, resolved. 7. Sinus tachycardia, likely secondary to above. Echo appreciated. 8. Diabetes mellitus. Basal bolus insulin. 9. Hypertension. Continue blood pressure medications. 10. History of migraines. Currently stable. 11. History of bipolar. Outpatient followup. 12. History of fibromyalgia. Outpatient followup. 13. Posttraumatic stress disorder (PTSD). Outpatient followup. 14. Protein calorie malnutrition. THe patient is off of total parenteral nutrition. Diet as per surgery. 15. Delirium and hallucinations. Psychiatry was consulted. Currently resolved. Medication was adjusted. Avoid benzodiazepine and Benadryl. 16. 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 Neurology consulted. Continue Coumadin, aspirin and statin. No focal deficits. 17. Small bowel perforation due to drainage of intraabdominal fluid. Drain has been removed. CT scan appreciated. Further management as per surgery. 18. Deep vein thrombosis (DVT) prophylaxis. The patient is on Coumadin. DISPOSITION: Likely discharge on , as per surgery. VS,[place], I+O VS, [place], I+O Laboratory Tests 11/23/18 05:49 Red Blood Count 3.58 L, Mean Corpuscular Volume 79.6 L, Mean Corpuscular Hemoglobin 25.4 L, Mean Corpuscular Hemoglobin Concent 31.9 L, Red Cell Distribution Width 18.2 H, Calcium Level 8.9, Aspartate Amino Transf (AST/SGOT) 166 H, Alanine Aminotransferase (ALT/SGPT) 191 H, Alkaline Phosphatase 230 H, Total Bilirubin 0.5, Total Protein 7.7, Albumin 2.8 L Vital Signs Date Time Temp Pulse Resp B/P (MAP) Pulse Ox O2 Delivery O2 Flow Rate FiO2 11/23/18 14:58 18 11/23/18 14:00 97.7 100 124/85 (98) 99 I&O- Last 24 Hours up to 6 AM 11/23/18 06:00 Intake Total 690 ml Output Total 400 ml Balance 290 ml LO SHELL MD Nov 23, 2018 17:25
[2018-11-23] MEDS: WARFARIN SOD 3 MG TAB PO SCH (17:50)
[2018-11-23 18:00] VITALS: BP 125/77
[2018-11-23] MEDS: diphenhydrAMINE 50 MG CAP PO PRN (20:24)
[2018-11-23] MEDS: PRAVASTATIN 20 MG TAB PO SCH (20:24)
[2018-11-23 22:00] VITALS: BP 128/82
[2018-11-24 02:00] VITALS: BP 106/67
[2018-11-24] MEDS: SODIUM CHLORIDE 0.9% INJ 10 ML SYR IV SCH (05:21)
[2018-11-24 06:00] VITALS: BP 119/79
[2018-11-24] MEDS: HumaLOG INSULIN (NovoLOG) PER UNIT SC SCH ×2 (07:30→12:16)
[2018-11-24] MEDS: LACTOBACILLUS ACIDOPHILUS CAP (BACID) PO SCH ×2 (08:00→12:15)
[2018-11-24] MEDS ORDERED: LABE10TAB PO (09:00)
[2018-11-24] MEDS ORDERED: BACI1CAP PO (09:00)
[2018-11-24] MEDS ORDERED: COUM1TAB19 PO (09:00)
[2018-11-24] MEDS ORDERED: PRAV1TAB39 PO (09:00)
[2018-11-24] MEDS ORDERED: AMLO5TAB6 PO (09:00)
[2018-11-24] MEDS: ASPIRIN 81 MG CHEW TABLET NG SCH (09:10)
[2018-11-24] MEDS: FLUCONAZOLE 100 MG TAB PO SCH (09:10)
[2018-11-24 09:11] VITALS: BP 119/79
[2018-11-24] MEDS: LABETALOL 100 MG TAB PO SCH (09:11)
[2018-11-24] MEDS: PANTOPRAZOLE 40MG TAB (PROTONIX) PO SCH (09:11)
[2018-11-24] MEDS: PERCOCET 5MG/325MG TAB PO PRN ×2 (09:12→15:45)
[2018-11-24] MEDS: amLODIPine 5 MG TAB PO SCH (09:13)
[2018-11-24] MEDS: LEVEMIR (INSULIN DETEMIR) 1 UNITS/0.01ML SC SCH (09:14)
[2018-11-24 09:21] LABS: HEMATOCRIT 28.9 % (36.0-47.0); MEAN CORPUSCULAR HEMOGLOBIN 24.7 pg (27.0-33.0); MEAN CORPUSCULAR HGB CONC 31.1 g/dl (32.0-36.5); MEAN CORPUSCULAR VOLUME 79.2 fl (80.0-96.0); PLATELET COUNT, AUTOMATED 392 10^3/uL (150-450); RED BLOOD COUNT 3.65 10^6/uL (4.00-5.40); WHITE BLOOD COUNT 12.9 10^3/uL (4.0-10.0)
[2018-11-24 09:32] LABS: INR 2.92; PROTHROMBIN TIME 31.1 SECONDS (12.1-14.4)
[2018-11-24 09:53] LABS: BLOOD UREA NITROGEN 14 MG/DL (7-18); CALCIUM LEVEL 8.7 MG/DL (8.5-10.1); CARBON DIOXIDE LEVEL 25 MEQ/L (21-32); CHLORIDE LEVEL 103 MEQ/L (98-107); CREATININE FOR GFR 0.66 MG/DL (0.55-1.30); GLOMERULAR FILTRATION RATE > 60.0 (>58); GLUCOSE, FASTING 106 MG/DL (70-100); MAGNESIUM LEVEL 1.9 MG/DL (1.8-2.4); POTASSIUM SERUM 4.5 MEQ/L (3.5-5.1); SODIUM LEVEL 137 MEQ/L (136-145)
[2018-11-24 10:00] VITALS: BP 124/79
[2018-11-24 14:00] VITALS: BP 120/60
[2018-11-24] MEDS ORDERED: COUM2.5T17 PO (16:13)
--- NOTE | 2018-11-24 16:39 | IPNPDOC ---
Text Note Date of Service The patient was seen on 11/24/18. NOTE The patient is seen and examined. Tolerating oral. Denies any chest pain, pressure or discomfort. Denies any fevers or chills. Abdominal pain is resolved. Making bowel movements. PHYSICAL EXAMINATION: GENERAL: The patient is alert, comfortable and in no acute distress. HEENT: Moist mucous membranes. Neck is supple. CARDIAC: Regular. S1, S2. PULMONARY: Diminished breath sounds bilaterally. No wheezes, rales or rhonchi. ABDOMEN: Soft. Dressings intact and dry. Nontender. Positive bowel sounds. EXTREMITIES: No edema in bilateral lower extremities. ASSESSMENT AND PLAN: This is a 48-year-old female patient with underlying medical history of diabetes mellitus, hypertension, migraines, bipolar, recently hospitalized at [facility] on 08/31/2018 to 09/27/2018 with epigastric pain and was found to have acute mesenteric ischemia, discharged on Coumadin and presented with abdominal pain and found to have bowel perforation, status post exploratory laparoscopy with small bowel resection. Hospital course was complicated with intraabdominal fluid collection. 1. Bowel perforation, status post exploratory laparoscopy with excision of 3/4 of the small bowel. The patient was recently admitted at [facility] in the month of August and found to have acute mesentery ischemia. Found large vessel clots, for which conservative measures were recommended given the patient is high risk for embolization and complications. The patient was placed on anticoagulation. Status post small bowel resection with complication of intraabdominal fluid collection. The patient was on meropenem, linezolid, and Diflucan, as per infectious disease. Currently off of linezolid and meropenem. As per infectious disease, Diflucan for 4 weeks completed today. Further management as per general surgery. Pain regimen as per general surgery. Patient is currently off of total parenteral nutrition. Monitor for fevers. CT scan shows improvement of fluid collection. Diet as per surgery. 2. 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 The patient was evaluated at [facility] and there was also evidence of splenic and renal infarct. The patient is currently on Coumadin. Followup INR and adjust Coumadin as needed. Recommend followup with hematology/oncology for further workup. The patient's CA 125 is mildly elevated. Antiphospholipid and cardiolipin antibody is negative. The patient's CA 19-9 is negative. 3. Acute on chronic anemia. The patient was transfused. Followup hemoglobin and hematocrit. 4. Metabolic acidosis, resolved. The patient was on bicarbonate drip before. 5. Oliguria, resolved. Nephrology was involved initially. 6. Lactic acidosis secondary to above, resolved. 7. Sinus tachycardia, likely secondary to above. Echo appreciated. 8. Diabetes mellitus. Basal bolus insulin. 9. Hypertension. Continue blood pressure medications. 10. History of migraines. Currently stable. 11. History of bipolar. Outpatient followup. 12. History of fibromyalgia. Outpatient followup. 13. Posttraumatic stress disorder (PTSD). Outpatient followup. 14. Protein calorie malnutrition. THe patient is off of total parenteral nutrition. Diet as per surgery. 15. Delirium and hallucinations. Psychiatry was consulted. Currently resolved. Medication was adjusted. Avoid benzodiazepine and Benadryl. 16. 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 Neurology consulted. Continue Coumadin, aspirin and statin. No focal deficits. 17. Small bowel perforation due to drainage of intraabdominal fluid. Drain has been removed. CT scan appreciated. Further management as per surgery. 18. Deep vein thrombosis (DVT) prophylaxis. The patient is on Coumadin. DISPOSITION: dc today, f/u INR with PMD in 5 days, f/u CBC and CRP every other week. f/u surgery in 2 weeks. further rec as per surgery VSToño, I+O VSToño, I+O Laboratory Tests 11/24/18 09:07 Red Blood Count 3.65 L, Mean Corpuscular Volume 79.2 L, Mean Corpuscular Hemoglo bin 24.7 L, Mean Corpuscular Hemoglobin Concent 31.1 L, Red Cell Distribution Width 18.2 H, Calcium Level 8.7 Vital Signs Date Time Temp Pulse Resp B/P (MAP) Pulse Ox O2 Delivery O2 Flow Rate FiO2 11/24/18 15:45 20 11/24/18 14:00 96.9 98 120/60 (80) 98 I&O- Last 24 Hours up to 6 AM 11/24/18 06:00 Intake Total 740 ml Output Total 850 ml Balance -110 ml LO SHELL MD Nov 24, 2018 16:39
--- NOTE | 2018-11-25 08:17 | IPN ---
DATE OF SERVICE: 11/23/2018 The patient seems to be making some good progress and she seems much more active, much more energetic. She has been moving around a lot more. She feels better and from her standpoint, she states that she feels better than she did after discharge from the [facility] last month. I anticipate she still had some ongoing inflammation and then some that was trying to resolve over time. In any case, at this point, she seems to be doing adequately well and has compensated relatively well from a GI standpoint that we do not need to have her on any significant antidiarrheals fortunately. She has continued to be afebrile and her white count still has moderately elevated and its stays in the 12-13 range. This seems to be stable for her. She is still slightly anemic and hopefully over time, she will resolve some of that. From a anticoagulation standpoint, she is doing quite well on her current regime and from a chemistry standpoint, she did have some elevation of her liver function tests which are probably related to her TPN and I do feel that that will need followup as an outpatient by her primary care. It sounds as though she has quite a few issues that need attention. Dr. Matias has been in touch with a physician up in [place] for continuing care concerning infectious disease issues as a relatively complex issue on its own. Otherwise I do feel that given her overall status she should be ready for discharge tomorrow and when she is discharged, she will be able to go home on a regular diet and follow up with myself in 2 weeks. Follow up with primary care next week.
--- NOTE | 2018-11-25 08:18 | IPN ---
DATE: 11/22/2018 The patient overall is stable, actually states that she does have a little bit more of an appetite that she had since stopping her TPN. She states that the drainage has been minimal from her incision and she has been afebrile. PHYSICAL EXAMINATION: On her physical exam. abdomen is soft, nondistended, nontender. Overall, the distention that she had couple weeks ago has resolved, and I anticipate that from a GI standpoint the inflammatory changes associated with her anastomosis and the ischemia has resolved. IMPRESSION AND PLAN: The patient is doing well from a GI standpoint. We will continue with a regular diet at this point. We will see how she does and probably discharge her later on this week. From the standpoint of antibiotics, etc., she seems to be doing well off antibiotics and as long as she does not develop a fever and has just this minimal drainage from her incision, I do feel that it is reasonable to continue with local wound care.
--- NOTE | 2018-11-25 08:26 | IPN ---
DATE OF SERVICE: 11/21/2018 Subjectively, the patient had a good weekend. Overall has been doing well without any significant complaints. Has had some minimal p.o. intake and overall has been doing adequately well with the p.o. intake, but has not had a great appetite thus far. She still has had some drainage from her incision and that is being taken care of with dressing changes. She has had no fevers or chills. Her white count has been mildly elevated and she has been stopped on her antibiotics. She is almost finished with her TPN at this point and we discussed taking her off this. On her abdominal exam it is soft, nontender, nondistended. She has been having bowel movements and her midline incision still has some drainage around the umbilicus. There is no cellulitis appreciated with it, no enterocutaneous fistula. IMPRESSION AND PLAN: Status post small bowel resection. Seems to be doing well from a GI standpoint. Will continue with a regular diet. I will stop her TPN and we will see how she does without TPN. If she does well with this we can probably get her home later on this week. Otherwise, from a drainage standpoint, she has an open area that has been fully healing by secondary intention. Will continue with local dressing changes.
[2018-11-25] MEDS ORDERED: LIPI20TA PO (10:20)
--- NOTE | 2018-12-05 05:27 | DSES ---
DATE OF ADMISSION: 10/18/2018 DATE OF DISCHARGE: 11/24/2018 PRINCIPAL DIAGNOSIS: 1. Small bowel perforation with history of mesenteric emboli and multiple small-bowel stenosis. 2. Ischemic small bowel sepsis. 3. Respiratory failure. 4. Intra-abdominal abscesses. PAST MEDICAL HISTORY: Recent emboli to her small intestine causing acute mesenteric ischemia, splenic infarcts, renal infarcts with a large thrombus in the descending thoracic aorta, previous appendectomy. BRIEF HISTORY OF PRESENT ILLNESS: The patient is a 48-year-old female who presents with acute onset of abdominal pain, free air and evidence of generalized peritonitis to the emergency room hypotensive and with evidence of peritonitis. She was taken emergently to the operating room where she underwent a small bowel resection for this perforation. Unfortunately, there were several other areas of the small bowel which were stenotic from her previous emboli and they were quite mottled and appeared not very viable. Thus, these areas were resected as well and an anastomosis was created. Drains were left in the abdomen given the significant amount of peritoneal contamination with this contaminated wound and she was brought back to the intensive care unit for close observation/resuscitation. She was on pressors for several days and eventually weaned off these. She was gradually brought out of the intensive care unit to the progressive care unit (PCU) for close observation, telemetry monitoring etc. and gradually made some slow but progressive improvement of her overall situation. Unfortunately she had multiple episodes of elevated white counts and on x-ray evaluation was found to have several fluid collections intra-abdominally and it was hard to know if these were infected fluid collections or not, thus an attempt at a drainage was performed in the right lower quadrant but this was posterior to a bowel loop which was compressed and not seen until the catheter went into the small bowel and then developed essentially what was a jejunostomy tube. Given this was in place I kept the patient nothing by mouth and treated her conservatively and because of the inflammatory process within her abdomen she did not have any leakage around this tube and actually did quite well with the tube itself. Gradually her white count continued to slowly decrease but she still maintained white count approximately 12-1/2 to 13 as her normal is what she states. Eventually she had made some good progress from a dietary standpoint and was tolerating a regular diet. She continued with originally some significant amount of nutrition with intravenous (IV) nutrition because of poor oral intake prior to admission. She started a regular diet was discharged home on a regular diet. She continued on aspirin and some minimal Colace for her as well as insulin, Percocet as needed for pain relief, Senokot and simethicone. Also amlodipine, atorvastatin, Bacid, labetalol and Coumadin were added to her regime. From her standpoint she was follow up with her primary care up in [facility] and followup with myself in two weeks for reevaluation. From the standpoint of her gastrointestinal (GI) that had resolved well and eating a regular diet. Her second issue was her insulin and all of her medication seemed to be well controlled and stable at the time of discharge. Her other issues include a chronically draining wound along the midline which was treated with some minimal dry dressings and it seemed to be evacuating adequately without any area that needed specific drainage catheters or incision and drainage.
== END 2018-11-24 16:30 | disposition home or self-care (01) | DRG 710 ==
LOC: M ED 21:44 → EDBD 21:44 → M SDC 10-18 02:00 → M ED 10-18 03:34 → M ED INP 10-18 05:36 → M ICU 10-18 07:57 → M PCU 10-23 18:20 → M MSPAV 10-29 13:33
PROVIDERS: ADMIT Surgery; ATTEND Surgery
PROC: 0DB80ZZ Excision of Small Intestine, Open Approach (ICD-10-PCS; principal; 2018-10-18 03:00)
PROC: 30233N1 Transfusion of Nonautologous Red Blood Cells into Peripheral Vein, Percutaneous Approach (ICD-10-PCS; 2018-10-19)
PROC: 02HV33Z Insertion of Infusion Device into Superior Vena Cava, Percutaneous Approach (ICD-10-PCS; 2018-10-20)
DX: A41.9 Sepsis, unspecified organism (principal); K55.029 Acute infarction of small intestine, extent unspecified; I63.9 Cerebral infarction, unspecified; K63.1 Perforation of intestine (nontraumatic); K65.1 Peritoneal abscess; E11.9 Type 2 diabetes mellitus without complications; D64.9 Anemia, unspecified; E87.2 Acidosis; N17.9 Acute kidney failure, unspecified; E46 Unspecified protein-calorie malnutrition; E83.42 Hypomagnesemia; E87.70 Fluid overload, unspecified; R44.1 Visual hallucinations; R41.0 Disorientation, unspecified; I10 Essential (primary) hypertension; G43.909 Migraine, unspecified, not intractable, without status migrainosus; F31.9 Bipolar disorder, unspecified; F17.210 Nicotine dependence, cigarettes, uncomplicated; M79.7 Fibromyalgia; Z79.82 Long term (current) use of aspirin; Z79.4 Long term (current) use of insulin; R00.0 Tachycardia, unspecified; E87.6 Hypokalemia; M19.90 Unspecified osteoarthritis, unspecified site; I97.821 Postprocedural cerebrovascular infarction following other surgery